=== PATIENT | male | born 1935 | race Caucasian/White ===

== ENCOUNTER 2017-01-23 21:58 | Emergency (ER) | payer MEDICARE ==
--- NOTE | 2017-01-23 22:06 | ER Document Report ---
ED Medical Screen (RME) - General Stated Complaint: POSSIBLE STROKE Notes: 82 yo male with hx/o DM, COPD brought to ED by family for confusion, slurred speech, off balance. last seen normal around 6 pm tonight. + n/v earlier today. PCM - Dr Cochran no fall, no blood thinners TRAVEL OUTSIDE OF THE [place] IN LAST 30 DAYS: No - Related Data Allergies/Adverse Reactions: No Known Allergies Allergy (Unverified 06/03/11 01:09) Past Medical History - Past Medical History Cardiac Medical History: Reports: Hx Hypercholesterolemia, Hx Hypertension Pulmonary Medical History: Reports: Hx COPD Endocrine Medical History: Reports: Hx Diabetes Mellitus Type 2 Malignancy Medical History: Reports Hx Pancreatic Cancer GI Medical History: Reports: Hx Gastroesophageal Reflux Disease, Hx Ulcer Traumatic Medical History: Reports: Hx Pneumothorax - three times Past Surgical History: Reports: Hx Inguinal Hernia - Immunizations Hx Diphtheria, Pertussis, Tetanus Vaccination: Yes
[2017-01-23 22:36] LABS: ABSOLUTE BASOPHILS # (AUTO) 0.1 10^3/uL (0.0-0.2); ABSOLUTE LYMPHOCYTES (AUTO) 1.5 10^3/uL (0.5-4.7); ABSOLUTE MONOCYTES (AUTO) 1.4 10^3/uL (0.1-1.4); ABSOLUTE NEUT (AUTO) 8.2 10^3/uL (1.7-8.2); BASOPHILS % (AUTO) 0.5 % (0-2); EOSINOPHILS % (AUTO) 0.3 % (0-6); HEMATOCRIT 47.3 % (37.9-51.0); HEMOGLOBIN 15.7 g/dL (13.5-17.0); HGB HCT DIFFERENCE -0.2; LYMPHOCYTES % (AUTO) 13.6 % (13-45); MEAN CORPUSCULAR HEMOGLOBIN 28.1 pg (27.0-33.4); MEAN CORPUSCULAR HGB CONC 33.2 g/dL (32.0-36.0); MEAN CORPUSCULAR VOLUME 85 fl (80-97); MONOCYTES % (AUTO) 12.5 % (3-13); RED CELL DISTRIBUTION WIDTH 15.6 % (11.5-14.0); SEGMENTED NEUTROPHILS % (AUTO) 73.1 % (42-78); WHITE BLOOD COUNT 11.2 10^3/uL (4.0-10.5)
[2017-01-23 22:39] LABS: PARTIAL THROMBOPLASTIN TIME 27.4 SEC (23.5-35.8)
[2017-01-23 22:48] LABS: ALANINE AMINOTRANSFERASE 35 U/L (21-72); ALBUMIN 4.9 g/dL (3.5-5.0); ALKALINE PHOSPHATASE 79 U/L (38-126); ANION GAP 16 (5-19); ASPARTATE AMINO TRANSFERASE 28 U/L (17-59); BILIRUBIN,DIRECT 0.3 mg/dL (0.0-0.4); BILIRUBIN,TOTAL 1.3 mg/dL (0.2-1.3); BLOOD UREA NITROGEN 21 mg/dL (7-20); CARBON DIOXIDE 31 mmol/L (22-30); CHLORIDE 95 mmol/L (98-107); CREATINE KINASE 41 U/L (55-170); CREATININE RESULT 1.13 mg/dL (0.52-1.25); GLUCOSE 310 mg/dL (75-110); POTASSIUM 4.8 mmol/L (3.6-5.0); SODIUM 141.7 mmol/L (137-145); TOTAL PROTEIN 8.1 g/dL (6.3-8.2)
[2017-01-23 23:00] LABS: TROPONIN I < 0.012 ng/mL
[2017-01-23 23:04] LABS: CALCIUM 13.1 mg/dL (8.4-10.2)
[2017-01-23] MEDS ORDERED: NORMAL SALINE 1000 ML 1,000 ML IV PRN (23:14)
--- NOTE | 2017-01-23 23:14 | ER Document Report ---
ED General - General Chief Complaint: S/S of Possible Stroke Stated Complaint: POSSIBLE STROKE Notes: Patient is an 82-year-old male who presents emergency Department with reported altered mental status. Per patient and his girlfriend who is present in the room patient woke up this morning and reports one episode of emesis that was dark brown but no evidence of coffee-ground emesis. Has had normal bowel movements a day but otherwise has not been feeling his normal self. His girlfriend states as well as his son that he had difficulty getting in and out of his chair today and otherwise has been feeling groggy. His girlfriend feels that he has been in a fog since about 8 PM this evening. Was able to get into the car and ambulated into the department. Otherwise denies any fever, chills, URI, flu symptoms. Patient has been tolerating normal diet without any difficulty. Denies abdominal pain, nausea, diarrhea or constipation. Denies any urinary symptoms. Primary care is Dr. Villalobos Past medical history significant for COPD not on supplemental O2, diabetes, diverticulitis, history of prostate cancer has been cancer free for 5 years, history of pneumothorax requiring VATS Past surgical history significant for right VATS, bilateral hernia repair Social history significant for former smoker. Denies any drug use. Rare alcohol use. Mode denies any allergies TRAVEL OUTSIDE OF THE [place] IN LAST 30 DAYS: No - Related Data Allergies/Adverse Reactions: No Known Allergies Allergy (Unverified 06/03/11 01:09) Home Medications: Current Home Medications Ca/D3/Mag Ox/Zinc/Help Desk Internship/Quoc/Bor [Calcium 600+D3 Plus Caplet] 1 tab-cap PO DAILY 01/23/17 [History] Cholecalciferol (Vitamin D3) [Vitamin D3 400 Unit Tablet] 400 unit PO DAILY [History] Fluticasone/Vilanterol [Breo Ellipta 200-25 Mcg INH] 1 each IH DAILY 01/23/17 [ History] Linagliptin [Tradjenta] 5 mg PO DAILY 01/23/17 [History] Melatonin/Pyridoxine HCl (B6) [Melatonin 10 mg Tablet] 1 each PO QHS 01/23/17 [ History] Metformin HCl [Glucophage] 1,000 mg PO BID 01/23/17 [History] Multivitamin [Multivitamins] 1 each PO DAILY 01/23/17 [History] Sertraline HCl [Zoloft 50 mg Tablet] 50 mg PO DAILY 01/23/17 [History] Tiotropium [place] [Spiriva Respimat] 4 gm IH BIDP PRN 01/23/17 [History] Vit C/E/Zn/Coppr/Lutein/Zeaxan [Preservision Areds 2 Softgel] 1 each PO DAILY [History] Past Medical History - Social History Smoking Status: Former Smoker Chew tobacco use (# tins/day): No Frequency of alcohol use: None Drug Abuse: None Family History: Reviewed & Not Pertinent Patient has suicidal ideation: No Patient has homicidal ideation: No - Past Medical History Cardiac Medical History: Reports: Hx Hypercholesterolemia, Hx Hypertension Pulmonary Medical History: Reports: Hx COPD Endocrine Medical History: Reports: Hx Diabetes Mellitus Type 2 Renal/ Medical History: Denies: Hx Peritoneal Dialysis Malignancy Medical History: Reports Hx Pancreatic Cancer GI Medical History: Reports: Hx Gastroesophageal Reflux Disease, Hx Ulcer Traumatic Medical History: Reports: Hx Pneumothorax - three times Past Surgical History: Reports: Hx Inguinal Hernia - Immunizations Hx Diphtheria, Pertussis, Tetanus Vaccination: Yes Review of Systems - Review of Systems Constitutional: No symptoms reported EENT: No symptoms reported Cardiovascular: No symptoms reported Respiratory: No symptoms reported Gastrointestinal: See HPI Genitourinary: No symptoms reported Male Genitourinary: No symptoms reported Musculoskeletal: No symptoms reported Skin: No symptoms reported Hematologic/Lymphatic: No symptoms reported Neurological/Psychological: See HPI Physical Exam - Vital signs Vitals: Temp Pulse BP Pulse Ox 97.7 F 139 H 119/75 92 01/23/17 22:04 01/23/17 22:04 01/23/17 22:04 01/23/17 22:04 - General General appearance: Appears well, Alert In distress: None - HEENT Head: Normocephalic, Atraumatic Eyes: Normal Conjunctiva: Normal Extraocular movements intact: Yes Eyelashes: Normal Pupils: PERRL Ears: Normal External canal: Normal Tympanic membrane: Normal Sinus: Normal Nasal: Normal Mouth/Lips: Normal, Other - tongue midline, no deviation Mucous membranes: Normal Pharynx: Normal Neck: Normal - Respiratory Respiratory status: No respiratory distress Chest status: Nontender Breath sounds: Normal Chest palpation: Normal - Cardiovascular Rhythm: Tachycardia Heart sounds: Normal auscultation Murmur: No Gallop: None auscultated Pulses: Normal: Radial, Dorsalis pedis Normal capillary refill: Yes - Abdominal Inspection: Obese Distension: Distended. No: Tympanitic Bowel sounds: Normal Tenderness: Nontender Organomegaly: No organomegaly - Back Back: Normal, Nontender - Extremities General upper extremity: Normal inspection, Nontender, Normal color, Normal ROM , Normal strength, Normal temperature General lower extremity: Normal inspection, Nontender, Normal color, Normal ROM , Normal strength, Normal temperature - Neurological Neuro grossly intact: Yes Cognition: Normal Orientation: AAOx4 Rosemary Coma Scale Eye Opening: Spontaneous Rosemary Coma Scale Verbal: Oriented Rosemary Coma Scale Motor: Obeys Commands [place] Coma Scale Total: 15 Speech: Normal. No: Dysarthria Cranial nerves: Normal. 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 No: Pronator drift, Weakness Sensory: Normal - Skin Skin Temperature: Warm Skin Moisture: Dry Skin Color: Normal Skin Turgor: Elastic Course - Re-evaluation Re-evalutation: 01/24/17 02:09 Patient is an 82-year-old male who is brought here by EMS with concern to the family for altered mental status. Currently patient is alert and oriented 4, no acute distress, here in stable and afebrile. Stroke protocol was initiated by nursing staff. CT the head does not reveal any evidence of acute stroke or any acute abnormality. Lab values are all within normal limits. No evidence of leukocytosis or anemia CBC. No evidence of electrolyte abnormalities, pancreatic/renal/hepatic dysfunction. UA does not reveal any evidence of a urinary tract infection. Chest x-ray does not reveal any evidence or concern for pneumonia or other acute cardiac pulmonary process. Due to patient's history of diverticulitis, emesis as well as elevated heart rate, I consulted supervising physician Dr. Demetri Evans who recommended a CT the abdomen and pelvis. This study did not reveal any acute pathology. At time of reassessment patient's heart rate has come down to mid 90s. Patient is denying any pain. Stable for discharge and follow-up with primary care Per [facility] protocol and guidelines, this case was discussed with supervising physician Dr. Demetri Evans prior to discharge - Vital Signs Vital signs: Temp Pulse Resp BP Pulse Ox 97.7 F 94 21 H 154/93 H 94 01/23/17 22:04 01/24/17 00:00 01/24/17 00:01 01/24/17 00:00 01/24/17 00:01 - Laboratory Result Diagrams: 01/23/17 22:20 01/23/17 22:20 Laboratory results interpreted by me: 01/23/17 01/23/17 01/23/17 22:20 22:20 22:35 WBC 11.2 H RBC 5.60 H RDW 15.6 H Chloride 95 L Carbon Dioxide 31 H BUN 21 H Glucose 310 H POC Glucose 301 H Calcium 13.1 H* Creatine Kinase 41 L Urine Glucose (UA) 01/23/17 23:30 WBC RBC RDW Chloride Carbon Dioxide BUN Glucose POC Glucose Calcium Creatine Kinase Urine Glucose (UA) >=500 H - Diagnostic Test Radiology reviewed: Image reviewed, Reports reviewed Discharge - Discharge Clinical Impression: Altered mental status Condition: Good Disposition: HOME, SELF-CARE Instructions: Altered Mental Status ([facility]) Forms: Elevated Blood Pressure Referrals: GWENDOLYN VILLALOBOS MD [Primary Care Provider] - Follow up in 1 week
[2017-01-24 00:37] LABS: APPEARANCE,URINE CLEAR; BILIRUBIN,URINE NEGATIVE (NEGATIVE); GLUCOSE, URINE >=500 mg/dL (NEGATIVE); KETONES,URINE NEGATIVE (NEGATIVE); LEUKOCYTE ESTERASE,URINE NEGATIVE (NEGATIVE); NITRITE,URINE NEGATIVE (NEGATIVE); PROTEIN,URINE NEGATIVE (NEGATIVE); URINE SPECIFIC GRAVITY 1.015; UROBILINOGEN,URINE NEGATIVE mg/dL (<2.0)
[2017-01-24 02:25] VITALS: BP 137/75
--- NOTE | 2017-01-24 08:18 | EKG REPORT ---
SEVERITY:- ABNORMAL ECG - SINUS TACHYCARDIA NONSPECIFIC REPOL ABNORMALITY, DIFFUSE LEADS : Confirmed by: Hunter Ruff 24-Jan-2017 08:17:20
== END 2017-01-24 02:26 | disposition home or self-care (01) ==
LOC: ER 21:58
DX: R41.82 Altered mental status, unspecified (principal); Z79.899 Other long term (current) drug therapy; Z87.891 Personal history of nicotine dependence
CPT/HCPCS: 93005; 99285; 96360; 36415; 82553; 82962; 82550; 85025; 85610; 85730; 80053; 81001; 84484; 71010; 70450; 74177; 93010; J7030

== ENCOUNTER 2017-01-24 12:51 | Inpatient (IN) | payer MEDICARE ==
--- NOTE | 2017-01-24 13:16 | ER Document Report ---
ED Medical Screen (RME) - General Stated Complaint: ALTERED MENTAL STATUS Time seen by provider: 13:13 Mode of Arrival: Wheelchair Information source: POA - Power of [employer] Administrator - His significant other who has his power of trial attorney. Notes: 82-year-old male presents to ED with disorientation weakness trouble walking started yesterday. His significant other states that they came to the emergency room last night and was evaluated and discharged. She states that the doctor called her today and told him that he wanted the patient brought back to the emergency room and for the patient to be admitted. House supervise states there were no orders sent over for admission for the patient. His significant other states that he had a heated CT abdomen CT and labs done yesterday as well as a chest x-ray. I have greeted and performed a rapid initial assessment of this patient. A comprehensive ED assessment and evaluation of the patient, analysis of test results and completion of medical decision making process will be conducted by an additional ED providers. TRAVEL OUTSIDE OF THE [place] IN LAST 30 DAYS: No - Related Data Allergies/Adverse Reactions: No Known Allergies Allergy (Verified 01/24/17 13:12) Past Medical History - Past Medical History Cardiac Medical History: Reports: Hx Hypercholesterolemia, Hx Hypertension Pulmonary Medical History: Reports: Hx COPD Endocrine Medical History: Reports: Hx Diabetes Mellitus Type 2 Renal/ Medical History: Denies: Hx Peritoneal Dialysis Malignancy Medical History: Reports Hx Pancreatic Cancer GI Medical History: Reports: Hx Gastroesophageal Reflux Disease, Hx Ulcer Traumatic Medical History: Reports: Hx Pneumothorax - three times Past Surgical History: Reports: Hx Inguinal Hernia - Immunizations Hx Diphtheria, Pertussis, Tetanus Vaccination: Yes Physical Exam - Vital signs Vitals: Temp Pulse Resp BP Pulse Ox 98.2 F 105 H 15 137/77 H 90 L 01/24/17 13:07 01/24/17 13:07 01/24/17 13:07 01/24/17 13:07 01/24/17 13:07 Course - Vital Signs Vital signs: Temp Pulse Resp BP Pulse Ox 98.2 F 105 H 15 137/77 H 90 L 01/24/17 13:07 01/24/17 13:07 01/24/17 13:07 01/24/17 13:07 01/24/17 13:07
[2017-01-24 13:56] LABS: ABSOLUTE LYMPHOCYTES (AUTO) 1.3 10^3/uL (0.5-4.7); ABSOLUTE NEUT (AUTO) 6.5 10^3/uL (1.7-8.2); BASOPHILS % (AUTO) 0.2 % (0-2); EOSINOPHILS % (AUTO) 0.4 % (0-6); HEMATOCRIT 44.3 % (37.9-51.0); HEMOGLOBIN 14.6 g/dL (13.5-17.0); HGB HCT DIFFERENCE -0.5; LYMPHOCYTES % (AUTO) 14.2 % (13-45); MEAN CORPUSCULAR VOLUME 85 fl (80-97); MONOCYTES % (AUTO) 11.2 % (3-13); RED BLOOD COUNT 5.21 10^6/uL (4.35-5.55); RED CELL DISTRIBUTION WIDTH 15.8 % (11.5-14.0); WHITE BLOOD COUNT 8.8 10^3/uL (4.0-10.5)
[2017-01-24 14:27] LABS: ALANINE AMINOTRANSFERASE 38 U/L (21-72); ALBUMIN 4.4 g/dL (3.5-5.0); ALKALINE PHOSPHATASE 74 U/L (38-126); ANION GAP 16 (5-19); ASPARTATE AMINO TRANSFERASE 27 U/L (17-59); BILIRUBIN,DIRECT 0.4 mg/dL (0.0-0.4); BILIRUBIN,TOTAL 0.9 mg/dL (0.2-1.3); BLOOD UREA NITROGEN 19 mg/dL (7-20); CARBON DIOXIDE 27 mmol/L (22-30); CHLORIDE 101 mmol/L (98-107); CREATINE KINASE 58 U/L (55-170); CREATININE RESULT 0.86 mg/dL (0.52-1.25); GLUCOSE 191 mg/dL (75-110); LIPASE 94.5 U/L (23-300); POTASSIUM 4.7 mmol/L (3.6-5.0); SODIUM 143.5 mmol/L (137-145); TOTAL PROTEIN 7.6 g/dL (6.3-8.2)
[2017-01-24 14:37] LABS: CALCIUM 12.1 mg/dL (8.4-10.2)
[2017-01-24 14:39] LABS: CREATINE KINASE MB 1.09 ng/mL (<4.55)
[2017-01-24 14:41] LABS: TROPONIN I < 0.012 ng/mL
--- NOTE | 2017-01-24 14:43 | ER Document Report ---
ED General - General Chief Complaint: Altered Mental Status Stated Complaint: ALTERED MENTAL STATUS Mode of Arrival: Wheelchair Information source: Patient Notes: 82-year-old male history of prostate cancer presents with with concerns of weakness confusion since yesterday. Patient does not remember but he cooked, does not speak coherently to his . Patient denies any complaints at this time. Patient was seen here yesterday and discharged with a calcium of 13.2 TRAVEL OUTSIDE OF THE [place] IN LAST 30 DAYS: No - HPI Onset: Yesterday Onset/Duration: Persistent Quality of pain: No pain Severity: Mild Pain Level: Denies Associated symptoms: Weakness Exacerbated by: Denies Relieved by: Denies Similar symptoms previously: Yes Recently seen / treated by doctor: Yes - Related Data Allergies/Adverse Reactions: No Known Allergies Allergy (Verified 01/24/17 13:12) Past Medical History - General Information source: POA - Power of Media Services Director - His significant other who has his power of set off press operator. - Social History Smoking Status: Former Smoker Cigarette use (# per day): No Chew tobacco use (# tins/day): No Smoking Education Provided: No Frequency of alcohol use: None Drug Abuse: None Family History: Reviewed & Not Pertinent Patient has suicidal ideation: No Patient has homicidal ideation: No - Past Medical History Cardiac Medical History: Reports: Hx Hypercholesterolemia, Hx Hypertension Pulmonary Medical History: Reports: Hx COPD Endocrine Medical History: Reports: Hx Diabetes Mellitus Type 2 Renal/ Medical History: Denies: Hx Peritoneal Dialysis Malignancy Medical History: Reports Hx Pancreatic Cancer GI Medical History: Reports: Hx Gastroesophageal Reflux Disease, Hx Ulcer Traumatic Medical History: Reports: Hx Pneumothorax - three times Past Surgical History: Reports: Hx Inguinal Hernia - Immunizations Hx Diphtheria, Pertussis, Tetanus Vaccination: Yes Review of Systems - Review of Systems Notes: REVIEW OF SYSTEMS: CONSTITUTIONAL : Denies fever, chills, or sweats. Denies recent illness. EENT: Denies eye, ear, throat, or mouth pain or symptoms. Denies nasal or sinus congestion or discharge. Denies throat, tongue, or mouth swelling or difficulty swallowing. CARDIOVASCULAR: Denies chest pain. Denies palpitations or racing or irregular heart beat. Denies ankle edema. RESPIRATORY: Denies cough, cold, or chest congestion. Denies shortness of breath, difficulty breathing, or wheezing. GASTROINTESTINAL: Denies abdominal pain or distention. Denies nausea, vomiting , or diarrhea. Denies blood in vomitus, stools, or per rectum. Denies black, tarry stools. Denies constipation. GENITOURINARY: Denies difficulty urinating, painful urination, burning, frequency, blood in urine, or discharge. FEMALE GENITOURINARY: Denies vaginal bleeding, heavy or abnormal periods, irregular periods. Denies vaginal discharge or odor. MUSCULOSKELETAL: Denies back or neck pain or stiffness. Denies joint pain or swelling. SKIN: Denies rash, lesions or sores. HEMATOLOGIC : Denies easy bruising or bleeding. LYMPHATIC: Denies swollen, enlarged glands. NEUROLOGICAL: Admits weakness dizziness PSYCHIATRIC: Denies anxiety or stress. Denies depression, suicidal ideation, or homicidal ideation. ALL OTHER SYSTEMS REVIEWED AND NEGATIVE. Dictation was performed using [employer] voice recognition software PHYSICAL EXAMINATION: GENERAL: Well-appearing, well-nourished and in no acute distress. HEAD: Atraumatic, normocephalic. EYES: Pupils equal round and reactive to light, extraocular movements intact, conjunctiva are normal. ENT: Nares patent, oropharynx clear without exudates. Moist mucous membranes. NECK: Normal range of motion, supple without lymphadenopathy LUNGS: Breath sounds clear to auscultation bilaterally and equal. No wheezes rales or rhonchi. HEART: Regular rate and rhythm without murmurs ABDOMEN: Soft, nontender, nondistended abdomen. No guarding, no rebound. No masses appreciated. Female : deferred Musculoskeletal: Normal range of motion, no pitting or edema. No cyanosis. NEUROLOGICAL: Cranial nerves grossly intact. Normal speech, normal gait. Generalized weakness PSYCH: Normal mood, normal affect. SKIN: Warm, Dry, normal turgor, no rashes or lesions noted. Physical Exam - Vital signs Vitals: Temp Pulse Resp BP Pulse Ox 98.2 F 105 H 15 137/77 H 90 L 01/24/17 13:07 01/24/17 13:07 01/24/17 13:07 01/24/17 13:07 01/24/17 13:07 Course - Re-evaluation Re-evalutation: 01/24/17 14:43 Dr guille villa he will admit the patient to his service we will hydrate for hypercalcemia 01/24/17 14:53 - Vital Signs Vital signs: Temp Pulse Resp BP Pulse Ox 98.2 F 105 H 15 137/77 H 90 L 01/24/17 13:07 01/24/17 13:07 01/24/17 13:07 01/24/17 13:07 01/24/17 13:07 - Laboratory Result Diagrams: 01/24/17 13:30 01/24/17 13:30 Laboratory results interpreted by me: 01/24/17 01/24/17 13:30 13:30 RDW 15.8 H Glucose 191 H Calcium 12.1 H* - Diagnostic Test Radiology reviewed: Image reviewed, Reports reviewed Critical Care Note - Critical Care Note Total time excluding time spent on procedures (mins): 31 Comments: 31 minutes of critical care time spent in direct contact evaluating and reevaluating the patient, treating symptoms, reviewing labs and studies and speaking with family and consultants excluding any procedures Discharge - Discharge Clinical Impression: Hypercalcemia, Weakness Altered mental status Qualifiers: Altered mental status type: unspecified Qualified Code(s): R41.82 - Altered mental status, unspecified Condition: Stable Disposition: ADMITTED INPATIENT Admitting Provider: [facility] Admitted: Telemetry
[2017-01-24] MEDS ORDERED: NORMAL SALINE 1000 ML 1,000 ML IV PRN (14:44)
[2017-01-24] MEDS ORDERED: GLUCAGON,HUMAN RECOMB 1 MG INJ IM PRN (20:43)
[2017-01-24] MEDS ORDERED: DEXTROSE 40% GEL 15 GM TUBE PO PRN ×2 (20:43)
[2017-01-24] MEDS ORDERED: DEXTROSE 50%-WATER 25 GM/50 ML DISP.SYRIN IV PRN ×2 (20:43)
--- NOTE | 2017-01-24 21:23 | PDOC H&P ---
History of Present Illness Admission Date/PCP: 01/24/17 15:20 Patient complains of: Confusion History of Present Illness: BRUCE KNOTT is a 82 year old male known to my practice who was evaluated at the ED for confusion on 01/23/2017. His evaluation was significant for hypercalcemia with serum calcium level of 13.2mg/dL. His CT scan of head, abdomen and pelvis were unrevealing except for mild chronic changes of atrophy and microvascular ischemia. He was subsequently discharged home. Family reported persistence of symptom resulting to return to the ED for further evaluation and management. Family reported that his confusional state stated about 6pm on 01/23/17. He denied any chest pain, associated palpitation, diaphoresis or difficulty with breathing. Family reported associated weakness and difficulty with walking. His live-in girlfriend did reported excessive consumption of TUMS for reported indigestion. There was reported episode of nausea and vomiting on 01/23/17 without recurrent episode. Past Medical History Cardiac Medical History: Reports: Hyperlipidema, Hypertension Pulmonary Medical History: Reports: Chronic Obstructive Pulmonary Disease (COPD) Endocrine Medical History: Reports: Diabetes Mellitus Type 2 Malignancy Medical History: Reports: Pancreatic Cancer GI Medical History: Reports: Gastroesophageal Reflux Disease Traumatic Medical History: Reports: Pneumothorax - three times Social History Smoking Status: Former Smoker Family History Family History: Reviewed & Not Pertinent Parental Family History Reviewed: Yes Children Family History Reviewed: Yes Sibling(s) Family History Reviewed.: Yes Medication/Allergy Home Medications: Calcium Carbonate/Vitamin D3 [Calcium 600 + Vit D Tablet] 1 tab PO DAILY Cholecalciferol (Vitamin D3) [Vitamin D3 400 Unit Tablet] 400 unit PO DAILY Fluticasone/Vilanterol [Breo Ellipta 200-25 Mcg INH] 1 each IH DAILY 01/24/17 Linagliptin [Tradjenta] 5 mg PO DAILY 01/24/17 Melatonin 10 mg PO QHS 01/24/17 Metformin HCl [Glucophage] 1,000 mg PO BID 01/24/17 Vit/Iron Fumarate/FA [ Tablet] 1 tab PO DAILY 01/24/17 Sertraline HCl [Zoloft 50 mg Tablet] 50 mg PO DAILY 01/24/17 Tiotropium [place] [Spiriva Respimat] 4 gm IH DAILY 01/24/17 Vit A/Vit C/Vit E/Zinc/Copper [Preservision Areds Tablet] 1 tab PO DAILY Allergies/Adverse Reactions: No Known Allergies Allergy (Verified 01/24/17 13:12) Review of Systems Constitutional: PRESENT: weakness. ABSENT: as per HPI, anorexia, chills, fatigue, fever(s), headache(s), night sweats, weight gain, weight loss, other Ears: PRESENT: hearing changes Nose, Mouth, and Throat: ABSENT: as per HPI, headache(s), mouth pain, sore throat, vertigo, other Cardiovascular: ABSENT: as per HPI, chest pain, dyspnea on exertion, edema, orthropnea, palpitations, other Respiratory: ABSENT: cough, hemoptysis Gastrointestinal: PRESENT: bloating, heartburn, nausea, vomiting. ABSENT: as per HPI, abdominal pain, coffee ground emesis, constipation, diarrhea, dysphagia , hematemesis, hematochezia, melena, other Genitourinary: ABSENT: dysuria, hematuria Musculoskeletal: ABSENT: joint swelling Integumentary: ABSENT: rash, wounds Neurological: PRESENT: confusion, weakness - generalized. ABSENT: as per HPI, abnormal gait, abnormal movements, abnormal speech, convulsions, dizziness, focal weakness, frequent falls, lack of coordination, memory loss, numbness, paresthesias, restless legs, syncope, tingling, tremor(s), vertigo, other Psychiatric: ABSENT: anxiety, depression, homidical ideation, suicidal ideation Endocrine: ABSENT: cold intolerance, heat intolerance, polydipsia, polyuria Hematologic/Lymphatic: ABSENT: easy bleeding, easy bruising, lymphadenopathy Allergic/Immunologic: ABSENT: as per HPI, seasonal rhinorrhea, other Physical Exam Vital Signs: Temp Pulse Resp BP Pulse Ox 97.9 F 92 21 H 141/65 H 97 01/24/17 18:00 01/24/17 18:00 01/24/17 19:00 01/24/17 18:00 01/24/17 19:00 General appearance: PRESENT: no acute distress, well-developed, well-nourished Head exam: PRESENT: atraumatic, normocephalic Eye exam: PRESENT: conjunctiva pink, EOMI, PERRLA. ABSENT: scleral icterus Ear exam: PRESENT: normal external ear exam Mouth exam: PRESENT: moist, tongue midline Throat exam: ABSENT: post pharyngeal erythema, tonsillar erythema, tonsillar exudate, tonsillogmegaly, other Neck exam: PRESENT: full ROM. ABSENT: carotid bruit, JVD, lymphadenopathy, thyromegaly Respiratory exam: PRESENT: clear to auscultation boris Cardiovascular exam: PRESENT: RRR. ABSENT: diastolic murmur, rubs, systolic murmur Pulses: PRESENT: normal dorsalis pedis pul, +2 pedal pulses bilateral Vascular exam: PRESENT: normal capillary refill GI/Abdominal exam: PRESENT: normal bowel sounds, soft. 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 ABSENT: motor sensory deficit Psychiatric exam: PRESENT: appropriate affect, normal mood. ABSENT: homicidal ideation, suicidal ideation Skin exam: PRESENT: dry, intact, warm. ABSENT: cyanosis, rash Results Laboratory Results: I reviewed patient's labresults of 01/23/2017 and 01/24/2017. These made a significant part of my medical decision making. 01/24/17 19:45 Ionized Calcium [place] 1.36 H Assessment & Plan - Diagnosis (1) Uncontrolled type 2 diabetes mellitus Qualifiers: Diabetes mellitus complication status: with hyperglycemia Diabetes mellitus chcf insulin use: without watermelon harvesting supervisor use Qualified Code(s): E11.65 - Type 2 diabetes mellitus with hyperglycemia Is this a current diagnosis for this admission?: YesPlan: See admitting physician orders. (2) HTN (hypertension) Qualifiers: Hypertension type: essential hypertension Qualified Code(s): I10 - Essential (primary) hypertension Is this a current diagnosis for this admission?: YesPlan: See admitting physician orders. (3) HLD (hyperlipidemia) Qualifiers: Hyperlipidemia type: pure hypercholesterolemia Qualified Code(s): E78.00 - Pure hypercholesterolemia, unspecified; E78.0 - Pure hypercholesterolemia Is this a current diagnosis for this admission?: YesPlan: See admitting physician orders. (4) Old myocardial infarction Is this a current diagnosis for this admission?: YesPlan: See admitting physician orders. (5) GERD (gastroesophageal reflux disease) Qualifiers: Esophagitis presence: without esophagitis Qualified Code(s): K21.9 - Gastro-esophageal reflux disease without esophagitis Is this a current diagnosis for this admission?: YesPlan: See admitting physician orders. (6) Altered mental status Qualifiers: Altered mental status type: unspecified Qualified Code(s): R41.82 - Altered mental status, unspecified Is this a current diagnosis for this admission?: YesPlan: See admitting physician orders. (7) Generalized weakness Is this a current diagnosis for this admission?: YesPlan: See admitting physician orders. (8) Hypercalcemia Is this a current diagnosis for this admission?: YesPlan: See admitting physician orders. (9) COPD (chronic obstructive pulmonary disease) Qualifiers: COPD type: emphysema Emphysema type: unspecified Qualified Code( s): J43.9 - Emphysema, unspecified Is this a current diagnosis for this admission?: YesPlan: See admitting physician orders. - Time Time Spent: 50 to 70 Minutes Medications reviewed and adjusted accordingly: Yes Anticipated discharge: Home Within: Other - Inpatient Certification Medical Necessity: Need Close Monitoring Due to Risk of Patient Decompensation, Need For IV Fluids, Need For Continuous Telemetry Monitoring, Risk of Complication if Not Cared For in Hospital Post Hospital Care: D/C Ingot Weigher Documentation - Plan Summary Plan Summary: See admitting physician orders.
[2017-01-24 21:30] LABS: APPEARANCE,URINE CLEAR; BILIRUBIN,URINE NEGATIVE (NEGATIVE); GLUCOSE, URINE 50 mg/dL (NEGATIVE); KETONES,URINE NEGATIVE (NEGATIVE); LEUKOCYTE ESTERASE,URINE NEGATIVE (NEGATIVE); NITRITE,URINE NEGATIVE (NEGATIVE); PROTEIN,URINE NEGATIVE (NEGATIVE); URINE SPECIFIC GRAVITY 1.014; UROBILINOGEN,URINE NEGATIVE mg/dL (<2.0)
[2017-01-24] MEDS ORDERED: (PENDING PHARMACY ID) (Melatonin [Melatonin] 10 MG) PO SCH (22:00)
[2017-01-24 22:10] LABS: PARTIAL THROMBOPLASTIN TIME 27.6 SEC (23.5-35.8); PROTHROMBIN TIME 12.4 SEC (11.4-15.4)
[2017-01-24] MEDS: INSULIN LISPRO 100 UNIT/ML 3 ML VIAL SUBCUT PRN (23:34)
[2017-01-24] MEDS: NORMAL SALINE 1000 ML 1,000 ML IV PRN (23:34)
[2017-01-25 04:36] LABS: ABSOLUTE EOSINOPHILS # (AUTO) 0.1 10^3/uL (0.0-0.6); ABSOLUTE LYMPHOCYTES (AUTO) 1.2 10^3/uL (0.5-4.7); ABSOLUTE MONOCYTES (AUTO) 0.8 10^3/uL (0.1-1.4); ABSOLUTE NEUT (AUTO) 5.6 10^3/uL (1.7-8.2); BASOPHILS % (AUTO) 0.3 % (0-2); EOSINOPHILS % (AUTO) 0.9 % (0-6); HEMATOCRIT 38.1 % (37.9-51.0); HEMOGLOBIN 12.8 g/dL (13.5-17.0); HGB HCT DIFFERENCE 0.3; LYMPHOCYTES % (AUTO) 16.2 % (13-45); MEAN CORPUSCULAR HEMOGLOBIN 28.5 pg (27.0-33.4); MEAN CORPUSCULAR HGB CONC 33.7 g/dL (32.0-36.0); MEAN CORPUSCULAR VOLUME 85 fl (80-97); MONOCYTES % (AUTO) 10.2 % (3-13); RED CELL DISTRIBUTION WIDTH 15.7 % (11.5-14.0); SEGMENTED NEUTROPHILS % (AUTO) 72.4 % (42-78); WHITE BLOOD COUNT 7.7 10^3/uL (4.0-10.5)
[2017-01-25 04:59] LABS: ALANINE AMINOTRANSFERASE 31 U/L (21-72); ALBUMIN 3.6 g/dL (3.5-5.0); ALKALINE PHOSPHATASE 62 U/L (38-126); ANION GAP 11 (5-19); ASPARTATE AMINO TRANSFERASE 24 U/L (17-59); BILIRUBIN,DIRECT 0.3 mg/dL (0.0-0.4); BILIRUBIN,TOTAL 0.7 mg/dL (0.2-1.3); BLOOD UREA NITROGEN 16 mg/dL (7-20); CARBON DIOXIDE 28 mmol/L (22-30); CHLORIDE 102 mmol/L (98-107); CREATININE RESULT 0.91 mg/dL (0.52-1.25); GLUCOSE 241 mg/dL (75-110); POTASSIUM 4.3 mmol/L (3.6-5.0); SODIUM 141.4 mmol/L (137-145); TOTAL PROTEIN 6.2 g/dL (6.3-8.2)
[2017-01-25 05:01] LABS: CALCIUM 10.3 mg/dL (8.4-10.2)
[2017-01-25] MEDS: LANSOPRAZOLE 30 MG TAB.RAP.DR PO SCH (05:21)
[2017-01-25] MEDS: NORMAL SALINE 1000 ML 1,000 ML IV PRN ×2 (07:05→17:55)
[2017-01-25] MEDS: ENOXAPARIN SODIUM INJ 40 MG/0.4 ML DISP.SYRIN SUBCUT SCH (08:18)
[2017-01-25] MEDS: METFORMIN HCL 500 MG TABLET PO SCH ×2 (08:20→17:57)
[2017-01-25] MEDS ORDERED: COPPER PO SCH ×2 (10:00→18:41)
[2017-01-25] MEDS ORDERED: (PENDING PHARMACY ID) (Fluticasone/Vilanterol [Breo Ellipta 200-25 Mcg Inh] 1 EACH) IH SCH ×2 (10:00→18:41)
[2017-01-25] MEDS ORDERED: VIT A PO SCH ×2 (10:00→18:41)
[2017-01-25] MEDS ORDERED: (PENDING PHARMACY ID) (Prenatal Vit/Iron Fumarate/Fa [Prenatal Tablet] 1 TAB) PO SCH (10:00)
[2017-01-25] MEDS ORDERED: VIT C PO SCH ×2 (10:00→18:41)
[2017-01-25] MEDS ORDERED: ZINC PO SCH ×2 (10:00→18:41)
[2017-01-25] MEDS ORDERED: (PENDING PHARMACY ID) (Linagliptin [Tradjenta] 5 MG) PO SCH (10:00)
[2017-01-25] MEDS ORDERED: (PENDING PHARMACY ID) (Tiotropium Bromide [Spiriva Respimat] 4 GM) IH SCH ×2 (10:00→18:45)
[2017-01-25] MEDS ORDERED: VIT E PO SCH ×2 (10:00→18:41)
[2017-01-25] MEDS: SERTRALINE HCL 50 MG TABLET PO SCH (10:11)
[2017-01-25] MEDS: SITAGLIPTIN PHOSPHATE 50 MG TABLET PO SCH (10:12)
[2017-01-25] MEDS: PRENATAL VITAMIN W-O CA NO5/FE FUMARATE/FA CAPSULE PO SCH (10:15)
[2017-01-25] MEDS ORDERED: (PENDING PHARMACY ID) (Melatonin [Melatonin] 10 MG) PO SCH (18:41)
--- NOTE | 2017-01-25 18:48 | PDOC PROGRESS REPORT ---
Subjective Progress Note for:: 01/25/17 Subjective:: Patient continue to demonstrate episode of confusion as per nursing staff and girlfriend report. No chest pain. Baseline COPD related SOB due to lack of his medication since presentation. No abdominal pain, nausea or vomiting. Appetite and po intake remain fair. No headache or dizziness. Physical Exam Vital Signs: Temp Pulse Resp BP Pulse Ox 97.6 F 88 20 122/77 94 01/25/17 15:49 01/25/17 15:49 01/25/17 15:49 01/25/17 15:49 01/25/17 15:49 Intake & Output 01/24/17 01/25/17 01/26/17 06:59 06:59 06:59 Intake Total 1175 2051 Output Total 1100 Balance 1175 951 Weight 88.5 kg General appearance: PRESENT: no acute distress, cooperative Head exam: PRESENT: atraumatic, normocephalic Eye exam: PRESENT: conjunctiva pink, EOMI, PERRLA. ABSENT: scleral icterus Respiratory exam: PRESENT: clear to auscultation boris, decreased breath sounds Cardiovascular exam: PRESENT: RRR. ABSENT: diastolic murmur, rubs, systolic murmur GI/Abdominal exam: PRESENT: normal bowel sounds, soft. ABSENT: distended, guarding, mass, organolmegaly, rebound, tenderness Musculoskeletal exam: PRESENT: deformity - due to arthritis involvment of his joints Neurological exam: PRESENT: alert, awake, oriented to person, oriented to place , oriented to time Psychiatric exam: PRESENT: appropriate affect, normal mood. ABSENT: homicidal ideation, suicidal ideation Skin exam: PRESENT: dry, intact, warm. ABSENT: cyanosis, rash Results Laboratory Results: 01/25/17 03:57 01/25/17 03:57 01/24/17 01/25/17 01/25/17 21:00 03:57 03:57 WBC 7.7 RBC 4.50 Hgb 12.8 L Hct 38.1 MCV 85 MCH 28.5 MCHC 33.7 RDW 15.7 H Plt Count 167 Seg Neutrophils % 72.4 Lymphocytes % 16.2 Monocytes % 10.2 Eosinophils % 0.9 Basophils % 0.3 Absolute Neutrophils 5.6 Absolute Lymphocytes 1.2 Absolute Monocytes 0.8 Absolute Eosinophils 0.1 Absolute Basophils 0.0 Sodium 141.4 Potassium 4.3 Chloride 102 Carbon Dioxide 28 Anion Gap 11 BUN 16 Creatinine 0.91 Est GFR ( Amer) > 60 Est GFR (Non-Af Amer) > 60 Glucose 241 H Calcium 10.3 H Total Bilirubin 0.7 AST 24 ALT 31 Alkaline Phosphatase 62 Total Protein 6.2 L Albumin 3.6 Urine Color YELLOW Urine Appearance CLEAR Urine pH 5.0 Ur Specific [place] 1.014 Urine Protein NEGATIVE Urine Glucose (UA) 50 H Urine Ketones NEGATIVE Urine Blood NEGATIVE Urine Nitrite NEGATIVE Ur Leukocyte Esterase NEGATIVE Urine WBC (Auto) 3 Assessment & Plan - Diagnosis (1) Uncontrolled type 2 diabetes mellitus Qualifiers: Diabetes mellitus complication status: with hyperglycemia Diabetes mellitus skilled nursing insulin use: without ocean transportation intermediary use Qualified Code(s): E11.65 - Type 2 diabetes mellitus with hyperglycemia Is this a current diagnosis for this admission?: YesPlan: See attending physician orders. (2) HTN (hypertension) Qualifiers: Hypertension type: essential hypertension Qualified Code(s): I10 - Essential (primary) hypertension Is this a current diagnosis for this admission?: YesPlan: See attending physician orders. (3) HLD (hyperlipidemia) Qualifiers: Hyperlipidemia type: pure hypercholesterolemia Qualified Code(s): E78.00 - Pure hypercholesterolemia, unspecified; E78.0 - Pure hypercholesterolemia Is this a current diagnosis for this admission?: YesPlan: See attending physician orders. (4) Old myocardial infarction Is this a current diagnosis for this admission?: YesPlan: See attending physician orders. (5) GERD (gastroesophageal reflux disease) Qualifiers: Esophagitis presence: without esophagitis Qualified Code(s): K21.9 - Gastro-esophageal reflux disease without esophagitis Is this a current diagnosis for this admission?: YesPlan: See attending physician orders. (6) Altered mental status Qualifiers: Altered mental status type: unspecified Qualified Code(s): R41.82 - Altered mental status, unspecified Is this a current diagnosis for this admission?: YesPlan: See attending physician orders. (7) Generalized weakness Is this a current diagnosis for this admission?: YesPlan: See attending physician orders. (8) Hypercalcemia Is this a current diagnosis for this admission?: YesPlan: See attending physician orders. Continue IV fluid support and follow up on PTH level. 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 - Time Time Spent with patient: 25-34 minutes Medications reviewed and adjusted accordingly: Yes Within: Other - Inpatient Certification Based on my medical assessment, after consideration of the patient's comorbidities, presenting symptoms, or acuity I expect that the services needed warrant INPATIENT care.: Yes I certify that my determination is in accordance with my understanding of Medicare's requirements for reasonable and necessary INPATIENT services [42 CFR 412.3e].: Yes Medical Necessity: Need Close Monitoring Due to Risk of Patient Decompensation, Need For IV Fluids, Need For Continuous Telemetry Monitoring, Risk of Complication if Not Cared For in Hospital Post Hospital Care: D/C Art Museum Aide Documentation - Plan Summary Plan Summary: See attending physician orders.
[2017-01-25] MEDS ORDERED: THIAMINE HCL 100 MG TABLET PO ONE (19:00)
[2017-01-25] MEDS ORDERED: FOLIC ACID 1 MG TABLET PO ONE (19:00)
[2017-01-25] MEDS ORDERED: TIOTROPIUM BROMIDE DPI 5 CAP/KIT (18 MCG/CAP) IH ONE (19:30)
[2017-01-26] MEDS: NORMAL SALINE 1000 ML 1,000 ML IV PRN (05:45)
[2017-01-26] MEDS: LANSOPRAZOLE 30 MG TAB.RAP.DR PO SCH (05:45)
[2017-01-26] MEDS: THIAMINE HCL 100 MG TABLET PO SCH (09:18)
[2017-01-26] MEDS: METFORMIN HCL 500 MG TABLET PO SCH ×2 (09:18→17:54)
[2017-01-26] MEDS: FOLIC ACID 1 MG TABLET PO SCH (09:18)
[2017-01-26] MEDS: SITAGLIPTIN PHOSPHATE 50 MG TABLET PO SCH (09:18)
[2017-01-26] MEDS: SERTRALINE HCL 50 MG TABLET PO SCH (09:18)
[2017-01-26] MEDS: FLUTICASONE IH SCH (09:19)
[2017-01-26] MEDS: ENOXAPARIN SODIUM INJ 40 MG/0.4 ML DISP.SYRIN SUBCUT SCH (09:19)
[2017-01-26] MEDS: VILANTEROL IH SCH (09:19)
[2017-01-26] MEDS ORDERED: TIOTROPIUM BROMIDE DPI 5 CAP/KIT (18 MCG/CAP) IH SCH (10:00)
[2017-01-26] MEDS: PRENATAL VITAMIN W-O CA NO5/FE FUMARATE/FA CAPSULE PO SCH (10:50)
--- NOTE | 2017-01-26 15:32 | PDOC PROGRESS REPORT ---
Subjective Progress Note for:: 01/26/17 Subjective:: Patient was seen by the bedside, he was admitted for symptomatic hypercalcemia, patient on IV fluid therapy. The PTH is pending. Physical Exam Vital Signs: Temp Pulse Resp BP Pulse Ox 98.0 F 95 20 124/69 94 01/26/17 11:17 01/26/17 14:00 01/26/17 11:17 01/26/17 11:17 01/26/17 11:17 Intake & Output 01/25/17 01/26/17 01/27/17 06:59 06:59 06:59 Intake Total 1175 3901 336 Output Total 2575 920 Balance 1175 1326 -584 Weight 88.5 kg 88.7 kg General appearance: PRESENT: no acute distress Eye exam: PRESENT: PERRLA Respiratory exam: PRESENT: clear to auscultation boris Cardiovascular exam: PRESENT: +S1, +S2 GI/Abdominal exam: PRESENT: soft Neurological exam: PRESENT: alert, CN II-XII grossly intact Results Laboratory Results: 01/25/17 03:57 Assessment & Plan - Diagnosis (1) Hypercalcemia Is this a current diagnosis for this admission?: YesPlan: Patient will continue IV fluids, will continue PTH monitoring (2) Metabolic encephalopathy Is this a current diagnosis for this admission?: Yes
[2017-01-26 15:36] LABS: BLOOD UREA NITROGEN 17 mg/dL (7-20); CALCIUM 10.5 mg/dL (8.4-10.2); CARBON DIOXIDE 24 mmol/L (22-30); CHLORIDE 102 mmol/L (98-107); CREATININE RESULT 0.81 mg/dL (0.52-1.25); GLUCOSE 185 mg/dL (75-110); POTASSIUM 4.2 mmol/L (3.6-5.0)
[2017-01-26 15:39] LABS: ANION GAP 14 (5-19); SODIUM 139.9 mmol/L (137-145)
[2017-01-27] MEDS: LANSOPRAZOLE 30 MG TAB.RAP.DR PO SCH (05:15)
[2017-01-27] MEDS: NORMAL SALINE 1000 ML 1,000 ML IV PRN (05:17)
[2017-01-27] MEDS: ENOXAPARIN SODIUM INJ 40 MG/0.4 ML DISP.SYRIN SUBCUT SCH (08:29)
[2017-01-27] MEDS: METFORMIN HCL 500 MG TABLET PO SCH ×2 (08:29→17:00)
[2017-01-27] MEDS: FLUTICASONE IH SCH (09:36)
[2017-01-27] MEDS: VILANTEROL IH SCH (09:36)
[2017-01-27] MEDS: PRENATAL VITAMIN W-O CA NO5/FE FUMARATE/FA CAPSULE PO SCH (09:37)
[2017-01-27] MEDS: THIAMINE HCL 100 MG TABLET PO SCH (09:37)
[2017-01-27] MEDS: SERTRALINE HCL 50 MG TABLET PO SCH (09:38)
[2017-01-27] MEDS: SITAGLIPTIN PHOSPHATE 50 MG TABLET PO SCH (09:38)
[2017-01-27] MEDS: FOLIC ACID 1 MG TABLET PO SCH (09:38)
--- NOTE | 2017-01-27 16:34 | PDOC PROGRESS REPORT ---
Subjective Progress Note for:: 01/27/17 Subjective:: Patient was seen by the bedside, the PTH was low suggesting that the hypercalcemia is not PTH mediated, it raises suspicion for malignancy related hyperglycemia or sarcoidosis. CT chest surveillance was done today and did not show any mass lesion, it showed severe emphysematous changes. Skeletal survey is ordered and also urine and blood electrophoresis to screen for multiple myeloma. Physical Exam Vital Signs: Temp Pulse Resp BP Pulse Ox 97.9 F 88 20 118/67 97 01/27/17 15:45 01/27/17 15:45 01/27/17 15:45 01/27/17 15:45 01/27/17 15:45 Intake & Output 01/26/17 01/27/17 01/28/17 06:59 06:59 06:59 Intake Total 3901 4633 355 Output Total 2575 3115 850 Balance 1326 1518 -495 Weight 88.7 kg 88.2 kg General appearance: PRESENT: no acute distress Eye exam: PRESENT: PERRLA Respiratory exam: PRESENT: clear to auscultation boris Cardiovascular exam: PRESENT: +S1, +S2 GI/Abdominal exam: PRESENT: soft Neurological exam: PRESENT: alert, CN II-XII grossly intact Results Laboratory Results: 01/25/17 03:57 01/26/17 15:10 01/24/17 21:45 PTH Intact 10 L Impressions: Chest CT 01/27/17 00:00 IMPRESSION: No acute or suspicious findings. Assessment & Plan - Diagnosis (1) Hypercalcemia Is this a current diagnosis for this admission?: YesPlan: This is non-PTH mediated hypercalcemia, needs to rule out malignancy or sarcoidosis. CT chest was negative for any mass lesion, urine and blood electrophoresis is ordered, skeletal survey is ordered. (2) Metabolic encephalopathy Is this a current diagnosis for this admission?: Yes (3) Atherosclerosis Is this a current diagnosis for this admission?: Yes (4) Coronary artery disease Qualifiers: Coronary Disease-Associated Artery/Lesion type: [place] artery [place] vs. transplanted heart: [place] heart Associated angina: without angina Qualified Code(s): I25.10 - Atherosclerotic heart disease of [place] coronary artery without angina pectoris Is this a current diagnosis for this admission?: Yes (5) COPD (chronic obstructive pulmonary disease) Qualifiers: COPD type: emphysema Emphysema type: unspecified Qualified Code( s): J43.9 - Emphysema, unspecified Is this a current diagnosis for this admission?: Yes
[2017-01-27] MEDS: INSULIN LISPRO 100 UNIT/ML 3 ML VIAL SUBCUT PRN (21:36)
[2017-01-28] MEDS: NORMAL SALINE 1000 ML 1,000 ML IV PRN (01:15)
[2017-01-28] MEDS: LANSOPRAZOLE 30 MG TAB.RAP.DR PO SCH (05:09)
[2017-01-28] MEDS: ENOXAPARIN SODIUM INJ 40 MG/0.4 ML DISP.SYRIN SUBCUT SCH (08:28)
[2017-01-28] MEDS: VILANTEROL IH SCH (09:47)
[2017-01-28] MEDS: FLUTICASONE IH SCH (09:47)
[2017-01-28] MEDS: SITAGLIPTIN PHOSPHATE 50 MG TABLET PO SCH (09:48)
[2017-01-28] MEDS: THIAMINE HCL 100 MG TABLET PO SCH (09:49)
[2017-01-28] MEDS: SERTRALINE HCL 50 MG TABLET PO SCH (09:49)
[2017-01-28] MEDS: PRENATAL VITAMIN W-O CA NO5/FE FUMARATE/FA CAPSULE PO SCH (09:49)
[2017-01-28] MEDS: FOLIC ACID 1 MG TABLET PO SCH (09:49)
[2017-01-28] MEDS: INSULIN LISPRO 100 UNIT/ML 3 ML VIAL SUBCUT PRN ×2 (12:06→22:15)
--- NOTE | 2017-01-28 19:15 | PDOC PROGRESS REPORT ---
Subjective Progress Note for:: 01/28/17 Subjective:: Patient appeared more lucid during this bedside evaluation. Denied any confusion with girlfriend attestation since last clinical evaluation by me. No chest pain. No significant difficulty with breathing beyond his baseline COPD. No abdominal pain, nausea or vomiting. Appetite and p.o intake remain very good. No fever, chills, headache or dizziness. Physical Exam Vital Signs: Temp Pulse Resp BP Pulse Ox 97.5 F 83 18 125/73 97 01/28/17 15:47 01/28/17 15:47 01/28/17 15:47 01/28/17 15:47 01/28/17 15:47 Intake & Output 01/27/17 01/28/17 01/29/17 06:59 06:59 06:59 Intake Total 4633 3346 1972 Output Total 3115 3550 1900 Balance 1518 -204 72 Weight 88.2 kg 88.6 kg Physical Exam: General appearance: PRESENT: no acute distress, cooperative Head exam: PRESENT: atraumatic, normocephalic Eye exam: PRESENT: conjunctiva pink, EOMI, PERRLA. ABSENT: scleral icterus Respiratory exam: PRESENT: clear to auscultation boris, decreased breath sounds Cardiovascular exam: PRESENT: RRR. ABSENT: diastolic murmur, rubs, systolic murmur GI/Abdominal exam: PRESENT: normal bowel sounds, soft. ABSENT: distended, guarding, mass, organomegaly, rebound, tenderness Musculoskeletal exam: PRESENT: deformity - due to arthritis involvement of his joints Neurological exam: PRESENT: alert, awake, oriented to person, oriented to place , oriented to time Psychiatric exam: PRESENT: appropriate affect, normal mood. ABSENT: homicidal ideation, suicidal ideation Skin exam: PRESENT: dry, intact, warm. ABSENT: cyanosis, rash Results Laboratory Results: 01/25/17 03:57 01/26/17 15:10 Impressions: Chest CT 01/27/17 00:00 IMPRESSION: No acute or suspicious findings. Skeletal Survey 01/27/17 00:00 IMPRESSION: NO WORRISOME BONE LESIONS. Assessment & Plan - Diagnosis (1) Uncontrolled type 2 diabetes mellitus Qualifiers: Diabetes mellitus complication status: with hyperglycemia Diabetes mellitus retirement insulin use: without intermodal customer service use Qualified Code(s): E11.65 - Type 2 diabetes mellitus with hyperglycemia Is this a current diagnosis for this admission?: YesPlan: See attending physician orders. (2) HTN (hypertension) Qualifiers: Hypertension type: essential hypertension Qualified Code(s): I10 - Essential (primary) hypertension Is this a current diagnosis for this admission?: YesPlan: See attending physician orders. (3) HLD (hyperlipidemia) Qualifiers: Hyperlipidemia type: pure hypercholesterolemia Qualified Code(s): E78.00 - Pure hypercholesterolemia, unspecified; E78.0 - Pure hypercholesterolemia Is this a current diagnosis for this admission?: YesPlan: See attending physician orders. (4) Old myocardial infarction Is this a current diagnosis for this admission?: YesPlan: See attending physician orders. (5) GERD (gastroesophageal reflux disease) Qualifiers: Esophagitis presence: without esophagitis Qualified Code(s): K21.9 - Gastro-esophageal reflux disease without esophagitis Is this a current diagnosis for this admission?: YesPlan: See attending physician orders. (6) Altered mental status Qualifiers: Altered mental status type: unspecified Qualified Code(s): R41.82 - Altered mental status, unspecified Is this a current diagnosis for this admission?: YesPlan: See attending physician orders. (7) Generalized weakness Is this a current diagnosis for this admission?: YesPlan: See attending physician orders. (8) Hypercalcemia Is this a current diagnosis for this admission?: YesPlan: See attending physician orders. 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 - Inpatient Certification Medical Necessity: Need Close Monitoring Due to Risk of Patient Decompensation, Need For IV Fluids, Risk of Complication if Not Cared For in Hospital Post Hospital Care: D/C Cryptologic Technician Operator/Analyst Documentation - Plan Summary Plan Summary: See attending physician orders.
[2017-01-28] MEDS: TRAMADOL HCL 50 MG TABLET PO PRN (23:11)
[2017-01-29] MEDS: NORMAL SALINE 1000 ML 1,000 ML IV PRN (05:45)
[2017-01-29] MEDS: LANSOPRAZOLE 30 MG TAB.RAP.DR PO SCH (05:45)
[2017-01-29 07:13] LABS: ANION GAP 15 (5-19); BLOOD UREA NITROGEN 15 mg/dL (7-20); CALCIUM 8.9 mg/dL (8.4-10.2); CARBON DIOXIDE 24 mmol/L (22-30); CHLORIDE 101 mmol/L (98-107); CREATININE RESULT 0.81 mg/dL (0.52-1.25); GLUCOSE 156 mg/dL (75-110); POTASSIUM 4.1 mmol/L (3.6-5.0); SODIUM 139.7 mmol/L (137-145)
[2017-01-29] MEDS: INSULIN LISPRO 100 UNIT/ML 3 ML VIAL SUBCUT PRN ×4 (09:06→23:03)
[2017-01-29] MEDS: ENOXAPARIN SODIUM INJ 40 MG/0.4 ML DISP.SYRIN SUBCUT SCH (09:07)
[2017-01-29] MEDS: FLUTICASONE IH SCH (09:10)
[2017-01-29] MEDS: VILANTEROL IH SCH (09:10)
[2017-01-29] MEDS: TRAMADOL HCL 50 MG TABLET PO PRN ×3 (09:11→22:15)
[2017-01-29] MEDS: PRENATAL VITAMIN W-O CA NO5/FE FUMARATE/FA CAPSULE PO SCH (09:16)
[2017-01-29] MEDS: FOLIC ACID 1 MG TABLET PO SCH (09:17)
[2017-01-29] MEDS: SITAGLIPTIN PHOSPHATE 50 MG TABLET PO SCH (09:17)
[2017-01-29] MEDS: THIAMINE HCL 100 MG TABLET PO SCH (09:17)
[2017-01-29] MEDS: SERTRALINE HCL 50 MG TABLET PO SCH (09:18)
[2017-01-29 16:39] LABS: M-SPIKE % UR Not Observed % (Not Observed)
--- NOTE | 2017-01-29 18:00 | PDOC DISCHARGE SUMMARY ---
General - Admit/Disc Date/PCP Admission Date/Primary Care Provider: 01/24/17 20:35 Discharge Date: 01/29/17 - Discharge Diagnosis (1) Uncontrolled type 2 diabetes mellitus Is this a current diagnosis for this admission?: Yes (2) HTN (hypertension) Is this a current diagnosis for this admission?: Yes (3) HLD (hyperlipidemia) Is this a current diagnosis for this admission?: Yes (4) Old myocardial infarction Is this a current diagnosis for this admission?: Yes (5) GERD (gastroesophageal reflux disease) Is this a current diagnosis for this admission?: Yes (6) Altered mental status Is this a current diagnosis for this admission?: Yes (7) Generalized weakness Is this a current diagnosis for this admission?: Yes (8) Hypercalcemia Is this a current diagnosis for this admission?: Yes (9) COPD (chronic obstructive pulmonary disease) Is this a current diagnosis for this admission?: Yes (10) Unsteady gait Is this a current diagnosis for this admission?: YesSummary: See attending physician orders. (11) Osteoarthritis of left knee Is this a current diagnosis for this admission?: YesSummary: See attending physician orders. - Additional Information Resuscitation Status: Full Code Discharge Diet: Cardiac, Diabetic Discharge Activity: Slowly Increase Activity Home Medications: Fluticasone/Vilanterol [Breo Ellipta 200-25 Mcg INH] 1 each IH DAILY 01/24/17 Linagliptin [Tradjenta] 5 mg PO DAILY 01/24/17 Melatonin 10 mg PO QHS 01/24/17 Metformin HCl [Glucophage] 1,000 mg PO BID 01/24/17 Sertraline HCl [Zoloft 50 mg Tablet] 50 mg PO DAILY 01/24/17 Tiotropium [place] [Spiriva Respimat] 4 gm IH DAILY 01/24/17 Vit A/Vit C/Vit E/Zinc/Copper [Preservision Areds Tablet] 1 tab PO DAILY Multivitamin [One-A-Day Essential] 1 tab PO DAILY 01/25/17 Pantoprazole Sodium [Protonix] 40 mg PO DAILY 01/25/17 Tramadol HCl [Ultram 50 mg Tablet] 50 mg PO Q6HP PRN #90 tablet 01/29/17 History of Present Illness History of Present Illness: BRUCE Edd KNOTT is a 82 year old male known to my practice who was evaluated at the ED for confusion on 01/23/2017. His evaluation was significant for hypercalcemia with serum calcium level of 13.2mg/dL. His CT scan of head, abdomen and pelvis were unrevealing except for mild chronic changes of atrophy and microvascular ischemia. He was subsequently discharged home. Family reported persistence of symptom resulting to return to the ED for further evaluation and management. Family reported that his confusional state stated about 6pm on 01/23/17. He denied any chest pain, associated palpitation, diaphoresis or difficulty with breathing. Family reported associated weakness and difficulty with walking. His live-in girlfriend did reported excessive consumption of TUMS for reported indigestion. There was reported episode of nausea and vomiting on 01/23/17 without recurrent episode. Hospital Course Hospital Course: Patient did respond to IV hydration with normal saline with resolution of his hypercalcemia. His workup has been withing normal limits for hypercalcemia. Awaiting multiple myeloma workup at the time of discharge. Patient did admit to excessive consumption of TUMS which could be cause of his elevated calcium level. His hospitalization is also significant for let knee pain. He was started on Tramadol 50 mg p.o q6 hours prn for pain management. He was seen by physical therapist with recommendation of front wheel walker for ambulatory assistance and fall avoidance. He will be discharge home with outpatient physical therapy referral. He will follow up in the office as instructed upon discharge. Physical Exam Vital Signs: Temp Pulse Resp BP Pulse Ox 98.6 F 90 18 107/58 L 95 01/29/17 12:48 01/29/17 14:00 01/29/17 12:48 01/29/17 12:48 01/29/17 12:48 Intake & Output 01/28/17 01/29/17 01/30/17 06:59 06:59 06:59 Intake Total 3346 3172 0 Output Total 3550 4350 400 Balance -204 -3748 -400 Weight 88.6 kg 88.7 kg Physical Exam: General appearance: PRESENT: no acute distress, cooperative Head exam: PRESENT: atraumatic, normocephalic Eye exam: PRESENT: conjunctiva pink, EOMI, PERRLA. ABSENT: scleral icterus Respiratory exam: PRESENT: clear to auscultation boris, decreased breath sounds Cardiovascular exam: PRESENT: RRR. ABSENT: diastolic murmur, rubs, systolic murmur GI/Abdominal exam: PRESENT: normal bowel sounds, soft. ABSENT: distended, guarding, mass, organomegaly, rebound, tenderness Musculoskeletal exam: PRESENT: deformity - due to arthritis involvement of his joints Neurological exam: PRESENT: alert, awake, oriented to person, oriented to place , oriented to time Psychiatric exam: PRESENT: appropriate affect, normal mood. ABSENT: homicidal ideation, suicidal ideation Skin exam: PRESENT: dry, intact, warm. ABSENT: cyanosis, rash Results Laboratory Results: 01/25/17 03:57 01/29/17 06:20 01/29/17 06:20 Sodium 139.7 Potassium 4.1 Chloride 101 Carbon Dioxide 24 Anion Gap 15 BUN 15 Creatinine 0.81 Est GFR ( Amer) > 60 Est GFR (Non-Af Amer) > 60 Glucose 156 H Calcium 8.9 Impressions: Chest CT 01/27/17 00:00 IMPRESSION: No acute or suspicious findings. Skeletal Survey 01/27/17 00:00 IMPRESSION: NO WORRISOME BONE LESIONS. Qualifiers PATEINT BEING DISCHARGED WITH ANY OF THE FOLLOWING DIAGNOSIS?: No Plan Discharge Plan: D/C home today with front wheel walker assistive device. Follow up in office as instructed upon discharge. Time Spent: Less than 30 Minutes
--- NOTE | 2017-01-29 18:21 | Progress Note ---
Provider Note Provider Note: Patient and girlfriend change their mind regarding discharge home after initial agreement. Presently requesting for SNF placement for short term rehabilitation. I will place order for senior planner assistance for possible transfer to SNF [facility]. I will cancel discharge orders.
[2017-01-30] MEDS: NORMAL SALINE 1000 ML 1,000 ML IV PRN ×3 (00:43→23:09)
[2017-01-30] MEDS: LANSOPRAZOLE 30 MG TAB.RAP.DR PO SCH (06:24)
--- NOTE | 2017-01-30 08:31 | PDOC PROGRESS REPORT ---
Subjective Progress Note for:: 01/30/17 Subjective:: Patient's discharge was cancelled due to worsening transfer ability and agreement with short term SNF rehabilitation placement. No chest pain. No significant difficulty with breathing beyond his baseline COPD. No fever or chills. No abdominal pain, nausea or vomiting. Appetite and p.o intake remain excellent. Physical Exam Vital Signs: Temp Pulse Resp BP Pulse Ox 98.9 F 91 22 H 116/65 94 01/30/17 07:38 01/30/17 07:38 01/30/17 07:38 01/30/17 07:38 01/30/17 07:38 Intake & Output 01/29/17 01/30/17 01/31/17 06:59 06:59 06:59 Intake Total 3172 3525 Output Total 4350 1225 Balance -1178 2300 Weight 88.7 kg 90.2 kg Physical Exam: General appearance: PRESENT: no acute distress, cooperative Head exam: PRESENT: atraumatic, normocephalic Eye exam: PRESENT: conjunctiva pink, EOMI, PERRLA. ABSENT: scleral icterus Respiratory exam: PRESENT: clear to auscultation boris, decreased breath sounds Cardiovascular exam: PRESENT: RRR. ABSENT: diastolic murmur, rubs, systolic murmur GI/Abdominal exam: PRESENT: normal bowel sounds, soft. ABSENT: distended, guarding, mass, organomegaly, rebound, tenderness Musculoskeletal exam: PRESENT: deformity - due to arthritis involvement of his joints Neurological exam: PRESENT: alert, awake, oriented to person, oriented to place , oriented to time Psychiatric exam: PRESENT: appropriate affect, normal mood. ABSENT: homicidal ideation, suicidal ideation Skin exam: PRESENT: dry, intact, warm. ABSENT: cyanosis, rash Results Laboratory Results: 01/25/17 03:57 01/29/17 06:20 Impressions: Chest CT 01/27/17 00:00 IMPRESSION: No acute or suspicious findings. Skeletal Survey 01/27/17 00:00 IMPRESSION: NO WORRISOME BONE LESIONS. Assessment & Plan - Diagnosis (1) Uncontrolled type 2 diabetes mellitus Qualifiers: Diabetes mellitus complication status: with hyperglycemia Diabetes mellitus predatory animal exterminator insulin use: without mcc use Qualified Code(s): E11.65 - Type 2 diabetes mellitus with hyperglycemia Is this a current diagnosis for this admission?: YesPlan: See attending physician orders. (2) HTN (hypertension) Qualifiers: Hypertension type: essential hypertension Qualified Code(s): I10 - Essential (primary) hypertension Is this a current diagnosis for this admission?: YesPlan: See attending physician orders. (3) HLD (hyperlipidemia) Qualifiers: Hyperlipidemia type: pure hypercholesterolemia Qualified Code(s): E78.00 - Pure hypercholesterolemia, unspecified; E78.0 - Pure hypercholesterolemia Is this a current diagnosis for this admission?: YesPlan: See attending physician orders. (4) Old myocardial infarction Is this a current diagnosis for this admission?: YesPlan: See attending physician orders. (5) GERD (gastroesophageal reflux disease) Qualifiers: Esophagitis presence: without esophagitis Qualified Code(s): K21.9 - Gastro-esophageal reflux disease without esophagitis Is this a current diagnosis for this admission?: YesPlan: See attending physician orders. (6) Altered mental status Qualifiers: Altered mental status type: unspecified Qualified Code(s): R41.82 - Altered mental status, unspecified Is this a current diagnosis for this admission?: YesPlan: See attending physician orders. (7) Generalized weakness Is this a current diagnosis for this admission?: YesPlan: See attending physician orders. (8) Hypercalcemia Is this a current diagnosis for this admission?: YesPlan: See attending physician orders. 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 (10) Unsteady gait Is this a current diagnosis for this admission?: YesPlan: Continue inpatient physical rehabilitation while awaiting SNF placement. (11) Osteoarthritis of left knee Is this a current diagnosis for this admission?: YesPlan: Continue oral Tramadol and local heat therapy for knee pain management. - Time Time Spent with patient: 25-34 minutes Medications reviewed and adjusted accordingly: Yes Anticipated discharge: SNF - for short term physical therapy. - Inpatient Certification Medical Necessity: Significant Comorbidiites Make Outpatient Treatment Too Risky , Need For IV Fluids, Need For Continuous Telemetry Monitoring, Risk of Complication if Not Cared For in Hospital Post Hospital Care: D/C Language Therapist Documentation - Plan Summary Plan Summary: See attending physician orders.
[2017-01-30] MEDS: FOLIC ACID 1 MG TABLET PO SCH (09:09)
[2017-01-30] MEDS: SITAGLIPTIN PHOSPHATE 50 MG TABLET PO SCH (09:09)
[2017-01-30] MEDS: VILANTEROL IH SCH (09:09)
[2017-01-30] MEDS: SERTRALINE HCL 50 MG TABLET PO SCH (09:09)
[2017-01-30] MEDS: THIAMINE HCL 100 MG TABLET PO SCH (09:09)
[2017-01-30] MEDS: METFORMIN HCL 500 MG TABLET PO SCH ×2 (09:09→18:53)
[2017-01-30] MEDS: FLUTICASONE IH SCH (09:09)
[2017-01-30] MEDS: ENOXAPARIN SODIUM INJ 40 MG/0.4 ML DISP.SYRIN SUBCUT SCH (09:14)
[2017-01-30] MEDS: PRENATAL VITAMIN W-O CA NO5/FE FUMARATE/FA CAPSULE PO SCH (11:00)
[2017-01-30 12:38] LABS: ALBUMIN 3 3.2 g/dL (2.9-4.4); ALPHA-1-GLOBULIN 0.1 g/dL (0.0-0.4); BETA GLOBULIN 1.1 g/dL (0.7-1.3); GLOBULIN TTL 2.9 g/dL (2.2-3.9); IMMUNOGLOBULIN A 241 mg/dL (61-437); IMMUNOGLOBULIN G 716 mg/dL (700-1600); IMMUNOGLOBULIN M 50 mg/dL (15-143); MONOCLONAL-SPIKE Not Observed g/dL (Not Observed); PROTEIN TOTAL SERUM 6.1 g/dL (6.0-8.5)
[2017-01-30] MEDS: TRAMADOL HCL 50 MG TABLET PO PRN ×2 (13:03→18:53)
[2017-01-30 16:39] LABS: BETA GLOBULIN URINE 24HR 23.3 % (.); GAMMA GLOBULIN URINE 24HR 25.6 % (.); PROTEIN TOTAL UR 24HR 513.1 mg/24 hr (30.0-150.0)
[2017-01-30] MEDS: INSULIN LISPRO 100 UNIT/ML 3 ML VIAL SUBCUT PRN (21:27)
[2017-01-31] MEDS: TRAMADOL HCL 50 MG TABLET PO PRN ×2 (06:10→13:26)
[2017-01-31] MEDS: LANSOPRAZOLE 30 MG TAB.RAP.DR PO SCH (06:11)
--- NOTE | 2017-01-31 08:21 | PDOC PROGRESS REPORT ---
Subjective Progress Note for:: 01/31/17 Subjective:: No chest pain. No significant difficulty with breathing beyond his baseline COPD. No fever or chills. No abdominal pain, nausea or vomiting. Appetite and p.o intake remain excellent. Awaiting response from [facility] for short term rehabilitation placement. Physical Exam Vital Signs: Temp Pulse Resp BP Pulse Ox 99.0 F 93 22 H 113/67 94 01/31/17 07:37 01/31/17 07:37 01/31/17 07:37 01/31/17 07:37 01/31/17 07:37 Intake & Output 01/30/17 01/31/17 02/01/17 06:59 06:59 06:59 Intake Total 3525 4095 Output Total 1225 1950 Balance 2300 2145 Weight 90.2 kg 91.6 kg Physical Exam: General appearance: PRESENT: no acute distress, cooperative Head exam: PRESENT: atraumatic, normocephalic Eye exam: PRESENT: conjunctiva pink, EOMI, PERRLA. ABSENT: scleral icterus Respiratory exam: PRESENT: clear to auscultation boris, decreased breath sounds Cardiovascular exam: PRESENT: RRR. ABSENT: diastolic murmur, rubs, systolic murmur GI/Abdominal exam: PRESENT: normal bowel sounds, soft. ABSENT: distended, guarding, mass, organomegaly, rebound, tenderness Musculoskeletal exam: PRESENT: deformity - due to arthritis involvement of his joints Neurological exam: PRESENT: alert, awake, oriented to person, oriented to place , oriented to time Psychiatric exam: PRESENT: appropriate affect, normal mood. ABSENT: homicidal ideation, suicidal ideation Skin exam: PRESENT: dry, intact, warm. ABSENT: cyanosis, rash Results Laboratory Results: 01/25/17 03:57 01/29/17 06:20 01/27/17 01/28/17 17:00 04:31 Total Protein 6.1 Albumin 3.2 Ur Albumin 24 Hour 30.8 Ur Total Protein 24 Hr 513.1 H U PEP M-Asad % 24 Hr Not Observed U PEP M-Asad 24 Hr TNP Impressions: Chest CT 01/27/17 00:00 IMPRESSION: No acute or suspicious findings. Skeletal Survey 01/27/17 00:00 IMPRESSION: NO WORRISOME BONE LESIONS. Assessment & Plan - Diagnosis (1) Uncontrolled type 2 diabetes mellitus Qualifiers: Diabetes mellitus complication status: with hyperglycemia Diabetes mellitus shelter insulin use: without termite renewal inspector use Qualified Code(s): E11.65 - Type 2 diabetes mellitus with hyperglycemia Is this a current diagnosis for this admission?: YesPlan: See attending physician orders. (2) HTN (hypertension) Qualifiers: Hypertension type: essential hypertension Qualified Code(s): I10 - Essential (primary) hypertension Is this a current diagnosis for this admission?: YesPlan: See attending physician orders. (3) HLD (hyperlipidemia) Qualifiers: Hyperlipidemia type: pure hypercholesterolemia Qualified Code(s): E78.00 - Pure hypercholesterolemia, unspecified; E78.0 - Pure hypercholesterolemia Is this a current diagnosis for this admission?: YesPlan: See attending physician orders. (4) Old myocardial infarction Is this a current diagnosis for this admission?: YesPlan: See attending physician orders. (5) GERD (gastroesophageal reflux disease) Qualifiers: Esophagitis presence: without esophagitis Qualified Code(s): K21.9 - Gastro-esophageal reflux disease without esophagitis Is this a current diagnosis for this admission?: Yes (6) Altered mental status Qualifiers: Altered mental status type: unspecified Qualified Code(s): R41.82 - Altered mental status, unspecified Is this a current diagnosis for this admission?: Yes (7) Generalized weakness Is this a current diagnosis for this admission?: Yes (8) Hypercalcemia Is this a current diagnosis for this admission?: YesPlan: See attending physician orders. 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 (10) Unsteady gait Is this a current diagnosis for this admission?: YesPlan: Continue inpatient physical rehabilitation while awaiting SNF placement. (11) Osteoarthritis of left knee Is this a current diagnosis for this admission?: YesPlan: Continue oral Tramadol and local heat therapy for knee pain management. - Time Time Spent with patient: 25-34 minutes Medications reviewed and adjusted accordingly: Yes Anticipated discharge: SNF - for short term rehabilitation. - Inpatient Certification Medical Necessity: Need Close Monitoring Due to Risk of Patient Decompensation, Need For IV Fluids, Need For Continuous Telemetry Monitoring, Risk of Complication if Not Cared For in Hospital Post Hospital Care: D/C or Transfer Summary - Plan Summary Plan Summary: See attending physician orders.
[2017-01-31] MEDS: SERTRALINE HCL 50 MG TABLET PO SCH (09:47)
[2017-01-31] MEDS: SITAGLIPTIN PHOSPHATE 50 MG TABLET PO SCH (09:47)
[2017-01-31] MEDS: FOLIC ACID 1 MG TABLET PO SCH (09:47)
[2017-01-31] MEDS: METFORMIN HCL 500 MG TABLET PO SCH ×2 (09:47→17:05)
[2017-01-31] MEDS: THIAMINE HCL 100 MG TABLET PO SCH (09:47)
[2017-01-31] MEDS: ACETAMINOPHEN 325 MG TABLET PO PRN ×2 (09:48→17:00)
[2017-01-31] MEDS: VILANTEROL IH SCH (09:48)
[2017-01-31] MEDS: FLUTICASONE IH SCH (09:48)
[2017-01-31] MEDS: PRENATAL VITAMIN W-O CA NO5/FE FUMARATE/FA CAPSULE PO SCH (09:48)
[2017-01-31] MEDS: ENOXAPARIN SODIUM INJ 40 MG/0.4 ML DISP.SYRIN SUBCUT SCH (09:49)
[2017-01-31 12:11] VITALS: BP 109/60
--- NOTE | 2017-01-31 13:52 | PDOC DISCHARGE SUMMARY ---
General - Admit/Disc Date/PCP Admission Date/Primary Care Provider: 01/24/17 20:35 Discharge Date: 01/31/17 - Transfer to [facility] for short term rehabilitation - Discharge Diagnosis (1) Uncontrolled type 2 diabetes mellitus Is this a current diagnosis for this admission?: Yes (2) HTN (hypertension) Is this a current diagnosis for this admission?: Yes (3) HLD (hyperlipidemia) Is this a current diagnosis for this admission?: Yes (4) Old myocardial infarction Is this a current diagnosis for this admission?: Yes (5) GERD (gastroesophageal reflux disease) Is this a current diagnosis for this admission?: Yes (6) Altered mental status Is this a current diagnosis for this admission?: Yes (7) Generalized weakness Is this a current diagnosis for this admission?: Yes (8) Hypercalcemia Is this a current diagnosis for this admission?: Yes (9) COPD (chronic obstructive pulmonary disease) Is this a current diagnosis for this admission?: Yes (10) Unsteady gait Is this a current diagnosis for this admission?: Yes (11) Osteoarthritis of left knee Is this a current diagnosis for this admission?: Yes - Additional Information Resuscitation Status: Full Code Discharge Diet: Cardiac, Diabetic Discharge Activity: Slowly Increase Activity Home Medications: Fluticasone/Vilanterol [Breo Ellipta 200-25 Mcg INH] 1 each IH DAILY 01/24/17 Linagliptin [Tradjenta] 5 mg PO DAILY 01/24/17 Melatonin 10 mg PO QHS 01/24/17 Metformin HCl [Glucophage] 1,000 mg PO BID 01/24/17 Sertraline HCl [Zoloft 50 mg Tablet] 50 mg PO DAILY 01/24/17 Tiotropium [place] [Spiriva Respimat] 4 gm IH DAILY 01/24/17 Vit A/Vit C/Vit E/Zinc/Copper [Preservision Areds Tablet] 1 tab PO DAILY Multivitamin [One-A-Day Essential] 1 tab PO DAILY 01/25/17 Pantoprazole Sodium [Protonix] 40 mg PO DAILY 01/25/17 Tramadol HCl [Ultram 50 mg Tablet] 50 mg PO Q6HP PRN #90 tablet 01/29/17 History of Present Illness History of Present Illness: BRUCE Edd KNOTT is a 82 year old male known to my practice who was evaluated at the ED for confusion on 01/23/2017. His evaluation was significant for hypercalcemia with serum calcium level of 13.2mg/dL. His CT scan of head, abdomen and pelvis were unrevealing except for mild chronic changes of atrophy and microvascular ischemia. He was subsequently discharged home. Family reported persistence of symptom resulting to return to the ED for further evaluation and management. Family reported that his confusional state stated about 6pm on 01/23/17. He denied any chest pain, associated palpitation, diaphoresis or difficulty with breathing. Family reported associated weakness and difficulty with walking. His live-in girlfriend did reported excessive consumption of TUMS for reported indigestion. There was reported episode of nausea and vomiting on 01/23/17 without recurrent episode. Hospital Course Hospital Course: Patient did respond to IV hydration with normal saline with resolution of his hypercalcemia. His workup has been withing normal limits for hypercalcemia. Awaiting multiple myeloma workup at the time of discharge. Patient did admit to excessive consumption of TUMS which could be cause of his elevated calcium level. His hospitalization is also significant for let knee pain. He was started on Tramadol 50 mg p.o q6 hours prn for pain management. His earlier discharge plan was cancelled due to late report of difficulty with transferring ability. Patient did agreed to recommended short term rehabilitation at [facility]. [facility] be [facility] to [facility] today for short term rehabilitation program. He may benefit from front wheel walker for ambulatory assistance and fall avoidance as earlier recommended by physical therapist upon discharge from rehabilitation program. He will follow up in the office as instructed upon discharge from [facility]. Physical Exam Vital Signs: Temp Pulse Resp BP Pulse Ox 98.5 F 88 18 109/60 95 01/31/17 11:46 01/31/17 11:46 01/31/17 11:46 01/31/17 11:46 01/31/17 11:46 Intake & Output 01/30/17 01/31/17 02/01/17 06:59 06:59 06:59 Intake Total 3525 4095 Output Total 1225 1950 Balance 2300 2145 Weight 90.2 kg 91.6 kg Physical Exam: General appearance: PRESENT: no acute distress, cooperative Head exam: PRESENT: atraumatic, normocephalic Eye exam: PRESENT: conjunctiva pink, EOMI, PERRLA. ABSENT: scleral icterus Respiratory exam: PRESENT: clear to auscultation boris, decreased breath sounds Cardiovascular exam: PRESENT: RRR. ABSENT: diastolic murmur, rubs, systolic murmur GI/Abdominal exam: PRESENT: normal bowel sounds, soft. ABSENT: distended, guarding, mass, organomegaly, rebound, tenderness Musculoskeletal exam: PRESENT: deformity - due to arthritis involvement of his joints Neurological exam: PRESENT: alert, awake, oriented to person, oriented to place , oriented to time Psychiatric exam: PRESENT: appropriate affect, normal mood. ABSENT: homicidal ideation, suicidal ideation Skin exam: PRESENT: dry, intact, warm. ABSENT: cyanosis, rash Results Laboratory Results: 01/25/17 03:57 01/29/17 06:20 01/27/17 01/28/17 17:00 04:31 Total Protein 6.1 Albumin 3.2 Ur Albumin 24 Hour 30.8 Ur Total Protein 24 Hr 513.1 H U PEP M-Asad % 24 Hr Not Observed U PEP M-Asad 24 Hr TNP Impressions: Chest CT 01/27/17 00:00 IMPRESSION: No acute or suspicious findings. Skeletal Survey 01/27/17 00:00 IMPRESSION: NO WORRISOME BONE LESIONS. Qualifiers PATEINT BEING DISCHARGED WITH ANY OF THE FOLLOWING DIAGNOSIS?: No Plan Discharge Plan: Transfer to [facility] for short term rehabilitation. Please contact office for post discharge follow up appointment before leaving [facility]. Time Spent: Less than 30 Minutes
== END 2017-01-31 18:45 | DRG 640 ==
LOC: ER 12:51 → UNDOADMIN 15:20 → EH 15:20 → 3N 20:35 → EH 21:56 → 3N 21:56
PROVIDERS: ADMIT Internal Medicine Geriatric Medicine; ATTEND Internal Medicine Geriatric Medicine
DX: E83.52 Hypercalcemia (principal); G92 Toxic encephalopathy; E11.65 Type 2 diabetes mellitus with hyperglycemia; I10 Essential (primary) hypertension; K21.9 Gastro-esophageal reflux disease without esophagitis; E78.00 Pure hypercholesterolemia, unspecified; R26.81 Unsteadiness on feet; M17.12 Unilateral primary osteoarthritis, left knee; J43.9 Emphysema, unspecified; I25.10 Atherosclerotic heart disease of native coronary artery without angina pectoris; I25.2 Old myocardial infarction; Z79.899 Other long term (current) drug therapy; Z85.07 Personal history of malignant neoplasm of pancreas; Z87.891 Personal history of nicotine dependence
CPT/HCPCS: 36415; 70450; 71010; 71260; 74177; 77075; 80048; 80053; 81001; 82306; 82330; 82550; 82553; 82962; 83690; 83970; 84156; 84166; 84484; 85025; 85610; 85730; 86320; 93005; 93010; 96360; 99285; 99291; G8978-GP; G8979-GP; J1650; J1815; J3490; J7030

== ENCOUNTER → 2017-03-26 | Outpatient (CLI) | payer MEDICARE ==
[2017-03-26 13:14] LABS: ABSOLUTE EOSINOPHILS # (AUTO) 0.1 10^3/uL (0.0-0.6); ABSOLUTE LYMPHOCYTES (AUTO) 1.2 10^3/uL (0.5-4.7); ABSOLUTE MONOCYTES (AUTO) 0.6 10^3/uL (0.1-1.4); ABSOLUTE NEUT (AUTO) 3.6 10^3/uL (1.7-8.2); BASOPHILS % (AUTO) 0.3 % (0-2); EOSINOPHILS % (AUTO) 1.4 % (0-6); HEMATOCRIT 43.3 % (37.9-51.0); HEMOGLOBIN 14.2 g/dL (13.5-17.0); HGB HCT DIFFERENCE -0.7; LYMPHOCYTES % (AUTO) 22.4 % (13-45); MEAN CORPUSCULAR HEMOGLOBIN 28.8 pg (27.0-33.4); MEAN CORPUSCULAR HGB CONC 32.8 g/dL (32.0-36.0); MEAN CORPUSCULAR VOLUME 88 fl (80-97); RED BLOOD COUNT 4.94 10^6/uL (4.35-5.55); RED CELL DISTRIBUTION WIDTH 15.9 % (11.5-14.0); SEGMENTED NEUTROPHILS % (AUTO) 64.9 % (42-78); WHITE BLOOD COUNT 5.5 10^3/uL (4.0-10.5)
[2017-03-26 13:18] LABS: APPEARANCE,URINE SLIGHTLY-CLOUDY; BILIRUBIN,URINE NEGATIVE (NEGATIVE); GLUCOSE, URINE NEGATIVE (NEGATIVE); KETONES,URINE NEGATIVE (NEGATIVE); LEUKOCYTE ESTERASE,URINE NEGATIVE (NEGATIVE); NITRITE,URINE NEGATIVE (NEGATIVE); PROTEIN,URINE NEGATIVE (NEGATIVE); URINE SPECIFIC GRAVITY 1.016; UROBILINOGEN,URINE NEGATIVE mg/dL (<2.0)
[2017-03-26 13:35] LABS: ANION GAP 13 (5-19); BLOOD UREA NITROGEN 13 mg/dL (7-20); CALCIUM 9.4 mg/dL (8.4-10.2); CARBON DIOXIDE 29 mmol/L (22-30); CHLORIDE 99 mmol/L (98-107); CREATININE RESULT 0.76 mg/dL (0.52-1.25); GLUCOSE 135 mg/dL (75-110); POTASSIUM 4.6 mmol/L (3.6-5.0); SODIUM 140.5 mmol/L (137-145)
--- NOTE | 2017-03-26 15:39 | RADIOLOGY REPORT (SQ) ---
EXAM DESCRIPTION: CHEST PA/LATERAL COMPLETED DATE/TIME: 03/26/2017 1:17 pm REASON FOR STUDY: PRE OP COMPARISON: 01/23/2017 EXAM PARAMETERS: NUMBER OF VIEWS: two views TECHNIQUE: Digital Frontal and Lateral radiographic views of the chest acquired. RADIATION DOSE: NA LIMITATIONS: none FINDINGS: LUNGS AND PLEURA: The lungs are hyperexpanded. Chronic interstitial changes are seen in t he lung bases. There is no pulmonary infiltrate or pleural effusion. There is no mass. MEDIASTINUM AND HILAR STRUCTURES: No masses or contour abnormalities. HEART AND VASCULAR STRUCTURES: Aortic atherosclerosis. Heart size is normal. BONES: No acute findings. HARDWARE: None in the chest. OTHER: No other significant finding. IMPRESSION: 1. There are chronic lung changes with no acute cardiopulmonary disease. 2. There is aortic atherosclerosis. TECHNICAL DOCUMENTATION: JOB ID: [id number] [employer]- All Rights Reserved
--- NOTE | 2017-03-27 00:31 | EKG REPORT ---
SEVERITY:- NORMAL ECG - SINUS RHYTHM : Confirmed by: Hunter Ruff 27-Mar-2017 00:29:12
== END ==
LOC: OD 12:25
PROVIDERS: ATTEND Orthopaedic Surgery
DX: Z01.818 Encounter for other preprocedural examination (principal)
CPT/HCPCS: 36415; 71020; 80048; 81001; 83036; 85025; 93005; 93010

== ENCOUNTER 2017-04-17 05:19 | Inpatient (IN) | payer MEDICARE ==
[~2017-04-17 05:19] MED LIST: BUPIVACAINE INJ/PF LIPOSOME/PF 266 MG/20 ML SDV INFIL PRN; CEFAZOLIN INJ 1 GM VIAL INJ PRN; IBUPROFEN 800 MG in NORMAL SALINE 250 ML IV PRN; LACTATED RINGERS 1000 ML IV PRN; LANSOPRAZOLE 15 MG TAB.RAP.DR PO PRN; LIDOCAINE 0.5% INJ-PF (5 MG/ML) 50 ML SDV SUBCUT PRN; OXYCODONE HCL SR 10 MG TABLET PO PRN; SCOPOLAMINE HYDROBROMIDE 1.5 MG PATCH.TD72 TD PRN; VANCOMYCIN HCL 1,000 MG in DEXTROSE 5%-WATER 250 ML IV PRN
[2017-04-17] MEDS ORDERED: PROPOFOL INJ 200 MG/20 ML VIAL IV ONE (07:04)
[2017-04-17] MEDS ORDERED: TRANEXAMIC ACID INJ/PF 1,000 MG/10 ML SDV IV ONE ×3 (07:04→10:30)
[2017-04-17] MEDS ORDERED: MIDAZOLAM 2 MG/2 ML INJ ONE (07:04)
[2017-04-17] MEDS ORDERED: MORPHINE SULFATE 10 MG/ML INJ ONE (07:04)
[2017-04-17] MEDS ORDERED: FENTANYL CITRATE INJ/PF 100 MCG/2 ML AMPUL ONE (07:04)
[2017-04-17] MEDS ORDERED: PROMETHAZINE HCL INJ 25 MG/1 ML VIAL IV PRN ×2 (08:01)
[2017-04-17] MEDS ORDERED: DIPHENHYDRAMINE HCL 50 MG/ML VIAL IV PRN ×2 (08:01→08:49)
[2017-04-17] MEDS ORDERED: ONDANSETRON HCL INJ/PF 4 MG/2 ML SDV IV PRN ×2 (08:01→08:49)
[2017-04-17] MEDS ORDERED: MORPHINE SULFATE 10 MG/ML INJ IV PRN ×4 (08:01→08:49)
[2017-04-17] MEDS ORDERED: MEPERIDINE HCL/PF INJ 25 MG/1 ML DISP.SYRIN IV PRN (08:01)
[2017-04-17] MEDS ORDERED: FENTANYL CITRATE INJ/PF 100 MCG/2 ML AMPUL IV PRN ×3 (08:01)
[2017-04-17] MEDS ORDERED: BUPIVACAINE INJ/PF LIPOSOME/PF 266 MG/20 ML SDV ONE (08:13)
[2017-04-17] MEDS ORDERED: ALBUTEROL SULFATE IH PRN (08:48)
[2017-04-17] MEDS ORDERED: IPRATROPIUM IH PRN (08:48)
--- NOTE | 2017-04-17 08:48 | Operative Report ---
Operative Report DATE OF SURGERY: 04/17/17 PREOPERATIVE DIAGNOSIS: Left knee arthritis OPERATION: Left knee arthroplasty SURGEON: RUFINO MANCILLA ANESTHESIA: Spinal TISSUE REMOVED OR ALTERED: Bone to pathology ESTIMATED BLOOD LOSS: 100 PROCEDURE: Implants used: Femur: Triathlon #6 CR femur Tibia: 6 tibia Tibial liner: 9 mm CS insert Patella: 38 mm oval patella Procedure with the patient supine on the operating table the left the limb is prepped and draped in a sterile fashion. The limb was elevated for exsanguination and the tourniquet inflated to 280 torr. A standard midline median parapatellar approach the knee is taken. Access is gained to the femoral canal through the intercondylar notch. Intramedullary alignment instrumentation used to resect 10 mm of distal femur in 5 of valgus. Sizing guide indicated a size 6 femur. Appropriate cutting jig is then used to fashion anterior posterior and chamfer cuts. A trial reduction femurs performed and this is judged to be adequate. Attention was next turned to the tibia. Using an extra medullary alignment system 9 millimeters was resected off the lateral tibial plateau. This is sized to a size 6 tibia. A trial reduction was now performed with a 6 femur and a 6 tibia using a 9 millimeters spacer. It is full extension and central patellofemoral tracking. The articular surface the patella was next resected using an oscillating saw. All trial implants were removed. Polymethylmethacrylate is mixed and used to cement the above implants in place. On adequate curing the cement excess cement was removed the tourniquet was deflated hemostasis obtained the wound is then closed in layers using interrupted Vicryl followed by александр. A sterile compressive dressing was applied and the patient returned to recovery room in satisfactory condition.
[2017-04-17] MEDS ORDERED: RINGERS SOLUTION,LACTATED 1,000 ML IV PRN (08:49)
[2017-04-17] MEDS ORDERED: MORPHINE SULFATE 10 MG/ML INJ IM PRN (08:49)
[2017-04-17] MEDS ORDERED: ONDANSETRON 4 MG TAB.RAPDIS PO PRN (08:49)
[2017-04-17] MEDS ORDERED: MAG HYDROX/AL HYDROX/SIMETH SUSP 30 ML UDCUP PO PRN (08:49)
[2017-04-17] MEDS ORDERED: OXYCODONE HCL IR 5 MG TABLET PO PRN (08:49)
[2017-04-17] MEDS ORDERED: GLUCAGON,HUMAN RECOMB 1 MG INJ IM PRN (09:21)
[2017-04-17] MEDS ORDERED: DEXTROSE 40% GEL 15 GM TUBE PO PRN (09:21)
[2017-04-17] MEDS ORDERED: DEXTROSE 50%-WATER SYRINGE 25 GM/50 ML DOSE IV PRN (09:21)
[2017-04-17] MEDS ORDERED: DEXTROSE 40% GEL 15 GM TUBE X 2 PO PRN (09:21)
[2017-04-17] MEDS ORDERED: DEXTROSE 50%-WATER SYRINGE 12.5 GM/25 ML DOSE IV PRN (09:21)
--- NOTE | 2017-04-17 09:33 | RADIOLOGY REPORT (SQ) ---
EXAM DESCRIPTION: KNEE LEFT 2 VIEWS COMPLETED DATE/TIME: 04/17/2017 9:22 am REASON FOR STUDY: Post OP -Long [place] in PACU M17.12 UNILATERAL PRIMARY OSTEOARTHRITIS, LEFT KNE E COMPARISON: None. NUMBER OF VIEWS: Two views TECHNIQUE: Digital radiographic images of the left knee post-procedure. LIMITATIONS: None. FINDINGS: BONES: No worrisome or unexpected findings post-procedure. DEVICE: Total knee replacement with patellar resurfacing SOFT TISSUES: No worrisome findings. Expected postoperative soft tissue changes. IMPRESSION: SATISFACTORY POSTOPERATIVE LEFT KNEE. TECHNICAL DOCUMENTATION: JOB ID: [id number] [employer]- All Rights Reserved
[2017-04-17] MEDS ORDERED: (PENDING PHARMACY ID) (Cholecalciferol (Vitamin D3) [Vitamin D3] 4,000 UNIT) PO SCH (10:00)
[2017-04-17] MEDS ORDERED: METFORMIN HCL 850 MG PO SCH (10:00)
[2017-04-17] MEDS ORDERED: TIOTROPIUM BROMIDE 2.5 MCG IH SCH (10:00)
[2017-04-17] MEDS ORDERED: THROMBIN (BOVINE) 5000 UNIT EPITAXIS KIT ONE (11:08)
[2017-04-17] MEDS ORDERED: THROMBIN (BOVINE) TOPICAL 20000 UNIT VIAL ONE (11:08)
[2017-04-17] MEDS ORDERED: GLYCOPYRROLATE INJ 0.4 MG/2 ML VIAL ONE (13:25)
[2017-04-17] MEDS ORDERED: DEXAMETHASONE SOD PHOSPHATE INJ 4 MG/1 ML VIAL ONE (13:25)
[2017-04-17] MEDS ORDERED: PHENYLEPHRINE HCL INJ/PF 10 MG/1 ML SDV ONE (13:25)
[2017-04-17] MEDS ORDERED: ONDANSETRON HCL INJ/PF 4 MG/2 ML SDV ONE (13:25)
[2017-04-17] MEDS: SENNOSIDES/DOCUSATE 8.6-50 MG 1 EACH TABLET PO SCH ×2 (13:29→17:01)
[2017-04-17] MEDS: OXYCODONE HCL SR 10 MG TABLET PO SCH ×2 (13:29→22:40)
[2017-04-17] MEDS: CHOLECALCIFEROL (D3) 1,000 UNIT TABLET PO SCH (13:29)
[2017-04-17] MEDS: PRENATAL VITAMIN W-O CA NO5/FE FUMARATE/FA CAPSULE PO SCH (13:29)
[2017-04-17] MEDS: CYANOCOBALAMIN (VITAMIN B-12) 1,000 MCG TABLET PO SCH (13:29)
[2017-04-17] MEDS: METFORMIN HCL 850 MG TABLET PO SCH (15:22)
[2017-04-17] MEDS: IBUPROFEN 800 MG in NORMAL SALINE 250 ML IV SCH ×2 (15:22→23:26)
--- NOTE | 2017-04-17 17:04 | EKG REPORT ---
SEVERITY:- BORDERLINE ECG - SINUS RHYTHM BORDERLINE R WAVE PROGRESSION, ANTERIOR LEADS : Confirmed by: Lety Hernandez MD 17-Apr-2017 17:03:59
[2017-04-17] MEDS ORDERED: (PENDING PHARMACY ID) (Cetirizine Hcl [All Day Allergy] 10 MG) PO SCH (18:00)
[2017-04-17] MEDS ORDERED: VANCOMYCIN HCL 1,000 MG in DEXTROSE 5%-WATER 250 ML IV ONE (20:49)
[2017-04-17] MEDS ORDERED: (PENDING PHARMACY ID) (Melatonin [Melatonin] 10 MG) PO SCH (22:00)
[2017-04-17] MEDS: RIVAROXABAN 10 MG TABLET PO SCH (22:40)
[2017-04-17] MEDS: CETIRIZINE 10 MG TABLET PO SCH (22:40)
[2017-04-18] MEDS: ZOLPIDEM TARTRATE 5 MG TABLET PO PRN ×2 (00:07→21:31)
[2017-04-18] MEDS: INSULIN LISPRO 100 UNIT/ML 3 ML VIAL SUBCUT PRN ×3 (00:51→21:31)
[2017-04-18 06:01] LABS: HEMOGLOBIN 11.9 g/dL (13.5-17.0); HGB HCT DIFFERENCE -0.3; MEAN CORPUSCULAR HEMOGLOBIN 29.2 pg (27.0-33.4); MEAN CORPUSCULAR HGB CONC 32.9 g/dL (32.0-36.0); MEAN CORPUSCULAR VOLUME 89 fl (80-97); RED BLOOD COUNT 4.07 10^6/uL (4.35-5.55); RED CELL DISTRIBUTION WIDTH 15.9 % (11.5-14.0); WHITE BLOOD COUNT 7.5 10^3/uL (4.0-10.5)
[2017-04-18 06:19] LABS: ANION GAP 9 (5-19); BLOOD UREA NITROGEN 11 mg/dL (7-20); CALCIUM 8.7 mg/dL (8.4-10.2); CARBON DIOXIDE 27 mmol/L (22-30); CHLORIDE 103 mmol/L (98-107); CREATININE RESULT 0.76 mg/dL (0.52-1.25); GLUCOSE 147 mg/dL (75-110); POTASSIUM 4.1 mmol/L (3.6-5.0); SODIUM 139.3 mmol/L (137-145)
--- NOTE | 2017-04-18 06:56 | PDOC PROGRESS REPORT ---
Subjective Progress Note for:: 04/18/17 Subjective:: Patient with no complaints this morning but nursing reports confusion last night Physical Exam Vital Signs: Temp Pulse Resp BP Pulse Ox 36.9 C 98 19 132/73 H 96 04/17/17 23:24 04/17/17 23:24 04/17/17 23:24 04/17/17 23:24 04/17/17 23:24 Intake & Output 04/16/17 04/17/17 04/18/17 06:59 06:59 06:59 Intake Total 0 5400 Output Total 4550 Balance 0 850 Weight 87.6 kg General appearance: PRESENT: no acute distress Head exam: PRESENT: normocephalic Eye exam: PRESENT: EOMI Respiratory exam: PRESENT: unlabored Cardiovascular exam: PRESENT: RRR Pulses: PRESENT: +1 pedal pulses bilateral Vascular exam: PRESENT: normal capillary refill GI/Abdominal exam: PRESENT: soft Rectal exam: PRESENT: deferred Extremities exam: PRESENT: other - Left lower extremity dressing clean dry and intact. Distal neurovascular examination is intact Neurological exam: PRESENT: alert, awake, oriented to person, oriented to place , oriented to time, oriented to situation, CN II-XII grossly intact. ABSENT: motor sensory deficit Psychiatric exam: PRESENT: appropriate affect, normal mood. ABSENT: homicidal ideation, suicidal ideation Skin exam: PRESENT: dry, intact, warm. ABSENT: cyanosis, rash Results Laboratory Results: 04/18/17 05:46 04/18/17 05:46 04/18/17 04/18/17 05:46 05:46 WBC 7.5 RBC 4.07 L Hgb 11.9 L Hct 36.0 L MCV 89 MCH 29.2 MCHC 32.9 RDW 15.9 H Plt Count 164 Sodium 139.3 Potassium 4.1 Chloride 103 Carbon Dioxide 27 Anion Gap 9 BUN 11 Creatinine 0.76 Est GFR ( Amer) > 60 Est GFR (Non-Af Amer) > 60 Glucose 147 H Calcium 8.7 Impressions: Knee X-Ray 04/17/17 08:50 IMPRESSION: SATISFACTORY POSTOPERATIVE LEFT KNEE. Status: Imported from PACS Assessment & Plan - Diagnosis (1) Arthritis of knee, left Is this a current diagnosis for this admission?: YesPlan: 82-year-old white male status post left knee arthroplasty yesterday. Postoperative course has been uneventful. There is by report confusion last night that is presumably related to analgesic medication. His morphine and OxyContin will be discontinued. Sugars have been well controlled between 179 and 246. - Time Time Spent with patient: 15-24 minutes Anticipated discharge: Home with Homehealth Within: within 24 hours
[2017-04-18] MEDS ORDERED: MAG HYDROX/AL HYDROX/SIMETH SUSP 30 ML UDCUP PO PRN (07:02)
[2017-04-18] MEDS: IBUPROFEN 800 MG in NORMAL SALINE 250 ML IV SCH ×3 (07:34→23:29)
[2017-04-18] MEDS: LANSOPRAZOLE 30 MG TAB.RAP.DR PO SCH (07:34)
[2017-04-18] MEDS: SERTRALINE HCL 50 MG TABLET PO SCH (07:34)
[2017-04-18] MEDS: METFORMIN HCL 850 MG TABLET PO SCH ×2 (07:34→16:44)
[2017-04-18] MEDS ORDERED: (PENDING PHARMACY ID) (Linagliptin [Tradjenta] 5 MG) PO SCH (08:00)
[2017-04-18] MEDS ORDERED: (PENDING PHARMACY ID) (Fluticasone/Vilanterol [Breo Ellipta 200-25 Mcg Inh] 1 EACH) IH SCH (08:00)
[2017-04-18] MEDS: SITAGLIPTIN PHOSPHATE 50 MG TABLET PO SCH (10:18)
[2017-04-18] MEDS: PRENATAL VITAMIN W-O CA NO5/FE FUMARATE/FA CAPSULE PO SCH (10:18)
[2017-04-18] MEDS: CHOLECALCIFEROL (D3) 1,000 UNIT TABLET PO SCH (10:18)
[2017-04-18] MEDS: SENNOSIDES/DOCUSATE 8.6-50 MG 1 EACH TABLET PO SCH ×2 (10:19→16:45)
[2017-04-18] MEDS: CYANOCOBALAMIN (VITAMIN B-12) 1,000 MCG TABLET PO SCH (10:19)
[2017-04-18] MEDS: ACETAMINOPHEN 325 MG TABLET PO PRN (11:27)
[2017-04-18] MEDS ORDERED: ONDANSETRON HCL INJ/PF 4 MG/2 ML SDV IV PRN (14:21)
[2017-04-18] MEDS: CETIRIZINE 10 MG TABLET PO SCH (21:30)
[2017-04-18] MEDS: RIVAROXABAN 10 MG TABLET PO SCH (21:31)
[2017-04-19 06:11] LABS: HEMATOCRIT 36.1 % (37.9-51.0); HGB HCT DIFFERENCE -0.1; MEAN CORPUSCULAR HEMOGLOBIN 29.4 pg (27.0-33.4); MEAN CORPUSCULAR HGB CONC 33.3 g/dL (32.0-36.0); MEAN CORPUSCULAR VOLUME 88 fl (80-97); RED BLOOD COUNT 4.09 10^6/uL (4.35-5.55); RED CELL DISTRIBUTION WIDTH 16.4 % (11.5-14.0); WHITE BLOOD COUNT 9.6 10^3/uL (4.0-10.5)
[2017-04-19] MEDS ORDERED: HALOPERIDOL LACTATE INJ 5 MG/1 ML VIAL ONE (06:22)
--- NOTE | 2017-04-19 06:27 | PDOC PROGRESS REPORT ---
Subjective Progress Note for:: 04/19/17 Subjective:: Patient confused this morning. He reports to having a softball game this morning being the other team 10-1. He played catcher Physical Exam Vital Signs: Temp Pulse Resp BP Pulse Ox 36.8 C 86 18 140/70 H 98 04/19/17 00:00 04/19/17 00:00 04/19/17 00:00 04/19/17 00:00 04/19/17 00:00 Intake & Output 04/17/17 04/18/17 04/19/17 06:59 06:59 06:59 Intake Total 0 7300 2160 Output Total 5550 2450 Balance 0 1750 -290 Weight 87.6 kg 87.8 kg General appearance: PRESENT: no acute distress Head exam: PRESENT: normocephalic Eye exam: PRESENT: EOMI Respiratory exam: PRESENT: unlabored Cardiovascular exam: PRESENT: RRR Pulses: PRESENT: +1 pedal pulses bilateral Vascular exam: PRESENT: normal capillary refill GI/Abdominal exam: PRESENT: soft Rectal exam: PRESENT: deferred Extremities exam: PRESENT: other - Left lower extremity picot dressing clean dry and intact. Patient able to do a straight leg raise during the dressing change without any difficulty. Skin exam: PRESENT: dry, intact, warm. ABSENT: cyanosis, rash Results Laboratory Results: 04/19/17 05:42 04/18/17 05:46 04/19/17 05:42 WBC 9.6 RBC 4.09 L Hgb 12.0 L Hct 36.1 L MCV 88 MCH 29.4 MCHC 33.3 RDW 16.4 H Plt Count 161 Impressions: Knee X-Ray 04/17/17 08:50 IMPRESSION: SATISFACTORY POSTOPERATIVE LEFT KNEE. Status: Imported from PACS Assessment & Plan - Diagnosis (1) Arthritis of knee, left Is this a current diagnosis for this admission?: YesPlan: 83-year-old white male postop day 2 left knee arthroplasty. Blood sugars are controlled between 190 and 245. Hematocrit remains above 36%. Patient ambulated 25 feet with physical therapy yesterday. Problem is his mental status changes. Narcotics were stopped yesterday. 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 Was added as needed. He will along with efforts at physical therapy today - Time Time Spent with patient: 15-24 minutes Anticipated discharge: Home with Homehealth Within: within 24 hours
[2017-04-19] MEDS: METFORMIN HCL 850 MG TABLET PO SCH ×2 (08:04→16:31)
[2017-04-19] MEDS: LANSOPRAZOLE 30 MG TAB.RAP.DR PO SCH (08:04)
[2017-04-19] MEDS: SERTRALINE HCL 50 MG TABLET PO SCH (08:04)
[2017-04-19] MEDS: INSULIN LISPRO 100 UNIT/ML 3 ML VIAL SUBCUT PRN ×4 (08:04→21:10)
[2017-04-19] MEDS: CHOLECALCIFEROL (D3) 1,000 UNIT TABLET PO SCH (09:55)
[2017-04-19] MEDS: SENNOSIDES/DOCUSATE 8.6-50 MG 1 EACH TABLET PO SCH ×2 (09:55→18:25)
[2017-04-19] MEDS: CYANOCOBALAMIN (VITAMIN B-12) 1,000 MCG TABLET PO SCH (09:56)
[2017-04-19] MEDS: IPRATROPIUM/ALBUTEROL 120 PUFF/4 GM MDI IH PRN (09:56)
[2017-04-19] MEDS: SITAGLIPTIN PHOSPHATE 50 MG TABLET PO SCH (09:56)
[2017-04-19] MEDS: PRENATAL VITAMIN W-O CA NO5/FE FUMARATE/FA CAPSULE PO SCH (09:56)
[2017-04-19] MEDS: HALOPERIDOL LACTATE INJ 5 MG/1 ML VIAL IV PRN (15:29)
--- NOTE | 2017-04-19 15:31 | PDOC CONSULTATION ---
Consultation Consult Date: 04/19/17 Consult reason:: Post operative tachycardia History of Present Illness Admission Date/PCP: 04/17/17 05:19 GWENDOLYN OSRONEL History of Present Illness: BRUCE KNOTT is a 82 year old male known to my practice who was admitted to orthopedic service for total left knee arthroplasty that was completed on . Post operatively he was managed with Morphine and Oxycodone for pain. Nursing staff reported elevated heart rate recording with schedule vitals checks. Patient denied any chest pain, palpitation, or unusual diaphoresis. He reported some improvement in his knee surgical site so far today. Family at bedside reported increasing confusion over last 2 days with lack of insight into his ongoing issues and intermittent episodes of lucidity. Patient reported satisfactory bowel movement but family and nursing staff reported no bowel movement since admission. No abdominal pain, nausea or vomiting. Past Medical History Cardiac Medical History: Reports: Coronary Artery Disease, Hyperlipidema, Hypertension Denies: Atrial Fibrillation, Congestive Heart Failure, Myocardial Infarction , Peripheral Vascular Disease, Pulmonary Embolism, Heart Murmur Pulmonary Medical History: Reports: Asthma, Chronic Obstructive Pulmonary Disease (COPD), Respiratory Failure - Lung Collapsed 2010 Denies: Bronchitis, Pneumonia, Sleep Apnea, Tuberculosis Endocrine Medical History: Reports: Diabetes Mellitus Type 2 Denies: Hyperthyroidism, Hypothyroidism Renal/ Medical History: Denies: End Stage Renal Disease Malignancy Medical History: Reports: Pancreatic Cancer Denies: Leukemia, Lung Cancer GI Medical History: Reports: Gastroesophageal Reflux Disease Denies: Crohn's Disease, Hiatal Hernia Musculoskeltal Medical History: Reports: Arthritis Denies: Fibromyalgia Psychiatric Medical History: Denies: Bipolar Disorder, Depression, Post Traumatic Stress Disorder Traumatic Medical History: Reports: Pneumothorax - three times Hematology: Reports: Anemia - blood transfusion Denies: Hemophilia, Sickle Cell Disease Infectious Medical History: Denies: HIV Past Surgical History Past Surgical History: Reports: Herniorrhaphy - bilateral with mesh Denies: Appendectomy, Cholecystectomy, Colostomy, Coronary Artery Bypass Graft, Gastric Bypass Surgery, Pacemaker, Tonsillectomy Social History Smoking Status: Former Smoker Cigarettes Packs Per Day: 2 Frequency of Alcohol Use: None Hx Recreational Drug Use: No Drugs: None Hx Prescription Drug Abuse: No - Advance Directive Resuscitation Status: Full Code Family History Family History: Reviewed & Not Pertinent Parental Family History Reviewed: Yes Children Family History Reviewed: Yes Sibling(s) Family History Reviewed.: Yes Medication/Allergy Home Medications: Fluticasone/Vilanterol [Breo Ellipta 200-25 Mcg INH] 1 each IH QAM 01/24/17 Linagliptin [Tradjenta] 5 mg PO QAM 01/24/17 Melatonin 10 mg PO QHS 01/24/17 Metformin HCl [Glucophage] 850 mg PO BID 01/24/17 Sertraline HCl [Zoloft 50 mg Tablet] 50 mg PO QAM 01/24/17 Tiotropium [place] [Spiriva Respimat] 2.5 mcg IH BID 01/24/17 Vit A/Vit C/Vit E/Zinc/Copper [Preservision Areds Tablet] 1 tab PO QAM 01/24/17 Multivitamin [One-A-Day Essential] 1 tab PO QPM 01/25/17 Pantoprazole Sodium [Protonix] 40 mg PO QAM 01/25/17 Tramadol HCl [Ultram 50 mg Tablet] 50 mg PO Q6HP PRN #90 tablet 01/29/17 Cetirizine HCl [All Day Allergy] 10 mg PO QPM 04/10/17 Cholecalciferol (Vitamin D3) [Vitamin D3] 4,000 unit PO DAILY 04/10/17 Cyanocobalamin (Vitamin B-12) [Vitamin B-12] 1,000 mcg PO DAILY 04/10/17 Ipratropium/Albuterol Sulfate [Combivent Inhaler] 14.7 gm IH ASDIR PRN 04/10/17 Holt-3 Fatty Acids/Fish Oil [Fish Oil 1,000 Mg Capsule] 1 each PO DAILY Allergies/Adverse Reactions: No Known Allergies Allergy (Verified 01/24/17 13:12) Review of Systems Constitutional: ABSENT: chills, fever(s), headache(s), weight gain, weight loss Eyes: ABSENT: visual disturbances Ears: PRESENT: hearing changes Nose, Mouth, and Throat: ABSENT: as per HPI, headache(s), mouth pain, sore throat, vertigo, other Cardiovascular: ABSENT: chest pain, dyspnea on exertion, edema, orthropnea, palpitations Respiratory: PRESENT: dyspnea - but not more than usual related to his baseline COPD. remain on supplemental oxygen. Gastrointestinal: PRESENT: constipation. ABSENT: as per HPI, abdominal pain, bloating, coffee ground emesis, diarrhea, dysphagia, heartburn, hematemesis, hematochezia, melena, nausea, vomiting, other Neurological: PRESENT: confusion Endocrine: PRESENT: other - hyperglycemia related to his diabetes mellitus Hematologic/Lymphatic: ABSENT: easy bleeding, easy bruising, lymphadenopathy Allergic/Immunologic: ABSENT: as per HPI, seasonal rhinorrhea, other Physical Exam Vital Signs: Temp Pulse Resp BP Pulse Ox 98.4 F 124 H 18 125/69 95 04/19/17 11:15 04/19/17 11:15 04/19/17 11:15 04/19/17 11:15 04/19/17 11:15 Intake & Output 04/18/17 04/19/17 04/20/17 06:59 06:59 06:59 Intake Total 7300 2160 Output Total 5550 2450 Balance 1750 -290 Weight 87.6 kg 87.8 kg General appearance: PRESENT: mild distress - related to underlying COPD Head exam: PRESENT: atraumatic, normocephalic Eye exam: PRESENT: conjunctiva pink, EOMI, PERRLA. ABSENT: scleral icterus Ear exam: PRESENT: normal external ear exam Mouth exam: PRESENT: moist, tongue midline Teeth exam: PRESENT: edentulous Throat exam: ABSENT: post pharyngeal erythema, tonsillar erythema, tonsillar exudate, tonsillogmegaly, other Neck exam: PRESENT: full ROM. ABSENT: carotid bruit, JVD, lymphadenopathy, thyromegaly Respiratory exam: PRESENT: clear to auscultation boris, decreased breath sounds - bilateral at lung bases Cardiovascular exam: PRESENT: RRR. ABSENT: diastolic murmur, rubs, systolic murmur Pulses: PRESENT: normal dorsalis pedis pul, +2 pedal pulses bilateral Vascular exam: PRESENT: normal capillary refill GI/Abdominal exam: PRESENT: normal bowel sounds, soft. ABSENT: distended, guarding, mass, organolmegaly, rebound, tenderness Rectal exam: PRESENT: deferred Gentrourinary exam: ABSENT: ecchymosis, erythema, lacerations, lesions, scrotal swelling, indwelling catheter, other Extremities exam: PRESENT: tenderness - left knee site of TKA surgery. ABSENT: pedal edema Musculoskeletal exam: PRESENT: deformity - related to multiple joints arthritios involvement, tenderness - left knee site of TKA surgery Neurological exam: PRESENT: altered - with delirium characteristics Psychiatric exam: PRESENT: appropriate affect, normal mood. ABSENT: homicidal ideation, suicidal ideation Skin exam: PRESENT: dry, intact, warm, other - Left TKA site with adequate dressing and drainage system device in use. ABSENT: cyanosis, rash Results Laboratory Results: 04/19/17 05:42 04/18/17 05:46 04/19/17 05:42 WBC 9.6 RBC 4.09 L Hgb 12.0 L Hct 36.1 L MCV 88 MCH 29.4 MCHC 33.3 RDW 16.4 H Plt Count 161 Impressions: Knee X-Ray 04/17/17 08:50 IMPRESSION: SATISFACTORY POSTOPERATIVE LEFT KNEE. Assessment & Plan - Diagnosis (1) Arthritis of knee, left Is this a current diagnosis for this admission?: YesPlan: s/p total left knee arthroplasty surgery. Further management as per orthopedic team. (2) Postoperative supraventricular tachycardia Is this a current diagnosis for this admission?: NoPlan: Transfer to telemetry bed for better cardiac monitoring. Tachycardia may be reactive to pain but other etiology may include his acute delirium and COPD. We will obtain CMP, Magnesium, cardiac enzymes and 12 lead ECG for further evaluation of his cardiac status. Maintain on supplemental oxygen. Start on Cardizem 30 mg p.o q 6hours. (3) Acute delirium Is this a current diagnosis for this admission?: NoPlan: Patient had IV haloperidol prior to my visit today. Family at bedside reported better lucid state with me than with anyone else today before my visit. With his intermittent lucidity and confusion state, recent surgical intervention and his comorbidities consideration of acute delirium is tenable. I will recommend continuation of Haloperidol at 0.5 mg po q12 and use of prn haloperidol as noted on his orders. I will add stress vitamin to his IV fluid infusion. We will continue reorientation approach to his confused actions. (4) Constipation Is this a current diagnosis for this admission?: YesPlan: Continue use of Senokot Plus therapy. I will add Glycerin suppository to management and monitor response. (5) COPD (chronic obstructive pulmonary disease) Qualifiers: COPD type: emphysema Emphysema type: unspecified Qualified Code( s): J43.9 - Emphysema, unspecified Is this a current diagnosis for this admission?: YesPlan: Continue current medication and supplemental oxygen therapy. (6) Uncontrolled type 2 diabetes mellitus Qualifiers: Diabetes mellitus complication status: with hyperglycemia Diabetes mellitus rodent exterminator insulin use: without [facility] use Qualified Code(s): E11.65 - Type 2 diabetes mellitus with hyperglycemia Is this a current diagnosis for this admission?: YesPlan: Continue on current medication and dietary management. Adjust medication as necessary. - Time Time Spent: 50 to 70 Minutes Medications reviewed and adjusted accordingly: Yes Anticipated discharge: SNF - for short term rehabilitation. Within: Other - Inpatient Certification Based on my medical assessment, after consideration of the patient's comorbidities, presenting symptoms, or acuity I expect that the services needed warrant INPATIENT care.: Yes I certify that my determination is in accordance with my understanding of Medicare's requirements for reasonable and necessary INPATIENT services [42 CFR 412.3e].: Yes Medical Necessity: Need Close Monitoring Due to Risk of Patient Decompensation, Need For IV Fluids, Need For Continuous Telemetry Monitoring, Need for Nebulizer Therapy and Monitoring of Response, Need for Pain Control, Need for Surgery, Risk of Complication if Not Cared For in Hospital Post Hospital Care: D/C or Transfer Summary - Plan Summary Plan Summary: See consulting physician orders. Thank for allowing me to participate in his care.
[2017-04-19] MEDS ORDERED: GLYCERIN (ADULT) SUPP.RECT PR ONE (16:00)
[2017-04-19] MEDS ORDERED: DILTIAZEM HCL 30 MG TABLET PO ONE (16:15)
[2017-04-19] MEDS: ACETAMINOPHEN 325 MG TABLET PO PRN ×2 (16:32→21:10)
[2017-04-19 16:49] LABS: ALANINE AMINOTRANSFERASE 40 U/L (21-72); ALBUMIN 3.9 g/dL (3.5-5.0); ALKALINE PHOSPHATASE 84 U/L (38-126); ANION GAP 15 (5-19); ASPARTATE AMINO TRANSFERASE 27 U/L (17-59); BILIRUBIN,DIRECT 0.3 mg/dL (0.0-0.4); BILIRUBIN,TOTAL 1.2 mg/dL (0.2-1.3); BLOOD UREA NITROGEN 11 mg/dL (7-20); CARBON DIOXIDE 23 mmol/L (22-30); CHLORIDE 96 mmol/L (98-107); CREATINE KINASE 184 U/L (55-170); CREATININE RESULT 0.66 mg/dL (0.52-1.25); GLUCOSE 189 mg/dL (75-110); MAGNESIUM 1.8 mg/dL (1.6-2.3); POTASSIUM 3.7 mmol/L (3.6-5.0); TOTAL PROTEIN 7.2 g/dL (6.3-8.2)
[2017-04-19 16:59] LABS: CREATINE KINASE MB 3.1 ng/mL (<4.55)
[2017-04-19 17:03] LABS: TROPONIN I 0.167 ng/mL
[2017-04-19] MEDS ORDERED: 1/2 NORMAL SALINE 1,000 ML IV PRN (17:17)
[2017-04-19] MEDS ORDERED: DILTIAZEM HCL 30 MG TABLET PO SCH (18:00)
[2017-04-19] MEDS: NORMAL SALINE 1000 ML 1,000 ML with POTASSIUM CHLORIDE 20 MEQ, MAGNESIUM SULFATE 8 MEQ,... IV SCH ×5 (18:23)
[2017-04-19] MEDS: RIVAROXABAN 10 MG TABLET PO SCH (21:10)
[2017-04-19] MEDS: CETIRIZINE 10 MG TABLET PO SCH (21:10)
[2017-04-19] MEDS: HALOPERIDOL 0.5 MG TABLET PO SCH (21:10)
[2017-04-19 22:32] LABS: TROPONIN I 0.212 ng/mL
[2017-04-19 22:35] LABS: CREATINE KINASE MB 3.23 ng/mL (<4.55)
[2017-04-19] MEDS: DILTIAZEM HCL 30 MG TABLET PO SCH (22:42)
[2017-04-19] MEDS: ZOLPIDEM TARTRATE 5 MG TABLET PO PRN (22:42)
[2017-04-20] MEDS: ACETAMINOPHEN 325 MG TABLET PO PRN ×3 (05:11→23:27)
[2017-04-20] MEDS: DILTIAZEM HCL 30 MG TABLET PO SCH ×4 (05:11→23:27)
[2017-04-20 05:15] LABS: HEMATOCRIT 34.1 % (37.9-51.0); HEMOGLOBIN 11.2 g/dL (13.5-17.0); HGB HCT DIFFERENCE -0.5; MEAN CORPUSCULAR HEMOGLOBIN 29.2 pg (27.0-33.4); MEAN CORPUSCULAR HGB CONC 32.9 g/dL (32.0-36.0); MEAN CORPUSCULAR VOLUME 89 fl (80-97); RED BLOOD COUNT 3.85 10^6/uL (4.35-5.55); RED CELL DISTRIBUTION WIDTH 16.6 % (11.5-14.0)
[2017-04-20 05:32] LABS: CREATINE KINASE MB 2.7 ng/mL (<4.55)
[2017-04-20 05:38] LABS: TROPONIN I 0.168 ng/mL
--- NOTE | 2017-04-20 06:46 | PDOC PROGRESS REPORT ---
Subjective Progress Note for:: 04/20/17 Subjective:: Seems alert and appropriate this morning but he did drive to [place] last night. Physical Exam Vital Signs: Temp Pulse Resp BP Pulse Ox 36.7 C 115 H 22 H 115/61 97 04/19/17 20:00 04/20/17 04:00 04/19/17 15:24 04/20/17 04:00 04/19/17 19:50 Intake & Output 04/18/17 04/19/17 04/20/17 06:59 06:59 06:59 Intake Total 7300 2160 1100 Output Total 5550 2450 900 Balance 1750 -290 200 Weight 87.6 kg 87.8 kg General appearance: PRESENT: no acute distress Head exam: PRESENT: normocephalic Respiratory exam: PRESENT: unlabored Cardiovascular exam: PRESENT: RRR Pulses: PRESENT: +1 pedal pulses bilateral Vascular exam: PRESENT: normal capillary refill GI/Abdominal exam: PRESENT: soft Rectal exam: PRESENT: deferred Extremities exam: PRESENT: other - Left lower extremity picot dressing clean dry and intact. There is minor pedal edema. There is brisk capillary refill. Neurological exam: PRESENT: alert, awake, oriented to person, oriented to place , oriented to time, oriented to situation. ABSENT: motor sensory deficit Psychiatric exam: PRESENT: appropriate affect, normal mood. ABSENT: homicidal ideation, suicidal ideation Skin exam: PRESENT: dry, intact, warm. ABSENT: cyanosis, rash Results Laboratory Results: 04/20/17 04:13 04/19/17 16:00 04/19/17 04/20/17 16:00 04:13 WBC 8.0 RBC 3.85 L Hgb 11.2 L Hct 34.1 L MCV 89 MCH 29.2 MCHC 32.9 RDW 16.6 H Plt Count 151 Sodium 134.0 L Potassium 3.7 Chloride 96 L Carbon Dioxide 23 Anion Gap 15 BUN 11 Creatinine 0.66 Est GFR ( Amer) > 60 Est GFR (Non-Af Amer) > 60 Glucose 189 H Calcium 9.0 Magnesium 1.8 Total Bilirubin 1.2 AST 27 ALT 40 Alkaline Phosphatase 84 Total Protein 7.2 Albumin 3.9 04/19/17 04/19/17 04/19/17 16:00 16:00 21:50 Creatine Kinase 184 H 186 H CK-MB (CK-2) 3.10 Troponin I 0.167 NT-Pro-B Natriuret Pep 04/19/17 04/20/17 04/20/17 21:50 04:13 04:13 Creatine Kinase 171 H CK-MB (CK-2) 3.23 2.70 Troponin I 0.212 0.168 NT-Pro-B Natriuret Pep 961 H Impressions: Knee X-Ray 04/17/17 08:50 IMPRESSION: SATISFACTORY POSTOPERATIVE LEFT KNEE. Status: Imported from PACS Assessment & Plan - Diagnosis (1) Arthritis of knee, left Is this a current diagnosis for this admission?: YesPlan: 82-year-old white male status post left knee arthroplasty with postoperative overmedication which seems to be clearing. Troponins and BMP are slightly elevated. Progress with physical therapy has been limited to 40 feet. Pain management during attempts at physical therapy have probably been less than adequate but this is left clearing of his mental status. I discussed this with this patient that his pain management currently is appropriate and that he can work through the pain when he is participating with physical therapy. - Time Time Spent with patient: 15-24 minutes Anticipated discharge: Home with Homehealth Within: within 48 hours
[2017-04-20] MEDS: INSULIN LISPRO 100 UNIT/ML 3 ML VIAL SUBCUT PRN ×3 (08:43→21:30)
[2017-04-20] MEDS: LANSOPRAZOLE 30 MG TAB.RAP.DR PO SCH (08:43)
[2017-04-20] MEDS: SERTRALINE HCL 50 MG TABLET PO SCH (08:43)
[2017-04-20] MEDS: METFORMIN HCL 850 MG TABLET PO SCH ×2 (08:43→17:01)
[2017-04-20] MEDS: SITAGLIPTIN PHOSPHATE 50 MG TABLET PO SCH (11:21)
[2017-04-20] MEDS: PRENATAL VITAMIN W-O CA NO5/FE FUMARATE/FA CAPSULE PO SCH (11:21)
[2017-04-20] MEDS: SENNOSIDES/DOCUSATE 8.6-50 MG 1 EACH TABLET PO SCH ×2 (11:21→18:09)
[2017-04-20] MEDS: CYANOCOBALAMIN (VITAMIN B-12) 1,000 MCG TABLET PO SCH (11:21)
[2017-04-20] MEDS: HALOPERIDOL 0.5 MG TABLET PO SCH ×2 (11:22→21:30)
[2017-04-20] MEDS: CHOLECALCIFEROL (D3) 1,000 UNIT TABLET PO SCH (11:22)
[2017-04-20 11:43] LABS: CREATINE KINASE MB 2.32 ng/mL (<4.55); TROPONIN I 0.106 ng/mL
[2017-04-20] MEDS: IPRATROPIUM/ALBUTEROL 120 PUFF/4 GM MDI IH PRN ×2 (11:57→20:19)
--- NOTE | 2017-04-20 15:12 | PDOC PROGRESS REPORT ---
Subjective Progress Note for:: 04/20/17 Subjective:: He was admitted for right knee arthroplasty he developed sinus tachycardia due to multifactorial including hypovolemia Physical Exam Vital Signs: Temp Pulse Resp BP Pulse Ox 98.7 F 112 H 19 109/66 96 04/20/17 11:57 04/20/17 11:57 04/20/17 11:57 04/20/17 11:57 04/20/17 11:57 Intake & Output 04/19/17 04/20/17 04/21/17 06:59 06:59 06:59 Intake Total 2160 2000 Output Total 2450 1400 Balance -290 600 Weight 87.8 kg General appearance: PRESENT: no acute distress Eye exam: PRESENT: PERRLA Respiratory exam: PRESENT: clear to auscultation boris Cardiovascular exam: PRESENT: +S1, +S2 GI/Abdominal exam: PRESENT: soft Neurological exam: PRESENT: alert Results Laboratory Results: 04/20/17 04:13 04/19/17 16:00 04/19/17 04/20/17 16:00 04:13 WBC 8.0 RBC 3.85 L Hgb 11.2 L Hct 34.1 L MCV 89 MCH 29.2 MCHC 32.9 RDW 16.6 H Plt Count 151 Sodium 134.0 L Potassium 3.7 Chloride 96 L Carbon Dioxide 23 Anion Gap 15 BUN 11 Creatinine 0.66 Est GFR ( Amer) > 60 Est GFR (Non-Af Amer) > 60 Glucose 189 H Calcium 9.0 Magnesium 1.8 Total Bilirubin 1.2 AST 27 ALT 40 Alkaline Phosphatase 84 Total Protein 7.2 Albumin 3.9 04/19/17 04/19/17 04/19/17 16:00 16:00 21:50 Creatine Kinase 184 H 186 H CK-MB (CK-2) 3.10 Troponin I 0.167 NT-Pro-B Natriuret Pep 04/19/17 04/20/17 04/20/17 21:50 04:13 04:13 Creatine Kinase 171 H CK-MB (CK-2) 3.23 2.70 Troponin I 0.212 0.168 NT-Pro-B Natriuret Pep 961 H 04/20/17 04/20/17 11:00 11:00 Creatine Kinase 159 CK-MB (CK-2) 2.32 Troponin I 0.106 NT-Pro-B Natriuret Pep Impressions: Knee X-Ray 04/17/17 08:50 IMPRESSION: SATISFACTORY POSTOPERATIVE LEFT KNEE. Assessment & Plan - Diagnosis (1) Arthritis of knee, left Is this a current diagnosis for this admission?: Yes (2) COPD (chronic obstructive pulmonary disease) Qualifiers: COPD type: emphysema Emphysema type: unspecified Qualified Code( s): J43.9 - Emphysema, unspecified Is this a current diagnosis for this admission?: Yes
--- NOTE | 2017-04-20 17:40 | EKG REPORT ---
SEVERITY:- BORDERLINE ECG - SINUS TACHYCARDIA ATRIAL PREMATURE COMPLEX BORDERLINE R WAVE PROGRESSION, ANTERIOR LEADS : Confirmed by: Hunter Ruff 20-Apr-2017 17:39:21
--- NOTE | 2017-04-20 17:41 | EKG REPORT ---
SEVERITY:- ABNORMAL ECG - SINUS TACHYCARDIA BORDERLINE R WAVE PROGRESSION, ANTERIOR LEADS REPOLARIZATION ABNORMALITY, PROB RATE RELATED : Confirmed by: Hunter Ruff 20-Apr-2017 17:39:26
[2017-04-20] MEDS: NORMAL SALINE 1000 ML 1,000 ML with POTASSIUM CHLORIDE 20 MEQ, MAGNESIUM SULFATE 8 MEQ,... IV SCH ×5 (18:09)
[2017-04-20] MEDS: RIVAROXABAN 10 MG TABLET PO SCH (21:30)
[2017-04-20] MEDS: CETIRIZINE 10 MG TABLET PO SCH (21:30)
[2017-04-21] MEDS: ACETAMINOPHEN 325 MG TABLET PO PRN ×2 (03:54→14:56)
[2017-04-21] MEDS: IPRATROPIUM/ALBUTEROL 120 PUFF/4 GM MDI IH PRN ×3 (05:59→21:58)
[2017-04-21] MEDS: DILTIAZEM HCL 30 MG TABLET PO SCH ×4 (05:59→23:46)
[2017-04-21] MEDS: LANSOPRAZOLE 30 MG TAB.RAP.DR PO SCH (08:35)
[2017-04-21] MEDS: INSULIN LISPRO 100 UNIT/ML 3 ML VIAL SUBCUT PRN ×4 (08:35→21:59)
[2017-04-21] MEDS: METFORMIN HCL 850 MG TABLET PO SCH ×2 (08:35→17:47)
[2017-04-21] MEDS: SERTRALINE HCL 50 MG TABLET PO SCH (08:36)
[2017-04-21] MEDS: CHOLECALCIFEROL (D3) 1,000 UNIT TABLET PO SCH (11:32)
[2017-04-21] MEDS: PRENATAL VITAMIN W-O CA NO5/FE FUMARATE/FA CAPSULE PO SCH (11:32)
[2017-04-21] MEDS: HALOPERIDOL 0.5 MG TABLET PO SCH ×2 (11:32→21:58)
[2017-04-21] MEDS: SITAGLIPTIN PHOSPHATE 50 MG TABLET PO SCH (11:33)
[2017-04-21] MEDS: CYANOCOBALAMIN (VITAMIN B-12) 1,000 MCG TABLET PO SCH (11:33)
[2017-04-21] MEDS: SENNOSIDES/DOCUSATE 8.6-50 MG 1 EACH TABLET PO SCH ×2 (11:33→17:47)
--- NOTE | 2017-04-21 13:58 | PDOC PROGRESS REPORT ---
Subjective Progress Note for:: 04/21/17 Subjective:: He was admitted for right knee arthroplasty he developed sinus tachycardia due to multifactorial including hypovolemia Physical Exam Vital Signs: Temp Pulse Resp BP Pulse Ox 97.5 F 108 H 20 123/65 97 04/21/17 11:41 04/21/17 11:41 04/21/17 11:41 04/21/17 11:41 04/21/17 11:41 Intake & Output 04/20/17 04/21/17 04/22/17 06:59 06:59 06:59 Intake Total 1999 3216 Output Total 1400 2975 600 Balance 600 242 -600 General appearance: PRESENT: no acute distress Head exam: PRESENT: atraumatic, normocephalic Eye exam: PRESENT: conjunctiva pink, EOMI, PERRLA Neck exam: PRESENT: full ROM Cardiovascular exam: PRESENT: RRR, +S1, +S2 Vascular exam: PRESENT: normal capillary refill GI/Abdominal exam: PRESENT: diminished bowel sounds Rectal exam: PRESENT: deferred Neurological exam: PRESENT: alert, awake, oriented to person, oriented to place , oriented to time, oriented to situation, CN II-XII grossly intact Psychiatric exam: PRESENT: appropriate affect, normal mood Skin exam: PRESENT: dry, intact, warm Results Laboratory Results: 04/20/17 04:13 04/19/17 16:00 04/19/17 04/19/17 04/19/17 16:00 16:00 21:50 Creatine Kinase 184 H 186 H CK-MB (CK-2) 3.10 Troponin I 0.167 NT-Pro-B Natriuret Pep 04/19/17 04/20/17 04/20/17 21:50 04:13 04:13 Creatine Kinase 171 H CK-MB (CK-2) 3.23 2.70 Troponin I 0.212 0.168 NT-Pro-B Natriuret Pep 961 H 04/20/17 04/20/17 11:00 11:00 Creatine Kinase 159 CK-MB (CK-2) 2.32 Troponin I 0.106 NT-Pro-B Natriuret Pep Impressions: Knee X-Ray 04/17/17 08:50 IMPRESSION: SATISFACTORY POSTOPERATIVE LEFT KNEE. Assessment & Plan - Diagnosis (1) Arthritis of knee, left Is this a current diagnosis for this admission?: Yes (2) COPD (chronic obstructive pulmonary disease) Qualifiers: COPD type: emphysema Emphysema type: unspecified Qualified Code( s): J43.9 - Emphysema, unspecified Is this a current diagnosis for this admission?: Yes
[2017-04-21 14:35] LABS: ABSOLUTE EOSINOPHILS # (AUTO) 0.1 10^3/uL (0.0-0.6); ABSOLUTE LYMPHOCYTES (AUTO) 0.9 10^3/uL (0.5-4.7); ABSOLUTE MONOCYTES (AUTO) 0.9 10^3/uL (0.1-1.4); ABSOLUTE NEUT (AUTO) 5.8 10^3/uL (1.7-8.2); BASOPHILS % (AUTO) 0.2 % (0-2); EOSINOPHILS % (AUTO) 0.7 % (0-6); HEMATOCRIT 35.1 % (37.9-51.0); HEMOGLOBIN 11.5 g/dL (13.5-17.0); HGB HCT DIFFERENCE -0.6; MEAN CORPUSCULAR HEMOGLOBIN 28.9 pg (27.0-33.4); MEAN CORPUSCULAR HGB CONC 32.6 g/dL (32.0-36.0); MEAN CORPUSCULAR VOLUME 89 fl (80-97); MONOCYTES % (AUTO) 11.5 % (3-13); RED BLOOD COUNT 3.97 10^6/uL (4.35-5.55); RED CELL DISTRIBUTION WIDTH 16.5 % (11.5-14.0); SEGMENTED NEUTROPHILS % (AUTO) 75.6 % (42-78); WHITE BLOOD COUNT 7.7 10^3/uL (4.0-10.5)
[2017-04-21 14:52] LABS: ALANINE AMINOTRANSFERASE 33 U/L (21-72); ALBUMIN 3.4 g/dL (3.5-5.0); ALKALINE PHOSPHATASE 90 U/L (38-126); ANION GAP 13 (5-19); ASPARTATE AMINO TRANSFERASE 21 U/L (17-59); BILIRUBIN,DIRECT 0.3 mg/dL (0.0-0.4); BLOOD UREA NITROGEN 12 mg/dL (7-20); CALCIUM 8.5 mg/dL (8.4-10.2); CARBON DIOXIDE 23 mmol/L (22-30); CHLORIDE 100 mmol/L (98-107); CREATININE RESULT 0.68 mg/dL (0.52-1.25); GLUCOSE 213 mg/dL (75-110); POTASSIUM 3.9 mmol/L (3.6-5.0); SODIUM 136.2 mmol/L (137-145); TOTAL PROTEIN 6.7 g/dL (6.3-8.2)
[2017-04-21] MEDS: NORMAL SALINE 1000 ML 1,000 ML with POTASSIUM CHLORIDE 20 MEQ, MAGNESIUM SULFATE 8 MEQ,... IV SCH ×5 (17:47)
[2017-04-21] MEDS: RIVAROXABAN 10 MG TABLET PO SCH (21:58)
[2017-04-21] MEDS: CETIRIZINE 10 MG TABLET PO SCH (21:58)
[2017-04-22] MEDS: HALOPERIDOL LACTATE INJ 5 MG/1 ML VIAL IV PRN (02:00)
[2017-04-22] MEDS: DILTIAZEM HCL 30 MG TABLET PO SCH ×4 (06:02→23:21)
[2017-04-22] MEDS: ACETAMINOPHEN 325 MG TABLET PO PRN ×4 (06:02→23:20)
--- NOTE | 2017-04-22 06:42 | PDOC PROGRESS REPORT ---
Subjective Progress Note for:: 04/22/17 Subjective:: Patient with continued confusion at night. Last night the nurses were in his home and would not leave him. Physical Exam Vital Signs: Temp Pulse Resp BP Pulse Ox 36.5 C 126 H 18 144/75 H 100 04/22/17 03:43 04/22/17 03:43 04/22/17 03:43 04/22/17 03:43 04/22/17 03:43 Intake & Output 04/20/17 04/21/17 04/22/17 06:59 06:59 06:59 Intake Total 19997 2255 Output Total 1400 2975 600 Balance 729 827 2220 Weight 89.2 kg General appearance: PRESENT: no acute distress Head exam: PRESENT: normocephalic Respiratory exam: PRESENT: unlabored Cardiovascular exam: PRESENT: RRR Pulses: PRESENT: +1 pedal pulses bilateral Vascular exam: PRESENT: normal capillary refill GI/Abdominal exam: PRESENT: soft Rectal exam: PRESENT: deferred Extremities exam: PRESENT: other - Extremity picot dressing is clean dry and intact. Neurological exam: PRESENT: alert, oriented to person Psychiatric exam: PRESENT: appropriate affect, normal mood. ABSENT: homicidal ideation, suicidal ideation Skin exam: PRESENT: dry, intact, warm. ABSENT: cyanosis, rash Results Laboratory Results: 04/21/17 14:17 04/21/17 14:17 04/21/17 04/21/17 14:17 14:17 WBC 7.7 RBC 3.97 L Hgb 11.5 L Hct 35.1 L MCV 89 MCH 28.9 MCHC 32.6 RDW 16.5 H Plt Count 228 Seg Neutrophils % 75.6 Lymphocytes % 12.0 L Monocytes % 11.5 Eosinophils % 0.7 Basophils % 0.2 Absolute Neutrophils 5.8 Absolute Lymphocytes 0.9 Absolute Monocytes 0.9 Absolute Eosinophils 0.1 Absolute Basophils 0.0 Sodium 136.2 L Potassium 3.9 Chloride 100 Carbon Dioxide 23 Anion Gap 13 BUN 12 Creatinine 0.68 Est GFR ( Amer) > 60 Est GFR (Non-Af Amer) > 60 Glucose 213 H Calcium 8.5 Total Bilirubin 1.0 AST 21 ALT 33 Alkaline Phosphatase 90 Total Protein 6.7 Albumin 3.4 L 04/19/17 04/19/17 04/19/17 16:00 16:00 21:50 Creatine Kinase 184 H 186 H CK-MB (CK-2) 3.10 Troponin I 0.167 NT-Pro-B Natriuret Pep 04/19/17 04/20/17 04/20/17 21:50 04:13 04:13 Creatine Kinase 171 H CK-MB (CK-2) 3.23 2.70 Troponin I 0.212 0.168 NT-Pro-B Natriuret Pep 961 H 04/20/17 04/20/17 11:00 11:00 Creatine Kinase 159 CK-MB (CK-2) 2.32 Troponin I 0.106 NT-Pro-B Natriuret Pep Impressions: Knee X-Ray 04/17/17 08:50 IMPRESSION: SATISFACTORY POSTOPERATIVE LEFT KNEE. Status: Imported from PACS Assessment & Plan - Diagnosis (1) Arthritis of knee, left Is this a current diagnosis for this admission?: YesPlan: According to nursing patient is making good progress with physical therapy during the day. (2) Altered mental status Qualifiers: Altered mental status type: unspecified Qualified Code(s): R41.82 - Altered mental status, unspecified Is this a current diagnosis for this admission?: YesPlan: Mental status seems to be fine during the day and as long as his is present. Once the leaves the patient's mental status seems to decline. This is in spite of running Haldol as well as as needed Haldol.
[2017-04-22] MEDS: SERTRALINE HCL 50 MG TABLET PO SCH (10:47)
[2017-04-22] MEDS: LANSOPRAZOLE 30 MG TAB.RAP.DR PO SCH (10:48)
[2017-04-22] MEDS: CYANOCOBALAMIN (VITAMIN B-12) 1,000 MCG TABLET PO SCH (10:48)
[2017-04-22] MEDS: SITAGLIPTIN PHOSPHATE 50 MG TABLET PO SCH (10:48)
[2017-04-22] MEDS: METFORMIN HCL 850 MG TABLET PO SCH ×2 (10:48→15:11)
[2017-04-22] MEDS: PRENATAL VITAMIN W-O CA NO5/FE FUMARATE/FA CAPSULE PO SCH (10:48)
[2017-04-22] MEDS: HALOPERIDOL 0.5 MG TABLET PO SCH ×2 (10:49→21:00)
[2017-04-22] MEDS: CHOLECALCIFEROL (D3) 1,000 UNIT TABLET PO SCH (10:49)
[2017-04-22] MEDS: SENNOSIDES/DOCUSATE 8.6-50 MG 1 EACH TABLET PO SCH ×2 (10:59→18:24)
[2017-04-22] MEDS: INSULIN LISPRO 100 UNIT/ML 3 ML VIAL SUBCUT PRN (14:16)
--- NOTE | 2017-04-22 18:20 | PDOC PROGRESS REPORT ---
Subjective Progress Note for:: 04/22/17 Subjective:: Patient continue to demonstrate intermittent confusion that is very suggestive of delirium. He is more cooperative and somewhat more lucid when his girlfriend is around. He was arousable but sleepy at the time of my assessment this morning. He had a prn IV dose of Haloperidol last night due to agitation. He is more appropriate in interaction this evening. P.O intake at dinner very satisfactory. Denied any chest pain or difficulty with breathing. No reported fever or chills. Physical Exam Vital Signs: Temp Pulse Resp BP Pulse Ox 98.3 F 103 H 20 118/64 96 04/22/17 15:48 04/22/17 15:48 04/22/17 15:48 04/22/17 15:48 04/22/17 15:48 Intake & Output 04/21/17 04/22/17 04/23/17 06:59 06:59 06:59 Intake Total 3217 2255 388 Output Total 2975 600 Balance 242 1655 388 Weight 89.2 kg General appearance: PRESENT: no acute distress, cooperative Head exam: PRESENT: atraumatic, normocephalic Eye exam: PRESENT: conjunctiva pink, EOMI, PERRLA. ABSENT: scleral icterus Respiratory exam: PRESENT: clear to auscultation boris Cardiovascular exam: PRESENT: RRR. ABSENT: diastolic murmur, rubs, systolic murmur GI/Abdominal exam: PRESENT: normal bowel sounds, soft. ABSENT: distended, guarding, mass, organolmegaly, rebound, tenderness Extremities exam: ABSENT: pedal edema Musculoskeletal exam: PRESENT: deformity - due to joint involvement with arthritis Neurological exam: PRESENT: alert - but occasionally tangential in responses, awake, oriented to person, oriented to place, CN II-XII grossly intact. ABSENT : motor sensory deficit Psychiatric exam: PRESENT: appropriate affect, normal mood. ABSENT: homicidal ideation, suicidal ideation Skin exam: PRESENT: dry, warm, other - satisfactory healing of left TKA surgery wound.. ABSENT: cyanosis, rash Results Laboratory Results: 04/21/17 14:17 04/21/17 14:17 04/19/17 04/19/17 04/19/17 16:00 16:00 21:50 Creatine Kinase 184 H 186 H CK-MB (CK-2) 3.10 Troponin I 0.167 NT-Pro-B Natriuret Pep 04/19/17 04/20/17 04/20/17 21:50 04:13 04:13 Creatine Kinase 171 H CK-MB (CK-2) 3.23 2.70 Troponin I 0.212 0.168 NT-Pro-B Natriuret Pep 961 H 04/20/17 04/20/17 11:00 11:00 Creatine Kinase 159 CK-MB (CK-2) 2.32 Troponin I 0.106 NT-Pro-B Natriuret Pep Impressions: Knee X-Ray 04/17/17 08:50 IMPRESSION: SATISFACTORY POSTOPERATIVE LEFT KNEE. Assessment & Plan - Diagnosis (1) Arthritis of knee, left Is this a current diagnosis for this admission?: YesPlan: S/P total left knee arthroplasty surgery. Further management as per orthopedic team. (2) Postoperative supraventricular tachycardia Is this a current diagnosis for this admission?: NoPlan: Improving but still demonstrate elevated heart rate. Increase Cardizem 60 mg p.o q 8hours. (3) Acute delirium Is this a current diagnosis for this admission?: NoPlan: We will continue IV Haloperidol on prn bases. I will increase Haloperidol orally to 0.5 mg p.o tid. Continue reorientation approach to his confused actions. (4) Constipation Is this a current diagnosis for this admission?: YesPlan: Resolved. Continue use of Senokot Plus therapy. Monitor for any significant diarrhea. (5) COPD (chronic obstructive pulmonary disease) Qualifiers: COPD type: emphysema Emphysema type: unspecified Qualified Code( s): J43.9 - Emphysema, unspecified Is this a current diagnosis for this admission?: YesPlan: Continue current medication and supplemental oxygen therapy. (6) Uncontrolled type 2 diabetes mellitus Qualifiers: Diabetes mellitus complication status: with hyperglycemia Diabetes mellitus moth exterminator insulin use: without halfway use Qualified Code(s): E11.65 - Type 2 diabetes mellitus with hyperglycemia Is this a current diagnosis for this admission?: YesPlan: Continue on current medication and dietary management. Adjust medication as necessary. - Time Time Spent with patient: 25-34 minutes Medications reviewed and adjusted accordingly: Yes Anticipated discharge: SNF - for short term rehabilitation. - Inpatient Certification Medical Necessity: Need Close Monitoring Due to Risk of Patient Decompensation, Need For IV Fluids, Need For Continuous Telemetry Monitoring, Risk of Complication if Not Cared For in Hospital Post Hospital Care: D/C or Transfer Summary - Plan Summary Plan Summary: D/C Banana fluid infusion. Add stress vitamin 1 tablet p.o daily to his regimen. Continue efforts at inpatient rehabilitation program.
[2017-04-22] MEDS: NORMAL SALINE 1000 ML 1,000 ML with POTASSIUM CHLORIDE 20 MEQ, MAGNESIUM SULFATE 8 MEQ,... IV SCH ×5 (18:24)
[2017-04-22] MEDS: IPRATROPIUM/ALBUTEROL 120 PUFF/4 GM MDI IH PRN (19:35)
[2017-04-22] MEDS: RIVAROXABAN 10 MG TABLET PO SCH (21:00)
[2017-04-22] MEDS: CETIRIZINE 10 MG TABLET PO SCH (21:00)
[2017-04-23] MEDS: DILTIAZEM HCL 30 MG TABLET PO SCH ×2 (05:51→12:00)
[2017-04-23] MEDS: ACETAMINOPHEN 325 MG TABLET PO PRN ×2 (05:51→12:01)
[2017-04-23] MEDS: HALOPERIDOL 0.5 MG TABLET PO SCH ×2 (05:52→13:49)
--- NOTE | 2017-04-23 07:21 | PDOC TRANSFER SUMMARY ---
General - Admit/Disc Date/PCP Admission Date/Primary Care Provider: 04/17/17 05:19 GWENDOLYN VILLALOBOS Discharge Date: 04/23/17 - Discharge Diagnosis (1) Arthritis of knee, left Is this a current diagnosis for this admission?: Yes (2) Altered mental status Is this a current diagnosis for this admission?: Yes - Additional Information Resuscitation Status: Full Code Discharge Diet: As Tolerated, Regular Discharge Activity: Balance Activity w/Rest, No Driving, No tub bath Home Medications: Fluticasone/Vilanterol [Breo Ellipta 200-25 Mcg INH] 1 each IH QAM 01/24/17 Linagliptin [Tradjenta] 5 mg PO QAM 01/24/17 Melatonin 10 mg PO QHS 01/24/17 Metformin HCl [Glucophage] 850 mg PO BID 01/24/17 Sertraline HCl [Zoloft 50 mg Tablet] 50 mg PO QAM 01/24/17 Tiotropium Friend [Spiriva Respimat] 2.5 mcg IH BID 01/24/17 Vit A/Vit C/Vit E/Zinc/Copper [Preservision Areds Tablet] 1 tab PO QAM 01/24/17 Multivitamin [One-A-Day Essential] 1 tab PO QPM 01/25/17 Pantoprazole Sodium [Protonix] 40 mg PO QAM 01/25/17 Tramadol HCl [Ultram 50 mg Tablet] 50 mg PO Q6HP PRN #90 tablet 01/29/17 Cetirizine HCl [All Day Allergy] 10 mg PO QPM 04/10/17 Cholecalciferol (Vitamin D3) [Vitamin D3] 4,000 unit PO DAILY 04/10/17 Cyanocobalamin (Vitamin B-12) [Vitamin B-12] 1,000 mcg PO DAILY 04/10/17 Ipratropium/Albuterol Sulfate [Combivent Inhaler] 14.7 gm IH ASDIR PRN 04/10/17 [place]-3 Fatty Acids/Fish Oil [Fish Oil 1,000 mg Capsule] 1 each PO DAILY Haloperidol Lactate [Haldol 5 mg/ml Inj 1 ml Vial] 1 mg IV Q6HP PRN #0 vial Haloperidol [Haldol 0.5 mg Tablet] 0.5 mg PO Q8 #0 tablet 04/23/17 Oxycodone HCl [Oxy-Ir 5 mg Tablet] 5 mg PO Q6HP PRN #0 tablet 04/23/17 Rivaroxaban [Xarelto 10 mg Tablet] 10 mg PO QHS #0 tablet 04/23/17 History of Present Illness Admission Date/PCP: 04/17/17 05:19 GWENDOLYN VILLALOBOS History of Present Illness: 82-year-old white male with progressive left knee pain and functional disability secondary osteoarthritis. Patient is admitted for elective left knee arthroplasty. Hospital Course Hospital Course: Admitted through the operating room where he undergoes uncomplicated left knee arthroplasty. Is returned to the floor in satisfactory condition. Postoperatively the patient exhibits mental status changes. Medicine service was consulted to manage this with a combination of removal of narcotics and administration of Haldol. Over the course of the next week or so the patient's mental status slowly clears. He makes limited progress with physical therapy. Physical Exam Vital Signs: Temp Pulse Resp BP Pulse Ox 36.8 C 96 19 123/72 95 04/23/17 03:38 04/23/17 03:38 04/23/17 03:38 04/23/17 03:38 04/23/17 03:38 Intake & Output 04/22/17 04/23/17 04/24/17 06:59 06:59 06:59 Intake Total 2255 3201 Output Total 600 1375 Balance 1655 1826 Weight 89.2 kg 89.3 kg Results Laboratory Results: 04/21/17 14:17 04/21/17 14:17 04/19/17 04/19/17 04/19/17 16:00 16:00 21:50 Creatine Kinase 184 H 186 H CK-MB (CK-2) 3.10 Troponin I 0.167 NT-Pro-B Natriuret Pep 04/19/17 04/20/17 04/20/17 21:50 04:13 04:13 Creatine Kinase 171 H CK-MB (CK-2) 3.23 2.70 Troponin I 0.212 0.168 NT-Pro-B Natriuret Pep 961 H 04/20/17 04/20/17 11:00 11:00 Creatine Kinase 159 CK-MB (CK-2) 2.32 Troponin I 0.106 NT-Pro-B Natriuret Pep Impressions: Knee X-Ray 04/17/17 08:50 IMPRESSION: SATISFACTORY POSTOPERATIVE LEFT KNEE. Status: Imported from PACS Transfer Plan - Disposition Transfer Plan: To be transferred to a residential facility for ongoing rehabilitation. He can be weightbearing as tolerated. Left knee picot dressing can be changed on postop day 7 and replaced with an OpSite. Follow-up can be with Dr. Vogel in the [facility] for surgery in 2 weeks for staple removal. - Time Spent with Patient Time spent with patient: Less than 30 Minutes
--- NOTE | 2017-04-23 08:32 | PDOC PROGRESS REPORT ---
Subjective Progress Note for:: 04/23/17 Subjective:: Patient was less agitated last night with change in administration schedule for his haloperidol. More cooperative and slept fairly well during the night. He is more lucid this morning and agreeable with possible transfer to SNF today for short term rehabilitation if bed is available. No reported fever or chills. P.O intake remain satisfactory. No chest pain or difficulty with breathing. Physical Exam Vital Signs: Temp Pulse Resp BP Pulse Ox 98.2 F 100 19 123/72 95 04/23/17 03:38 04/23/17 07:00 04/23/17 03:38 04/23/17 03:38 04/23/17 03:38 Intake & Output 04/22/17 04/23/17 04/24/17 06:59 06:59 06:59 Intake Total 2255 3201 Output Total 600 1375 Balance 1655 1826 Weight 89.2 kg 89.3 kg Physical Exam: General appearance: PRESENT: no acute distress, cooperative Head exam: PRESENT: atraumatic, normocephalic Eye exam: PRESENT: conjunctiva pink, EOMI, PERRLA. ABSENT: scleral icterus Respiratory exam: PRESENT: clear to auscultation boris Cardiovascular exam: PRESENT: RRR. ABSENT: diastolic murmur, rubs, systolic murmur GI/Abdominal exam: PRESENT: normal bowel sounds, soft. ABSENT: distended, guarding, mass, organomegaly, rebound, tenderness Extremities exam: ABSENT: pedal edema Musculoskeletal exam: PRESENT: deformity - due to joint involvement with arthritis Neurological exam: PRESENT: alert - but occasionally tangential in responses, awake, oriented to person, oriented to place, CN II-XII grossly intact. ABSENT : motor sensory deficit Psychiatric exam: PRESENT: appropriate affect, normal mood. ABSENT: homicidal ideation, suicidal ideation Skin exam: PRESENT: dry, warm, other - satisfactory healing of left TKA surgery wound.. ABSENT: cyanosis, rash Results Laboratory Results: 04/21/17 14:17 04/21/17 14:17 04/19/17 04/19/17 04/19/17 16:00 16:00 21:50 Creatine Kinase 184 H 186 H CK-MB (CK-2) 3.10 Troponin I 0.167 NT-Pro-B Natriuret Pep 04/19/17 04/20/17 04/20/17 21:50 04:13 04:13 Creatine Kinase 171 H CK-MB (CK-2) 3.23 2.70 Troponin I 0.212 0.168 NT-Pro-B Natriuret Pep 961 H 04/20/17 04/20/17 11:00 11:00 Creatine Kinase 159 CK-MB (CK-2) 2.32 Troponin I 0.106 NT-Pro-B Natriuret Pep Impressions: Knee X-Ray 04/17/17 08:50 IMPRESSION: SATISFACTORY POSTOPERATIVE LEFT KNEE. Assessment & Plan - Diagnosis (1) Arthritis of knee, left Is this a current diagnosis for this admission?: YesPlan: S/P total left knee arthroplasty surgery. Agreed with plan to transfer to SNF for rehabilitation when bed is available. (2) Postoperative supraventricular tachycardia Is this a current diagnosis for this admission?: NoPlan: I will recommend maintenance on Cardizem 60 mg p.o q 8hours upon transfer to SNF and adjust dosing as his tachycardia improves. (3) Acute delirium Is this a current diagnosis for this admission?: NoPlan: I will recommend gradual decrease of Haloperidol 0.5 mg p.o tid with eventual taper off the medication over next couple of weeks. Continue reorientation approach to his confused actions. (4) Constipation Is this a current diagnosis for this admission?: Yes (5) COPD (chronic obstructive pulmonary disease) Qualifiers: COPD type: emphysema Emphysema type: unspecified Qualified Code( s): J43.9 - Emphysema, unspecified Is this a current diagnosis for this admission?: YesPlan: Continue current medication and supplemental oxygen therapy. (6) Uncontrolled type 2 diabetes mellitus Qualifiers: Diabetes mellitus complication status: with hyperglycemia Diabetes mellitus care home insulin use: without care home use Qualified Code(s): E11.65 - Type 2 diabetes mellitus with hyperglycemia Is this a current diagnosis for this admission?: YesPlan: Continue on current medication and dietary management. Adjust medication as necessary. - Time Time Spent with patient: 25-34 minutes Medications reviewed and adjusted accordingly: Yes Anticipated discharge: SNF Within: Other - Inpatient Certification Based on my medical assessment, after consideration of the patient's comorbidities, presenting symptoms, or acuity I expect that the services needed warrant INPATIENT care.: Yes I certify that my determination is in accordance with my understanding of Medicare's requirements for reasonable and necessary INPATIENT services [42 CFR 412.3e].: Yes Medical Necessity: Need Close Monitoring Due to Risk of Patient Decompensation, Need For Continuous Telemetry Monitoring, Risk of Complication if Not Cared For in Hospital Post Hospital Care: D/C or Transfer Summary - Plan Summary Plan Summary: Continue above recommendations. I will sign off the case at this time. Please re -consult if necessary. Thank you for allowing me to participate in his care.
[2017-04-23] MEDS: INSULIN LISPRO 100 UNIT/ML 3 ML VIAL SUBCUT PRN ×2 (08:34→11:59)
[2017-04-23] MEDS: SERTRALINE HCL 50 MG TABLET PO SCH (08:34)
[2017-04-23] MEDS: METFORMIN HCL 850 MG TABLET PO SCH (08:34)
[2017-04-23] MEDS: LANSOPRAZOLE 30 MG TAB.RAP.DR PO SCH (08:35)
[2017-04-23] MEDS: SITAGLIPTIN PHOSPHATE 50 MG TABLET PO SCH (10:32)
[2017-04-23] MEDS: CHOLECALCIFEROL (D3) 1,000 UNIT TABLET PO SCH (10:33)
[2017-04-23] MEDS: PRENATAL VITAMIN W-O CA NO5/FE FUMARATE/FA CAPSULE PO SCH (10:33)
[2017-04-23] MEDS: CYANOCOBALAMIN (VITAMIN B-12) 1,000 MCG TABLET PO SCH (10:33)
[2017-04-23] MEDS: SENNOSIDES/DOCUSATE 8.6-50 MG 1 EACH TABLET PO SCH (10:33)
[2017-04-23 12:19] VITALS: BP 132/72
== END 2017-04-23 16:40 | DRG 470 ==
LOC: INOR 05:19 → 4W 11:10
PROVIDERS: ADMIT Orthopaedic Surgery; ATTEND Orthopaedic Surgery
PROC: 0SRD0J9 Replacement of Left Knee Joint with Synthetic Substitute, Cemented, Open Approach (ICD-10-PCS; principal; 2017-04-17 07:30)
DX: M17.12 Unilateral primary osteoarthritis, left knee (principal); I97.89 Other postprocedural complications and disorders of the circulatory system, not elsewhere classified; I47.1 Supraventricular tachycardia; I25.10 Atherosclerotic heart disease of native coronary artery without angina pectoris; E78.5 Hyperlipidemia, unspecified; I10 Essential (primary) hypertension; J43.9 Emphysema, unspecified; K21.9 Gastro-esophageal reflux disease without esophagitis; M19.90 Unspecified osteoarthritis, unspecified site; D64.9 Anemia, unspecified; Y83.2 Surgical operation with anastomosis, bypass or graft as the cause of abnormal reaction of the patient, or of later complication, without mention of misadventure at the time of the procedure; R41.0 Disorientation, unspecified; E11.65 Type 2 diabetes mellitus with hyperglycemia; K59.00 Constipation, unspecified; F32.9 Major depressive disorder, single episode, unspecified; F41.9 Anxiety disorder, unspecified; Z79.899 Other long term (current) drug therapy; Z87.891 Personal history of nicotine dependence; Z85.07 Personal history of malignant neoplasm of pancreas
CPT/HCPCS: 01402; 36415; 80048; 80053; 82550; 82553; 82962; 83735; 83880; 84484; 85025; 85027; 88305; 88311; 93005; 93010; 94799; C2625; C9290; G8978-GP; G8979-GP; J0690; J1100; J1200; J1630; J1741; J1815; J2250; J2270; J2370; J2405; J2704; J3010; J3370; J3411; J3475; J3480; J3490; J7030; J7050; J7060

== ENCOUNTER 2017-04-28 17:57 | Inpatient (IN) | payer MEDICARE ==
[2017-04-28] MEDS ORDERED: IPRATROPIUM/ALBUTEROL 0.5-2.5 MG/3 ML AMPUL NEB ONE ×2 (18:19→21:19)
[2017-04-28] MEDS ORDERED: ACETAMINOPHEN 325 MG TABLET PO ONE ×2 (18:19→23:19)
[2017-04-28 18:25] LABS: HEMATOCRIT 39.8 % (37.9-51.0); HEMOGLOBIN 12.7 g/dL (13.5-17.0); HGB HCT DIFFERENCE -1.7; MEAN CORPUSCULAR HEMOGLOBIN 28.6 pg (27.0-33.4); MEAN CORPUSCULAR HGB CONC 31.9 g/dL (32.0-36.0); MEAN CORPUSCULAR VOLUME 90 fl (80-97); RED BLOOD COUNT 4.44 10^6/uL (4.35-5.55); RED CELL DISTRIBUTION WIDTH 16.2 % (11.5-14.0); WHITE BLOOD COUNT 17.8 10^3/uL (4.0-10.5)
--- NOTE | 2017-04-28 18:28 | ER Document Report ---
ED General - General Stated Complaint: DIFFICULTY BREATHING Time Seen by Provider: 04/28/17 18:02 Mode of Arrival: Medic Information source: Patient, Relative, Emergency Med Personnel TRAVEL OUTSIDE OF THE [place] 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 The patient reports generalized myalgias and body aches. The patient denies any chest pain. There has been no nausea or vomiting. There has been no report of dysuria. No skin breakdown or significant pain to the left knee. Patient does report some abdominal pain left somewhat greater than right. Patient comes from local long term where his is in rehab after his knee replacement. In route by EMS, the patient had end-tidal CO2 of 30, initially had a room air O2 sat of 85% with a respiratory rate of 40. The patient was given albuterol and Atrovent nebulizer treatment and Solu-Medrol 125 mg IV. Patient is currently on Xarelto. - Related Data Allergies/Adverse Reactions: No Known Allergies Allergy (Verified 01/24/17 13:12) Past Medical History - General Information source: Patient, Relative - Social History Smoking Status: Former Smoker Frequency of alcohol use: None Drug Abuse: None Lives with: Family, Skilled Nursing Family History: Reviewed & Not Pertinent - Past Medical History Cardiac Medical History: Reports: Hx Coronary Artery Disease, Hx Hypercholesterolemia, Hx Hypertension Denies: Hx Atrial Fibrillation, Hx Congestive Heart Failure, Hx Heart Attack , Hx Peripheral Vascular Disease, Hx Pulmonary Embolism, Hx Heart Murmur Pulmonary Medical History: Reports: Hx Asthma, Hx COPD, Hx Respiratory Failure - Lung Collapsed 2010 Denies: Hx Bronchitis, Hx Pneumonia, Hx Sleep Apnea, Hx Tuberculosis Endocrine Medical History: Reports: Hx Diabetes Mellitus Type 2. Denies: Hx Graves' Disease, Hx Hyperthyroidism, Hx Hypothyroidism Renal/ Medical History: Denies: Hx Benign Prostatic Hyperplasia, Hx End Stage Renal Disease, Hx Kidney Stones, Hx Peritoneal Dialysis Malignancy Medical History: Denies Hx Leukemia, Denies Hx Lung Cancer, Reports Hx Pancreatic Cancer GI Medical History: Reports: Hx Gastroesophageal Reflux Disease, Hx Ulcer. Denies: Hx Crohn's Disease, Hx Hiatal Hernia, Hx Irritable Bowel, Hx Liver Failure Musculoskeltal Medical History: Reports Hx Arthritis, Denies Hx Fibromyalgia, Denies Hx Muscular Dystrophy Psychiatric Medical History: Denies: Hx Bipolar Disorder, Hx Depression, Hx Post Traumatic Stress Disorder , Hx Schizophrenia Traumatic Medical History: Reports: Hx Fractures - right arm, Hx Pneumothorax - three times Infectious Medical History: Denies: Hx HIV Past Surgical History: Reports: Hx Abdominal Surgery - hernia repair, Hx Herniorrhaphy - bilateral with mesh, Hx Inguinal Hernia. Denies: Hx Appendectomy, Hx Bowel Surgery, Hx Cholecystectomy, Hx Colostomy, Hx Coronary Artery Bypass Graft, Hx Gastric Bypass Surgery, Hx Pacemaker, Hx Tonsillectomy - Immunizations Hx Diphtheria, Pertussis, Tetanus Vaccination: Yes Hx Pneumococcal Vaccination: 07/28/16 Review of Systems - Review of Systems Notes: REVIEW OF SYSTEMS: CONSTITUTIONAL : Patient reports fever chills. EENT: Denies eye, ear, throat, or mouth pain or symptoms. Denies nasal or sinus congestion or discharge. Denies throat, tongue, or mouth swelling or difficulty swallowing. CARDIOVASCULAR: Denies chest pain. Denies palpitations or racing or irregular heart beat. Denies ankle edema. RESPIRATORY: Denies shortness of breath, difficulty breathing, or wheezing. GASTROINTESTINAL: Denies abdominal distention. Denies nausea, vomiting, or diarrhea. Denies blood in vomitus, stools, or per rectum. Denies black, tarry stools. Denies constipation. GENITOURINARY: Denies difficulty urinating, painful urination, burning, frequency, blood in urine, or discharge. MUSCULOSKELETAL: Denies neck pain or stiffness. Mid lower back pain. SKIN: Denies rash, lesions or sores. HEMATOLOGIC : Denies easy bruising or bleeding. LYMPHATIC: Denies swollen, enlarged glands. NEUROLOGICAL: Denies confusion or altered mental status. Denies passing out or loss of consciousness. Denies dizziness or lightheadedness. Denies headache. Denies weakness or paralysis or loss of use of either side. Denies problems with gait or speech. Denies sensory loss, numbness, or tingling. Denies seizures. PSYCHIATRIC: Denies anxiety or stress. Denies depression, suicidal ideation, or homicidal ideation. ALL OTHER SYSTEMS REVIEWED AND NEGATIVE. Dictation was performed using [employer] recognition software Physical Exam - Vital signs Vitals: Pulse Ox 90 L 04/28/17 17:57 - Notes Notes: PHYSICAL EXAMINATION: GENERAL: Moderate respiratory distress. HEAD: Atraumatic, normocephalic. EYES: Pupils equal round and reactive to light, extraocular movements intact, sclera anicteric, conjunctiva are normal. ENT: Nares patent, oropharynx clear without exudates. Moist mucous membranes. NECK: Normal range of motion, supple without lymphadenopathy LUNGS: Breath sounds are coarse to auscultation bilaterally. Scant wheezes with bilateral rhonchi. HEART: Tachycardic rate with regular rhythm without murmurs ABDOMEN: Soft, nontender, nondistended abdomen. No guarding, no rebound. No masses appreciated. Musculoskeletal: Normal range of motion. No cyanosis. No pain on motion to the left knee. 1+ edema left lower extremity. Trace edema right lower extremity. Surgical site left lower extremity appears intact and appropriate. NEUROLOGICAL: Cranial nerves grossly intact. Normal speech, normal gait. Normal sensory, motor exams PSYCH: Normal mood, normal affect. SKIN: Warm, Dry, normal turgor, no rashes or lesions noted.. No JVD. Course - Re-evaluation Re-evalutation: 04/28/17 18:32 Temperature was 101.0. Patient had rigors with consistent cough. Tylenol was given for fever. Blood cultures taken. Patient was given a DuoNeb. He had already received Solu-Medrol in route by EMS. Oxygen saturations were 90% on 4 L of oxygen. 04/28/17 18:37 Chest x-ray showed left greater than right basilar infiltrate. No obvious evidence for congestive failure. 500 cc fluid bolus was ordered with IV vancomycin and IV Zosyn to be given after blood cultures drawn. 04/28/17 20:13 Patient's fever came down and his blood pressure remained stable. The patient was given bolus total of 2 L of normal saline. The patient became more alert and appropriate and his abdominal pain improved on repeat exam. CT scan of the abdomen showed diverticulosis, but no diverticulitis, and findings are more consistent with the patient having pain referred from his pneumonia. Blood sugar was somewhat elevated. Blood gas showed no significant hypercarbia. There is no obvious evidence for urinary tract infection or diverticulitis or appendicitis or obvious sepsis. Oxygen saturations currently stable with supplemental oxygen after neb treatments. Repeat lung exam still showed rhonchorous sounds with scant bibasilar crackles but no significant wheezing. I spoken with patient and family and they were in agreement with admission for further evaluation and management. I spoke with Dr. Villalobos who agrees to admit patient to [facility]. 04/28/17 21:54 - Vital Signs Vital signs: Temp Pulse Resp BP Pulse Ox 98.7 F 25 H 137/118 H 91 L 04/28/17 20:32 04/28/17 20:45 04/28/17 20:31 04/28/17 20:45 - Laboratory Result Diagrams: 04/28/17 18:10 04/28/17 18:10 Laboratory results interpreted by me: 04/28/17 04/28/17 04/28/17 18:10 18:10 18:10 WBC 17.8 H Hgb 12.7 L MCHC 31.9 L RDW 16.2 H Seg Neuts % (Manual) 80 H Band Neutrophils % 6 H Lymphocytes % (Manual) 9 L Abs Neuts (Manual) 15.3 H Sodium 132.7 L Chloride 94 L Carbon Dioxide 21 L Glucose 339 H POC Glucose Lactic Acid 2.7 H Alkaline Phosphatase 133 H Urine Glucose (UA) Urine Ketones Urine Ascorbic Acid 04/28/17 04/28/17 18:40 20:21 WBC Hgb MCHC RDW Seg Neuts % (Manual) Band Neutrophils % Lymphocytes % (Manual) Abs Neuts (Manual) Sodium Chloride Carbon Dioxide Glucose POC Glucose 334 H Lactic Acid Alkaline Phosphatase Urine Glucose (UA) >=500 H Urine Ketones TRACE H Urine Ascorbic Acid 20 H - EKG Interpretation by Me EKG shows normal: Sinus rhythm Rate: Tachycardia Additional EKG results interpreted by me: 04/28/17 18:36 EKG as interpreted by me showed sinus tachycardia heart rate of 146 with secondary repolarization abnormalities. There is no gross evidence for acute DE or ischemia noted. There is no significant change as compared to previous EKG from 04/19/17. Critical Care Note - Critical Care Note Total time excluding time spent on procedures (mins): 46 Discharge - Discharge Clinical Impression: Hypoxia, Dehydration, COPD with acute exacerbation, Hyperglycemia Pneumonia Qualifiers: Pneumonia type: due to unspecified organism Laterality: bilateral Lung location : lower lobe of lung Qualified Code(s): J18.9 - Pneumonia, unspecified organism Condition: Stable Disposition: ADMITTED INPATIENT Admitting Provider: Nohemi Unit Admitted: [facility] Referrals: GWENDOLYN VILLALOBOS MD [Primary Care Provider] - Follow up as needed
[2017-04-28 18:29] LABS: PROTHROMBIN TIME 13.4 SEC (11.4-15.4); VENOUS BLOOD BASE EXCESS 0.1 mmol/L; VENOUS BLOOD HCO3 24.9 mmol/L (20-32); VENOUS BLOOD PH 7.4 (7.30-7.42)
[2017-04-28] MEDS ORDERED: PIPERACILLIN/TAZOBACTAM 3.375 GM VIAL IV ONE (18:34)
[2017-04-28] MEDS ORDERED: NORMAL SALINE 500 ML IV ONE ×2 (18:35→19:05)
[2017-04-28] MEDS ORDERED: VANCOMYCIN HCL INJ 1000 MG VIAL IV ONE ×2 (18:35→23:03)
[2017-04-28 18:45] LABS: BAND NEUTROPHILS % (MANUAL) 6 % (3-5); BASOPHILS % (MANUAL) 0 % (0-2); EOSINOPHILS % (MANUAL) 0 % (0-6); LYMPHOCYTES % (MANUAL) 9 % (13-45); TOTAL CELLS COUNTED 100
[2017-04-28 18:46] LABS: ANISOCYTOSIS 1+; HYPOCHROMASIA SLIGHT; POLYCHROMASIA SLIGHT
[2017-04-28 18:49] LABS: ALANINE AMINOTRANSFERASE 34 U/L (21-72); ALBUMIN 4.1 g/dL (3.5-5.0); ALKALINE PHOSPHATASE 133 U/L (38-126); ANION GAP 18 (5-19); ASPARTATE AMINO TRANSFERASE 25 U/L (17-59); BILIRUBIN,DIRECT 0.4 mg/dL (0.0-0.4); BILIRUBIN,TOTAL 1.1 mg/dL (0.2-1.3); BLOOD UREA NITROGEN 10 mg/dL (7-20); CALCIUM 9.2 mg/dL (8.4-10.2); CARBON DIOXIDE 21 mmol/L (22-30); CHLORIDE 94 mmol/L (98-107); CREATININE RESULT 0.74 mg/dL (0.52-1.25); GLUCOSE 339 mg/dL (75-110); POTASSIUM 4.8 mmol/L (3.6-5.0); SODIUM 132.7 mmol/L (137-145); TOTAL PROTEIN 7.7 g/dL (6.3-8.2)
--- NOTE | 2017-04-28 19:18 | RADIOLOGY REPORT (SQ) ---
EXAM DESCRIPTION: CHEST SINGLE VIEW COMPLETED DATE/TIME: 04/28/2017 6:31 pm REASON FOR STUDY: bed 16 sepsis protocol COMPARISON: 03/26/2017. NUMBER OF VIEWS: One view. TECHNIQUE: Single frontal radiographic view of the chest acquired. LIMITATIONS: None. FINDINGS: LUNGS AND PLEURA: Coarse bibasilar mixed interstitial and airspace infiltrates. Lungs oth erwise relatively clear, likely COPD with hyperinflation. MEDIASTINUM AND HILAR STRUCTURES: Stable contours. Ectatic uncoiled calcified aorta. HEART AND VASCULAR STRUCTURES: Heart normal in size. Normal vasculature. BONES: No acute findings. HARDWARE: None in the chest. OTHER: No other significant finding. IMPRESSION: Bibasilar infiltrates, potentially related to pneumonia. TECHNICAL DOCUMENTATION: JOB ID: [id number] [employer]- All Rights Reserved
--- NOTE | 2017-04-28 20:10 | RADIOLOGY REPORT (SQ) ---
EXAM DESCRIPTION: CT ABD/PELVIS WITH IV ONLY COMPLETED DATE/TIME: 04/28/2017 7:46 pm REASON FOR STUDY: fever, L abd pain, cough, hx divertic COMPARISON: 01/24/2017. TECHNIQUE: CT scan of the abdomen and pelvis performed using helical scanning technique with dynamic intravenous contrast injection. No oral contrast. Images reviewed with lung, soft tissue, and bone windows. Reconstructed coronal and sagittal MPR images reviewed. Delayed images for evaluation of the urinary system also acquired. All images stored on PACS. All CT scanners at this facility use dose modulation, iterative reconstruction, and/or weight based d osing when appropriate to reduce radiation dose to as low as reasonably achievable (ALARA). [facility]: Dose Right [facility]: CareDose [facility]: Dose Right [facility]: Teradose 4D [facility]: [employer] CONTRAST TYPE AND DOSE: contrast/concentration: Isovue 370.00 mg/ml; Total Contrast Delivered: 91.0 ml; Total Saline Delivered: 66.0 ml 91 cc Isovue 370- low osmolar. RENAL FUNCTION: Creatinine 0.7 RADIATION DOSE: Up-to-date CT equipment and radiation dose reduction techniques were employed. CTDIv ol: 14.1 - 18.0 mGy. DLP: 1692 mGy-cm.. LIMITATIONS: None. FINDINGS: LOWER CHEST: As seen radiographically, there are patchy bibasilar pulmonary infiltrates. LIVER: Fatty, otherwise normal. SPLEEN: Normal size. No focal lesions. PANCREAS: No masses. No significant calcifications. No adjacent inflammation or peripancreatic fluid collections. Pancreatic duct not dilated. GALLBLADDER: Contracted. No calcified stones. ADRENAL GLANDS: No significant masses or asymmetry. RIGHT KIDNEY AND URETER: No solid masses. No significant calcification. No hydronephrosis or hydroure ter. LEFT KIDNEY AND URETER: No solid masses. No significant calcification. No hydronephrosis or hydrouret er. AORTA AND VESSELS: Atherosclerotic. No evidence of overt aneurysm. No arterial occlusion or venous clot detected. RETROPERITONEUM: No retroperitoneal adenopathy, hemorrhage or masses. BOWEL AND PERITONEAL CAVITY: Distal colonic diverticulosis but no evidence of active diverticulitis. No bowel dilatation. No ascites or abnormal gas or bulky adenopathy. APPENDIX: Normal. PELVIS: Radiotherapy seeds in the prostate bed. Bladder unremarkable. Pelvic phleboliths. ABDOMINAL WALL: No masses. No hernias. BONES: Osteopenic, scoliotic, spondylosis. OTHER: No other significant finding. IMPRESSION: 1. Basilar pulmonary changes as above. Lower lobe infiltrates bilaterally. 2. No acute or suspicious abdominopelvic abnormality, findings as above. TECHNICAL DOCUMENTATION: JOB ID: [id number] Quality ID # [id number]: Final reports with documentation of one or more dose reduction techniques (e.g., Au tomated exposure control, adjustment of the mA and/or kV according to patient size, use of iterative reconstruction technique) 2010 [employer]- All Rights Reserved
[2017-04-28] MEDS ORDERED: NORMAL SALINE 1000 ML 1,000 ML IV ONE ×2 (20:27→23:02)
[2017-04-28 20:41] LABS: APPEARANCE,URINE CLEAR; BILIRUBIN,URINE NEGATIVE (NEGATIVE); GLUCOSE, URINE >=500 mg/dL (NEGATIVE); KETONES,URINE TRACE mg/dL (NEGATIVE); LEUKOCYTE ESTERASE,URINE NEGATIVE (NEGATIVE); NITRITE,URINE NEGATIVE (NEGATIVE); PROTEIN,URINE NEGATIVE (NEGATIVE); URINE SPECIFIC GRAVITY 1.018; UROBILINOGEN,URINE NEGATIVE mg/dL (<2.0)
[2017-04-28] MEDS ORDERED: HALOPERIDOL 1 MG TABLET PO ONE (21:17)
--- NOTE | 2017-04-28 21:43 | EKG REPORT ---
SEVERITY:- ABNORMAL ECG - SINUS TACHYCARDIA REPOLARIZATION ABNORMALITY, PROB RATE RELATED VS ISCHEMIA : Confirmed by: Hunter Ruff 28-Apr-2017 21:42:33
[2017-04-28] MEDS ORDERED: PIPERACILLIN/TAZOBACTAM 3.375 GM VIAL IV PRN (22:34)
[2017-04-28] MEDS ORDERED: VANCOMYCIN HCL INJ 1000 MG VIAL IV PRN (23:14)
[2017-04-28] MEDS ORDERED: ACETAMINOPHEN 325 MG TABLET ONE (23:22)
[2017-04-28] MEDS ORDERED: VANCOMYCIN HCL 1,000 MG in DEXTROSE 5%-WATER 250 ML IV ONE (23:30)
[2017-04-29 01:33] LABS: ARTERIAL BLOOD BASE EXCESS -0.9 mmol/L; ARTERIAL BLOOD O2 SATURATION 95.7 % (94-98)
[2017-04-29] MEDS ORDERED: DEXTROSE 50%-WATER SYRINGE 25 GM/50 ML DOSE IV PRN (01:35)
[2017-04-29] MEDS ORDERED: DEXTROSE 40% GEL 15 GM TUBE PO PRN (01:35)
[2017-04-29] MEDS ORDERED: DEXTROSE 50%-WATER SYRINGE 12.5 GM/25 ML DOSE IV PRN (01:35)
[2017-04-29] MEDS ORDERED: DEXTROSE 40% GEL 15 GM TUBE X 2 PO PRN (01:35)
[2017-04-29] MEDS ORDERED: GLUCAGON,HUMAN RECOMB 1 MG INJ IM PRN (01:35)
[2017-04-29] MEDS ORDERED: PIPERACILLIN/TAZOBACTAM 3.375 GM VIAL IV ONE (01:40)
[2017-04-29] MEDS ORDERED: DILTIAZEM HCL 60 MG TABLET PO ONE (01:45)
[2017-04-29] MEDS: IPRATROPIUM BROMIDE 0.02% NEB 0.5 MG/2.5 ML AMPUL NEB PRN ×2 (02:06→16:52)
[2017-04-29] MEDS: LEVALBUTEROL HCL NEB 1.25 MG/3 ML AMPUL NEB PRN ×2 (02:07→16:52)
[2017-04-29] MEDS: PIPERACILLIN SODIUM/TAZOBACTAM 3.375 GM in NORMAL SALINE 100 ML IV SCH ×3 (02:24→17:10)
[2017-04-29] MEDS: OXYCODONE HCL IR 5 MG TABLET PO PRN ×2 (03:30→10:33)
[2017-04-29] MEDS: HALOPERIDOL LACTATE INJ 5 MG/1 ML VIAL IM PRN ×2 (04:19→16:48)
[2017-04-29] MEDS: HALOPERIDOL 0.5 MG TABLET PO SCH ×3 (05:16→21:18)
[2017-04-29] MEDS: LANSOPRAZOLE 30 MG TAB.RAP.DR PO SCH (05:16)
[2017-04-29] MEDS: DILTIAZEM HCL 60 MG TABLET PO SCH ×3 (05:16→21:18)
[2017-04-29 06:01] LABS: ARTERIAL BLOOD BASE EXCESS 0 mmol/L; ARTERIAL BLOOD O2 SATURATION 95.9 % (94-98)
[2017-04-29] MEDS ORDERED: DIGOXIN INJ 0.5 MG/2 ML AMPULE ONE (06:30)
--- NOTE | 2017-04-29 06:36 | RADIOLOGY REPORT (SQ) ---
EXAM DESCRIPTION: CHEST SINGLE VIEW COMPLETED DATE/TIME: 04/29/2017 6:23 am REASON FOR STUDY: respiratory distress COMPARISON: 04/28/2017 EXAM PARAMETERS: NUMBER OF VIEWS: One view. TECHNIQUE: Single frontal radiographic view of the chest acquired. RADIATION DOSE: NA LIMITATIONS: None. FINDINGS: LUNGS AND PLEURA: Moderate patchy airspace and some interstitial opacity with lower lobe p redominance, left more than right. MEDIASTINUM AND HILAR STRUCTURES: No masses. Contour normal. HEART AND VASCULAR STRUCTURES: Heart normal in size. Atherosclerosis. BONES: No acute findings. HARDWARE: None in the chest. OTHER: No other significant finding. IMPRESSION: No significant interval change. TECHNICAL DOCUMENTATION: JOB ID: [id number]
[2017-04-29 06:41] LABS: HEMATOCRIT 36.9 % (37.9-51.0); HGB HCT DIFFERENCE -0.9; MEAN CORPUSCULAR HEMOGLOBIN 28.8 pg (27.0-33.4); MEAN CORPUSCULAR HGB CONC 32.5 g/dL (32.0-36.0); MEAN CORPUSCULAR VOLUME 89 fl (80-97); RED BLOOD COUNT 4.17 10^6/uL (4.35-5.55); RED CELL DISTRIBUTION WIDTH 16.4 % (11.5-14.0); WHITE BLOOD COUNT 7.6 10^3/uL (4.0-10.5)
[2017-04-29] MEDS ORDERED: DIGOXIN INJ 0.5 MG/2 ML AMPULE IV ONE (06:45)
[2017-04-29 06:52] LABS: BASOPHILS % (MANUAL) 0 % (0-2); EOSINOPHILS % (MANUAL) 0 % (0-6); LYMPHOCYTES % (MANUAL) 4 % (13-45); TOTAL CELLS COUNTED 100
[2017-04-29] MEDS ORDERED: DILTIAZEM HCL INJ 25 MG/5 ML VIAL ONE (06:54)
[2017-04-29] MEDS ORDERED: DILTIAZEM HCL INJ 25 MG/5 ML VIAL IV ONE (07:00)
[2017-04-29] MEDS ORDERED: MORPHINE SULFATE 10 MG/ML INJ ONE (07:01)
[2017-04-29 07:05] LABS: ANISOCYTOSIS 1+; BAND NEUTROPHILS % (MANUAL) 20 % (3-5); HYPOCHROMASIA SLIGHT; POLYCHROMASIA SLIGHT; TOXIC GRANULATION 1+; TOXIC VACUOLATION PRESENT
[2017-04-29] MEDS ORDERED: METHYLPREDNISOLONE INJ 125 MG/2 ML SDV ONE (07:06)
[2017-04-29] MEDS ORDERED: METHYLPREDNISOLONE INJ 125 MG/2 ML SDV IV ONE (07:15)
[2017-04-29] MEDS ORDERED: MORPHINE SULFATE 10 MG/ML INJ IV ONE (07:15)
--- NOTE | 2017-04-29 07:25 | PDOC H&P ---
History of Present Illness Admission Date/PCP: 04/28/17 22:14 GWENDOLYN WILFREDO Patient complains of: Difficulty with breathing History of Present Illness: BRUCE KNOTT is a 82 year old male was recently discharged to SNF for short term rehabilitation following left knee total arthroplasty surgery. There is associated fever, chills, cough and chest congestion. There was reported hypoxemia with oxygen saturation of 85% and tachypnea reported by EMS There was no reported chest pain. Patient do have history of COPD and CAD with old [place]. Patient had IV Solu-Medrol 125 mg en-route to the ED. Patient's girlfriend at bedside reported complain of some abdominal pain left somewhat greater than right.His initial evaluation in the ED was suggestive of airspace disease process and exacerbated COPD. He was managed with bronchodilators, IV antibiotic and IV Solu-Medrol. Past Medical History Cardiac Medical History: Reports: Coronary Artery Disease, Hyperlipidema, Hypertension Denies: Atrial Fibrillation, Congestive Heart Failure, Myocardial Infarction , Peripheral Vascular Disease, Pulmonary Embolism, Heart Murmur Pulmonary Medical History: Reports: Asthma, Chronic Obstructive Pulmonary Disease (COPD), Respiratory Failure - Lung Collapsed 2010 Denies: Bronchitis, Pneumonia, Sleep Apnea, Tuberculosis Endocrine Medical History: Reports: Diabetes Mellitus Type 2 Denies: Hyperthyroidism, Hypothyroidism Renal/ Medical History: Denies: End Stage Renal Disease Malignancy Medical History: Reports: Pancreatic Cancer Denies: Leukemia, Lung Cancer GI Medical History: Reports: Gastroesophageal Reflux Disease Denies: Crohn's Disease, Hiatal Hernia Musculoskeltal Medical History: Reports: Arthritis Denies: Fibromyalgia Psychiatric Medical History: Denies: Bipolar Disorder, Depression, Post Traumatic Stress Disorder Traumatic Medical History: Reports: Pneumothorax - three times Hematology: Reports: Anemia - blood transfusion Denies: Hemophilia, Sickle Cell Disease Infectious Medical History: Denies: HIV Past Surgical History Past Surgical History: Reports: Herniorrhaphy - bilateral with mesh Denies: Appendectomy, Cholecystectomy, Colostomy, Coronary Artery Bypass Graft, Gastric Bypass Surgery, Pacemaker, Tonsillectomy Social History Lives with: Family, Skilled Nursing Smoking Status: Former Smoker Number of Years Smokin Last Time Smoked: 15 years ago Frequency of Alcohol Use: None Hx Recreational Drug Use: No Drugs: None Hx Prescription Drug Abuse: No - Advance Directive Resuscitation Status: Full Code Family History Family History: Reviewed & Not Pertinent Parental Family History Reviewed: Yes Children Family History Reviewed: Yes Sibling(s) Family History Reviewed.: Yes Medication/Allergy Home Medications: Fluticasone/Vilanterol [Breo Ellipta 200-25 Mcg INH] 1 each IH QAM 01/24/17 Linagliptin [Tradjenta] 5 mg PO QAM 01/24/17 Melatonin 10 mg PO QHS 01/24/17 Metformin HCl [Glucophage] 850 mg PO BID 01/24/17 Sertraline HCl [Zoloft 50 mg Tablet] 50 mg PO QAM 01/24/17 Tiotropium [place] [Spiriva Respimat] 2.5 mcg IH BID 01/24/17 Vit A/Vit C/Vit E/Zinc/Copper [Preservision Areds Tablet] 1 tab PO QAM 01/24/17 Multivitamin [One-A-Day Essential] 1 tab PO QPM 01/25/17 Pantoprazole Sodium [Protonix] 40 mg PO QAM 01/25/17 Cetirizine HCl [All Day Allergy] 10 mg PO QPM 04/10/17 Cholecalciferol (Vitamin D3) [Vitamin D3] 4,000 unit PO DAILY 04/10/17 Cyanocobalamin (Vitamin B-12) [Vitamin B-12] 1,000 mcg PO DAILY 04/10/17 Ipratropium/Albuterol Sulfate [Combivent Inhaler] 1 puff IH DAILY 04/10/17 [place]-3 Fatty Acids/Fish Oil [Fish Oil 1,000 mg Capsule] 1 each PO DAILY Haloperidol [Haldol 0.5 mg Tablet] 0.5 mg PO Q8 #0 tablet 04/23/17 Rivaroxaban [Xarelto 10 mg Tablet] 10 mg PO QHS #0 tablet 04/23/17 Haloperidol Lactate [Haldol 5 mg/ml Inj 1 ml Vial] 1 mg IM Q6HP PRN 04/28/17 Oxycodone HCl [Oxy-Ir 5 mg Tablet] 5 mg PO Q6HP PRN 04/28/17 Tramadol HCl [Ultram 50 mg Tablet] 50 mg PO Q6HP PRN 04/28/17 Allergies/Adverse Reactions: No Known Allergies Allergy (Verified 01/24/17 13:12) Review of Systems Constitutional: PRESENT: chills, fever(s), weakness. ABSENT: as per HPI, anorexia, fatigue, headache(s), night sweats, weight gain, weight loss, other Ears: ABSENT: hearing changes Nose, Mouth, and Throat: ABSENT: as per HPI, headache(s), mouth pain, sore throat, vertigo, other Cardiovascular: PRESENT: dyspnea on exertion. ABSENT: as per HPI, chest pain, edema, orthropnea, palpitations, other Respiratory: PRESENT: cough, dyspnea. ABSENT: as per HPI, hemoptysis, sputum, other Gastrointestinal: PRESENT: abdominal pain. ABSENT: as per HPI, bloating, coffee ground emesis, constipation, diarrhea, dysphagia, heartburn, hematemesis , hematochezia, melena, nausea, vomiting, other Genitourinary: ABSENT: dysuria, hematuria Musculoskeletal: PRESENT: deformity - related to joint involvement with arthritis. ABSENT: as per HPI, back pain, joint swelling, muscle weakness, other Neurological: PRESENT: confusion - relaterd to chronic delirium following his recent surgery, memory loss, weakness - generalized Psychiatric: ABSENT: anxiety, depression, homidical ideation, suicidal ideation Endocrine: ABSENT: cold intolerance, heat intolerance, polydipsia, polyuria Hematologic/Lymphatic: ABSENT: easy bleeding, easy bruising, lymphadenopathy Allergic/Immunologic: ABSENT: seasonal rhinorrhea Physical Exam Vital Signs: Temp Pulse Resp BP Pulse Ox 99.5 F 132 H 34 H 125/59 L 93 04/29/17 05:22 04/29/17 05:22 04/29/17 05:22 04/29/17 05:22 04/29/17 05:22 Intake & Output 04/27/17 04/28/17 04/29/17 06:59 06:59 06:59 Weight 85.9 kg General appearance: PRESENT: severe distress - on BiPAP support Eye exam: PRESENT: conjunctiva pink, EOMI, PERRLA. ABSENT: scleral icterus Ear exam: PRESENT: normal external ear exam Mouth exam: PRESENT: moist, tongue midline Throat exam: ABSENT: post pharyngeal erythema, tonsillar erythema, tonsillar exudate, tonsillogmegaly, other Neck exam: PRESENT: full ROM. ABSENT: carotid bruit, JVD, lymphadenopathy, thyromegaly Respiratory exam: PRESENT: accessory muscle use, decreased breath sounds, prolonged expiratory phas, retraction, rhonchi, wheezes Cardiovascular exam: PRESENT: tachycardia. ABSENT: bradycardia, clicks, diastolic murmur, gallop, irregular rhythm, RRR, rubs, +S1, +S2, systolic murmur , other Pulses: PRESENT: normal dorsalis pedis pul, +2 pedal pulses bilateral Vascular exam: PRESENT: normal capillary refill GI/Abdominal exam: PRESENT: normal bowel sounds, soft. ABSENT: distended, guarding, mass, organolmegaly, rebound, tenderness Gentrourinary exam: ABSENT: ecchymosis, erythema, lacerations, lesions, scrotal swelling, testicular tenderness, urethral discharge, indwelling catheter, other Extremities exam: ABSENT: pedal edema Musculoskeletal exam: PRESENT: deformity - Related to multiple joints involvement with arthritis Neurological exam: PRESENT: alert, awake, oriented to person, oriented to place , oriented to time, oriented to situation, CN II-XII grossly intact. ABSENT: motor sensory deficit Psychiatric exam: PRESENT: appropriate affect, normal mood. ABSENT: homicidal ideation, suicidal ideation Skin exam: PRESENT: dry, intact, warm, other - left knee surgical wound healing fairly well. ABSENT: cyanosis, rash Results Laboratory Results: 04/29/17 05:04 04/28/17 04/29/17 04/29/17 22:30 01:15 05:04 WBC 7.6 RBC 4.17 L Hgb 12.0 L Hct 36.9 L MCV 89 MCH 28.8 MCHC 32.5 RDW 16.4 H Plt Count 370 Seg Neutrophils % Not Reportable Lymphocytes % Not Reportable Monocytes % Not Reportable Eosinophils % Not Reportable Basophils % Not Reportable Absolute Neutrophils Not Reportable Absolute Lymphocytes Not Reportable Absolute Monocytes Not Reportable Absolute Eosinophils Not Reportable Absolute Basophils Not Reportable Carbonic Acid 1.11 HCO3/H2CO3 Ratio 20:1 ABG pH 7.42 ABG pCO2 37.0 ABG pO2 77.6 L ABG HCO3 23.2 ABG O2 Saturation 95.7 ABG Base Excess -0.9 FiO2 40% Lactic Acid 3.9 H 04/29/17 05:50 WBC RBC Hgb Hct MCV MCH MCHC RDW Plt Count Seg Neutrophils % Lymphocytes % Monocytes % Eosinophils % Basophils % Absolute Neutrophils Absolute Lymphocytes Absolute Monocytes Absolute Eosinophils Absolute Basophils Carbonic Acid 1.06 HCO3/H2CO3 Ratio 22:1 ABG pH 7.45 ABG pCO2 35.1 ABG pO2 76.4 L ABG HCO3 23.6 ABG O2 Saturation 95.9 ABG Base Excess 0 FiO2 40% Lactic Acid Impressions: Abdomen/Pelvis CT 04/28/17 19:11 IMPRESSION: 1. Basilar pulmonary changes as above. Lower lobe infiltrates bilaterally. 2. No acute or suspicious abdominopelvic abnormality, findings as above. Chest X-Ray 04/29/17 05:37 IMPRESSION: No significant interval change. Assessment & Plan - Diagnosis (1) COPD with acute exacerbation Is this a current diagnosis for this admission?: YesPlan: See admitting physician orders. (2) Pneumonia Qualifiers: Pneumonia type: due to unspecified organism Laterality: bilateral Lung location: lower lobe of lung Qualified Code(s): J18.9 - Pneumonia, unspecified organism Is this a current diagnosis for this admission?: YesPlan: See admitting physician orders. (3) Chronic delirium Is this a current diagnosis for this admission?: YesPlan: See admitting physician orders. (4) Diabetes mellitus type 2 in nonobese Is this a current diagnosis for this admission?: YesPlan: See admitting physician orders. (5) HTN (hypertension) Qualifiers: Hypertension type: essential hypertension Qualified Code(s): I10 - Essential (primary) hypertension Is this a current diagnosis for this admission?: YesPlan: See admitting physician orders. (6) Coronary artery disease Qualifiers: Coronary Disease-Associated Artery/Lesion type: [place] artery [place] vs. transplanted heart: [place] heart Associated angina: without angina Qualified Code(s): I25.10 - Atherosclerotic heart disease of [place] coronary artery without angina pectoris Is this a current diagnosis for this admission?: YesPlan: See admitting physician orders. (7) HLD (hyperlipidemia) Qualifiers: Hyperlipidemia type: pure hypercholesterolemia Qualified Code(s): E78.00 - Pure hypercholesterolemia, unspecified; E78.0 - Pure hypercholesterolemia Is this a current diagnosis for this admission?: YesPlan: See admitting physician orders. (8) Old myocardial infarction Is this a current diagnosis for this admission?: YesPlan: See admitting physician orders. - Time Time Spent: Greater than 70 Minutes Medications reviewed and adjusted accordingly: Yes Anticipated discharge: SNF Within: Other - Inpatient Certification Based on my medical assessment, after consideration of the patient's comorbidities, presenting symptoms, or acuity I expect that the services needed warrant INPATIENT care.: Yes I certify that my determination is in accordance with my understanding of Medicare's requirements for reasonable and necessary INPATIENT services [42 CFR 412.3e].: Yes Medical Necessity: Need Close Monitoring Due to Risk of Patient Decompensation, Need For IV Fluids, Need For Continuous Telemetry Monitoring, Need for Nebulizer Therapy and Monitoring of Response, Need for IV Antibiotics, Risk of Complication if Not Cared For in Hospital Post Hospital Care: D/C or Transfer Summary - Plan Summary Plan Summary: See admitting physician orders.
[2017-04-29] MEDS ORDERED: VANCOMYCIN HCL 0 MG in DEXTROSE 5%-WATER 250 ML IV NR (07:30)
[2017-04-29] MEDS: METFORMIN HCL 850 MG TABLET PO SCH ×2 (07:55→15:07)
[2017-04-29] MEDS ORDERED: IPRATROPIUM/ALBUTEROL 120 PUFF/4 GM MDI IH SCH (08:00)
[2017-04-29] MEDS: CHOLECALCIFEROL (D3) 1,000 UNIT TABLET PO SCH (09:15)
[2017-04-29] MEDS: CYANOCOBALAMIN (VITAMIN B-12) 1,000 MCG TABLET PO SCH (09:15)
[2017-04-29] MEDS: SITAGLIPTIN PHOSPHATE 50 MG TABLET PO SCH (09:15)
[2017-04-29] MEDS: OMEGA-3 ACID ETHYL ESTERS 1 GM CAPSULE PO SCH (09:15)
[2017-04-29] MEDS: SERTRALINE HCL 50 MG TABLET PO SCH (09:15)
[2017-04-29] MEDS ORDERED: SUCCINYLCHOLINE CHLORIDE INJ 200 MG/10 ML VIAL ONE (09:17)
[2017-04-29] MEDS ORDERED: TIOTROPIUM BROMIDE 2.5 MCG IH SCH (10:00)
[2017-04-29] MEDS ORDERED: TRAMADOL HCL 50 MG TABLET PO SCH (10:00)
[2017-04-29] MEDS ORDERED: METFORMIN HCL 850 MG PO SCH (10:00)
[2017-04-29] MEDS: VANCOMYCIN HCL 1,250 MG in DEXTROSE 5%-WATER 250 ML IV SCH ×2 (10:12→22:12)
[2017-04-29] MEDS: DILTIAZEM HCL/D5W 125 ML IV PRN (10:44)
[2017-04-29] MEDS: INSULIN LISPRO 100 UNIT/ML 3 ML VIAL SUBCUT PRN ×3 (12:07→23:26)
--- NOTE | 2017-04-29 13:21 | PDOC CONSULTATION ---
Consultation Consult Date: 04/29/17 Attending physician:: GWENDOLYN VILLALOBOS Consult reason:: acute onset dyspnea History of Present Illness Admission Date/PCP: 04/29/17 07:33 GWENDOLYN VILLALOBOS History of Present Illness: BRUCE KNOTT is a 82 year old male was recently discharged to SNF for short term rehabilitation following left knee total arthroplasty surgery. There is associated fever, chills, cough(green sputum) and chest congestion. There was reported hypoxemia with oxygen saturation of 85% and tachypnea reported by EMS There was no reported chest pain. Patient do have history of COPD and CAD with old [place]. Patient had IV Solu-Medrol 125 mg en-route to the ED. Patient's girlfriend at bedside reported complain of some abdominal pain left somewhat greater than right.His initial evaluation in the ED was suggestive of airspace disease process and exacerbated COPD. He was managed with bronchodilators, IV antibiotic and IV Solu-Medrol.Subsequent radiograph suggested pneumonia. He smoked 2 packs a day for 60 years but has not smoked in the last 20. He admits to exposure to passive smoke as a child as well as an adult. 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 No pets no recent travel no angina-like chest pain sleeps on one pillow no PND occasional nocturnal cough occasional edema admits to snoring restless sleep nocturia 2 unrestful sleep and excessive daytime somnolence. Past Medical History Cardiac Medical History: Reports: Coronary Artery Disease, Hyperlipidema, Hypertension Denies: Atrial Fibrillation, Congestive Heart Failure, Myocardial Infarction , Peripheral Vascular Disease, Pulmonary Embolism, Heart Murmur Pulmonary Medical History: Reports: Asthma, Chronic Obstructive Pulmonary Disease (COPD), Respiratory Failure - Lung Collapsed 2010 Denies: Bronchitis, Pneumonia, Sleep Apnea, Tuberculosis Endocrine Medical History: Reports: Diabetes Mellitus Type 2 Denies: Hyperthyroidism, Hypothyroidism Renal/ Medical History: Denies: End Stage Renal Disease Malignancy Medical History: Reports: Pancreatic Cancer Denies: Leukemia, Lung Cancer GI Medical History: Reports: Gastroesophageal Reflux Disease Denies: Crohn's Disease, Hiatal Hernia Musculoskeltal Medical History: Reports: Arthritis Denies: Fibromyalgia Psychiatric Medical History: Denies: Bipolar Disorder, Depression, Post Traumatic Stress Disorder Traumatic Medical History: Reports: Pneumothorax - three times Hematology: Reports: Anemia - blood transfusion Denies: Hemophilia, Sickle Cell Disease Infectious Medical History: Denies: HIV Past Surgical History Past Surgical History: Reports: Herniorrhaphy - bilateral with mesh Denies: Appendectomy, Cholecystectomy, Colostomy, Coronary Artery Bypass Graft, Gastric Bypass Surgery, Pacemaker, Tonsillectomy Social History Information Source: Friend Lives with: Family, Senior Living Smoking Status: Former Smoker Number of Years Smokin Last Time Smoked: 15 years ago Passive smoke exposure as: Both Frequency of Alcohol Use: None Hx Recreational Drug Use: No Drugs: None Hx Prescription Drug Abuse: No Do you have pets?: No Have you had any respiratory illnesses as a child?: No Have you been exposed to any sick contacts recently?: No Have you had any recent respiratory illnesses?: No Have you travelled outside of [place] in the past 12 months?: No - Advance Directive Resuscitation Status: Full Code Family History Family History: Reviewed & Not Pertinent Parental Family History Reviewed: Yes Children Family History Reviewed: Yes Sibling(s) Family History Reviewed.: Yes Medication/Allergy Home Medications: Cetirizine HCl [Zyrtec 10 mg Tablet] 1 tab PO QHS 04/29/17 Cholecalciferol (Vitamin D3) [Thera-D] 4,000 unit PO DAILY 04/29/17 Cyanocobalamin (Vitamin B-12) [Vitamin B-12 1000 Mcg Tablet] 1 tab PO DAILY 01/11 Fluticasone/Vilanterol [Breo Ellipta 200-25 Mcg INH] 1 each IH QAM 04/29/17 Haloperidol Lactate [Haldol Inj 5 Mg/Ml Vial] 1 mg IM Q6HP PRN 04/29/17 Haloperidol [Haldol 0.5 mg Tablet] 0.5 mg PO Q8 04/29/17 Ipratropium/Albuterol Sulfate [Combivent Inhaler] 1 puff IH DAILY@1600 04/29/17 Linagliptin [Tradjenta] 5 mg PO QAM 04/29/17 Melatonin 10 mg PO QHS 04/29/17 Metformin HCl [Glucophage] 850 mg PO BIDBS 04/29/17 Multivitamin [One-A-Day Essential] 1 each PO QHS 04/29/17 [place]-3 Fatty Acids/Fish Oil [Fish Oil 1,000 Mg Capsule] 1 each PO DAILY Oxycodone HCl [Oxy-Ir 5 mg Tablet] 5 mg PO Q6HP PRN 04/29/17 Pantoprazole Sodium [Protonix] 40 mg PO QAM 04/29/17 Rivaroxaban [Xarelto 10 mg Tablet] 10 mg PO QHS 04/29/17 Sertraline HCl [Zoloft 50 mg Tablet] 50 mg PO QAM 04/29/17 Tiotropium [place] [Spiriva Respimat] 2.5 mcg IH BID 04/29/17 Tramadol HCl 50 mg PO Q6HP PRN 04/29/17 Vit A/Vit C/Vit E/Zinc/Copper [Preservision Areds Tablet] 1 each PO DAILY Allergies/Adverse Reactions: No Known Allergies Allergy (Verified 01/24/17 13:12) Review of Systems All systems: reviewed and no additional remarkable complaints except as stated Physical Exam Vital Signs: Temp Pulse Resp BP Pulse Ox 99.5 F 122 H 34 H 133/75 H 93 04/29/17 05:22 04/29/17 12:15 04/29/17 05:22 04/29/17 12:15 04/29/17 05:22 General appearance: PRESENT: no acute distress, disheveled, obese, well- developed Head exam: PRESENT: atraumatic, normocephalic Eye exam: PRESENT: conjunctiva pale, EOMI Mouth exam: PRESENT: dry mucosa, neck supple, tongue midline Neck exam: ABSENT: carotid bruit, JVD, lymphadenopathy, thyromegaly Respiratory exam: PRESENT: decreased breath sounds, prolonged expiratory phas, rales, rhonchi, symmetrical Cardiovascular exam: PRESENT: RRR, +S1, +S2 Pulses: PRESENT: normal radial pulses GI/Abdominal exam: PRESENT: normal bowel sounds, soft. ABSENT: distended, guarding, mass, organolmegaly, rebound, tenderness Rectal exam: PRESENT: deferred Gentrourinary exam: PRESENT: indwelling catheter Musculoskeletal exam: PRESENT: normal inspection Neurological exam: PRESENT: awake Skin exam: PRESENT: dry, warm Results Impressions: Abdomen/Pelvis CT 04/28/17 19:11 IMPRESSION: 1. Basilar pulmonary changes as above. Lower lobe infiltrates bilaterally. 2. No acute or suspicious abdominopelvic abnormality, findings as above. Chest X-Ray 04/29/17 05:37 IMPRESSION: No significant interval change. Assessment & Plan - Diagnosis (1) COPD with acute exacerbation Is this a current diagnosis for this admission?: Yes (2) Dehydration Is this a current diagnosis for this admission?: Yes (3) Pneumonia Qualifiers: Pneumonia type: due to unspecified organism Laterality: bilateral Lung location: lower lobe of lung Qualified Code(s): J18.9 - Pneumonia, unspecified organism Is this a current diagnosis for this admission?: YesPlan: HAP antibiotics (4) GERD (gastroesophageal reflux disease) Qualifiers: Esophagitis presence: without esophagitis Qualified Code(s): K21.9 - Gastro-esophageal reflux disease without esophagitis
[2017-04-29] MEDS: METHYLPREDNISOLONE INJ 125 MG/2 ML SDV IV SCH ×2 (14:19→21:54)
[2017-04-29] MEDS ORDERED: MORPHINE SULFATE 10 MG/ML INJ IV PRN (14:39)
[2017-04-29 14:41] LABS: PATH REVIEW PATHOLOGIST REVIEWED
[2017-04-29] MEDS: MULTIVITAMIN TABLET PO SCH (17:19)
[2017-04-29] MEDS: CETIRIZINE 10 MG TABLET PO SCH (17:19)
[2017-04-29] MEDS ORDERED: PROPOFOL 100 ML IV ONE (19:00)
--- NOTE | 2017-04-29 19:03 | CONSULTATION REPORT E ---
Consultation Report NAME: BRUCE KNOTT : 1935 AGE: 82Y DATE: 04/29/2017 612 A TO: SIGRID SHIELDS M.D. FROM: GWENDOLYN VILLALOBOS M.D. Requesting Physician REFERRING PHYSICIAN: Gwendolyn Villalobos M.D. CHIEF COMPLAINT: Abdominal pain. HISTORY OF PRESENT ILLNESS: The patient is an 82-year-old white male 2 weeks status post left total knee replacement by Yan Vogel MD, Ph.D. at [facility]. The patient did well postoperatively and was discharged to [facility]. According to records and the patient's girlfriend at the bedside currently, the patient did well until yesterday, when he developed disorientation, confusion, inability to support himself. He was brought to the emergency department at [facility] where he was found to be in respiratory distress. Apparently, he had cough, congestion and green sputum. He was admitted with the provisional diagnosis of left lower lobe pneumonia. According to nursing staff and the patient's significant other, the patient has been agitated, restless, tachypneic and tachycardic ever since admission to [facility]. He has been on a Solu-Medrol drip, diltiazem drip, intravenous antibiotics. Tonight on rounds, Dr. Villalobos felt the patient was having increased distress, labored breathing, abdominal discomfort and abdominal tenderness. Surgery was consulted. The patient cannot provide information on the HPI as he is under BiPAP respirations and in obvious distress. REVIEW OF SYSTEMS: Cannot be obtained. PAST MEDICAL AND SURGICAL HISTORY: Can be found on history and physical document includin. COPD. 2. Coronary artery disease. 3. Peripheral vascular disease. FAMILY HISTORY: Noncontributory. MEDICATIONS: Can be found on the record. PHYSICAL EXAMINATION: VITAL SIGNS: Heart rate 128, respirations 44, patient on BiPAP in obvious respiratory distress. GENERAL: The patient can follow simple commands. LUNGS: The lungs are diminished bilaterally. NECK: No JVD. ABDOMEN: The abdomen is distended, but not tympanitic. Some tenderness, but no nacho involuntary guarding. I could not appreciate any discrete masses. Again, diaphragmatic breathing renders abdominal exam somewhat limited. IMAGING STUDIES: CT scan of the abdomen and pelvis without oral contrast shows no free air, fluid in the peritoneal cavity. There are atherosclerotic changes to the aorta and iliac vessels and scoliosis. Chest x-ray shows bilateral air-space disease in the bases, left greater than right. LABORATORY PROFILE: This morning shows a white count down to 7600 but 20% bands, hemoglobin of 12. Coags yesterday unremarkable. Blood sugar in the 250 range. IMPRESSION: 1. Progressive respiratory distress in the setting of bilateral air-space disease, presumably pneumonia in an 82-year-old debilitated male. 2. Abdominal pain, nonspecific, difficult to quantify. May be related to pneumonia, diaphragmatic breathing or occult intraabdominal pathology. 3. Two weeks status post total knee replacement without known complications. RECOMMENDATIONS: 1. The patient is clearly failing medical management on the floor, despite aggressive intervention. I have discussed this with the nursing staff and Dr. Villalobos; I have recommended that the patient be transferred to the intensive care unit for more invasive monitoring. 2. Will repeat laboratory profile. Whether the patient has an acute intraabdominal problem is difficult to determine. Will need to discuss formal code status with the patient and family as well. 3. The patient likely to require endotracheal intubation for progressive respiratory failure. DICTATING PHYSICIAN: SIGRID SHIELDS M.D. [id number] PHY#: [id number] ID: [id number] JOB#: [id number] ACCT: [id number] cc:SIGRID SHIELDS M.D. >
[2017-04-29] MEDS ORDERED: PROPOFOL INJ 200 MG/20 ML VIAL IV ONE (19:07)
[2017-04-29 19:21] LABS: HEMATOCRIT 36.6 % (37.9-51.0); HGB HCT DIFFERENCE -0.6; MEAN CORPUSCULAR HGB CONC 32.7 g/dL (32.0-36.0); MEAN CORPUSCULAR VOLUME 88 fl (80-97); RED BLOOD COUNT 4.14 10^6/uL (4.35-5.55); RED CELL DISTRIBUTION WIDTH 16.5 % (11.5-14.0); WHITE BLOOD COUNT 12.6 10^3/uL (4.0-10.5)
[2017-04-29 19:25] LABS: BAND NEUTROPHILS % (MANUAL) 20 % (3-5); BASOPHILS % (MANUAL) 0 % (0-2); EOSINOPHILS % (MANUAL) 0 % (0-6); LYMPHOCYTES % (MANUAL) 6 % (13-45); TOTAL CELLS COUNTED 100
[2017-04-29 19:27] LABS: ANISOCYTOSIS 1+; HYPOCHROMASIA SLIGHT; POLYCHROMASIA SLIGHT; TOXIC GRANULATION SLIGHT
[2017-04-29] MEDS ORDERED: ACETAMINOPHEN SOLN 325 MG/10.15 ML UDCUP ONE (19:51)
[2017-04-29 20:08] LABS: ARTERIAL BLOOD BASE EXCESS 0 mmol/L; ARTERIAL BLOOD O2 SATURATION 99.5 % (94-98)
[2017-04-29 20:10] LABS: ANION GAP 14 (5-19); BLOOD UREA NITROGEN 14 mg/dL (7-20); CALCIUM 8.7 mg/dL (8.4-10.2); CARBON DIOXIDE 23 mmol/L (22-30); CHLORIDE 96 mmol/L (98-107); CREATININE RESULT 0.71 mg/dL (0.52-1.25); GLUCOSE 280 mg/dL (75-110); POTASSIUM 4.6 mmol/L (3.6-5.0); SODIUM 133.1 mmol/L (137-145)
[2017-04-29] MEDS ORDERED: PHENYLEPHRINE HCL INJ/PF 10 MG/1 ML SDV ONE (20:36)
--- NOTE | 2017-04-29 21:06 | RADIOLOGY REPORT (SQ) ---
EXAM DESCRIPTION: CHEST SINGLE VIEW COMPLETED DATE/TIME: 04/29/2017 8:04 pm REASON FOR STUDY: ETT placement COMPARISON: 04/29/2017 EXAM PARAMETERS: NUMBER OF VIEWS: One view TECHNIQUE: Single frontal radiograph of the chest. RADIATION DOSE: N/A LIMITATIONS: Image does not cover the complete lung castorena. FINDINGS: TEMPORARY SUPPORT DEVICES:ETT in expected location. Nasogastric tube noted in extends bel ow the lower edge of the film. LUNGS AND PLEURA: The lungs are hyperexpanded. Patchy airspace opacities noted in both lower lobes w hich are partially visualized on this study. No definite pneumothorax identified. MEDIASTINUM AND HILAR STRUCTURES: No masses. Contour normal. HEART AND VASCULAR STRUCTURES: Cardiac size cannot be entirely evaluated on this study. BONES: No acute findings. OTHER: No other significant finding. IMPRESSION: 1. Support tubes and lines as above. 2. Hyperexpanded lung castorena. Patchy airspace opacities noted in both lung bases which are partiall y visualized on this study. TECHNICAL DOCUMENTATION: JOB ID: [id number] [employer]- All Rights Reserved
--- NOTE | 2017-04-29 21:07 | RADIOLOGY REPORT (SQ) ---
EXAM DESCRIPTION: KUB/ABDOMEN (SINGLE VIEW) COMPLETED DATE/TIME: 04/29/2017 8:04 pm REASON FOR STUDY: NGT placement COMPARISON: None. NUMBER OF VIEWS: One view. TECHNIQUE: Supine radiographic image of the abdomen acquired. LIMITATIONS: None. FINDINGS: BOWEL GAS PATTERN: Nonspecific bowel gas pattern noted throughout the abdomen. There appe ars to be stool within the right colon. CALCIFICATIONS: Calcification projects over the left mid abdomen could represent renal calculus. SOFT TISSUES: No gross mass or suggestion of organomegaly. HARDWARE: Nasogastric tube noted with tip in side hole projecting over the left upper quadrant in the region of the stomach. BONES: No acute fracture. No worrisome bone lesions. OTHER: No other significant finding. IMPRESSION: NG tube appears to be in adequate location. TECHNICAL DOCUMENTATION: JOB ID: [id number] [employer]- All Rights Reserved
[2017-04-29] MEDS: RIVAROXABAN 10 MG TABLET PO SCH (21:54)
[2017-04-29] MEDS: PROPOFOL 100 ML IV PRN (21:55)
[2017-04-30] MEDS: PIPERACILLIN SODIUM/TAZOBACTAM 3.375 GM in NORMAL SALINE 100 ML IV SCH ×4 (01:19→23:16)
[2017-04-30] MEDS: PROPOFOL 100 ML IV PRN ×7 (01:19→23:18)
[2017-04-30] MEDS: DEXTROSE 5%-WATER 250 ML with PHENYLEPHRINE HCL 40 MG IV PRN ×8 (01:19→16:34)
[2017-04-30 04:58] LABS: ALANINE AMINOTRANSFERASE 36 U/L (21-72); ALBUMIN 2.9 g/dL (3.5-5.0); ALKALINE PHOSPHATASE 76 U/L (38-126); ANION GAP 13 (5-19); ASPARTATE AMINO TRANSFERASE 34 U/L (17-59); BILIRUBIN,DIRECT 0.6 mg/dL (0.0-0.4); BLOOD UREA NITROGEN 17 mg/dL (7-20); CALCIUM 8.5 mg/dL (8.4-10.2); CARBON DIOXIDE 26 mmol/L (22-30); CHLORIDE 95 mmol/L (98-107); CREATININE RESULT 0.91 mg/dL (0.52-1.25); GLUCOSE 282 mg/dL (75-110); MAGNESIUM 2.2 mg/dL (1.6-2.3); POTASSIUM 4.4 mmol/L (3.6-5.0); SODIUM 133.9 mmol/L (137-145)
[2017-04-30] MEDS: HALOPERIDOL 0.5 MG TABLET PO SCH ×2 (05:01→14:00)
[2017-04-30] MEDS: DILTIAZEM HCL 60 MG TABLET PO SCH ×2 (05:01→14:00)
[2017-04-30] MEDS: LANSOPRAZOLE 30 MG TAB.RAP.DR PO SCH (05:04)
[2017-04-30] MEDS: METHYLPREDNISOLONE INJ 125 MG/2 ML SDV IV SCH ×3 (05:04→21:51)
[2017-04-30 05:12] LABS: ARTERIAL BLOOD BASE EXCESS 0.5 mmol/L; ARTERIAL BLOOD O2 SATURATION 97.6 % (94-98)
[2017-04-30 05:44] LABS: HEMATOCRIT 34.3 % (37.9-51.0); HEMOGLOBIN 11.1 g/dL (13.5-17.0); MEAN CORPUSCULAR HGB CONC 32.5 g/dL (32.0-36.0); MEAN CORPUSCULAR VOLUME 89 fl (80-97); RED BLOOD COUNT 3.84 10^6/uL (4.35-5.55); RED CELL DISTRIBUTION WIDTH 16.4 % (11.5-14.0); WHITE BLOOD COUNT 14.2 10^3/uL (4.0-10.5)
[2017-04-30 05:50] LABS: ANISOCYTOSIS 1+; BAND NEUTROPHILS % (MANUAL) 21 % (3-5); BASOPHILS % (MANUAL) 0 % (0-2); EOSINOPHILS % (MANUAL) 1 % (0-6); LYMPHOCYTES % (MANUAL) 3 % (13-45); OVALOCYTES SLIGHT; POIKILOCYTOSIS SLIGHT; TOTAL CELLS COUNTED 100; TOXIC GRANULATION 1+
[2017-04-30 05:51] LABS: SCHISTOCYTES SLIGHT; TEAR DROP CELLS SLIGHT
--- NOTE | 2017-04-30 07:35 | RADIOLOGY REPORT (SQ) ---
EXAM DESCRIPTION: CHEST SINGLE VIEW COMPLETED DATE/TIME: 04/30/2017 6:17 am REASON FOR STUDY: PNA COMPARISON: 04/29/2017 EXAM PARAMETERS: NUMBER OF VIEWS: One view. TECHNIQUE: Single frontal radiographic view of the chest acquired. RADIATION DOSE: NA LIMITATIONS: None. FINDINGS: LUNGS AND PLEURA: Moderate patchy airspace opacities of the left lower hemithorax, small s treakiness of the right lower lobe, layered effusion -opacity of the left lung base. MEDIASTINUM AND HILAR STRUCTURES: No masses. Contour normal. HEART AND VASCULAR STRUCTURES: Heart normal in size. Normal vasculature. BONES: No acute findings. HARDWARE: Adequate appearing endotracheal tube and likely adequate partially imaged NG tube. OTHER: No other significant finding. IMPRESSION: No significant interval change. TECHNICAL DOCUMENTATION: JOB ID: [id number]
[2017-04-30] MEDS: VANCOMYCIN HCL 1,250 MG in DEXTROSE 5%-WATER 250 ML IV SCH ×2 (11:26→21:51)
[2017-04-30] MEDS: CHOLECALCIFEROL (D3) 1,000 UNIT TABLET PO SCH (11:43)
[2017-04-30] MEDS: SERTRALINE HCL 50 MG TABLET PO SCH (11:44)
[2017-04-30] MEDS: OMEGA-3 ACID ETHYL ESTERS 1 GM CAPSULE PO SCH (11:45)
[2017-04-30] MEDS: METFORMIN HCL 850 MG TABLET PO SCH (11:45)
[2017-04-30] MEDS: SITAGLIPTIN PHOSPHATE 50 MG TABLET PO SCH (11:45)
[2017-04-30] MEDS: LEVALBUTEROL HCL NEB 1.25 MG/3 ML AMPUL NEB PRN (13:37)
[2017-04-30] MEDS ORDERED: HALOPERIDOL 0.5 MG TABLET PO PRN (14:18)
[2017-04-30] MEDS: CYANOCOBALAMIN (VITAMIN B-12) 1,000 MCG TABLET PO SCH (15:56)
[2017-04-30] MEDS: INSULIN LISPRO 100 UNIT/ML 3 ML VIAL SUBCUT PRN ×2 (16:31→23:30)
[2017-04-30] MEDS: ACETAMINOPHEN SOLN 325 MG/10.15 ML UDCUP NG PRN (16:34)
[2017-04-30] MEDS: MULTIVITAMIN TABLET PO SCH (18:00)
--- NOTE | 2017-04-30 18:10 | PDOC PROGRESS REPORT ---
Subjective Progress Note for:: 04/30/17 Subjective:: intubated sedated Physical Exam Vital Signs: Temp Pulse Resp BP Pulse Ox 99.1 F 82 18 113/59 L 94 04/30/17 08:00 04/30/17 08:00 04/30/17 08:00 04/30/17 08:00 04/30/17 08:00 Intake & Output 04/29/17 04/30/17 05/01/17 06:59 06:59 06:59 Intake Total 1175 Output Total 1215 Balance -40 Weight 86.7 kg General appearance: PRESENT: no acute distress, disheveled, obese, well- developed Head exam: PRESENT: atraumatic, normocephalic Eye exam: PRESENT: conjunctiva pale Mouth exam: PRESENT: dry mucosa, neck supple, tongue midline, other - ET tube Neck exam: ABSENT: carotid bruit, JVD, lymphadenopathy, thyromegaly Respiratory exam: PRESENT: decreased breath sounds, prolonged expiratory phas, rhonchi, symmetrical, unlabored Cardiovascular exam: PRESENT: RRR, +S1, +S2 Pulses: PRESENT: normal radial pulses GI/Abdominal exam: PRESENT: normal bowel sounds, soft. ABSENT: distended, guarding, mass, organolmegaly, rebound, tenderness Rectal exam: PRESENT: deferred Gentrourinary exam: PRESENT: indwelling catheter Musculoskeletal exam: PRESENT: normal inspection Skin exam: PRESENT: dry, warm Results Laboratory Results: 04/30/17 04:30 04/30/17 04:30 04/29/17 04/29/17 04/29/17 18:51 18:51 19:39 WBC 12.6 H RBC 4.14 L Hgb 12.0 L Hct 36.6 L MCV 88 MCH 29.0 MCHC 32.7 RDW 16.5 H Plt Count 416 Seg Neutrophils % Not Reportable Lymphocytes % Not Reportable Monocytes % Not Reportable Eosinophils % Not Reportable Basophils % Not Reportable Absolute Neutrophils Not Reportable Absolute Lymphocytes Not Reportable Absolute Monocytes Not Reportable Absolute Eosinophils Not Reportable Absolute Basophils Not Reportable Carbonic Acid 1.17 HCO3/H2CO3 Ratio 20:1 ABG pH 7.42 ABG pCO2 38.8 ABG pO2 218.9 H ABG HCO3 24.4 ABG O2 Saturation 99.5 H ABG Base Excess 0 FiO2 100% Sodium 133.1 L Potassium 4.6 Chloride 96 L Carbon Dioxide 23 Anion Gap 14 BUN 14 Creatinine 0.71 Est GFR ( Amer) > 60 Est GFR (Non-Af Amer) > 60 Glucose 280 H Calcium 8.7 Magnesium Total Bilirubin AST ALT Alkaline Phosphatase Total Protein Albumin 04/30/17 04/30/17 04/30/17 04:30 04:30 04:50 WBC 14.2 H RBC 3.84 L Hgb 11.1 L Hct 34.3 L MCV 89 MCH 29.0 MCHC 32.5 RDW 16.4 H Plt Count 422 Seg Neutrophils % Not Reportable Lymphocytes % Not Reportable Monocytes % Not Reportable Eosinophils % Not Reportable Basophils % Not Reportable Absolute Neutrophils Not Reportable Absolute Lymphocytes Not Reportable Absolute Monocytes Not Reportable Absolute Eosinophils Not Reportable Absolute Basophils Not Reportable Carbonic Acid 1.06 HCO3/H2CO3 Ratio 22:1 ABG pH 7.46 H ABG pCO2 35.1 ABG pO2 95.8 ABG HCO3 24.1 ABG O2 Saturation 97.6 ABG Base Excess 0.5 FiO2 50% Sodium 133.9 L Potassium 4.4 Chloride 95 L Carbon Dioxide 26 Anion Gap 13 BUN 17 Creatinine 0.91 Est GFR ( Amer) > 60 Est GFR (Non-Af Amer) > 60 Glucose 282 H Calcium 8.5 Magnesium 2.2 Total Bilirubin 1.0 AST 34 ALT 36 Alkaline Phosphatase 76 Total Protein 6.0 L Albumin 2.9 L Impressions: Abdomen/Pelvis CT 04/28/17 19:11 IMPRESSION: 1. Basilar pulmonary changes as above. Lower lobe infiltrates bilaterally. 2. No acute or suspicious abdominopelvic abnormality, findings as above. KUB X-Ray 04/29/17 19:35 IMPRESSION: NG tube appears to be in adequate location. Chest X-Ray 04/30/17 06:00 IMPRESSION: No significant interval change. Assessment & Plan - Diagnosis (1) COPD with acute exacerbation Is this a current diagnosis for this admission?: Yes (2) Dehydration Is this a current diagnosis for this admission?: Yes (3) Pneumonia Qualifiers: Pneumonia type: due to unspecified organism Laterality: bilateral Lung location: lower lobe of lung Qualified Code(s): J18.9 - Pneumonia, unspecified organism Is this a current diagnosis for this admission?: Yes (4) GERD (gastroesophageal reflux disease) Qualifiers: Esophagitis presence: without esophagitis Qualified Code(s): K21.9 - Gastro-esophageal reflux disease without esophagitis Is this a current diagnosis for this admission?: Yes - Time Critical Time spent with patient: 25-34 minutes
--- NOTE | 2017-04-30 18:25 | PDOC PROGRESS REPORT ---
Subjective Progress Note for:: 04/30/17 Subjective:: Overall work of breathing did stress patient out since my last clinical evaluation necessitating transfer to ICU and intubation with vent support. He was seen in consultation by surgicalist, Dr Flores, due to cc of abdominal pain prior to transfer and eventual intubation. Remain on IV Vancomycin and Zosyn coverage but continue to demonstrate intermittent fever. Currently on downward lindsey of IV Neosyn pressor support due to episodes of hypotension post intubation and on Cardizem drip. Remain sedated on IV Propofol. No bowel movement so far. Physical Exam Vital Signs: Temp Pulse Resp BP Pulse Ox 100.9 F H 94 25 H 112/65 95 04/30/17 16:00 04/30/17 16:00 04/30/17 16:00 04/30/17 16:00 04/30/17 16:45 Intake & Output 04/29/17 04/30/17 05/01/17 06:59 06:59 06:59 Intake Total 1175 Output Total 1215 1275 Balance -40 -1275 Weight 86.7 kg Physical Exam: Intubed and vent supported ET and OG tubes in situ. Head exam: PRESENT: atraumatic, normocephalic Eye exam: PRESENT: conjunctiva pink, EOMI, PERRLA. ABSENT: scleral icterus Mouth exam: PRESENT: moist Respiratory exam: PRESENT: crackles - scattered at lung bases, decreased breath sounds - at lung bases Cardiovascular exam: PRESENT: RRR. ABSENT: diastolic murmur, rubs, systolic murmur GI/Abdominal exam: PRESENT: distended - but soft, normal bowel sounds, soft. ABSENT: guarding, mass, organolmegaly, rebound, tenderness Rectal exam: PRESENT: deferred Extremities exam: ABSENT: pedal edema Neurological exam: PRESENT: altered - sedated on IV Propofol Skin exam: PRESENT: dry, intact, warm. ABSENT: cyanosis, rash Results Laboratory Results: 04/30/17 04:30 04/30/17 04:30 04/29/17 04/29/17 04/29/17 18:51 18:51 19:39 WBC 12.6 H RBC 4.14 L Hgb 12.0 L Hct 36.6 L MCV 88 MCH 29.0 MCHC 32.7 RDW 16.5 H Plt Count 416 Seg Neutrophils % Not Reportable Lymphocytes % Not Reportable Monocytes % Not Reportable Eosinophils % Not Reportable Basophils % Not Reportable Absolute Neutrophils Not Reportable Absolute Lymphocytes Not Reportable Absolute Monocytes Not Reportable Absolute Eosinophils Not Reportable Absolute Basophils Not Reportable Carbonic Acid 1.17 HCO3/H2CO3 Ratio 20:1 ABG pH 7.42 ABG pCO2 38.8 ABG pO2 218.9 H ABG HCO3 24.4 ABG O2 Saturation 99.5 H ABG Base Excess 0 FiO2 100% Sodium 133.1 L Potassium 4.6 Chloride 96 L Carbon Dioxide 23 Anion Gap 14 BUN 14 Creatinine 0.71 Est GFR ( Amer) > 60 Est GFR (Non-Af Amer) > 60 Glucose 280 H Lactic Acid Calcium 8.7 Magnesium Total Bilirubin AST ALT Alkaline Phosphatase Total Protein Albumin 04/30/17 04/30/17 04/30/17 04:30 04:30 04:50 WBC 14.2 H RBC 3.84 L Hgb 11.1 L Hct 34.3 L MCV 89 MCH 29.0 MCHC 32.5 RDW 16.4 H Plt Count 422 Seg Neutrophils % Not Reportable Lymphocytes % Not Reportable Monocytes % Not Reportable Eosinophils % Not Reportable Basophils % Not Reportable Absolute Neutrophils Not Reportable Absolute Lymphocytes Not Reportable Absolute Monocytes Not Reportable Absolute Eosinophils Not Reportable Absolute Basophils Not Reportable Carbonic Acid 1.06 HCO3/H2CO3 Ratio 22:1 ABG pH 7.46 H ABG pCO2 35.1 ABG pO2 95.8 ABG HCO3 24.1 ABG O2 Saturation 97.6 ABG Base Excess 0.5 FiO2 50% Sodium 133.9 L Potassium 4.4 Chloride 95 L Carbon Dioxide 26 Anion Gap 13 BUN 17 Creatinine 0.91 Est GFR ( Amer) > 60 Est GFR (Non-Af Amer) > 60 Glucose 282 H Lactic Acid Calcium 8.5 Magnesium 2.2 Total Bilirubin 1.0 AST 34 ALT 36 Alkaline Phosphatase 76 Total Protein 6.0 L Albumin 2.9 L 04/30/17 04/30/17 12:00 16:30 WBC RBC Hgb Hct MCV MCH MCHC RDW Plt Count Seg Neutrophils % Lymphocytes % Monocytes % Eosinophils % Basophils % Absolute Neutrophils Absolute Lymphocytes Absolute Monocytes Absolute Eosinophils Absolute Basophils Carbonic Acid HCO3/H2CO3 Ratio ABG pH ABG pCO2 ABG pO2 ABG HCO3 ABG O2 Saturation ABG Base Excess FiO2 Sodium Potassium Chloride Carbon Dioxide Anion Gap BUN Creatinine Est GFR ( Amer) Est GFR (Non-Af Amer) Glucose Lactic Acid 2.7 H 2.6 H Calcium Magnesium Total Bilirubin AST ALT Alkaline Phosphatase Total Protein Albumin Impressions: Abdomen/Pelvis CT 04/28/17 19:11 IMPRESSION: 1. Basilar pulmonary changes as above. Lower lobe infiltrates bilaterally. 2. No acute or suspicious abdominopelvic abnormality, findings as above. KUB X-Ray 04/29/17 19:35 IMPRESSION: NG tube appears to be in adequate location. Chest X-Ray 04/30/17 06:00 IMPRESSION: No significant interval change. Assessment & Plan - Diagnosis (1) Sepsis due to Enterobacter species Is this a current diagnosis for this admission?: YesPlan: With urine culture growth. Sensitive to Zosyn. (2) Acute respiratory failure Qualifiers: Respiratory failure complication: hypoxia Qualified Code(s): J96.01 - Acute respiratory failure with hypoxia Is this a current diagnosis for this admission?: YesPlan: Continue ventilatory support as per foundry patternmaker recommendation. (3) COPD with acute exacerbation Is this a current diagnosis for this admission?: YesPlan: See attending physician orders. (4) Pneumonia Qualifiers: Pneumonia type: due to unspecified organism Laterality: bilateral Lung location: lower lobe of lung Qualified Code(s): J18.9 - Pneumonia, unspecified organism Is this a current diagnosis for this admission?: YesPlan: See attending physician orders. (5) Chronic delirium Is this a current diagnosis for this admission?: Yes (6) Diabetes mellitus type 2 in nonobese Is this a current diagnosis for this admission?: YesPlan: See attending physician orders. (7) HTN (hypertension) Qualifiers: Hypertension type: essential hypertension Qualified Code(s): I10 - Essential (primary) hypertension Is this a current diagnosis for this admission?: YesPlan: See attending physician orders. (8) Coronary artery disease Qualifiers: Coronary Disease-Associated Artery/Lesion type: [place] artery [place] vs. transplanted heart: [place] heart Associated angina: without angina Qualified Code(s): I25.10 - Atherosclerotic heart disease of [place] coronary artery without angina pectoris Is this a current diagnosis for this admission?: YesPlan: See attending physician orders. (9) HLD (hyperlipidemia) Qualifiers: Hyperlipidemia type: pure hypercholesterolemia Qualified Code(s): E78.00 - Pure hypercholesterolemia, unspecified; E78.0 - Pure hypercholesterolemia Is this a current diagnosis for this admission?: YesPlan: See attending physician orders. (10) Old myocardial infarction Is this a current diagnosis for this admission?: YesPlan: See attending physician orders. - Time Time Spent with patient: 35 or more minutes Medications reviewed and adjusted accordingly: Yes Anticipated discharge: Other Within: Other - Inpatient Certification Based on my medical assessment, after consideration of the patient's comorbidities, presenting symptoms, or acuity I expect that the services needed warrant INPATIENT care.: Yes I certify that my determination is in accordance with my understanding of Medicare's requirements for reasonable and necessary INPATIENT services [42 CFR 412.3e].: Yes Medical Necessity: Need Close Monitoring Due to Risk of Patient Decompensation, Need For IV Fluids, Need For Continuous Telemetry Monitoring, Need for Nebulizer Therapy and Monitoring of Response, Need for IV Antibiotics, Risk of Complication if Not Cared For in Hospital Post Hospital Care: D/C or Transfer Summary - Plan Summary Plan Summary: See attending physician orders.
[2017-04-30] MEDS: CETIRIZINE 10 MG TABLET PO SCH (18:53)
[2017-04-30] MEDS: RIVAROXABAN 10 MG TABLET PO SCH (21:51)
[2017-04-30] MEDS: METRONIDAZOLE 500 MG/NS RTU 100 ML IV SCH (23:17)
[2017-05-01] MEDS: PROPOFOL 100 ML IV PRN ×5 (03:26→20:38)
[2017-05-01 04:39] LABS: ARTERIAL BLOOD BASE EXCESS 4.2 mmol/L; ARTERIAL BLOOD O2 SATURATION 96.1 % (94-98)
[2017-05-01] MEDS: LANSOPRAZOLE 30 MG TAB.RAP.DR PO SCH (05:39)
[2017-05-01] MEDS: METHYLPREDNISOLONE INJ 125 MG/2 ML SDV IV SCH ×3 (05:39→21:30)
[2017-05-01] MEDS: METRONIDAZOLE 500 MG/NS RTU 100 ML IV SCH ×4 (05:40→23:18)
[2017-05-01] MEDS: PIPERACILLIN SODIUM/TAZOBACTAM 3.375 GM in NORMAL SALINE 100 ML IV SCH ×4 (05:40→23:18)
[2017-05-01 05:51] LABS: ALANINE AMINOTRANSFERASE 30 U/L (21-72); ALBUMIN 2.6 g/dL (3.5-5.0); ALKALINE PHOSPHATASE 88 U/L (38-126); ANION GAP 11 (5-19); ASPARTATE AMINO TRANSFERASE 19 U/L (17-59); BILIRUBIN,DIRECT 0.5 mg/dL (0.0-0.4); BILIRUBIN,TOTAL 0.7 mg/dL (0.2-1.3); BLOOD UREA NITROGEN 22 mg/dL (7-20); CALCIUM 8.5 mg/dL (8.4-10.2); CARBON DIOXIDE 25 mmol/L (22-30); CHLORIDE 98 mmol/L (98-107); CREATININE RESULT 0.59 mg/dL (0.52-1.25); GLUCOSE 302 mg/dL (75-110); MAGNESIUM 2.5 mg/dL (1.6-2.3); PHOSPHORUS 2.7 mg/dL (2.5-4.5); POTASSIUM 4.4 mmol/L (3.6-5.0); SODIUM 134.4 mmol/L (137-145); TOTAL PROTEIN 5.7 g/dL (6.3-8.2)
[2017-05-01 06:00] LABS: HEMATOCRIT 28.4 % (37.9-51.0); HEMOGLOBIN 9.3 g/dL (13.5-17.0); HGB HCT DIFFERENCE -0.5; MEAN CORPUSCULAR HEMOGLOBIN 28.8 pg (27.0-33.4); MEAN CORPUSCULAR HGB CONC 32.6 g/dL (32.0-36.0); MEAN CORPUSCULAR VOLUME 89 fl (80-97); RED BLOOD COUNT 3.21 10^6/uL (4.35-5.55); RED CELL DISTRIBUTION WIDTH 16.5 % (11.5-14.0); WHITE BLOOD COUNT 12.1 10^3/uL (4.0-10.5)
[2017-05-01 06:07] LABS: BAND NEUTROPHILS % (MANUAL) 9 % (3-5); BASOPHILS % (MANUAL) 0 % (0-2); EOSINOPHILS % (MANUAL) 0 % (0-6); LYMPHOCYTES % (MANUAL) 2 % (13-45); TOTAL CELLS COUNTED 100
[2017-05-01 06:09] LABS: ANISOCYTOSIS 1+; POLYCHROMASIA SLIGHT; TOXIC GRANULATION 1+
--- NOTE | 2017-05-01 07:09 | RADIOLOGY REPORT (SQ) ---
EXAM DESCRIPTION: CHEST SINGLE VIEW COMPLETED DATE/TIME: 05/01/2017 6:35 am REASON FOR STUDY: resp fail COMPARISON: 04/30/2017 EXAM PARAMETERS: NUMBER OF VIEWS: One view. TECHNIQUE: Single frontal radiographic view of the chest acquired. RADIATION DOSE: NA LIMITATIONS: None. FINDINGS: LUNGS AND PLEURA: Moderate patchy opacity of the left lower lung field, small patchiness o f the right lower lung field, small right infrahilar opacity. MEDIASTINUM AND HILAR STRUCTURES: No masses. Contour normal. HEART AND VASCULAR STRUCTURES: Heart normal in size. Normal vasculature. BONES: No acute findings. HARDWARE: Adequate appearing endotracheal tube and partially imaged NG tube. OTHER: No other significant finding. IMPRESSION: No significant interval change. TECHNICAL DOCUMENTATION: JOB ID: [id number]
[2017-05-01] MEDS: DILTIAZEM HCL/D5W 125 ML IV PRN ×2 (09:28→16:09)
[2017-05-01] MEDS: VANCOMYCIN HCL 1,250 MG in DEXTROSE 5%-WATER 250 ML IV SCH (09:49)
[2017-05-01] MEDS: CHOLECALCIFEROL (D3) 1,000 UNIT TABLET PO SCH (09:49)
[2017-05-01] MEDS: SERTRALINE HCL 50 MG TABLET PO SCH (09:49)
[2017-05-01] MEDS ORDERED: MULTIVITAMIN ORAL LIQUID 60 ML PO SCH (10:00)
[2017-05-01] MEDS: INSULIN LISPRO 100 UNIT/ML 3 ML VIAL SUBCUT PRN ×3 (10:27→18:35)
[2017-05-01] MEDS ORDERED: DIGOXIN INJ 0.5 MG/2 ML AMPULE ONE (10:49)
[2017-05-01] MEDS ORDERED: DIGOXIN INJ 0.5 MG/2 ML AMPULE IV ONE (11:00)
--- NOTE | 2017-05-01 11:06 | PDOC PROGRESS REPORT ---
Subjective Progress Note for:: 05/01/17 Subjective:: Patient did demonstrate low grade fever in 99F range last night. Episode of tachycardia developed this morning following taper of sedation protocol. Currently back on IV Cardizem infusion for SVT management. Remain NPO. Physical Exam Vital Signs: Temp Pulse Resp BP Pulse Ox 99.5 F 170 H 19 117/69 95 05/01/17 09:59 05/01/17 09:59 05/01/17 10:30 05/01/17 09:59 05/01/17 10:30 Intake & Output 04/30/17 05/01/17 05/02/17 06:59 06:59 06:59 Intake Total 1175 2649 60 Output Total 1215 2925 125 Balance -40 -276 -65 Weight 86.7 kg 86 kg Physical Exam: Intubed and vent supported ET and OG tubes in situ. Head exam: PRESENT: atraumatic, normocephalic Eye exam: PRESENT: conjunctiva pink, EOMI, PERRLA. ABSENT: scleral icterus Mouth exam: PRESENT: moist Respiratory exam: PRESENT: crackles - scattered at lung bases, decreased breath sounds - at lung bases Cardiovascular exam: PRESENT: Tachycardia. ABSENT: diastolic murmur, rubs, systolic murmur GI/Abdominal exam: PRESENT: distended - but soft, normal bowel sounds, soft. ABSENT: guarding, mass, organomegaly, rebound, tenderness Rectal exam: PRESENT: deferred Extremities exam: ABSENT: pedal edema Neurological exam: PRESENT: altered - sedated on IV Propofol Skin exam: PRESENT: dry, intact, warm. ABSENT: cyanosis, rash Results Laboratory Results: 05/01/17 04:48 05/01/17 04:58 04/30/17 04/30/17 05/01/17 12:00 16:30 04:34 WBC RBC Hgb Hct MCV MCH MCHC RDW Plt Count Seg Neutrophils % Lymphocytes % Monocytes % Eosinophils % Basophils % Absolute Neutrophils Absolute Lymphocytes Absolute Monocytes Absolute Eosinophils Absolute Basophils Carbonic Acid 1.16 HCO3/H2CO3 Ratio 24:1 ABG pH 7.48 H ABG pCO2 38.6 ABG pO2 76.7 L ABG HCO3 28.0 H ABG O2 Saturation 96.1 ABG Base Excess 4.2 FiO2 30% Sodium Potassium Chloride Carbon Dioxide Anion Gap BUN Creatinine Est GFR ( Amer) Est GFR (Non-Af Amer) Glucose Lactic Acid 2.7 H 2.6 H Calcium Phosphorus Magnesium Total Bilirubin AST ALT Alkaline Phosphatase Total Protein Albumin 05/01/17 05/01/17 04:48 04:58 WBC 12.1 H RBC 3.21 L Hgb 9.3 L Hct 28.4 L MCV 89 MCH 28.8 MCHC 32.6 RDW 16.5 H Plt Count 382 Seg Neutrophils % Not Reportable Lymphocytes % Not Reportable Monocytes % Not Reportable Eosinophils % Not Reportable Basophils % Not Reportable Absolute Neutrophils Not Reportable Absolute Lymphocytes Not Reportable Absolute Monocytes Not Reportable Absolute Eosinophils Not Reportable Absolute Basophils Not Reportable Carbonic Acid HCO3/H2CO3 Ratio ABG pH ABG pCO2 ABG pO2 ABG HCO3 ABG O2 Saturation ABG Base Excess FiO2 Sodium 134.4 L Potassium 4.4 Chloride 98 Carbon Dioxide 25 Anion Gap 11 BUN 22 H Creatinine 0.59 Est GFR ( Amer) > 60 Est GFR (Non-Af Amer) > 60 Glucose 302 H Lactic Acid Calcium 8.5 Phosphorus 2.7 Magnesium 2.5 H Total Bilirubin 0.7 AST 19 ALT 30 Alkaline Phosphatase 88 Total Protein 5.7 L Albumin 2.6 L 04/29/17 19:39 Tracheal Aspirate Gram Stain - Final Impressions: Abdomen/Pelvis CT 04/28/17 19:11 IMPRESSION: 1. Basilar pulmonary changes as above. Lower lobe infiltrates bilaterally. 2. No acute or suspicious abdominopelvic abnormality, findings as above. KUB X-Ray 04/29/17 19:35 IMPRESSION: NG tube appears to be in adequate location. Chest X-Ray 05/01/17 06:00 IMPRESSION: No significant interval change. Assessment & Plan - Diagnosis (1) Sepsis due to Enterobacter species Is this a current diagnosis for this admission?: YesPlan: Continue IV Vancomycin and Zosyn for tracheal aspirate growth of Gram positive cocci in clusters and urine culture growth of Enterobacter Aerogenes. MAintain on IV Metronidazole for possible GI anaerobic coverage in view of his complain about abdominal pain despite negative CT scan evaluation. (2) Acute respiratory failure Qualifiers: Respiratory failure complication: hypoxia Qualified Code(s): J96.01 - Acute respiratory failure with hypoxia Is this a current diagnosis for this admission?: YesPlan: Continue ventilatory support as per red hat open stack administrator recommendation. (3) COPD with acute exacerbation Is this a current diagnosis for this admission?: YesPlan: See attending physician orders. I will decrease IV Solu-Medrol to 80mg q 8 hours. (4) Pneumonia Qualifiers: Pneumonia type: due to unspecified organism Laterality: bilateral Lung location: lower lobe of lung Qualified Code(s): J18.9 - Pneumonia, unspecified organism Is this a current diagnosis for this admission?: YesPlan: See attending physician orders. Continue current antibiotic therapy. (5) Chronic delirium Is this a current diagnosis for this admission?: Yes (6) Diabetes mellitus type 2 in nonobese Is this a current diagnosis for this admission?: YesPlan: See attending physician orders. Start on OG tube feeding. His hyperglycemia is most likely due to steroid usage for COPD management. (7) HTN (hypertension) Qualifiers: Hypertension type: essential hypertension Qualified Code(s): I10 - Essential (primary) hypertension Is this a current diagnosis for this admission?: YesPlan: See attending physician orders. (8) Coronary artery disease Qualifiers: Coronary Disease-Associated Artery/Lesion type: [place] artery [place] vs. transplanted heart: [place] heart Associated angina: without angina Qualified Code(s): I25.10 - Atherosclerotic heart disease of [place] coronary artery without angina pectoris Is this a current diagnosis for this admission?: YesPlan: See attending physician orders. (9) HLD (hyperlipidemia) Qualifiers: Hyperlipidemia type: pure hypercholesterolemia Qualified Code(s): E78.00 - Pure hypercholesterolemia, unspecified; E78.0 - Pure hypercholesterolemia Is this a current diagnosis for this admission?: YesPlan: See attending physician orders. (10) Old myocardial infarction Is this a current diagnosis for this admission?: YesPlan: See attending physician orders. (11) SVT (supraventricular tachycardia) Is this a current diagnosis for this admission?: YesPlan: Obtain 12 lead EKG documentation. Continue IV Cardizem. Obtain cardiology consultation with Dr. Whiteside for further input and intervention. - Time Time Spent with patient: 35 or more minutes Medications reviewed and adjusted accordingly: Yes Anticipated discharge: SNF Within: Other - Inpatient Certification Based on my medical assessment, after consideration of the patient's comorbidities, presenting symptoms, or acuity I expect that the services needed warrant INPATIENT care.: Yes I certify that my determination is in accordance with my understanding of Medicare's requirements for reasonable and necessary INPATIENT services [42 CFR 412.3e].: Yes Medical Necessity: Need Close Monitoring Due to Risk of Patient Decompensation, Need For IV Fluids, Need For Continuous Telemetry Monitoring, Need for Nebulizer Therapy and Monitoring of Response, Need for Pain Control, Need for IV Antibiotics, Risk of Complication if Not Cared For in Hospital Post Hospital Care: D/C or Transfer Summary - Plan Summary Plan Summary: See attending physician orders.
[2017-05-01] MEDS ORDERED: BISACODYL 10 MG SUPP.RECT PR ONE (12:00)
[2017-05-01] MEDS: CYANOCOBALAMIN (VITAMIN B-12) 1,000 MCG TABLET PO SCH (12:10)
--- NOTE | 2017-05-01 13:02 | EKG REPORT ---
SEVERITY:- ABNORMAL ECG - ATRIAL FIBRILLATION : Confirmed by: Manjeet Tineo MD 01-May-2017 13:02:05
--- NOTE | 2017-05-01 13:49 | PDOC PROGRESS REPORT ---
Subjective Progress Note for:: 05/01/17 Subjective:: intubated sedated Physical Exam Vital Signs: Temp Pulse Resp BP Pulse Ox 100.0 F 100 23 H 114/68 95 05/01/17 12:00 05/01/17 12:00 05/01/17 12:00 05/01/17 12:00 05/01/17 12:00 Intake & Output 04/30/17 05/01/17 05/02/17 06:59 06:59 06:59 Intake Total 1175 2649 120 Output Total 1211 1963 355 Balance -40 -276 -235 Weight 86.7 kg 86 kg General appearance: PRESENT: no acute distress, disheveled, morbidly obese, well -developed Head exam: PRESENT: atraumatic, normocephalic Eye exam: PRESENT: conjunctiva pink Mouth exam: PRESENT: dry mucosa, neck supple, tongue midline, other - ET tube in place Neck exam: ABSENT: carotid bruit, JVD, lymphadenopathy, thyromegaly Respiratory exam: PRESENT: decreased breath sounds, prolonged expiratory phas, rales, rhonchi, stridor, unlabored Cardiovascular exam: PRESENT: RRR, +S1, +S2 Pulses: PRESENT: normal radial pulses GI/Abdominal exam: PRESENT: normal bowel sounds, soft. ABSENT: distended, guarding, mass, organolmegaly, rebound, tenderness Rectal exam: PRESENT: deferred Gentrourinary exam: PRESENT: indwelling catheter Musculoskeletal exam: PRESENT: normal inspection Skin exam: PRESENT: dry, warm Results Laboratory Results: 05/01/17 04:48 05/01/17 04:58 04/30/17 05/01/17 05/01/17 16:30 04:34 04:48 WBC 12.1 H RBC 3.21 L Hgb 9.3 L Hct 28.4 L MCV 89 MCH 28.8 MCHC 32.6 RDW 16.5 H Plt Count 382 Seg Neutrophils % Not Reportable Lymphocytes % Not Reportable Monocytes % Not Reportable Eosinophils % Not Reportable Basophils % Not Reportable Absolute Neutrophils Not Reportable Absolute Lymphocytes Not Reportable Absolute Monocytes Not Reportable Absolute Eosinophils Not Reportable Absolute Basophils Not Reportable Carbonic Acid 1.16 HCO3/H2CO3 Ratio 24:1 ABG pH 7.48 H ABG pCO2 38.6 ABG pO2 76.7 L ABG HCO3 28.0 H ABG O2 Saturation 96.1 ABG Base Excess 4.2 FiO2 30% Sodium Potassium Chloride Carbon Dioxide Anion Gap BUN Creatinine Est GFR ( Amer) Est GFR (Non-Af Amer) Glucose Lactic Acid 2.6 H Calcium Phosphorus Magnesium Total Bilirubin AST ALT Alkaline Phosphatase Total Protein Albumin 05/01/17 05/01/17 04:58 11:38 WBC RBC Hgb Hct MCV MCH MCHC RDW Plt Count Seg Neutrophils % Lymphocytes % Monocytes % Eosinophils % Basophils % Absolute Neutrophils Absolute Lymphocytes Absolute Monocytes Absolute Eosinophils Absolute Basophils Carbonic Acid HCO3/H2CO3 Ratio ABG pH ABG pCO2 ABG pO2 ABG HCO3 ABG O2 Saturation ABG Base Excess FiO2 Sodium 134.4 L Potassium 4.4 Chloride 98 Carbon Dioxide 25 Anion Gap 11 BUN 22 H Creatinine 0.59 Est GFR ( Amer) > 60 Est GFR (Non-Af Amer) > 60 Glucose 302 H Lactic Acid 2.0 Calcium 8.5 Phosphorus 2.7 Magnesium 2.5 H Total Bilirubin 0.7 AST 19 ALT 30 Alkaline Phosphatase 88 Total Protein 5.7 L Albumin 2.6 L 04/29/17 19:39 Tracheal Aspirate Gram Stain - Final Impressions: Abdomen/Pelvis CT 04/28/17 19:11 IMPRESSION: 1. Basilar pulmonary changes as above. Lower lobe infiltrates bilaterally. 2. No acute or suspicious abdominopelvic abnormality, findings as above. KUB X-Ray 04/29/17 19:35 IMPRESSION: NG tube appears to be in adequate location. Chest X-Ray 05/01/17 06:00 IMPRESSION: No significant interval change. Assessment & Plan - Diagnosis (1) COPD with acute exacerbation Is this a current diagnosis for this admission?: YesPlan: Minute volume remains elevated leukocytosis with left shift and bands (2) Dehydration Is this a current diagnosis for this admission?: Yes (3) Pneumonia Qualifiers: Pneumonia type: due to unspecified organism Laterality: bilateral Lung location: lower lobe of lung Qualified Code(s): J18.9 - Pneumonia, unspecified organism Is this a current diagnosis for this admission?: YesPlan: T-max 100.9 WBC elevated left shift bandemia (4) GERD (gastroesophageal reflux disease) Qualifiers: Esophagitis presence: without esophagitis Qualified Code(s): K21.9 - Gastro-esophageal reflux disease without esophagitis Is this a current diagnosis for this admission?: Yes - Time Critical Time spent with patient: 35 or more minutes - 45 minutes
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
[2017-05-01] MEDS: CETIRIZINE 10 MG TABLET PO SCH (17:09)
[2017-05-01] MEDS: ACETAMINOPHEN SOLN 325 MG/10.15 ML UDCUP NG PRN (17:09)
[2017-05-01] MEDS: VANCOMYCIN HCL 1,000 MG in DEXTROSE 5%-WATER 250 ML IV SCH (18:50)
[2017-05-01] MEDS: RIVAROXABAN 10 MG TABLET PO SCH (21:30)
[2017-05-02] MEDS: INSULIN LISPRO 100 UNIT/ML 3 ML VIAL SUBCUT PRN ×5 (00:02→23:14)
[2017-05-02] MEDS: PROPOFOL 100 ML IV PRN ×3 (00:02→18:54)
[2017-05-02] MEDS: VANCOMYCIN HCL 1,000 MG in DEXTROSE 5%-WATER 250 ML IV SCH ×2 (02:12→11:51)
[2017-05-02] MEDS: DILTIAZEM HCL/D5W 125 ML IV PRN (04:07)
[2017-05-02 04:11] LABS: HEMATOCRIT 33.8 % (37.9-51.0); HEMOGLOBIN 10.7 g/dL (13.5-17.0); HGB HCT DIFFERENCE -1.7; MEAN CORPUSCULAR HEMOGLOBIN 28.3 pg (27.0-33.4); MEAN CORPUSCULAR HGB CONC 31.5 g/dL (32.0-36.0); MEAN CORPUSCULAR VOLUME 90 fl (80-97); RED BLOOD COUNT 3.77 10^6/uL (4.35-5.55); RED CELL DISTRIBUTION WIDTH 16.7 % (11.5-14.0); WHITE BLOOD COUNT 12.5 10^3/uL (4.0-10.5)
[2017-05-02 04:25] LABS: ALANINE AMINOTRANSFERASE 27 U/L (21-72); ALBUMIN 2.9 g/dL (3.5-5.0); ALKALINE PHOSPHATASE 99 U/L (38-126); ANION GAP 10 (5-19); ASPARTATE AMINO TRANSFERASE 15 U/L (17-59); BILIRUBIN,DIRECT 0.5 mg/dL (0.0-0.4); BILIRUBIN,TOTAL 0.7 mg/dL (0.2-1.3); BLOOD UREA NITROGEN 30 mg/dL (7-20); CALCIUM 8.4 mg/dL (8.4-10.2); CARBON DIOXIDE 26 mmol/L (22-30); CHLORIDE 100 mmol/L (98-107); CREATININE RESULT 0.72 mg/dL (0.52-1.25); GLUCOSE 354 mg/dL (75-110); MAGNESIUM 2.6 mg/dL (1.6-2.3); PHOSPHORUS 3.1 mg/dL (2.5-4.5); POTASSIUM 4.1 mmol/L (3.6-5.0); SODIUM 136.3 mmol/L (137-145); TOTAL PROTEIN 6.4 g/dL (6.3-8.2)
[2017-05-02 04:51] LABS: BAND NEUTROPHILS % (MANUAL) 9 % (3-5); BASOPHILS % (MANUAL) 0 % (0-2); EOSINOPHILS % (MANUAL) 0 % (0-6); LYMPHOCYTES % (MANUAL) 4 % (13-45); TOTAL CELLS COUNTED 100
[2017-05-02 04:52] LABS: POLYCHROMASIA SLIGHT; TOXIC GRANULATION SLIGHT
[2017-05-02 04:53] LABS: ANISOCYTOSIS 1+; NUCLEATED RED BLOOD CELLS 0 /100 WBC (0); TEAR DROP CELLS SLIGHT
[2017-05-02] MEDS: METHYLPREDNISOLONE INJ 125 MG/2 ML SDV IV SCH ×2 (05:34→13:35)
[2017-05-02] MEDS: METRONIDAZOLE 500 MG/NS RTU 100 ML IV SCH ×3 (05:34→17:14)
[2017-05-02] MEDS: LANSOPRAZOLE 30 MG TAB.RAP.DR PO SCH (05:35)
[2017-05-02] MEDS: PIPERACILLIN SODIUM/TAZOBACTAM 3.375 GM in NORMAL SALINE 100 ML IV SCH ×3 (05:35→17:15)
[2017-05-02 05:47] LABS: ARTERIAL BLOOD BASE EXCESS 4.6 mmol/L; ARTERIAL BLOOD O2 SATURATION 98.2 % (94-98)
--- NOTE | 2017-05-02 07:26 | PDOC PROGRESS REPORT ---
Subjective Progress Note for:: 05/02/17 Subjective:: 82-year-old white male approximately 2 weeks status post left knee arthroplasty with an interim hospital admission, ICU admission, and intubation. Not aware of this until the patient did not present yesterday to the office for staple removal. Physical Exam Vital Signs: Temp Pulse Resp BP Pulse Ox 36.8 C 83 21 H 113/69 96 05/02/17 06:00 05/02/17 06:00 05/02/17 06:01 05/02/17 06:00 05/02/17 06:01 Intake & Output 05/01/17 05/02/17 05/03/17 06:59 06:59 06:59 Intake Total 2649 2594 Output Total 2925 2550 Balance -276 44 Weight 86 kg 85.4 kg Pulses: PRESENT: +1 pedal pulses bilateral Vascular exam: PRESENT: normal capillary refill Extremities exam: PRESENT: other - Knee incision is clean dry and intact. Александр are in place. Motion assessment is limited by the patient's bedbound status and intubation. Results Laboratory Results: 05/02/17 03:51 05/02/17 03:51 05/01/17 05/02/17 05/02/17 11:38 03:51 03:51 WBC 12.5 H RBC 3.77 L Hgb 10.7 L Hct 33.8 L MCV 90 MCH 28.3 MCHC 31.5 L RDW 16.7 H Plt Count 400 Seg Neutrophils % Not Reportable Lymphocytes % Not Reportable Monocytes % Not Reportable Eosinophils % Not Reportable Basophils % Not Reportable Absolute Neutrophils Not Reportable Absolute Lymphocytes Not Reportable Absolute Monocytes Not Reportable Absolute Eosinophils Not Reportable Absolute Basophils Not Reportable Carbonic Acid HCO3/H2CO3 Ratio ABG pH ABG pCO2 ABG pO2 ABG HCO3 ABG O2 Saturation ABG Base Excess FiO2 Sodium 136.3 L Potassium 4.1 Chloride 100 Carbon Dioxide 26 Anion Gap 10 BUN 30 H Creatinine 0.72 Est GFR ( Amer) > 60 Est GFR (Non-Af Amer) > 60 Glucose 354 H Lactic Acid 2.0 Calcium 8.4 Phosphorus 3.1 Magnesium 2.6 H Total Bilirubin 0.7 AST 15 L ALT 27 Alkaline Phosphatase 99 Total Protein 6.4 Albumin 2.9 L 05/02/17 05:27 WBC RBC Hgb Hct MCV MCH MCHC RDW Plt Count Seg Neutrophils % Lymphocytes % Monocytes % Eosinophils % Basophils % Absolute Neutrophils Absolute Lymphocytes Absolute Monocytes Absolute Eosinophils Absolute Basophils Carbonic Acid 1.20 HCO3/H2CO3 Ratio 23:1 ABG pH 7.47 H ABG pCO2 39.8 ABG pO2 109.0 H ABG HCO3 28.5 H ABG O2 Saturation 98.2 H ABG Base Excess 4.6 FiO2 40% Sodium Potassium Chloride Carbon Dioxide Anion Gap BUN Creatinine Est GFR ( Amer) Est GFR (Non-Af Amer) Glucose Lactic Acid Calcium Phosphorus Magnesium Total Bilirubin AST ALT Alkaline Phosphatase Total Protein Albumin 04/29/17 19:39 Tracheal Aspirate Gram Stain - Final 05/02/17 03:51 Troponin I 0.437 Impressions: Abdomen/Pelvis CT 04/28/17 19:11 IMPRESSION: 1. Basilar pulmonary changes as above. Lower lobe infiltrates bilaterally. 2. No acute or suspicious abdominopelvic abnormality, findings as above. KUB X-Ray 04/29/17 19:35 IMPRESSION: NG tube appears to be in adequate location. Status: Imported from PACS Assessment & Plan - Diagnosis (1) Knee joint replacement status Is this a current diagnosis for this admission?: YesPlan: Patient can have the александр removed today and Steri-Strips applied. Once his medical condition permits he can begin a physical therapy program for range of motion, strengthening, and weightbearing as tolerated ambulation. - Time Time Spent with patient: 15-24 minutes Anticipated discharge: SNF Within: Other
--- NOTE | 2017-05-02 07:32 | RADIOLOGY REPORT (SQ) ---
EXAM DESCRIPTION: CHEST SINGLE VIEW COMPLETED DATE/TIME: 05/02/2017 6:46 am REASON FOR STUDY: pna/respiratory failure COMPARISON: 05/01/2017 EXAM PARAMETERS: NUMBER OF VIEWS: One view. TECHNIQUE: Single frontal radiographic view of the chest acquired. RADIATION DOSE: NA LIMITATIONS: None. FINDINGS: LUNGS AND PLEURA: Small to moderate airspace patchiness of bilateral lower lung castorena, le ft more than right. MEDIASTINUM AND HILAR STRUCTURES: No masses. Contour normal. HEART AND VASCULAR STRUCTURES: Heart normal in size. Normal vasculature. BONES: No acute findings. HARDWARE: Adequate appearing endotracheal tube and likely adequate partially imaged NG tube. OTHER: No other significant finding. IMPRESSION: No significant interval change. TECHNICAL DOCUMENTATION: JOB ID: [id number]
--- NOTE | 2017-05-02 08:04 | EKG REPORT ---
SEVERITY:- ABNORMAL ECG - ATRIAL FIBRILLATION, V-RATE 60-98 : Confirmed by: Manjeet Tineo MD 02-May-2017 08:03:46
[2017-05-02] MEDS: CHOLECALCIFEROL (D3) 1,000 UNIT TABLET PO SCH (11:52)
[2017-05-02] MEDS: SOTALOL HCL 80 MG TABLET NG SCH ×2 (11:52→21:26)
[2017-05-02] MEDS: SERTRALINE HCL 50 MG TABLET PO SCH (11:52)
[2017-05-02] MEDS: CYANOCOBALAMIN (VITAMIN B-12) 1,000 MCG TABLET PO SCH (11:52)
[2017-05-02] MEDS: DIGOXIN INJ 0.5 MG/2 ML AMPULE IV SCH (11:54)
--- NOTE | 2017-05-02 13:29 | PROGRESS NOTE E ---
Progress Note NAME: BRUCE KNOTT : 1935 AGE: 82Y DATE: 05/02/2017 ROOM: 612 SUBJECTIVE: The patient is intubated and sedated. There is no ventricular arrhythmia seen. The patient continues to be in atrial fibrillation with a ventricular response around 101 beats per minute. OBJECTIVE: VITAL SIGNS: He is afebrile with a temperature of 98.4 degrees Fahrenheit. Pulse is 101 beats per minute, irregularly irregular. Blood pressure is 110/85. Respirations 20 per minute. Oxygen saturations are 96% on mechanical ventilator with FiO2 of 40%. HEAD: Atraumatic and normocephalic. EYES: Pupils are equal, round and regular, and reactive to light. ENT: Negative. NECK: Supple. There is no JVD. Carotids are equal. There are no bruits. There is no goiter. There is no lymphadenopathy. LUNGS: Show bibasilar crackles of pneumonia, no evidence of congestive heart failure. There is diminished air entry and prolonged expiration elsewhere and there is hyperresonance to percussion elsewhere. HEART: S1 and S2 are heard. S1 is of variable in intensity. There is no S3 gallop. There is no S4 gallop. There is a systolic murmur in the left sternal border at the apex. There is no rub. ABDOMEN: Soft. There is no hepatosplenomegaly. Bowel sounds are well heard. EXTREMITIES: Femorals are diminished. There is no femoral bruit. Leg pulses are diminished. There is no pedal edema. There is no DVT or cellulitis. There is no cyanosis or clubbing. CENTRAL NERVOUS SYSTEM: Not examined since the patient is intubated and sedated. PSYCHIATRIC: Not examined since the patient is intubated and sedated. STUDIES: The patient's 24-hour intake is 2594 mL. Output is 2550 mL. The patient's EKG shows some atrial fibrillation. No acute changes. The patient's chest x-ray shows small to moderate areas of increased patchiness of bilateral lower lung castorena, left more than right. The patient's white is 12,500, hemoglobin is 10.7, hematocrit is 33.8, platelet count is 400,000. The patient's sodium is 136.3, potassium 4.1, chloride 100, CO2 of 76. The patient's BUN is 30, creatinine 0.72, GFR is greater than 60. His glucose is 354. His calcium is 8.4. His phosphorus is 3.1 and his magnesium is elevated at 2.6. His direct bilirubin is elevated at 0.5. His AST is low at 15. The rest of the liver functions are normal. His troponin I has come down to 0.437. His total protein is 6.4. Albumin is 2.9. Note that the patient's troponin I is elevated secondary to atrial fibrillation with rapid ventricular response. IMPRESSION: 1. ATRIAL FIBRILLATION WITH VENTRICULAR RESPONSE IN THE 100S. Note that the patient is off the Cardizem drip. We will start the patient on sotalol since the patient's atrial fibrillation started yesterday and is less than 48 hours. We will see if the patient will cardiovert to sinus rhythm with the sotalol. 2. ACUTE RESPIRATORY FAILURE WITH HYPOXIA. Continue respiratory treatment. Continue antibiotics and nebulizer treatment. Continue steroids. 3. BILATERAL BASILAR PNEUMONIA, LEFT GREATER THAN RIGHT. Continue antibiotic. Continue ventilator support. Continue oxygen through the ventilator and continue respiratory support. Note that the patient's arterial blood gas showed a pH of 7.47, pO2 is 109, pCO2 is 39.8, O2 saturations are 98.2 on the FiO2 of 40%. Hence, the hypoxia is resolved. 4. CHRONIC OBSTRUCTIVE PULMONARY DISEASE, ACUTE EXACERBATION. Continue current treatment. Patient improving. Continue antibiotics, steroids, respiratory treatments, and ventilator support. 5. 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 Patient's troponin I was negative. 6. DIABETES MELLITUS, TYPE 2, NON-INSULIN DEPENDENT. 7. HYPERTENSION. Blood pressure seems to be stable. 8. HISTORY OF ASTHMA. 9. HISTORY OF PANCREATIC CANCER. 10. HISTORY OF DEPRESSION, ALTHOUGH IT IS NOT MENTIONED. The patient is on Zoloft. 11. HISTORY OF LEFT TOTAL KNEE ARTHROPLASTY 2 WEEKS AGO. 12. TRANSIENT HYPOTENSION, RESOLVED. Blood pressures normal. Note that the patient is on Digoxin 0.125 mg IV daily. His Cardizem drip has been stopped. We will start the patient on sotalol. Continue the patient on Eliquis. We will follow with you. Note 30 minutes was spent on this patient. More than 50% of the time spent in direct patient care and also his medications have been reviewed. The case was discussed with other caregiving providers on the case and management plan, particularly patient's illnesses happening and generated. Note continues to have the need to make high complex medical decision-making. We will follow with you. DICTATING PHYSICIAN: ELIN ZHANG M.D. [id number] PHY#: [id number] ID: [id number] JOB#: [id number] ACCT: [id number] cc: > [facility]
[2017-05-02] MEDS: VANCOMYCIN HCL 1,250 MG in DEXTROSE 5%-WATER 250 ML IV SCH (17:14)
[2017-05-02] MEDS: CETIRIZINE 10 MG TABLET PO SCH (17:15)
--- NOTE | 2017-05-02 17:55 | PDOC PROGRESS REPORT ---
Subjective Progress Note for:: 05/02/17 Subjective:: intubated sedated Physical Exam Vital Signs: Temp Pulse Resp BP Pulse Ox 98.4 F 101 H 20 110/85 96 05/02/17 07:54 05/02/17 07:54 05/02/17 07:54 05/02/17 07:54 05/02/17 07:54 Intake & Output 05/01/17 05/02/17 05/03/17 06:59 06:59 06:59 Intake Total 2649 2594 Output Total 2926 2550 23 Balance -276 44 -23 Weight 86 kg 85.4 kg General appearance: PRESENT: no acute distress, disheveled, obese, well- developed Head exam: PRESENT: atraumatic, normocephalic Eye exam: PRESENT: conjunctiva pale Mouth exam: PRESENT: dry mucosa, neck supple, tongue midline, other - ET tube in place Neck exam: ABSENT: carotid bruit, JVD, lymphadenopathy, thyromegaly Respiratory exam: PRESENT: decreased breath sounds, prolonged expiratory phas, rhonchi, unlabored Cardiovascular exam: PRESENT: RRR, +S1, +S2 Pulses: PRESENT: normal radial pulses GI/Abdominal exam: PRESENT: normal bowel sounds, soft. ABSENT: distended, guarding, mass, organolmegaly, rebound, tenderness Rectal exam: PRESENT: deferred Gentrourinary exam: PRESENT: indwelling catheter Musculoskeletal exam: PRESENT: normal inspection Skin exam: PRESENT: dry, warm Results Laboratory Results: 05/02/17 03:51 05/02/17 03:51 05/01/17 05/02/17 05/02/17 11:38 03:51 03:51 WBC 12.5 H RBC 3.77 L Hgb 10.7 L Hct 33.8 L MCV 90 MCH 28.3 MCHC 31.5 L RDW 16.7 H Plt Count 400 Seg Neutrophils % Not Reportable Lymphocytes % Not Reportable Monocytes % Not Reportable Eosinophils % Not Reportable Basophils % Not Reportable Absolute Neutrophils Not Reportable Absolute Lymphocytes Not Reportable Absolute Monocytes Not Reportable Absolute Eosinophils Not Reportable Absolute Basophils Not Reportable Carbonic Acid HCO3/H2CO3 Ratio ABG pH ABG pCO2 ABG pO2 ABG HCO3 ABG O2 Saturation ABG Base Excess FiO2 Sodium 136.3 L Potassium 4.1 Chloride 100 Carbon Dioxide 26 Anion Gap 10 BUN 30 H Creatinine 0.72 Est GFR ( Amer) > 60 Est GFR (Non-Af Amer) > 60 Glucose 354 H Lactic Acid 2.0 Calcium 8.4 Phosphorus 3.1 Magnesium 2.6 H Total Bilirubin 0.7 AST 15 L ALT 27 Alkaline Phosphatase 99 Total Protein 6.4 Albumin 2.9 L 05/02/17 05:27 WBC RBC Hgb Hct MCV MCH MCHC RDW Plt Count Seg Neutrophils % Lymphocytes % Monocytes % Eosinophils % Basophils % Absolute Neutrophils Absolute Lymphocytes Absolute Monocytes Absolute Eosinophils Absolute Basophils Carbonic Acid 1.20 HCO3/H2CO3 Ratio 23:1 ABG pH 7.47 H ABG pCO2 39.8 ABG pO2 109.0 H ABG HCO3 28.5 H ABG O2 Saturation 98.2 H ABG Base Excess 4.6 FiO2 40% Sodium Potassium Chloride Carbon Dioxide Anion Gap BUN Creatinine Est GFR ( Amer) Est GFR (Non-Af Amer) Glucose Lactic Acid Calcium Phosphorus Magnesium Total Bilirubin AST ALT Alkaline Phosphatase Total Protein Albumin 04/29/17 19:39 Tracheal Aspirate Gram Stain - Final 05/02/17 03:51 Troponin I 0.437 Impressions: Abdomen/Pelvis CT 04/28/17 19:11 IMPRESSION: 1. Basilar pulmonary changes as above. Lower lobe infiltrates bilaterally. 2. No acute or suspicious abdominopelvic abnormality, findings as above. KUB X-Ray 04/29/17 19:35 IMPRESSION: NG tube appears to be in adequate location. Chest X-Ray 05/02/17 06:00 IMPRESSION: No significant interval change. Assessment & Plan - Diagnosis (1) COPD with acute exacerbation Is this a current diagnosis for this admission?: YesPlan: Improving oxygenation and ventilation (2) Dehydration Is this a current diagnosis for this admission?: Yes (3) Pneumonia Qualifiers: Pneumonia type: due to unspecified organism Laterality: bilateral Lung location: lower lobe of lung Qualified Code(s): J18.9 - Pneumonia, unspecified organism Is this a current diagnosis for this admission?: YesPlan: T-max 100.9 WBC elevated left shift bandemia,staph A in sputum (not MRSA)and Enterobacter in urine (4) GERD (gastroesophageal reflux disease) Qualifiers: Esophagitis presence: without esophagitis Qualified Code(s): K21.9 - Gastro-esophageal reflux disease without esophagitis Is this a current diagnosis for this admission?: Yes
[2017-05-02] MEDS: CLINDAMYCIN 600 MG/D5W RTU 600 MG/50 ML RTUPB IV SCH (18:54)
[2017-05-02] MEDS: RIVAROXABAN 10 MG TABLET PO SCH (21:24)
--- NOTE | 2017-05-02 21:34 | PDOC PROGRESS REPORT ---
Subjective Progress Note for:: 05/02/17 Subjective:: Patient remain intubated and vent supported. There is more bronchotracheal secretion with less bloody component today. Parameters pn the vent fairly satisfactory. Continue to mount low grade fever. Remain in A.Fib with fairly controlled ventricular rate. Physical Exam Vital Signs: Temp Pulse Resp BP Pulse Ox 99.9 F 90 10 L 103/63 95 05/02/17 18:00 05/02/17 18:00 05/02/17 18:46 05/02/17 18:46 05/02/17 18:46 Intake & Output 05/01/17 05/02/17 05/03/17 06:59 06:59 06:59 Intake Total 2649 2594 1055 Output Total 2925 2550 983 Balance -276 44 72 Weight 86 kg 85.4 kg Physical Exam: Intubed and vent supported ET and OG tubes in situ. Head exam: PRESENT: atraumatic, normocephalic Eye exam: PRESENT: conjunctiva pink, EOMI, PERRLA. ABSENT: scleral icterus Mouth exam: PRESENT: moist Respiratory exam: PRESENT: crackles - scattered at lung bases, decreased breath sounds - at lung bases Cardiovascular exam: PRESENT: Irregular rhythm. ABSENT: diastolic murmur, rubs , systolic murmur GI/Abdominal exam: PRESENT: distended - but soft, normal bowel sounds, soft. ABSENT: guarding, mass, organomegaly, rebound, tenderness Rectal exam: PRESENT: deferred Extremities exam: ABSENT: pedal edema Neurological exam: PRESENT: altered - sedated on IV Propofol Skin exam: PRESENT: dry, intact, warm. ABSENT: cyanosis, rash Results Laboratory Results: 05/02/17 03:51 05/02/17 03:51 05/02/17 05/02/17 05/02/17 03:51 03:51 05:27 WBC 12.5 H RBC 3.77 L Hgb 10.7 L Hct 33.8 L MCV 90 MCH 28.3 MCHC 31.5 L RDW 16.7 H Plt Count 400 Seg Neutrophils % Not Reportable Lymphocytes % Not Reportable Monocytes % Not Reportable Eosinophils % Not Reportable Basophils % Not Reportable Absolute Neutrophils Not Reportable Absolute Lymphocytes Not Reportable Absolute Monocytes Not Reportable Absolute Eosinophils Not Reportable Absolute Basophils Not Reportable Carbonic Acid 1.20 HCO3/H2CO3 Ratio 23:1 ABG pH 7.47 H ABG pCO2 39.8 ABG pO2 109.0 H ABG HCO3 28.5 H ABG O2 Saturation 98.2 H ABG Base Excess 4.6 FiO2 40% Sodium 136.3 L Potassium 4.1 Chloride 100 Carbon Dioxide 26 Anion Gap 10 BUN 30 H Creatinine 0.72 Est GFR ( Amer) > 60 Est GFR (Non-Af Amer) > 60 Glucose 354 H Lactic Acid Calcium 8.4 Phosphorus 3.1 Magnesium 2.6 H Total Bilirubin 0.7 AST 15 L ALT 27 Alkaline Phosphatase 99 Total Protein 6.4 Albumin 2.9 L 05/02/17 11:13 WBC RBC Hgb Hct MCV MCH MCHC RDW Plt Count Seg Neutrophils % Lymphocytes % Monocytes % Eosinophils % Basophils % Absolute Neutrophils Absolute Lymphocytes Absolute Monocytes Absolute Eosinophils Absolute Basophils Carbonic Acid HCO3/H2CO3 Ratio ABG pH ABG pCO2 ABG pO2 ABG HCO3 ABG O2 Saturation ABG Base Excess FiO2 Sodium Potassium Chloride Carbon Dioxide Anion Gap BUN Creatinine Est GFR ( Amer) Est GFR (Non-Af Amer) Glucose Lactic Acid 1.5 Calcium Phosphorus Magnesium Total Bilirubin AST ALT Alkaline Phosphatase Total Protein Albumin 04/29/17 19:39 Tracheal Aspirate Gram Stain - Final 04/29/17 19:39 Tracheal Aspirate Sputum Culture - Final Staphylococcus Aureus Normal Vikki Absent 05/02/17 03:51 Troponin I 0.437 Impressions: Abdomen/Pelvis CT 04/28/17 19:11 IMPRESSION: 1. Basilar pulmonary changes as above. Lower lobe infiltrates bilaterally. 2. No acute or suspicious abdominopelvic abnormality, findings as above. KUB X-Ray 04/29/17 19:35 IMPRESSION: NG tube appears to be in adequate location. Chest X-Ray 05/02/17 06:00 IMPRESSION: No significant interval change. Assessment & Plan - Diagnosis (1) Sepsis due to Enterobacter species Is this a current diagnosis for this admission?: YesPlan: Currently off IV Zosyn. Maintaion on IV Cleocin and Vancomycin as per book packer. I will monitor response in terms of his temperature and leukocytosis. (2) Acute respiratory failure Qualifiers: Respiratory failure complication: hypoxia Qualified Code(s): J96.01 - Acute respiratory failure with hypoxia Is this a current diagnosis for this admission?: YesPlan: Continue ventilatory support as per book packer recommendation. There is consideration of possible toileting bronchoscopy tomorrow. I will hold off feeding initiation. (3) COPD with acute exacerbation Is this a current diagnosis for this admission?: YesPlan: See attending physician orders. He is totally off IV Solu-Medrol at this time. (4) Pneumonia Qualifiers: Pneumonia type: due to unspecified organism Laterality: bilateral Lung location: lower lobe of lung Qualified Code(s): J18.9 - Pneumonia, unspecified organism Is this a current diagnosis for this admission?: YesPlan: See attending physician orders. Continue current antibiotic therapy. (5) Chronic delirium Is this a current diagnosis for this admission?: YesPlan: See admitting physician orders. (6) Diabetes mellitus type 2 in nonobese Is this a current diagnosis for this admission?: YesPlan: See attending physician orders. Continue current Humalog insulin sliding scale management. (7) HTN (hypertension) Qualifiers: Hypertension type: essential hypertension Qualified Code(s): I10 - Essential (primary) hypertension Is this a current diagnosis for this admission?: YesPlan: See attending physician orders. (8) Coronary artery disease Qualifiers: Coronary Disease-Associated Artery/Lesion type: [place] artery [place] vs. transplanted heart: [place] heart Associated angina: without angina Qualified Code(s): I25.10 - Atherosclerotic heart disease of [place] coronary artery without angina pectoris Is this a current diagnosis for this admission?: YesPlan: See attending physician orders. (9) HLD (hyperlipidemia) Qualifiers: Hyperlipidemia type: pure hypercholesterolemia Qualified Code(s): E78.00 - Pure hypercholesterolemia, unspecified; E78.0 - Pure hypercholesterolemia Is this a current diagnosis for this admission?: YesPlan: See attending physician orders. (10) Old myocardial infarction Is this a current diagnosis for this admission?: YesPlan: See attending physician orders. (11) SVT (supraventricular tachycardia) Is this a current diagnosis for this admission?: Yes (12) Atrial fibrillation with rapid ventricular response Is this a current diagnosis for this admission?: YesPlan: See attending physician orders. Cyber Forensic Specialist input appreciated. - Time Time Spent with patient: 35 or more minutes Medications reviewed and adjusted accordingly: Yes Anticipated discharge: SNF Within: Other - Inpatient Certification Based on my medical assessment, after consideration of the patient's comorbidities, presenting symptoms, or acuity I expect that the services needed warrant INPATIENT care.: Yes I certify that my determination is in accordance with my understanding of Medicare's requirements for reasonable and necessary INPATIENT services [42 CFR 412.3e].: Yes Medical Necessity: Need Close Monitoring Due to Risk of Patient Decompensation, Need For IV Fluids, Need For Continuous Telemetry Monitoring, Need for Nebulizer Therapy and Monitoring of Response, Need for IV Antibiotics, Risk of Complication if Not Cared For in Hospital Post Hospital Care: D/C or Transfer Summary - Plan Summary Plan Summary: See attending physician orders.
[2017-05-03] MEDS: CLINDAMYCIN 600 MG/D5W RTU 600 MG/50 ML RTUPB IV SCH (01:50)
[2017-05-03] MEDS ORDERED: VANCOMYCIN HCL INJ 500 MG VIAL ONE (01:52)
[2017-05-03] MEDS ORDERED: VANCOMYCIN HCL INJ 1000 MG VIAL ONE (01:52)
[2017-05-03] MEDS: VANCOMYCIN HCL 1,250 MG in DEXTROSE 5%-WATER 250 ML IV SCH (01:58)
[2017-05-03] MEDS: PROPOFOL 100 ML IV PRN ×4 (02:34→22:04)
[2017-05-03 04:59] LABS: ABSOLUTE LYMPHOCYTES (AUTO) 0.6 10^3/uL (0.5-4.7); ABSOLUTE NEUT (AUTO) 9.1 10^3/uL (1.7-8.2); BASOPHILS % (AUTO) 0.3 % (0-2); HEMATOCRIT 34.9 % (37.9-51.0); HGB HCT DIFFERENCE -1.9; LYMPHOCYTES % (AUTO) 5.3 % (13-45); MEAN CORPUSCULAR HEMOGLOBIN 28.2 pg (27.0-33.4); MEAN CORPUSCULAR HGB CONC 31.5 g/dL (32.0-36.0); MEAN CORPUSCULAR VOLUME 90 fl (80-97); MONOCYTES % (AUTO) 9.6 % (3-13); RED BLOOD COUNT 3.89 10^6/uL (4.35-5.55); RED CELL DISTRIBUTION WIDTH 16.7 % (11.5-14.0); SEGMENTED NEUTROPHILS % (AUTO) 84.8 % (42-78); WHITE BLOOD COUNT 10.7 10^3/uL (4.0-10.5)
[2017-05-03] MEDS: LANSOPRAZOLE 30 MG TAB.RAP.DR PO SCH (05:06)
[2017-05-03 05:21] LABS: ALANINE AMINOTRANSFERASE 32 U/L (21-72); ALBUMIN 2.5 g/dL (3.5-5.0); ALKALINE PHOSPHATASE 86 U/L (38-126); ANION GAP 12 (5-19); ASPARTATE AMINO TRANSFERASE 16 U/L (17-59); BILIRUBIN,DIRECT 0.4 mg/dL (0.0-0.4); BILIRUBIN,TOTAL 0.7 mg/dL (0.2-1.3); BLOOD UREA NITROGEN 35 mg/dL (7-20); CALCIUM 8.1 mg/dL (8.4-10.2); CARBON DIOXIDE 25 mmol/L (22-30); CHLORIDE 103 mmol/L (98-107); CREATININE RESULT 0.67 mg/dL (0.52-1.25); GLUCOSE 311 mg/dL (75-110); MAGNESIUM 2.6 mg/dL (1.6-2.3); PHOSPHORUS 3.6 mg/dL (2.5-4.5); SODIUM 139.6 mmol/L (137-145); TOTAL PROTEIN 5.4 g/dL (6.3-8.2)
[2017-05-03 05:37] LABS: ARTERIAL BLOOD BASE EXCESS 5.7 mmol/L; ARTERIAL BLOOD O2 SATURATION 97.6 % (94-98)
[2017-05-03] MEDS ORDERED: NOREPINEPHRINE BITARTRATE INJ/PF 4 MG/4 ML SDV IV ONE (06:25)
[2017-05-03] MEDS: INSULIN LISPRO 100 UNIT/ML 3 ML VIAL SUBCUT PRN ×2 (06:36→17:50)
--- NOTE | 2017-05-03 07:31 | RADIOLOGY REPORT (SQ) ---
EXAM DESCRIPTION: CHEST SINGLE VIEW COMPLETED DATE/TIME: 05/03/2017 6:42 am REASON FOR STUDY: pna/resp fail COMPARISON: 05/02/2017. CT, 01/27/2017. EXAM PARAMETERS: NUMBER OF VIEWS: One view. TECHNIQUE: Single frontal radiographic view of the chest acquired. RADIATION DOSE: NA LIMITATIONS: Rotated. FINDINGS: LUNGS AND PLEURA: Moderate mixed interstitial and airspace opacity, left much more than ri ght with lower lobe predominance. Moderate right lung volume. MEDIASTINUM AND HILAR STRUCTURES: No masses. Contour normal. HEART AND VASCULAR STRUCTURES: Heart normal in size. Normal vasculature. BONES: No acute findings. HARDWARE: Adequate appearing endotracheal tube and partially imaged NG tube. OTHER: No other significant finding. IMPRESSION: Worsened moderate interstitial and airspace opacity, left more than right may indicate p ulmonary edema, and/or pneumonia. Lines and tubes. TECHNICAL DOCUMENTATION: JOB ID: [id number]
--- NOTE | 2017-05-03 08:22 | EKG REPORT ---
SEVERITY:- ABNORMAL ECG - ATRIAL FIBRILLATION : Confirmed by: Manjeet Tineo MD 03-May-2017 08:21:49
[2017-05-03] MEDS: CHOLECALCIFEROL (D3) 1,000 UNIT TABLET PO SCH (10:42)
[2017-05-03] MEDS: SERTRALINE HCL 50 MG TABLET PO SCH (10:42)
[2017-05-03] MEDS: CYANOCOBALAMIN (VITAMIN B-12) 1,000 MCG TABLET PO SCH (10:43)
[2017-05-03] MEDS: SOTALOL HCL 80 MG TABLET NG SCH ×2 (10:43→22:02)
[2017-05-03] MEDS: SULFAMETHOXAZOLE/TRIMETHOPRIM 800-160 MG/20 ML UDCUP NG SCH ×2 (10:43→22:04)
[2017-05-03] MEDS: DIGOXIN INJ 0.5 MG/2 ML AMPULE IV SCH (10:43)
[2017-05-03 12:20] LABS: FLUID APPEARANCE TURBID; FLUID TYPE BRONCHIAL WASH
[2017-05-03 12:21] LABS: FLUID RBC DILUENT USED SALINE; FLUID RBC DILUTION FACTOR 10; FLUID RBC SIDE 1 275; FLUID RBC SIDE 2 263; TOTAL RBC SQUARES COUNTED FLD 25
[2017-05-03] MEDS: IMIPENEM/CILASTATIN SODIUM 500 MG in NORMAL SALINE 100 ML IV SCH ×2 (12:57→17:17)
--- NOTE | 2017-05-03 13:28 | PROGRESS NOTE E ---
Progress Note NAME: BRUCE KNOTT : 1935 AGE: 82Y DATE: 05/03/2017 ROOM: 612 SUBJECTIVE: Note that the patient is intubated and sedated. He had a bronchoscopy since the patient's ammonia is not getting any better. OBJECTIVE: GENERAL: On examination, the patient is well built and does not appear to be fighting the ventilator. He is well groomed. VITAL SIGNS: Temperature is 99.5 degrees Fahrenheit, pulse is 97 beats per minute, blood pressure 102/66, respirations are 19 per minute, O2 saturations are 94% on FiO2 of 50% on the mechanical ventilator. There is no arrhythmia seen on the monitor. HEAD: Atraumatic, normocephalic. EYES: Pupils are equal, round, regular, reactive to light. ENT: Negative. NECK: Supple. There is no JVD. Carotids are equal. There is no bruit. There is no goiter. There is no lymphadenopathy. LUNGS: Bibasilar crackles with pneumonia, left greater than right. There is no evidence of congestive heart failure. There is diminished air entry and prolonged expiration throughout and there is hyperresonance to percussion elsewhere. HEART: S1 and S2 are heard. S1 is of variable intensity. There is no S3 gallop. There is no S4 gallop. There is a systolic murmur in the left sternal border of the apex. There is no rub. ABDOMEN: Soft. There is no hepatosplenomegaly. Bowel sounds are well heard. EXTREMITIES: Femorals are diminished. There are no femoral bruits. Leg pulses are diminished. There is no pedal edema. There is no DVT or cellulitis. There is no cyanosis or clubbing. PSYCHIATRIC: Not examined. DIAGNOSTIC STUDIES: Note that the patient had bronchoscopy done since the patient's pneumonia is not getting better, especially on the left side. Findings are not variable. The patient's 24-hour intake is 1998 mL. Output is 1983 mL. The patient's ABG show a pH of 7.51, PCO2 of 37.1, PO2 is 90.5, O2 saturations are 97.6% on FiO2 of 40%. The patient's sodium is 139.6, potassium 4.0, chloride 103, CO2 is 25. The patient's BUN is 35, creatinine is 0.67. GFR is greater than 60. His glucose is 311. His calcium is 8.1. His magnesium is elevated at 2.6, phosphorus is 3.6. His liver function tests are normal except for a low AST of 16. His albumin is 2.5, total protein is 5.4. His white count is 10,700, hemoglobin is 11, hematocrit is 34.9, and his platelet count is 406,000. IMPRESSION AND RECOMMENDATIONS: 1. ATRIAL FIBRILLATION WITH VENTRICULAR RESPONSE IN THE 90S. Patient is off the Cardizem drip. Patient is on sotalol at 80 mg via the NG tube q. 12 hours. The patient is also on digoxin. 2. ACUTE RESPIRATORY FAILURE WITH HYPOXIA. Now hypoxia is ruled out. The patient continues to need respiratory support. He is also on antibiotics with nebulizer treatment. Continue steroids inhaler. 3. BILATERAL BASILAR PNEUMONIA, LEFT GREATER THAN RIGHT. Continue antibiotics. Continue ventilator support. Note that the patient had a bronchoscopy. The results are awaited. Continue oxygen through the ventilator. Continue respiratory support. 4. COPD WITH ACUTE EXACERBATION. Seems to have improved. Continue antibiotics, steroids, and respiratory treatments. 5. CORONARY ARTERY DISEASE WITH A HISTORY OF OLD MYOCARDIAL INFARCTION. Patient's troponin I was negative. 6. DIABETES MELLITUS TYPE 2, [id number]. 7. HYPERTENSION. 8. HISTORY OF ASTHMA. 9. HISTORY OF PANCREATIC CANCER. 10. HISTORY OF DEPRESSION. 11. HISTORY OF LEFT TOTAL KNEE REPLACEMENT 2 WEEKS AGO. 12. TRANSIENT HYPOTENSION, RESOLVED. Note that the patient is on anticoagulation of Xarelto, which has been increased to 15 mg p.o. daily at bedtime in view of the patient's age. Note that the patient's EKG showed atrial fibrillation with controlled ventricular response. His QTC is 446, which has not increased. Continue the patient on current medication, including digoxin and sotalol. Will check a dig level in a.m. If the patient does not convert to sinus rhythm, then will stop the patient's sotalol and place him on a beta ron or a calcium channel ron. NOTE: Thirty minutes spent on the patient with more than 50% of the time spent in direct patient care and also review of the patient's medications, labs ordered. This case involves highly complex medical decision making. Discussed with other caregiving providers, especially Dr. Song and formulated a management plan for the patient. Will follow with you. DICTATING PHYSICIAN: ELIN ZHANG M.D. [id number] PHY#: [id number] ID: [id number] JOB#: [id number] ACCT: [id number] cc: >
--- NOTE | 2017-05-03 13:42 | PDOC PROGRESS REPORT ---
Subjective Subjective:: Patient remain intubated and vent supported. Post toileting bronchoscopy earlier today. Bronchotracheal secretion is less. No fever so far today. Remain on IV Vancomycin and Cleocin coverage. Physical Exam Vital Signs: Temp Pulse Resp BP Pulse Ox 98.6 F 98 20 98/69 L 95 05/03/17 08:00 05/03/17 10:00 05/03/17 11:47 05/03/17 11:47 05/03/17 11:47 Intake & Output 05/02/17 05/03/17 05/04/17 06:59 06:59 06:59 Intake Total 2594 1997 Output Total 2550 1983 400 Balance 44 15 -400 Weight 85.4 kg 86.3 kg Physical Exam: Intubed and vent supported ET and OG tubes in situ. Head exam: PRESENT: atraumatic, normocephalic Eye exam: PRESENT: conjunctiva pink, EOMI, PERRLA. ABSENT: scleral icterus Mouth exam: PRESENT: moist Respiratory exam: PRESENT: crackles - scattered at lung bases, decreased breath sounds - at lung bases Cardiovascular exam: PRESENT: Irregular rhythm. ABSENT: diastolic murmur, rubs , systolic murmur GI/Abdominal exam: PRESENT: distended - but soft, normal bowel sounds, soft. ABSENT: guarding, mass, organomegaly, rebound, tenderness : PRESENT: Indwelling Dozier catheter Extremities exam: ABSENT: pedal edema Neurological exam: PRESENT: altered - sedated on IV Propofol Skin exam: PRESENT: dry, intact, warm. ABSENT: cyanosis, rash Results Laboratory Results: 05/03/17 04:34 05/03/17 04:34 05/03/17 05/03/17 05/03/17 04:34 04:34 05:15 WBC 10.7 H RBC 3.89 L Hgb 11.0 L Hct 34.9 L MCV 90 MCH 28.2 MCHC 31.5 L RDW 16.7 H Plt Count 406 Seg Neutrophils % 84.8 H Lymphocytes % 5.3 L Monocytes % 9.6 Eosinophils % 0.0 Basophils % 0.3 Absolute Neutrophils 9.1 H Absolute Lymphocytes 0.6 Absolute Monocytes 1.0 Absolute Eosinophils 0.0 Absolute Basophils 0.0 Carbonic Acid 1.12 HCO3/H2CO3 Ratio 25:1 ABG pH 7.51 H ABG pCO2 37.1 ABG pO2 90.5 ABG HCO3 28.9 H ABG O2 Saturation 97.6 ABG Base Excess 5.7 FiO2 40% Sodium 139.6 Potassium 4.0 Chloride 103 Carbon Dioxide 25 Anion Gap 12 BUN 35 H Creatinine 0.67 Est GFR ( Amer) > 60 Est GFR (Non-Af Amer) > 60 Glucose 311 H Calcium 8.1 L Phosphorus 3.6 Magnesium 2.6 H Total Bilirubin 0.7 AST 16 L ALT 32 Alkaline Phosphatase 86 Total Protein 5.4 L Albumin 2.5 L Fluid Type Fluid Source Fluid Color Fluid Appearance Fluid Viscosity Fluid WBC Fluid RBC 05/03/17 10:10 WBC RBC Hgb Hct MCV MCH MCHC RDW Plt Count Seg Neutrophils % Lymphocytes % Monocytes % Eosinophils % Basophils % Absolute Neutrophils Absolute Lymphocytes Absolute Monocytes Absolute Eosinophils Absolute Basophils Carbonic Acid HCO3/H2CO3 Ratio ABG pH ABG pCO2 ABG pO2 ABG HCO3 ABG O2 Saturation ABG Base Excess FiO2 Sodium Potassium Chloride Carbon Dioxide Anion Gap BUN Creatinine Est GFR ( Amer) Est GFR (Non-Af Amer) Glucose Calcium Phosphorus Magnesium Total Bilirubin AST ALT Alkaline Phosphatase Total Protein Albumin Fluid Type BRONCHIAL WASH Fluid Source LUNG Fluid Color RED Fluid Appearance TURBID Fluid Viscosity HIGHLY VISCOUS Fluid WBC 1510 Fluid RBC 56721 05/02/17 03:51 Troponin I 0.437 Impressions: Abdomen/Pelvis CT 04/28/17 19:11 IMPRESSION: 1. Basilar pulmonary changes as above. Lower lobe infiltrates bilaterally. 2. No acute or suspicious abdominopelvic abnormality, findings as above. KUB X-Ray 04/29/17 19:35 IMPRESSION: NG tube appears to be in adequate location. Chest X-Ray 05/03/17 06:00 IMPRESSION: Worsened moderate interstitial and airspace opacity, left more than right may indicate pulmonary edema, and/or pneumonia. Lines and tubes. Assessment & Plan - Diagnosis (1) Sepsis due to Enterobacter species Is this a current diagnosis for this admission?: YesPlan: Patient had total of 14 doses of IV Zosyn which should be adequate rosanna his growth of Enterobacter Aerogenes ion his urine culture. His leukocytosis is improving and no fever presently. (2) Acute respiratory failure Qualifiers: Respiratory failure complication: hypoxia Qualified Code(s): J96.01 - Acute respiratory failure with hypoxia Is this a current diagnosis for this admission?: YesPlan: Continue ventilatory support as per toddler teacher recommendation. (3) COPD with acute exacerbation Is this a current diagnosis for this admission?: YesPlan: See attending physician orders. Continue current medication management. (4) Pneumonia Qualifiers: Pneumonia type: due to unspecified organism Laterality: bilateral Lung location: lower lobe of lung Qualified Code(s): J18.9 - Pneumonia, unspecified organism Is this a current diagnosis for this admission?: YesPlan: See attending physician orders. Continue current antibiotic therapy. (5) Chronic delirium Is this a current diagnosis for this admission?: YesPlan: See admitting physician orders. (6) Diabetes mellitus type 2 in nonobese Is this a current diagnosis for this admission?: YesPlan: See attending physician orders. Hyperglycemia remain a concern. Continue current Humalog insulin sliding scale management. I will start on Glucena tube feeding and Levemir Insulin therapy. (7) HTN (hypertension) Qualifiers: Hypertension type: essential hypertension Qualified Code(s): I10 - Essential (primary) hypertension Is this a current diagnosis for this admission?: YesPlan: See attending physician orders. (8) Coronary artery disease Qualifiers: Coronary Disease-Associated Artery/Lesion type: [place] artery [place] vs. transplanted heart: [place] heart Associated angina: without angina Qualified Code(s): I25.10 - Atherosclerotic heart disease of [place] coronary artery without angina pectoris Is this a current diagnosis for this admission?: YesPlan: See attending physician orders. (9) HLD (hyperlipidemia) Qualifiers: Hyperlipidemia type: pure hypercholesterolemia Qualified Code(s): E78.00 - Pure hypercholesterolemia, unspecified; E78.0 - Pure hypercholesterolemia Is this a current diagnosis for this admission?: YesPlan: See attending physician orders. (10) Old myocardial infarction Is this a current diagnosis for this admission?: YesPlan: See attending physician orders. (11) Atrial fibrillation with rapid ventricular response Is this a current diagnosis for this admission?: YesPlan: See attending physician orders. Continue current medication management. Automotive Service Director input appreciated. - Time Time Spent with patient: 35 or more minutes Medications reviewed and adjusted accordingly: Yes Anticipated discharge: SNF Within: Other - Inpatient Certification Based on my medical assessment, after consideration of the patient's comorbidities, presenting symptoms, or acuity I expect that the services needed warrant INPATIENT care.: Yes I certify that my determination is in accordance with my understanding of Medicare's requirements for reasonable and necessary INPATIENT services [42 CFR 412.3e].: Yes Medical Necessity: Need Close Monitoring Due to Risk of Patient Decompensation, Need For IV Fluids, Need For Continuous Telemetry Monitoring, Need for Nebulizer Therapy and Monitoring of Response, Need for IV Antibiotics, Risk of Complication if Not Cared For in Hospital Post Hospital Care: D/C or Transfer Summary - Plan Summary Plan Summary: See attending physician orders.
--- NOTE | 2017-05-03 14:08 | Operative Report ---
Operative Report DATE OF SURGERY: 05/03/17 Operative Report: 82-year-old male with progressive pneumonia on the left side currently intubated and sedated on the propofol anesthesia his tracheal bronchial tree was explored and distal trachea was trachea was within normal limits. Mucosa had a thin white film and no submucosal hemorrhage just film extended over the right mainstem bronchus right upper lobe right bronchus meet bronchus intermediate and right lower lobe. The film also extended into the left mainstem bronchus the left upper lobe lingula and the left lower lobe. Large amounts of secretions were noted in the left upper lobe and left correction left lower lobe this area was lavaged copiously initially phlegm the lavage fluid was clear however after time to is seen to have a blood-tinged to it there was no submucosal edema patient tolerated procedure well his postprocedure SaO2 was 99% [place] alveolar lavage fluid was sent to the lab for appropriate cultures and studies PREOPERATIVE DIAGNOSIS: left lower lobe infiltrate POSTOPERATIVE DIAGNOSIS: same OPERATION: fiberoptic bronchoscopy with lavage SURGEON: JAMIR BELL ANESTHESIA: GA TISSUE REMOVED OR ALTERED: bronchoalveolar lavage COMPLICATIONS: none ESTIMATED BLOOD LOSS: 0 ml
[2017-05-03] MEDS ORDERED: INSULIN DETEMIR 100 UNIT/ML 3 ML PEN SUBCUT ONE (15:00)
[2017-05-03] MEDS: ACETAMINOPHEN SOLN 325 MG/10.15 ML UDCUP NG PRN (17:17)
[2017-05-03] MEDS: CETIRIZINE 10 MG TABLET PO SCH (17:18)
[2017-05-03] MEDS: INSULIN DETEMIR 100 UNIT/ML 3 ML PEN SUBCUT SCH (22:01)
[2017-05-03] MEDS: RIVAROXABAN 10 MG TABLET PO SCH (22:03)
[2017-05-04] MEDS: IMIPENEM/CILASTATIN SODIUM 500 MG in NORMAL SALINE 100 ML IV SCH ×4 (00:03→17:23)
[2017-05-04] MEDS ORDERED: PHENYLEPHRINE HCL INJ/PF 10 MG/1 ML SDV ONE (01:24)
[2017-05-04] MEDS: DEXTROSE 5%-WATER 250 ML with PHENYLEPHRINE HCL 40 MG IV PRN ×2 (01:46)
[2017-05-04] MEDS: PROPOFOL 100 ML IV PRN ×3 (04:17→17:24)
[2017-05-04 04:19] LABS: HEMATOCRIT 36.2 % (37.9-51.0); HEMOGLOBIN 11.5 g/dL (13.5-17.0); HGB HCT DIFFERENCE -1.7; MEAN CORPUSCULAR HEMOGLOBIN 28.1 pg (27.0-33.4); MEAN CORPUSCULAR HGB CONC 31.9 g/dL (32.0-36.0); MEAN CORPUSCULAR VOLUME 88 fl (80-97); RED CELL DISTRIBUTION WIDTH 16.6 % (11.5-14.0); WHITE BLOOD COUNT 10.1 10^3/uL (4.0-10.5)
[2017-05-04 04:36] LABS: ALANINE AMINOTRANSFERASE 45 U/L (21-72); ALBUMIN 2.4 g/dL (3.5-5.0); ALKALINE PHOSPHATASE 103 U/L (38-126); ANION GAP 9 (5-19); ASPARTATE AMINO TRANSFERASE 37 U/L (17-59); BILIRUBIN,DIRECT 0.4 mg/dL (0.0-0.4); BILIRUBIN,TOTAL 0.7 mg/dL (0.2-1.3); BLOOD UREA NITROGEN 32 mg/dL (7-20); CALCIUM 8.3 mg/dL (8.4-10.2); CARBON DIOXIDE 26 mmol/L (22-30); CHLORIDE 104 mmol/L (98-107); CREATININE RESULT 0.64 mg/dL (0.52-1.25); DIGOXIN 0.74 ng/mL (0.8-2.0); GLUCOSE 225 mg/dL (75-110); MAGNESIUM 2.3 mg/dL (1.6-2.3); SODIUM 139.3 mmol/L (137-145); TOTAL PROTEIN 5.4 g/dL (6.3-8.2)
[2017-05-04 05:10] LABS: BASOPHILS % (MANUAL) 0 % (0-2); EOSINOPHILS % (MANUAL) 0 % (0-6); LYMPHOCYTES % (MANUAL) 7 % (13-45); TOTAL CELLS COUNTED 100
[2017-05-04 05:12] LABS: TOXIC GRANULATION 1+
[2017-05-04 05:14] LABS: ANISOCYTOSIS 1+; POIKILOCYTOSIS 1+; POLYCHROMASIA 1+
[2017-05-04 05:15] LABS: PLATELET CLUMPS PRESENT; STOMATOCYTES 1+
[2017-05-04] MEDS: LANSOPRAZOLE 30 MG TAB.RAP.DR PO SCH (06:28)
[2017-05-04 07:56] LABS: ARTERIAL BLOOD O2 SATURATION 95.5 % (94-98)
--- NOTE | 2017-05-04 08:05 | RADIOLOGY REPORT (SQ) ---
EXAM DESCRIPTION: CHEST SINGLE VIEW COMPLETED DATE/TIME: 05/04/2017 7:22 am REASON FOR STUDY: pna COMPARISON: 05/03/2017 EXAM PARAMETERS: NUMBER OF VIEWS: One view. TECHNIQUE: Single frontal radiographic view of the chest acquired. RADIATION DOSE: NA LIMITATIONS: None. FINDINGS: LUNGS AND PLEURA: The previously described moderate mixed interstitial and airspace opacit y on the left appears minimally improved with decreasing confluence. Residual changes are identified predominately in the left lung base. Right basilar density appears essentially unchanged. MEDIASTINUM AND HILAR STRUCTURES: No masses. Contour normal. HEART AND VASCULAR STRUCTURES: Heart normal in size. Normal vasculature. BONES: No acute findings. HARDWARE: Endotracheal tube is unchanged in position. NG tube is seen in course to the abdomen. OTHER: No other significant finding. IMPRESSION: Minimal interval improvement in the mixed interstitial and airspace opacities on the lef t as noted above. Other findings as noted above. TECHNICAL DOCUMENTATION: JOB ID: [id number]
--- NOTE | 2017-05-04 08:40 | PDOC PROGRESS REPORT ---
Subjective Progress Note for:: 05/04/17 Subjective:: Currently doing same. Denied any further event. Still intubated and on ventilations and still on pressor support Physical Exam Vital Signs: Temp Pulse Resp BP Pulse Ox 99.9 F 77 20 108/57 L 92 05/04/17 08:00 05/04/17 08:00 05/04/17 08:00 05/04/17 08:00 05/04/17 08:00 Intake & Output 05/03/17 05/04/17 05/05/17 06:59 06:59 06:59 Intake Total 1997 1107 Output Total 1982 170 130 Balance 15 -633 -130 Weight 86.3 kg 84.5 kg Physical Exam: Intubated and currently under sedation's General appearance: PRESENT: no acute distress Eye exam: PRESENT: PERRLA Respiratory exam: PRESENT: clear to auscultation boris Cardiovascular exam: PRESENT: +S1, +S2 GI/Abdominal exam: PRESENT: normal bowel sounds, soft Extremities exam: ABSENT: pedal edema Neurological exam: PRESENT: other Results Laboratory Results: 05/04/17 03:53 05/04/17 03:53 05/03/17 05/04/17 05/04/17 10:10 03:53 03:53 WBC 10.1 RBC 4.10 L Hgb 11.5 L Hct 36.2 L MCV 88 MCH 28.1 MCHC 31.9 L RDW 16.6 H Plt Count 460 H Seg Neutrophils % Not Reportable Lymphocytes % Not Reportable Monocytes % Not Reportable Eosinophils % Not Reportable Basophils % Not Reportable Absolute Neutrophils Not Reportable Absolute Lymphocytes Not Reportable Absolute Monocytes Not Reportable Absolute Eosinophils Not Reportable Absolute Basophils Not Reportable Carbonic Acid HCO3/H2CO3 Ratio ABG pH ABG pCO2 ABG pO2 ABG HCO3 ABG O2 Saturation ABG Base Excess FiO2 Sodium 139.3 Potassium 4.0 Chloride 104 Carbon Dioxide 26 Anion Gap 9 BUN 32 H Creatinine 0.64 Est GFR ( Amer) > 60 Est GFR (Non-Af Amer) > 60 Glucose 225 H Calcium 8.3 L Magnesium 2.3 Total Bilirubin 0.7 AST 37 ALT 45 Alkaline Phosphatase 103 Total Protein 5.4 L Albumin 2.4 L Fluid Type BRONCHIAL WASH Fluid Source LUNG Fluid Color RED Fluid Appearance TURBID Fluid Viscosity HIGHLY VISCOUS Fluid WBC 1510 Fluid RBC 70779 05/04/17 07:40 WBC RBC Hgb Hct MCV MCH MCHC RDW Plt Count Seg Neutrophils % Lymphocytes % Monocytes % Eosinophils % Basophils % Absolute Neutrophils Absolute Lymphocytes Absolute Monocytes Absolute Eosinophils Absolute Basophils Carbonic Acid 1.26 HCO3/H2CO3 Ratio 23:1 ABG pH 7.48 H ABG pCO2 41.8 ABG pO2 73.0 L ABG HCO3 30.2 H ABG O2 Saturation 95.5 ABG Base Excess 6.0 FiO2 70% Sodium Potassium Chloride Carbon Dioxide Anion Gap BUN Creatinine Est GFR ( Amer) Est GFR (Non-Af Amer) Glucose Calcium Magnesium Total Bilirubin AST ALT Alkaline Phosphatase Total Protein Albumin Fluid Type Fluid Source Fluid Color Fluid Appearance Fluid Viscosity Fluid WBC Fluid RBC 05/02/17 03:51 Troponin I 0.437 Impressions: Abdomen/Pelvis CT 04/28/17 19:11 IMPRESSION: 1. Basilar pulmonary changes as above. Lower lobe infiltrates bilaterally. 2. No acute or suspicious abdominopelvic abnormality, findings as above. KUB X-Ray 04/29/17 19:35 IMPRESSION: NG tube appears to be in adequate location. Chest X-Ray 05/04/17 06:00 IMPRESSION: Minimal interval improvement in the mixed interstitial and airspace opacities on the left as noted above. Other findings as noted above. Assessment & Plan - Diagnosis (1) Acute respiratory failure Qualifiers: Respiratory failure complication: hypoxia Qualified Code(s): J96.01 - Acute respiratory failure with hypoxia Is this a current diagnosis for this admission?: YesPlan: Ventilation support (2) Atrial fibrillation with rapid ventricular response Is this a current diagnosis for this admission?: Yes (3) COPD with acute exacerbation Is this a current diagnosis for this admission?: YesPlan: Nebulizer treatment (4) Dehydration Is this a current diagnosis for this admission?: Yes (5) Diabetes mellitus type 2 in nonobese Is this a current diagnosis for this admission?: Yes (6) Sepsis due to Enterobacter species Is this a current diagnosis for this admission?: YesPlan: Continue IV antibiotic (7) Coronary artery disease Qualifiers: Coronary Disease-Associated Artery/Lesion type: [place] artery [place] vs. transplanted heart: [place] heart Associated angina: without angina Qualified Code(s): I25.10 - Atherosclerotic heart disease of [place] coronary artery without angina pectoris Is this a current diagnosis for this admission?: Yes (8) HLD (hyperlipidemia) Qualifiers: Hyperlipidemia type: pure hypercholesterolemia Qualified Code(s): E78.00 - Pure hypercholesterolemia, unspecified; E78.0 - Pure hypercholesterolemia Is this a current diagnosis for this admission?: Yes (9) HTN (hypertension) Qualifiers: Hypertension type: essential hypertension Qualified Code(s): I10 - Essential (primary) hypertension Is this a current diagnosis for this admission?: Yes - Time Time Spent with patient: 15-24 minutes Medications reviewed and adjusted accordingly: Yes Anticipated discharge: Other Within: Other - Inpatient Certification Medical Necessity: Need Close Monitoring Due to Risk of Patient Decompensation, Need for IV Antibiotics Post Hospital Care: D/C It Operations Specialist Documentation - Plan Summary Plan Summary: Current medication
--- NOTE | 2017-05-04 09:18 | EKG REPORT ---
SEVERITY:- NORMAL ECG - SINUS RHYTHM : Confirmed by: Manjeet Tineo MD 04-May-2017 09:17:18
[2017-05-04] MEDS: INSULIN DETEMIR 100 UNIT/ML 3 ML PEN SUBCUT SCH (10:41)
[2017-05-04] MEDS: DIGOXIN INJ 0.5 MG/2 ML AMPULE IV SCH (10:42)
[2017-05-04] MEDS: SOTALOL HCL 80 MG TABLET NG SCH (10:42)
[2017-05-04] MEDS: SERTRALINE HCL 50 MG TABLET PO SCH (10:42)
[2017-05-04] MEDS: CHOLECALCIFEROL (D3) 1,000 UNIT TABLET PO SCH (10:42)
[2017-05-04] MEDS: CYANOCOBALAMIN (VITAMIN B-12) 1,000 MCG TABLET PO SCH (10:42)
[2017-05-04] MEDS: SULFAMETHOXAZOLE/TRIMETHOPRIM 800-160 MG/20 ML UDCUP NG SCH (10:43)
[2017-05-04] MEDS ORDERED: FLUCONAZOLE 400 MG/NS RTU 400 MG/200 ML RTUPB IV ONE (11:00)
[2017-05-04] MEDS: INSULIN LISPRO 100 UNIT/ML 3 ML VIAL SUBCUT PRN ×2 (11:36→17:23)
--- NOTE | 2017-05-04 13:04 | PROGRESS NOTE E ---
Progress Note NAME: BRUCE KNOTT : 1935 AGE: 82Y DATE: 05/04/2017 ROOM: 612 SUBJECTIVE: Note that the patient has converted to sinus rhythm. There is no ventricular arrhythmia seen. There are no positive AV blocks. The patient is on the ventilator and intubated but has his eyes open and responds by gestures that he has no chest pain or shortness of breath. There are no arrhythmias seen on the monitor. There is no recurrence of atrial fibrillation with the patient now being in sinus rhythm. There is no evidence of TIA or CVA. OBJECTIVE: VITAL SIGNS: On examination the patient's temperature is 99.9 degrees Fahrenheit, pulse is 81 beats per minute, blood pressure 112/68, respirations are 14 per minute, 02 saturations are 94% on mechanical ventilator with a FiO2 of 70%. GENERAL: Note that the patient is well built and well nourished in no acute distress. There are no axillary muscles of respiration in use. HEENT: Head is atraumatic, normocephalic. Eyes: Pupils are equal, round, regular, and reactive to light. ENT is negative. NECK: Supple. There is no JVD. Carotids are equal. There is no bruit. There is no goiter. There is no lymphadenopathy. LUNGS: Show bibasilar crackles of pneumonia, left greater than right. There is no evidence of congestive heart failure by exam. There is diminished air entry and prolonged expiration throughout and with hyperresonance to percussion elsewhere. HEART: S1 and S2 are heard. S1 is of normal intensity now. There is no S3 gallop. There is no S4 gallop. There is a systolic murmur in the left sternal border and the apex. There are no rubs. ABDOMEN: Soft. There is no hepatosplenomegaly. Bowel sounds are well heard. ABDOMEN: Nontender. EXTREMITIES: Femorals are diminished. There are no femoral bruits. Leg pulses are diminished. There is no pedal edema. There is no DVT or cellulitis. There is no clubbing or cyanosis. PSYCHIATRIC: The patient does not appear to be agitated. CENTRAL NERVOUS SYSTEM: The patient is awake, eyes are open, and he moves all 4 extremities although they are restrained with soft restraints. The patient's 24-hour intake has been 1107. Output is 1700 mL. DIAGNOSTICS: The patient's chest x-ray shows minimal interval improvement in the mixed interstitial and airspace opacities on the left as described above. No evidence of congestive heart failure by exam and review of the chest x-ray. The chest x-ray has been reviewed by me and also the EKG. The EKG shows sinus rhythm within normal limits. The QTC is 415 which is good. There are no pleural arrhythmias on the patient's sotalol on the monitor. The patient's white count is 10,100; hemoglobin is stable at 11.5; hematocrit is 36.2; and platelet count is 460,000. The patient's sodium is 139.3, potassium is 4.0, chloride is 104, CO2 is 26. The patient's BUN is 32, creatinine is 0.64. GFR is greater than 60. Glucose is 225. The patient's calcium is low at 8.3. The patient's magnesium is now normal at 2.3. Liver function tests are normal. His albumin is 2.4. Total protein is 5.4. IMPRESSION: 1. PAROXYSMAL ATRIAL FIBRILLATION, AT PRESENT IN SINUS RHYTHM. The patient is on digoxin and sotalol. Continue the same. Note that the patient's QTC interval is monitored by EKG in view of the patient being on sotalol. There is no pleural arrhythmias on sotalol. There is no increased QTC prolongation on current dose of sotalol which is 80 mg via NG tube q.12 hours. 2. ACUTE RESPIRATORY FAILURE WITH HYPOXIA, MUCH IMPROVED. Continue ventilator treatment. Continue nebulizer treatment and antibiotics. 3. BILATERAL BASILAR PNEUMONIA. Much improved clinically. Patient is on antibiotics. Continue antibiotics. Continue oxygen through ventilation. I expect that the patient will be soon extubated. 4. COPD, AT PRESENT NO EVIDENCE OF ACUTE EXACERBATION. Back to baseline. Continue nebulizer treatment. Continue antibiotics. 5. 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 Patient's troponin I was negative. Patient without any anginal symptoms. Later it was recommended that the patient have IV Lexiscan Cardiolite stress test once the patient is extubated and goes back to his baseline with regards to his multiple medical comorbidities. 6. DIABETES MELLITUS TYPE 2, NONINSULIN DEPENDENT. 7. HYPERTENSION. 8. HISTORY OF ASTHMA. 9. HISTORY OF PANCREATIC CANCER. 10. HISTORY OF DEPRESSION. 11. HISTORY OF LEFT TOTAL KNEE REPLACEMENT 2+ WEEKS AGO. Continue the patient on Xarelto. The Xarelto has been increased to 15 mg p.o. daily with the patient being in atrial fibrillation, the patient's age, and also the patient having had recent knee surgery for DVT/PE prophylaxis and also the Xarelto for stroke prophylaxis. RECOMMENDATIONS: At present blood pressure is stable. Continue patient on current doses of digoxin and sotalol. Note that the patient's dig level is 0.74. The patient's ABG shows a pH of 7.48, pCO2 is 41.8, pO2 is 78, O2 sats are 95.5% on FiO2 of 70%. Note 30 minutes spent on this patient with more than 50% of the time spent on direct patient care. His medications have been reviewed. Discussed the case with other caregiving providers and formulating a plan of care/management plan for this patient's care. The patient continues to require a highly complex medical decision making. Will watch the patient for him going back into atrial fibrillation. If that happens, would increase the patient's dose of sotalol. We will follow with you. Thanking you. DICTATING PHYSICIAN: ELIN ZHANG M.D. [id number] PHY#: [id number] ID: [id number] JOB#: [id number] ACCT: [id number] cc: >
[2017-05-04] MEDS: CETIRIZINE 10 MG TABLET PO SCH (17:23)
[2017-05-05] MEDS: INSULIN DETEMIR 100 UNIT/ML 3 ML PEN SUBCUT SCH ×3 (00:16→22:47)
[2017-05-05] MEDS: PROPOFOL 100 ML IV PRN ×5 (00:16→22:44)
[2017-05-05] MEDS: SOTALOL HCL 80 MG TABLET NG SCH ×3 (00:17→22:48)
[2017-05-05] MEDS: RIVAROXABAN 10 MG TABLET PO SCH ×2 (00:17→22:48)
[2017-05-05] MEDS: IMIPENEM/CILASTATIN SODIUM 500 MG in NORMAL SALINE 100 ML IV SCH ×4 (00:18→17:14)
[2017-05-05] MEDS: ACETAMINOPHEN SOLN 325 MG/10.15 ML UDCUP NG PRN (00:18)
[2017-05-05] MEDS: SULFAMETHOXAZOLE/TRIMETHOPRIM 800-160 MG/20 ML UDCUP NG SCH ×3 (00:18→22:48)
[2017-05-05] MEDS: INSULIN LISPRO 100 UNIT/ML 3 ML VIAL SUBCUT PRN ×3 (00:51→17:14)
[2017-05-05 04:29] LABS: HEMATOCRIT 33.4 % (37.9-51.0); HEMOGLOBIN 10.8 g/dL (13.5-17.0); MEAN CORPUSCULAR HEMOGLOBIN 28.4 pg (27.0-33.4); MEAN CORPUSCULAR HGB CONC 32.3 g/dL (32.0-36.0); MEAN CORPUSCULAR VOLUME 88 fl (80-97); RED BLOOD COUNT 3.79 10^6/uL (4.35-5.55); RED CELL DISTRIBUTION WIDTH 16.5 % (11.5-14.0); WHITE BLOOD COUNT 11.8 10^3/uL (4.0-10.5)
[2017-05-05 04:42] LABS: ANION GAP 7 (5-19); BLOOD UREA NITROGEN 27 mg/dL (7-20); CALCIUM 8.1 mg/dL (8.4-10.2); CARBON DIOXIDE 29 mmol/L (22-30); CHLORIDE 104 mmol/L (98-107); CREATININE RESULT 0.73 mg/dL (0.52-1.25); GLUCOSE 227 mg/dL (75-110); MAGNESIUM 2.5 mg/dL (1.6-2.3); POTASSIUM 4.2 mmol/L (3.6-5.0); SODIUM 139.6 mmol/L (137-145)
[2017-05-05 04:46] LABS: BAND NEUTROPHILS % (MANUAL) 2 % (3-5); BASOPHILS % (MANUAL) 0 % (0-2); EOSINOPHILS % (MANUAL) 0 % (0-6); LYMPHOCYTES % (MANUAL) 11 % (13-45); NUCLEATED RED BLOOD CELLS 2 /100 WBC (0); TOTAL CELLS COUNTED 100
[2017-05-05 04:47] LABS: ANISOCYTOSIS 1+; TOXIC GRANULATION SLIGHT
[2017-05-05 04:48] LABS: PLATELET CLUMPS PRESENT; POIKILOCYTOSIS SLIGHT; POLYCHROMASIA SLIGHT; TARGET CELLS SLIGHT; TEAR DROP CELLS SLIGHT
[2017-05-05 04:50] LABS: STOMATOCYTES SLIGHT
[2017-05-05] MEDS: LANSOPRAZOLE 30 MG TAB.RAP.DR PO SCH (05:33)
[2017-05-05 06:21] LABS: ARTERIAL BLOOD BASE EXCESS 5.6 mmol/L; ARTERIAL BLOOD O2 SATURATION 97.4 % (94-98)
--- NOTE | 2017-05-05 07:42 | RADIOLOGY REPORT (SQ) ---
EXAM DESCRIPTION: CHEST SINGLE VIEW COMPLETED DATE/TIME: 05/05/2017 7:07 am REASON FOR STUDY: pna/resp failure COMPARISON: 05/04/2017. EXAM PARAMETERS: NUMBER OF VIEWS: One view. TECHNIQUE: Single frontal radiographic view of the chest acquired. RADIATION DOSE: NA LIMITATIONS: None. FINDINGS: LUNGS AND PLEURA: Small to moderate opacity-interstitial markings of bilateral lower lobes , left more than right. MEDIASTINUM AND HILAR STRUCTURES: No masses. Contour normal. HEART AND VASCULAR STRUCTURES: Normal cardiac silhouette size. Atherosclerosis. BONES: No acute findings. HARDWARE: Adequate appearing endotracheal tube and partially obscured NG tube. OTHER: No other significant finding. IMPRESSION: No significant interval change. TECHNICAL DOCUMENTATION: JOB ID: [id number]
--- NOTE | 2017-05-05 08:05 | EKG REPORT ---
SEVERITY:- BORDERLINE ECG - SINUS RHYTHM BORDERLINE T ABNORMALITIES, ANT-LAT LEADS : Confirmed by: Manjeet Tineo MD 05-May-2017 08:05:25
[2017-05-05] MEDS: CYANOCOBALAMIN (VITAMIN B-12) 1,000 MCG TABLET PO SCH (09:42)
[2017-05-05] MEDS: CHOLECALCIFEROL (D3) 1,000 UNIT TABLET PO SCH (09:43)
[2017-05-05] MEDS: DIGOXIN INJ 0.5 MG/2 ML AMPULE IV SCH (09:43)
[2017-05-05] MEDS: SERTRALINE HCL 50 MG TABLET PO SCH (09:44)
--- NOTE | 2017-05-05 10:11 | PDOC PROGRESS REPORT ---
Subjective Progress Note for:: 05/05/17 Subjective:: Patient is currently doing fair. Still intubated off pressor Physical Exam Vital Signs: Temp Pulse Resp BP Pulse Ox 98.4 F 81 16 125/59 L 96 05/05/17 08:00 05/05/17 08:00 05/05/17 08:00 05/05/17 08:00 05/05/17 08:30 Intake & Output 05/04/17 05/05/17 05/06/17 06:59 06:59 06:59 Intake Total 1107 1884 Output Total 1700 1570 190 Balance -593 314 -190 Weight 84.5 kg 85 kg Physical Exam: Currently intubated under sedation's General appearance: PRESENT: no acute distress Eye exam: PRESENT: PERRLA Respiratory exam: PRESENT: clear to auscultation boris Cardiovascular exam: PRESENT: +S1, +S2 GI/Abdominal exam: PRESENT: normal bowel sounds, soft Neurological exam: PRESENT: altered Skin exam: PRESENT: dry Results Laboratory Results: 05/05/17 04:06 05/05/17 04:06 05/04/17 05/05/17 05/05/17 11:10 04:06 04:06 WBC 11.8 H RBC 3.79 L Hgb 10.8 L Hct 33.4 L MCV 88 MCH 28.4 MCHC 32.3 RDW 16.5 H Plt Count 317 Seg Neutrophils % Not Reportable Lymphocytes % Not Reportable Monocytes % Not Reportable Eosinophils % Not Reportable Basophils % Not Reportable Absolute Neutrophils Not Reportable Absolute Lymphocytes Not Reportable Absolute Monocytes Not Reportable Absolute Eosinophils Not Reportable Absolute Basophils Not Reportable Carbonic Acid HCO3/H2CO3 Ratio ABG pH ABG pCO2 ABG pO2 ABG HCO3 ABG O2 Saturation ABG Base Excess FiO2 Sodium 139.6 Potassium 4.2 Chloride 104 Carbon Dioxide 29 Anion Gap 7 BUN 27 H Creatinine 0.73 Est GFR ( Amer) > 60 Est GFR (Non-Af Amer) > 60 Glucose 227 H Lactic Acid 1.7 Calcium 8.1 L Magnesium 2.5 H 05/05/17 06:05 WBC RBC Hgb Hct MCV MCH MCHC RDW Plt Count Seg Neutrophils % Lymphocytes % Monocytes % Eosinophils % Basophils % Absolute Neutrophils Absolute Lymphocytes Absolute Monocytes Absolute Eosinophils Absolute Basophils Carbonic Acid 1.25 HCO3/H2CO3 Ratio 23:1 ABG pH 7.47 H ABG pCO2 41.4 ABG pO2 90.9 ABG HCO3 29.7 H ABG O2 Saturation 97.4 ABG Base Excess 5.6 FiO2 60% Sodium Potassium Chloride Carbon Dioxide Anion Gap BUN Creatinine Est GFR ( Amer) Est GFR (Non-Af Amer) Glucose Lactic Acid Calcium Magnesium 05/02/17 03:51 Troponin I 0.437 Impressions: Abdomen/Pelvis CT 04/28/17 19:11 IMPRESSION: 1. Basilar pulmonary changes as above. Lower lobe infiltrates bilaterally. 2. No acute or suspicious abdominopelvic abnormality, findings as above. KUB X-Ray 04/29/17 19:35 IMPRESSION: NG tube appears to be in adequate location. Chest X-Ray 05/05/17 06:00 IMPRESSION: No significant interval change. Assessment & Plan - Diagnosis (1) Acute respiratory failure Qualifiers: Respiratory failure complication: hypoxia Qualified Code(s): J96.01 - Acute respiratory failure with hypoxia Is this a current diagnosis for this admission?: YesPlan: Ventilation support (2) Atrial fibrillation with rapid ventricular response Is this a current diagnosis for this admission?: YesPlan: Patients follow with the cardiology (3) COPD with acute exacerbation Is this a current diagnosis for this admission?: YesPlan: Nebulizer treatment (4) Dehydration Is this a current diagnosis for this admission?: Yes (5) Diabetes mellitus type 2 in nonobese Is this a current diagnosis for this admission?: YesPlan: Continues a sliding scale (6) Sepsis due to Enterobacter species Is this a current diagnosis for this admission?: YesPlan: Continue IV antibiotic (7) Coronary artery disease Qualifiers: Coronary Disease-Associated Artery/Lesion type: [place] artery [place] vs. transplanted heart: [place] heart Associated angina: without angina Qualified Code(s): I25.10 - Atherosclerotic heart disease of [place] coronary artery without angina pectoris Is this a current diagnosis for this admission?: Yes (8) HLD (hyperlipidemia) Qualifiers: Hyperlipidemia type: pure hypercholesterolemia Qualified Code(s): E78.00 - Pure hypercholesterolemia, unspecified; E78.0 - Pure hypercholesterolemia Is this a current diagnosis for this admission?: Yes (9) HTN (hypertension) Qualifiers: Hypertension type: essential hypertension Qualified Code(s): I10 - Essential (primary) hypertension Is this a current diagnosis for this admission?: Yes (10) Diarrhea Qualifiers: Diarrhea type: unspecified type Qualified Code(s): R19.7 - Diarrhea , unspecified Is this a current diagnosis for this admission?: YesPlan: Patient's C. difficile is negative most likely related to tube fedding Start the patient on Imodium as needed - Time Time Spent with patient: 15-24 minutes Medications reviewed and adjusted accordingly: Yes Anticipated discharge: Other Within: Other - Inpatient Certification Medical Necessity: Need Close Monitoring Due to Risk of Patient Decompensation Post Hospital Care: D/C Certified Welding Inspector Documentation - Plan Summary Plan Summary: Continues current medication follow with the pulmonary
--- NOTE | 2017-05-05 11:34 | PDOC PROGRESS REPORT ---
Subjective Progress Note for:: 05/03/17 Subjective:: intubated sedated Physical Exam Vital Signs: Temp Pulse Resp BP Pulse Ox 98.6 F 90 16 92/65 L 95 05/03/17 08:00 05/03/17 08:00 05/03/17 08:00 05/03/17 08:00 05/03/17 08:00 Intake & Output 05/02/17 05/03/17 05/04/17 06:59 06:59 06:59 Intake Total 2594 1997 Output Total 2550 1982 Balance 44 15 Weight 85.4 kg 86.3 kg General appearance: PRESENT: no acute distress, disheveled, obese, well- developed Head exam: PRESENT: atraumatic, normocephalic Eye exam: PRESENT: conjunctiva pale Mouth exam: PRESENT: dry mucosa, neck supple, tongue midline, other - Endotracheal tube in place Neck exam: PRESENT: other - Old surgical scar from prior endarterectomy noted. ABSENT: carotid bruit, JVD, lymphadenopathy, thyromegaly Respiratory exam: PRESENT: decreased breath sounds, prolonged expiratory phas, rales - Predominantly at the left base, rhonchi, unlabored Cardiovascular exam: PRESENT: RRR, +S1, +S2 Pulses: PRESENT: normal radial pulses GI/Abdominal exam: PRESENT: normal bowel sounds, soft. ABSENT: distended, guarding, mass, organolmegaly, rebound, tenderness Rectal exam: PRESENT: deferred Gentrourinary exam: PRESENT: indwelling catheter Extremities exam: PRESENT: +1 edema Skin exam: PRESENT: dry Results Laboratory Results: 05/03/17 04:34 05/03/17 04:34 05/02/17 05/03/17 05/03/17 11:13 04:34 04:34 WBC 10.7 H RBC 3.89 L Hgb 11.0 L Hct 34.9 L MCV 90 MCH 28.2 MCHC 31.5 L RDW 16.7 H Plt Count 406 Seg Neutrophils % 84.8 H Lymphocytes % 5.3 L Monocytes % 9.6 Eosinophils % 0.0 Basophils % 0.3 Absolute Neutrophils 9.1 H Absolute Lymphocytes 0.6 Absolute Monocytes 1.0 Absolute Eosinophils 0.0 Absolute Basophils 0.0 Carbonic Acid HCO3/H2CO3 Ratio ABG pH ABG pCO2 ABG pO2 ABG HCO3 ABG O2 Saturation ABG Base Excess FiO2 Sodium 139.6 Potassium 4.0 Chloride 103 Carbon Dioxide 25 Anion Gap 12 BUN 35 H Creatinine 0.67 Est GFR ( Amer) > 60 Est GFR (Non-Af Amer) > 60 Glucose 311 H Lactic Acid 1.5 Calcium 8.1 L Phosphorus 3.6 Magnesium 2.6 H Total Bilirubin 0.7 AST 16 L ALT 32 Alkaline Phosphatase 86 Total Protein 5.4 L Albumin 2.5 L 05/03/17 05:15 WBC RBC Hgb Hct MCV MCH MCHC RDW Plt Count Seg Neutrophils % Lymphocytes % Monocytes % Eosinophils % Basophils % Absolute Neutrophils Absolute Lymphocytes Absolute Monocytes Absolute Eosinophils Absolute Basophils Carbonic Acid 1.12 HCO3/H2CO3 Ratio 25:1 ABG pH 7.51 H ABG pCO2 37.1 ABG pO2 90.5 ABG HCO3 28.9 H ABG O2 Saturation 97.6 ABG Base Excess 5.7 FiO2 40% Sodium Potassium Chloride Carbon Dioxide Anion Gap BUN Creatinine Est GFR ( Amer) Est GFR (Non-Af Amer) Glucose Lactic Acid Calcium Phosphorus Magnesium Total Bilirubin AST ALT Alkaline Phosphatase Total Protein Albumin 04/29/17 19:39 Tracheal Aspirate Gram Stain - Final 04/29/17 19:39 Tracheal Aspirate Sputum Culture - Final Staphylococcus Aureus Normal Vikki Absent 05/02/17 03:51 Troponin I 0.437 Impressions: Abdomen/Pelvis CT 04/28/17 19:11 IMPRESSION: 1. Basilar pulmonary changes as above. Lower lobe infiltrates bilaterally. 2. No acute or suspicious abdominopelvic abnormality, findings as above. KUB X-Ray 04/29/17 19:35 IMPRESSION: NG tube appears to be in adequate location. Chest X-Ray 05/03/17 06:00 IMPRESSION: Worsened moderate interstitial and airspace opacity, left more than right may indicate pulmonary edema, and/or pneumonia. Lines and tubes. Assessment & Plan - Diagnosis (1) COPD with acute exacerbation Is this a current diagnosis for this admission?: Yes (2) Dehydration Is this a current diagnosis for this admission?: Yes (3) Pneumonia Qualifiers: Pneumonia type: due to unspecified organism Laterality: bilateral Lung location: lower lobe of lung Qualified Code(s): J18.9 - Pneumonia, unspecified organism Is this a current diagnosis for this admission?: Yes (4) GERD (gastroesophageal reflux disease) Qualifiers: Esophagitis presence: without esophagitis Qualified Code(s): K21.9 - Gastro-esophageal reflux disease without esophagitis Is this a current diagnosis for this admission?: Yes - Time Critical Time spent with patient: 35 or more minutes
--- NOTE | 2017-05-05 11:36 | PDOC PROGRESS REPORT ---
Subjective Progress Note for:: 05/04/17 Subjective:: intubated sedated unable to sustain weaning trial >3 hrs Physical Exam Vital Signs: Temp Pulse Resp BP Pulse Ox 99.9 F 77 20 108/57 L 92 05/04/17 08:00 05/04/17 08:00 05/04/17 08:00 05/04/17 08:00 05/04/17 08:00 Intake & Output 05/03/17 05/04/17 05/05/17 06:59 06:59 06:59 Intake Total 1997 1106 Output Total 1982 170 130 Balance 15 -593 -130 Weight 86.3 kg 84.5 kg Results Laboratory Results: 05/04/17 03:53 05/04/17 03:53 05/03/17 05/04/17 05/04/17 10:10 03:53 03:53 WBC 10.1 RBC 4.10 L Hgb 11.5 L Hct 36.2 L MCV 88 MCH 28.1 MCHC 31.9 L RDW 16.6 H Plt Count 460 H Seg Neutrophils % Not Reportable Lymphocytes % Not Reportable Monocytes % Not Reportable Eosinophils % Not Reportable Basophils % Not Reportable Absolute Neutrophils Not Reportable Absolute Lymphocytes Not Reportable Absolute Monocytes Not Reportable Absolute Eosinophils Not Reportable Absolute Basophils Not Reportable Carbonic Acid HCO3/H2CO3 Ratio ABG pH ABG pCO2 ABG pO2 ABG HCO3 ABG O2 Saturation ABG Base Excess FiO2 Sodium 139.3 Potassium 4.0 Chloride 104 Carbon Dioxide 26 Anion Gap 9 BUN 32 H Creatinine 0.64 Est GFR ( Amer) > 60 Est GFR (Non-Af Amer) > 60 Glucose 225 H Calcium 8.3 L Magnesium 2.3 Total Bilirubin 0.7 AST 37 ALT 45 Alkaline Phosphatase 103 Total Protein 5.4 L Albumin 2.4 L Fluid Type BRONCHIAL WASH Fluid Source LUNG Fluid Color RED Fluid Appearance TURBID Fluid Viscosity HIGHLY VISCOUS Fluid WBC 1510 Fluid RBC 55668 05/04/17 07:40 WBC RBC Hgb Hct MCV MCH MCHC RDW Plt Count Seg Neutrophils % Lymphocytes % Monocytes % Eosinophils % Basophils % Absolute Neutrophils Absolute Lymphocytes Absolute Monocytes Absolute Eosinophils Absolute Basophils Carbonic Acid 1.26 HCO3/H2CO3 Ratio 23:1 ABG pH 7.48 H ABG pCO2 41.8 ABG pO2 73.0 L ABG HCO3 30.2 H ABG O2 Saturation 95.5 ABG Base Excess 6.0 FiO2 70% Sodium Potassium Chloride Carbon Dioxide Anion Gap BUN Creatinine Est GFR ( Amer) Est GFR (Non-Af Amer) Glucose Calcium Magnesium Total Bilirubin AST ALT Alkaline Phosphatase Total Protein Albumin Fluid Type Fluid Source Fluid Color Fluid Appearance Fluid Viscosity Fluid WBC Fluid RBC 05/02/17 03:51 Troponin I 0.437 Impressions: Abdomen/Pelvis CT 04/28/17 19:11 IMPRESSION: 1. Basilar pulmonary changes as above. Lower lobe infiltrates bilaterally. 2. No acute or suspicious abdominopelvic abnormality, findings as above. KUB X-Ray 04/29/17 19:35 IMPRESSION: NG tube appears to be in adequate location. Chest X-Ray 05/04/17 06:00 IMPRESSION: Minimal interval improvement in the mixed interstitial and airspace opacities on the left as noted above. Other findings as noted above. Assessment & Plan - Diagnosis (1) COPD with acute exacerbation Is this a current diagnosis for this admission?: Yes (2) Dehydration Is this a current diagnosis for this admission?: Yes (3) Pneumonia Qualifiers: Pneumonia type: due to unspecified organism Laterality: bilateral Lung location: lower lobe of lung Qualified Code(s): J18.9 - Pneumonia, unspecified organism Is this a current diagnosis for this admission?: Yes (4) GERD (gastroesophageal reflux disease) Qualifiers: Esophagitis presence: without esophagitis Qualified Code(s): K21.9 - Gastro-esophageal reflux disease without esophagitis Is this a current diagnosis for this admission?: Yes - Time Critical Time spent with patient: 35 or more minutes
--- NOTE | 2017-05-05 17:05 | PDOC PROGRESS REPORT ---
Subjective Progress Note for:: 05/05/17 Subjective:: Patient still intubated and sedated Physical Exam Vital Signs: Temp Pulse Resp BP Pulse Ox 37.7 C 91 24 H 125/71 94 05/05/17 16:00 05/05/17 16:00 05/05/17 16:15 05/05/17 16:00 05/05/17 16:15 Intake & Output 05/04/17 05/05/17 05/06/17 06:59 06:59 06:59 Intake Total 1107 1884 100 Output Total 1700 1570 795 Balance -593 314 695 Weight 84.5 kg 85 kg Adult Front & Back Image: 1 - Left knee incision is dry clean and intact. Good capillary refill distally. Results Laboratory Results: 05/05/17 04:06 05/05/17 04:06 05/05/17 05/05/17 05/05/17 04:06 04:06 06:05 WBC 11.8 H RBC 3.79 L Hgb 10.8 L Hct 33.4 L MCV 88 MCH 28.4 MCHC 32.3 RDW 16.5 H Plt Count 317 Seg Neutrophils % Not Reportable Lymphocytes % Not Reportable Monocytes % Not Reportable Eosinophils % Not Reportable Basophils % Not Reportable Absolute Neutrophils Not Reportable Absolute Lymphocytes Not Reportable Absolute Monocytes Not Reportable Absolute Eosinophils Not Reportable Absolute Basophils Not Reportable Carbonic Acid 1.25 HCO3/H2CO3 Ratio 23:1 ABG pH 7.47 H ABG pCO2 41.4 ABG pO2 90.9 ABG HCO3 29.7 H ABG O2 Saturation 97.4 ABG Base Excess 5.6 FiO2 60% Sodium 139.6 Potassium 4.2 Chloride 104 Carbon Dioxide 29 Anion Gap 7 BUN 27 H Creatinine 0.73 Est GFR ( Amer) > 60 Est GFR (Non-Af Amer) > 60 Glucose 227 H Calcium 8.1 L Magnesium 2.5 H 05/02/17 03:51 Troponin I 0.437 Impressions: Abdomen/Pelvis CT 04/28/17 19:11 IMPRESSION: 1. Basilar pulmonary changes as above. Lower lobe infiltrates bilaterally. 2. No acute or suspicious abdominopelvic abnormality, findings as above. KUB X-Ray 04/29/17 19:35 IMPRESSION: NG tube appears to be in adequate location. Chest X-Ray 05/05/17 06:00 IMPRESSION: No significant interval change. Assessment & Plan - Plan Summary Plan Summary: 82-year-old intubated for respiratory failure. He is status post left total knee arthroplasty with incision of his healing nicely with no signs of infection. Nurse is telling me that she is doing range of motion exercises on the left total knee. Continued care per ICU
[2017-05-05] MEDS: CETIRIZINE 10 MG TABLET PO SCH (17:14)
--- NOTE | 2017-05-05 18:14 | PROGRESS NOTE E ---
Progress Note NAME: BRUCE KNOTT : 1935 AGE: 82Y DATE: 05/05/2017 ROOM: 612 SUBJECTIVE: Note that the patient is intubated and sedated. He is not fighting the ventilator. There is no arrhythmia seen on the monitor. At present, the patient is off the Bren-Synephrine. He was on Bren-Synephrine yesterday for a brief period for hypotension. At present, blood pressure is stable off Bren-Synephrine. He is tolerating sotalol well. He remains in sinus rhythm. There is no recurrence of atrial fibrillation. OBJECTIVE: GENERAL: On examination, the patient is well built and well nourished. He is not fighting the ventilator. There are no accessory muscles of respiration in use. VITAL SIGNS: His temperature is 99 degrees Fahrenheit, his pulse is 92 beats per minute, blood pressure 109/57, respirations are 20 per minute, O2 saturations are 93% on mechanical ventilator with a FIO2 of 50%. HEENT: Head is atraumatic, normocephalic. Eyes: Pupils are equal, round, regular, and reactive to light. ENT is negative. NECK: Supple. There is no JVD. Carotids are equal. There is no bruit. There is no goiter. There is no lymphadenopathy. LUNGS: Bibasilar crackles of pneumonia, left greater than right. There is no evidence of congestive heart failure. There is diminished air entry and prolonged expiration throughout the rest of the lungs and hyperresonance to percussion elsewhere. HEART: S1 and S2 are heard. S1 is of normal intensity. There is no S3 gallop. There is no S4 gallop. There is a systolic murmur in the left sternal border and the apex. There are no rubs. ABDOMEN: Soft. There is no hepatosplenomegaly. Bowel sounds are well heard. EXTREMITIES: Femorals are diminished. There are no femoral bruits. Leg pulses are diminished. There is no pedal edema. There is no DVT or cellulitis. There is no clubbing or cyanosis. CENTRAL NERVOUS SYSTEM/PSYCHIATRIC: Not examined since the patient, at present, is sedated. INTAKE/OUTPUT: His 24-hour intake has been 1,884 mL; output is 1,570 mL. DIAGNOSTIC DATA: The patient's EKG shows sinus rhythm, nonspecific T-wave abnormalities in the anterolateral leads, which are minor. The QTC is normal at 403. The patient's chest x-ray shows small to moderate opacities, interstitial markings in bilateral lower lobes, left more than right. There is no evidence for congestive heart failure. I have reviewed the echo and the chest x-ray by myself. The white count is 11,800; hemoglobin is 10.8; hematocrit is 33.4; platelet count is 317,000. The patient's sodium is 139.6, potassium is 4.2, chloride is 104, CO2 is 29. The patient's BUN is 27, creatinine is 0.73. GFR is greater than 60. Glucose is 225. His calcium is 8.1 and his magnesium is 2.5. His ABG shows a pH of 7.47, his pCO2 is 41.4, PO2 is 90.9, and his FIO2 is 60% with an O2 sat of 97.4. ASSESSMENT AND PLAN: 1. PAROXYSMAL ATRIAL FIBRILLATION, AT PRESENT IN SINUS RHYTHM. Continue the patient on Xarelto and continue the patient on sotalol and digoxin. 2. ACUTE RESPIRATORY FAILURE WITH HYPOXIA, IMPROVED. THERE IS NO HYPOXIA NOW, BUT THE PATIENT IS CURRENTLY ON THE VENTILATOR. 3. BILATERAL BASILAR PNEUMONIA, IMPROVED CLINICALLY, BUT THE CHEST X-RAY DOES NOT ANY MAJOR IMPROVEMENT. Continue antibiotics. Continue ventilator support. 4. COPD, AT PRESENT NO EVIDENCE OF ACUTE EXACERBATION. BACK TO BASELINE. Continue nebulizer treatment. Continue antibiotics. 5. 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 THE PATIENT'S TROPONIN-I IS NEGATIVE. The patient later will be recommended to have an IV Lexiscan Cardiolite stress test once the patient is extubated and goes back to his baseline with regards to his multiple medical comorbidities. 6. DIABETES MELLITUS TYPE 2, NON-INSULIN DEPENDENT. 7. HISTORY OF HYPERTENSION. BUT PATIENT HAD HYPOTENSION YESTERDAY, REQUIRING BREN-SYNEPHRINE. At present, blood pressure is stable off Bren-Synephrine. 8. HISTORY OF ASTHMA. 9. HISTORY OF PANCREATIC CANCER. 10. HISTORY OF DEPRESSION. 11. HISTORY OF LEFT TOTAL KNEE REPLACEMENT ABOUT 2+ WEEKS AGO. Continue the patient on Xarelto for DVT/PE prophylaxis. Note, 30 minutes were spent on this patient with more than 50% of the time spent on direct patient care and I also reviewed the patient's medications. I discussed the case with the other caregiving providers on the case and coordination of care done and formulated a management plan along with discussions with the other caregiving providers on the case. Note that the patient continues to need highly-complex medical decision making in view of the periodic episodes of hypotension that he had been having yesterday, the patient's paroxysmal atrial fibrillation, and the patient's pneumonia, which by chest x-ray has not improved a lot, but clinically, the patient has shown improvement. Hopefully, the patient will be extubated soon. Thanking you. DICTATING PHYSICIAN: ELIN ZHANG M.D. [id number] PHY#: [id number] ID: [id number] JOB#: [id number] ACCT: [id number] cc: > MTDD
[2017-05-05] MEDS ORDERED: LOPERAMIDE HCL 2 MG CAPSULE NG PRN (20:18)
[2017-05-05] MEDS ORDERED: LOPERAMIDE HCL 2 MG CAPSULE NG ONE (20:30)
[2017-05-06] MEDS: IMIPENEM/CILASTATIN SODIUM 500 MG in NORMAL SALINE 100 ML IV SCH ×5 (00:17→23:15)
[2017-05-06] MEDS: PROPOFOL 100 ML IV PRN ×3 (06:10→20:43)
[2017-05-06] MEDS: LANSOPRAZOLE 30 MG TAB.RAP.DR PO SCH (06:10)
[2017-05-06 06:44] LABS: ARTERIAL BLOOD BASE EXCESS 2.9 mmol/L
[2017-05-06 06:46] LABS: HEMOGLOBIN 10.3 g/dL (13.5-17.0); HGB HCT DIFFERENCE -1.1; MEAN CORPUSCULAR HEMOGLOBIN 28.3 pg (27.0-33.4); MEAN CORPUSCULAR HGB CONC 32.2 g/dL (32.0-36.0); MEAN CORPUSCULAR VOLUME 88 fl (80-97); RED BLOOD COUNT 3.63 10^6/uL (4.35-5.55); WHITE BLOOD COUNT 13.6 10^3/uL (4.0-10.5)
[2017-05-06 07:00] LABS: ANION GAP 6 (5-19); BLOOD UREA NITROGEN 20 mg/dL (7-20); CALCIUM 8.1 mg/dL (8.4-10.2); CARBON DIOXIDE 28 mmol/L (22-30); CHLORIDE 105 mmol/L (98-107); CREATININE RESULT 0.55 mg/dL (0.52-1.25); GLUCOSE 196 mg/dL (75-110); MAGNESIUM 2.3 mg/dL (1.6-2.3); POTASSIUM 4.2 mmol/L (3.6-5.0); SODIUM 139.1 mmol/L (137-145)
--- NOTE | 2017-05-06 07:32 | RADIOLOGY REPORT (SQ) ---
EXAM DESCRIPTION: CHEST SINGLE VIEW COMPLETED DATE/TIME: 05/06/2017 6:33 am REASON FOR STUDY: resp fail COMPARISON: 05/05/2017. EXAM PARAMETERS: NUMBER OF VIEWS: One view. TECHNIQUE: Single frontal radiographic view of the chest acquired. RADIATION DOSE: NA LIMITATIONS: None. FINDINGS: LUNGS AND PLEURA: Moderate lung volumes. Small to moderate interstitial and airspace patc hiness of both lower lung castorena, left more than right. Small obscuration-effusion of left costophre nohemi angle. MEDIASTINUM AND HILAR STRUCTURES: No masses. Contour normal. HEART AND VASCULAR STRUCTURES: Normal cardiac silhouette size. Atherosclerosis. BONES: No acute findings. HARDWARE: Adequate appearing endotracheal tube and likely adequate partially obscured NG tube. OTHER: No other significant finding. IMPRESSION: No significant interval change including bilateral lower lung opacities. Intubated. TECHNICAL DOCUMENTATION: JOB ID: [id number]
[2017-05-06 08:12] LABS: BASOPHILS % (MANUAL) 0 % (0-2); EOSINOPHILS % (MANUAL) 1 % (0-6); LYMPHOCYTES % (MANUAL) 3 % (13-45); TOTAL CELLS COUNTED 100; TOXIC GRANULATION 1+; TOXIC VACUOLATION PRESENT
[2017-05-06 08:13] LABS: ANISOCYTOSIS 2+; HYPOCHROMASIA SLIGHT; PLATELET CLUMPS PRESENT; POLYCHROMASIA SLIGHT
--- NOTE | 2017-05-06 08:43 | PDOC PROGRESS REPORT ---
Subjective Progress Note for:: 05/06/17 Subjective:: Patient remain intubated and vent supported. He continue to demonstrate bronchotracheal secretion. No fever so far today. Remain on IV Primaxin and oral Bactrim coverage. Tolerating tube feeding but hyperglycemia persist. Physical Exam Vital Signs: Temp Pulse Resp BP Pulse Ox 97.9 F 75 16 114/59 L 97 05/06/17 07:56 05/06/17 08:00 05/06/17 07:56 05/06/17 07:56 05/06/17 07:56 Intake & Output 05/05/17 05/06/17 05/07/17 06:59 06:59 06:59 Intake Total 1884 1763 Output Total 1570 1670 125 Balance 314 93 -125 Weight 85 kg 85 kg Physical Exam: Intubed and vent supported ET and OG tubes in situ. Head exam: PRESENT: atraumatic, normocephalic Eye exam: PRESENT: conjunctiva pink, EOMI, PERRLA. ABSENT: scleral icterus Mouth exam: PRESENT: moist Respiratory exam: PRESENT: Clear to auscultation bilaterally, decreased breath sounds - at lung bases Cardiovascular exam: PRESENT: Irregular rhythm. ABSENT: diastolic murmur, rubs , systolic murmur GI/Abdominal exam: PRESENT: distended - but soft, normal bowel sounds, soft. ABSENT: guarding, mass, organomegaly, rebound, tenderness : PRESENT: Indwelling Dozier catheter Extremities exam: ABSENT: pedal edema Neurological exam: PRESENT: altered - sedated on IV Propofol Skin exam: PRESENT: dry, intact, warm. ABSENT: cyanosis, rash Results Laboratory Results: 05/06/17 06:00 05/06/17 06:00 05/06/17 05/06/17 05/06/17 06:00 06:00 06:00 WBC 13.6 H RBC 3.63 L Hgb 10.3 L Hct 32.0 L MCV 88 MCH 28.3 MCHC 32.2 RDW 17.0 H Plt Count 274 Seg Neutrophils % Not Reportable Lymphocytes % Not Reportable Monocytes % Not Reportable Eosinophils % Not Reportable Basophils % Not Reportable Absolute Neutrophils Not Reportable Absolute Lymphocytes Not Reportable Absolute Monocytes Not Reportable Absolute Eosinophils Not Reportable Absolute Basophils Not Reportable Carbonic Acid 1.24 HCO3/H2CO3 Ratio 22:1 ABG pH 7.44 ABG pCO2 41.2 ABG pO2 78.5 L ABG HCO3 27.3 H ABG O2 Saturation 96.0 ABG Base Excess 2.9 FiO2 40% Sodium 139.1 Potassium 4.2 Chloride 105 Carbon Dioxide 28 Anion Gap 6 BUN 20 Creatinine 0.55 Est GFR ( Amer) > 60 Est GFR (Non-Af Amer) > 60 Glucose 196 H Calcium 8.1 L Magnesium 2.3 05/02/17 03:51 Troponin I 0.437 Impressions: Abdomen/Pelvis CT 04/28/17 19:11 IMPRESSION: 1. Basilar pulmonary changes as above. Lower lobe infiltrates bilaterally. 2. No acute or suspicious abdominopelvic abnormality, findings as above. KUB X-Ray 04/29/17 19:35 IMPRESSION: NG tube appears to be in adequate location. Chest X-Ray 05/06/17 06:00 IMPRESSION: No significant interval change including bilateral lower lung opacities. Intubated. Assessment & Plan - Diagnosis (1) Sepsis due to Enterobacter species Is this a current diagnosis for this admission?: Yes (2) Acute respiratory failure Qualifiers: Respiratory failure complication: hypoxia Qualified Code(s): J96.01 - Acute respiratory failure with hypoxia Is this a current diagnosis for this admission?: Yes (3) COPD with acute exacerbation Is this a current diagnosis for this admission?: Yes (4) Pneumonia Qualifiers: Pneumonia type: due to unspecified organism Laterality: bilateral Lung location: lower lobe of lung Qualified Code(s): J18.9 - Pneumonia, unspecified organism Is this a current diagnosis for this admission?: Yes (5) Chronic delirium Is this a current diagnosis for this admission?: Yes (6) Diabetes mellitus type 2 in nonobese Is this a current diagnosis for this admission?: Yes (7) HTN (hypertension) Qualifiers: Hypertension type: essential hypertension Qualified Code(s): I10 - Essential (primary) hypertension Is this a current diagnosis for this admission?: Yes (8) Coronary artery disease Qualifiers: Coronary Disease-Associated Artery/Lesion type: [place] artery [place] vs. transplanted heart: [place] heart Associated angina: without angina Qualified Code(s): I25.10 - Atherosclerotic heart disease of [place] coronary artery without angina pectoris Is this a current diagnosis for this admission?: Yes (9) HLD (hyperlipidemia) Qualifiers: Hyperlipidemia type: pure hypercholesterolemia Qualified Code(s): E78.00 - Pure hypercholesterolemia, unspecified; E78.0 - Pure hypercholesterolemia Is this a current diagnosis for this admission?: Yes (10) Old myocardial infarction Is this a current diagnosis for this admission?: Yes (11) Atrial fibrillation with rapid ventricular response Is this a current diagnosis for this admission?: Yes - Time Time Spent with patient: 25-34 minutes Medications reviewed and adjusted accordingly: Yes Within: Other - Inpatient Certification Based on my medical assessment, after consideration of the patient's comorbidities, presenting symptoms, or acuity I expect that the services needed warrant INPATIENT care.: Yes I certify that my determination is in accordance with my understanding of Medicare's requirements for reasonable and necessary INPATIENT services [42 CFR 412.3e].: Yes Medical Necessity: Need Close Monitoring Due to Risk of Patient Decompensation, Need For IV Fluids, Need For Continuous Telemetry Monitoring, Need for Nebulizer Therapy and Monitoring of Response, Need for IV Antibiotics, Risk of Complication if Not Cared For in Hospital Post Hospital Care: D/C or Transfer Summary - Plan Summary Plan Summary: See attending physician coverage. Increase Levemir insulin to 20 units subcut q12 hours. Maintain on current antibiotic therapy. Follow up on pending culture reports.
[2017-05-06] MEDS: CHOLECALCIFEROL (D3) 1,000 UNIT TABLET PO SCH (09:06)
[2017-05-06] MEDS: SERTRALINE HCL 50 MG TABLET PO SCH (09:06)
[2017-05-06] MEDS: SULFAMETHOXAZOLE/TRIMETHOPRIM 800-160 MG/20 ML UDCUP NG SCH ×2 (09:08→21:42)
[2017-05-06] MEDS: SOTALOL HCL 80 MG TABLET NG SCH ×2 (09:08→21:41)
[2017-05-06] MEDS: CYANOCOBALAMIN (VITAMIN B-12) 1,000 MCG TABLET PO SCH (09:08)
[2017-05-06] MEDS: DIGOXIN INJ 0.5 MG/2 ML AMPULE IV SCH (09:13)
[2017-05-06] MEDS: INSULIN DETEMIR 100 UNIT/ML 3 ML PEN SUBCUT SCH ×2 (09:24→21:42)
[2017-05-06] MEDS: INSULIN LISPRO 100 UNIT/ML 3 ML VIAL SUBCUT PRN ×2 (09:25→14:23)
--- NOTE | 2017-05-06 11:59 | PROGRESS NOTE E ---
Progress Note NAME: BRUCE KNOTT : 1935 AGE: 82Y DATE: 05/06/2017 ROOM: 612 SUBJECTIVE: The patient continues to be intubated and sedated. There is no recurrence of atrial fibrillation. There is no ventricular arrhythmia seen. There is no AV blocks or pauses seen. There is no sotalol-induced ventricular tachycardia or ventricular arrhythmia seen. Note that the patient is not on any pressors and is maintaining his blood pressure on his own. PHYSICAL EXAMINATION: GENERAL: The patient is well built and well nourished. He is not fighting the ventilator. There is no accessory muscles of respiration in use. VITAL SIGNS: He is afebrile with a temperature of 97.9 degrees Fahrenheit. Pulse is 78 beats per minute. Blood pressure is 114/59. Respirations are 16 per minute. O2 sats are 97% on a mechanical ventilator with an FIO2 of 40%. HEENT: Head is atraumatic, normocephalic. Eyes - Pupils are equal, round, regular, reactive to light. ENT is negative. NECK: Supple. There is no JVD. Carotids are equal. There is no bruit. There is no goiter. There is no lymphadenopathy. LUNGS: Continue to show bibasilar crackles of pneumonia, left greater than right. There is no evidence of congestive heart failure. The rest of the lungs show diminished air entry and prolonged expiration throughout the rest of the lungs and hyperresonance to percussion throughout the lung castorena. Note, there is no rhonchi or wheezing. HEART: S1, S2 is heard. S1 is of normal intensity. There is no S3 gallop. There is no S4 gallop. There is a systolic murmur at the left sternal border and the apex. There is no rubs. ABDOMEN: Soft. There is no hepatosplenomegaly. Bowel sounds are well heard. EXTREMITIES: Femorals are diminished. There are no femoral bruits. Leg pulses are diminished. There is no pedal edema. There is no DVT or cellulitis. There is no cyanosis or clubbing. Capillary refill is normal. CENTRAL NERVOUS SYSTEM/PSYCHIATRIC: Not examined since the patient is intubated and sedated. DIAGNOSTICS: The patient's 24-hour intake is 1760 mL. Output is 1670 mL. The patient's white count is 13,600, hemoglobin is 10.3, hematocrit is 32, and the platelet count is 274,000. The patient's sodium is 139, potassium 4.2, chloride 105, CO2 is 28. The patient's BUN is 20, creatinine 0.55, GFR is greater than 60, glucose is 106, calcium is 8.1, magnesium is 2.3. The patient's ABG shows a pH of 7.44, PCO2 is 41.2, PO2 is low at 78.5, O2 sats are 96% on FIO2 40%. The patient's chest x-ray shows no significant changes in the bilateral lower lung apices, left greater than right, due to pneumonia. There is no evidence of congestive heart failure. I have reviewed the x-ray by myself. IMPRESSION AND PLAN: 1. PAROXYSMAL ATRIAL FIBRILLATION, PRESENTLY SINUS RHYTHM. Continue the patient on sotalol. The patient is tolerating sotalol well. Continue Xarelto. Continue digoxin. Will check a digoxin level in the morning. 2. ACUTE RESPIRATORY FAILURE WITH HYPOXIA, IMPROVED BUT STILL PATIENT ON THE VENTILATOR. Continue ventilator support and oxygen. 3. BILATERAL BASAL PNEUMONIA, IMPROVED CLINICALLY, BUT CHEST X-RAY DOES NOT SHOW ANY IMPROVEMENT. Continue antibiotics. Continue ventilatory support. Continue anti-COPD medication. 4. COPD, AT PRESENT NO EVIDENCE OF ACUTE EXACERBATION, BACK TO BASELINE. Continue nebulizer treatment. Continue antibiotics. 5. CORONARY ARTERY DISEASE, HISTORY OF OLD MYOCARDIAL INFARCTION. Patient's troponin I is negative. Patient later will be recommended to have an IV Lexiscan stress test once the patient is extubated and close back to his baseline with regards to his multiple medical comorbidities. 6. DIABETES MELLITUS, TYPE 2, NONINSULIN DEPENDENT. Blood sugar well controlled. 7. HYPERTENSION. Blood pressure well controlled off any pressors. The patient is tolerating his sotalol. 8. HISTORY OF ASTHMA. No evidence of acute exacerbation of asthma. 9. HISTORY OF PANCREATIC CANCER. 10. HISTORY OF DEPRESSION. 11. HISTORY OF TOTAL KNEE REPLACEMENT OVER 2+ WEEKS AGO. Continue the patient on Xarelto for DVT prophylaxis. NOTE: Thirty minutes were spent on this patient with more than 50% of the time spent on direct patient care. His medications have been reviewed. New lab tests have been ordered. Note, this involves moderately complex medical decision making. Will follow with you. DICTATING PHYSICIAN: ELIN ZHANG M.D. [id number] PHY#: [id number] ID: [id number] JOB#: [id number] ACCT: [id number] cc: >
--- NOTE | 2017-05-06 14:09 | PDOC PROGRESS REPORT ---
Subjective Progress Note for:: 05/05/17 Subjective:: intubated sedated Weaning trials will begin to last a little bit long Physical Exam Vital Signs: Temp Pulse Resp BP Pulse Ox 99.0 F 92 21 H 112/64 92 05/05/17 10:00 05/05/17 10:00 05/05/17 10:30 05/05/17 10:11 05/05/17 10:30 Intake & Output 05/04/17 05/05/17 05/06/17 06:59 06:59 06:59 Intake Total 1107 1884 Output Total 1700 1570 340 Balance -593 314 -340 Weight 84.5 kg 85 kg General appearance: PRESENT: no acute distress, disheveled, obese Head exam: PRESENT: atraumatic, normocephalic Eye exam: PRESENT: conjunctiva pale, EOMI Mouth exam: PRESENT: dry mucosa, neck supple, tongue midline, other - ET tube in place Neck exam: ABSENT: carotid bruit, JVD, lymphadenopathy, thyromegaly Respiratory exam: PRESENT: crackles, decreased breath sounds, prolonged expiratory phas, rhonchi, symmetrical - Bibasilar, unlabored Cardiovascular exam: PRESENT: RRR, +S1, +S2 Pulses: PRESENT: normal radial pulses GI/Abdominal exam: PRESENT: normal bowel sounds, soft. ABSENT: distended, guarding, mass, organolmegaly, rebound, tenderness Rectal exam: PRESENT: deferred Gentrourinary exam: PRESENT: indwelling catheter Musculoskeletal exam: PRESENT: normal inspection Skin exam: PRESENT: dry, warm Results Laboratory Results: 05/05/17 04:06 05/05/17 04:06 05/05/17 05/05/17 05/05/17 04:06 04:06 06:05 WBC 11.8 H RBC 3.79 L Hgb 10.8 L Hct 33.4 L MCV 88 MCH 28.4 MCHC 32.3 RDW 16.5 H Plt Count 317 Seg Neutrophils % Not Reportable Lymphocytes % Not Reportable Monocytes % Not Reportable Eosinophils % Not Reportable Basophils % Not Reportable Absolute Neutrophils Not Reportable Absolute Lymphocytes Not Reportable Absolute Monocytes Not Reportable Absolute Eosinophils Not Reportable Absolute Basophils Not Reportable Carbonic Acid 1.25 HCO3/H2CO3 Ratio 23:1 ABG pH 7.47 H ABG pCO2 41.4 ABG pO2 90.9 ABG HCO3 29.7 H ABG O2 Saturation 97.4 ABG Base Excess 5.6 FiO2 60% Sodium 139.6 Potassium 4.2 Chloride 104 Carbon Dioxide 29 Anion Gap 7 BUN 27 H Creatinine 0.73 Est GFR ( Amer) > 60 Est GFR (Non-Af Amer) > 60 Glucose 227 H Calcium 8.1 L Magnesium 2.5 H 05/02/17 03:51 Troponin I 0.437 Impressions: Abdomen/Pelvis CT 04/28/17 19:11 IMPRESSION: 1. Basilar pulmonary changes as above. Lower lobe infiltrates bilaterally. 2. No acute or suspicious abdominopelvic abnormality, findings as above. KUB X-Ray 04/29/17 19:35 IMPRESSION: NG tube appears to be in adequate location. Chest X-Ray 05/05/17 06:00 IMPRESSION: No significant interval change. Assessment & Plan - Diagnosis (1) COPD with acute exacerbation Is this a current diagnosis for this admission?: YesPlan: Improving oxygenation and ventilation (2) Dehydration Is this a current diagnosis for this admission?: Yes (3) Pneumonia Qualifiers: Pneumonia type: due to unspecified organism Laterality: bilateral Lung location: lower lobe of lung Qualified Code(s): J18.9 - Pneumonia, unspecified organism Is this a current diagnosis for this admission?: YesPlan: Gram-positive cocci and bronchoalveolar lavage and. Sputum as well (4) GERD (gastroesophageal reflux disease) Qualifiers: Esophagitis presence: without esophagitis Qualified Code(s): K21.9 - Gastro-esophageal reflux disease without esophagitis Is this a current diagnosis for this admission?: Yes - Time Critical Time spent with patient: 25-34 minutes
--- NOTE | 2017-05-06 14:12 | PDOC PROGRESS REPORT ---
Subjective Progress Note for:: 05/06/17 Subjective:: intubated sedated Physical Exam Vital Signs: Temp Pulse Resp BP Pulse Ox 97.9 F 75 16 114/59 L 97 05/06/17 07:56 05/06/17 08:00 05/06/17 07:56 05/06/17 07:56 05/06/17 07:56 Intake & Output 05/05/17 05/06/17 05/07/17 06:59 06:59 06:59 Intake Total 1884 1763 Output Total 1570 1670 125 Balance 314 93 -125 Weight 85 kg 85 kg General appearance: PRESENT: no acute distress, disheveled, obese Head exam: PRESENT: atraumatic, normocephalic Eye exam: PRESENT: conjunctiva pale Mouth exam: PRESENT: dry mucosa, neck supple, tongue midline, other - ET tube in place Neck exam: ABSENT: carotid bruit, JVD, lymphadenopathy, thyromegaly Respiratory exam: PRESENT: crackles, decreased breath sounds, prolonged expiratory phas, rhonchi, symmetrical - Bibasilar, unlabored Cardiovascular exam: PRESENT: RRR, +S1, +S2 Pulses: PRESENT: normal radial pulses GI/Abdominal exam: PRESENT: normal bowel sounds, soft. ABSENT: distended, guarding, mass, organolmegaly, rebound, tenderness Rectal exam: PRESENT: deferred Gentrourinary exam: PRESENT: indwelling catheter Musculoskeletal exam: PRESENT: normal inspection Skin exam: PRESENT: dry, warm Results Laboratory Results: 05/06/17 06:00 05/06/17 06:00 05/06/17 05/06/17 05/06/17 06:00 06:00 06:00 WBC 13.6 H RBC 3.63 L Hgb 10.3 L Hct 32.0 L MCV 88 MCH 28.3 MCHC 32.2 RDW 17.0 H Plt Count 274 Seg Neutrophils % Not Reportable Lymphocytes % Not Reportable Monocytes % Not Reportable Eosinophils % Not Reportable Basophils % Not Reportable Absolute Neutrophils Not Reportable Absolute Lymphocytes Not Reportable Absolute Monocytes Not Reportable Absolute Eosinophils Not Reportable Absolute Basophils Not Reportable Carbonic Acid 1.24 HCO3/H2CO3 Ratio 22:1 ABG pH 7.44 ABG pCO2 41.2 ABG pO2 78.5 L ABG HCO3 27.3 H ABG O2 Saturation 96.0 ABG Base Excess 2.9 FiO2 40% Sodium 139.1 Potassium 4.2 Chloride 105 Carbon Dioxide 28 Anion Gap 6 BUN 20 Creatinine 0.55 Est GFR ( Amer) > 60 Est GFR (Non-Af Amer) > 60 Glucose 196 H Calcium 8.1 L Magnesium 2.3 05/02/17 03:51 Troponin I 0.437 Impressions: Abdomen/Pelvis CT 04/28/17 19:11 IMPRESSION: 1. Basilar pulmonary changes as above. Lower lobe infiltrates bilaterally. 2. No acute or suspicious abdominopelvic abnormality, findings as above. KUB X-Ray 04/29/17 19:35 IMPRESSION: NG tube appears to be in adequate location. Chest X-Ray 05/06/17 06:00 IMPRESSION: No significant interval change including bilateral lower lung opacities. Intubated. Assessment & Plan - Diagnosis (1) COPD with acute exacerbation Is this a current diagnosis for this admission?: YesPlan: Still very weak (2) Dehydration Is this a current diagnosis for this admission?: Yes (3) Pneumonia Qualifiers: Pneumonia type: due to unspecified organism Laterality: bilateral Lung location: lower lobe of lung Qualified Code(s): J18.9 - Pneumonia, unspecified organism Is this a current diagnosis for this admission?: YesPlan: Gram-positive cocci bronchoalveolar lavage fluid and sputum (4) GERD (gastroesophageal reflux disease) Qualifiers: Esophagitis presence: without esophagitis Qualified Code(s): K21.9 - Gastro-esophageal reflux disease without esophagitis Is this a current diagnosis for this admission?: Yes - Time Critical Time spent with patient: 35 or more minutes - Plan Summary Plan Summary: Discussed at length this current situation with spouse who is willing to proceed with a second bronchoscopy if necessary within the next 48 hours
[2017-05-06] MEDS: CETIRIZINE 10 MG TABLET PO SCH (18:57)
[2017-05-06] MEDS: RIVAROXABAN 10 MG TABLET PO SCH (21:42)
[2017-05-07] MEDS: PROPOFOL 100 ML IV PRN ×3 (03:27→18:34)
[2017-05-07 04:09] LABS: ABSOLUTE LYMPHOCYTES (AUTO) 0.9 10^3/uL (0.5-4.7); ABSOLUTE MONOCYTES (AUTO) 0.8 10^3/uL (0.1-1.4); ABSOLUTE NEUT (AUTO) 11.9 10^3/uL (1.7-8.2); BASOPHILS % (AUTO) 0.4 % (0-2); EOSINOPHILS % (AUTO) 0.3 % (0-6); HEMATOCRIT 33.6 % (37.9-51.0); HEMOGLOBIN 10.5 g/dL (13.5-17.0); HGB HCT DIFFERENCE -2.1; LYMPHOCYTES % (AUTO) 6.3 % (13-45); MEAN CORPUSCULAR HEMOGLOBIN 27.8 pg (27.0-33.4); MEAN CORPUSCULAR HGB CONC 31.3 g/dL (32.0-36.0); MEAN CORPUSCULAR VOLUME 89 fl (80-97); MONOCYTES % (AUTO) 5.8 % (3-13); RED BLOOD COUNT 3.78 10^6/uL (4.35-5.55); RED CELL DISTRIBUTION WIDTH 16.9 % (11.5-14.0); SEGMENTED NEUTROPHILS % (AUTO) 87.2 % (42-78); WHITE BLOOD COUNT 13.6 10^3/uL (4.0-10.5)
[2017-05-07 04:24] LABS: ANION GAP 6 (5-19); BLOOD UREA NITROGEN 21 mg/dL (7-20); CALCIUM 8.3 mg/dL (8.4-10.2); CARBON DIOXIDE 30 mmol/L (22-30); CHLORIDE 103 mmol/L (98-107); CREATININE RESULT 0.59 mg/dL (0.52-1.25); DIGOXIN 0.99 ng/mL (0.8-2.0); GLUCOSE 171 mg/dL (75-110); MAGNESIUM 2.4 mg/dL (1.6-2.3); PHOSPHORUS 3.9 mg/dL (2.5-4.5); POTASSIUM 4.6 mmol/L (3.6-5.0); SODIUM 139.2 mmol/L (137-145)
[2017-05-07] MEDS: LANSOPRAZOLE 30 MG TAB.RAP.DR PO SCH (05:27)
[2017-05-07] MEDS: IMIPENEM/CILASTATIN SODIUM 500 MG in NORMAL SALINE 100 ML IV SCH ×3 (05:27→18:21)
[2017-05-07 05:36] LABS: ARTERIAL BLOOD BASE EXCESS 7.8 mmol/L; ARTERIAL BLOOD O2 SATURATION 96.6 % (94-98)
[2017-05-07] MEDS: INSULIN LISPRO 100 UNIT/ML 3 ML VIAL SUBCUT PRN ×3 (06:17→18:21)
--- NOTE | 2017-05-07 06:55 | RADIOLOGY REPORT (SQ) ---
EXAM DESCRIPTION: CHEST SINGLE VIEW COMPLETED DATE/TIME: 05/07/2017 6:41 am REASON FOR STUDY: pna COMPARISON: 05/06/2017. EXAM PARAMETERS: NUMBER OF VIEWS: One view. TECHNIQUE: Single frontal radiographic view of the chest acquired. RADIATION DOSE: NA LIMITATIONS: None. FINDINGS: LUNGS AND PLEURA: Mild interstitial markings. Small patchiness of the right lower lobe. MEDIASTINUM AND HILAR STRUCTURES: No masses. Contour normal. HEART AND VASCULAR STRUCTURES: Heart normal in size. Normal vasculature. BONES: No acute findings. HARDWARE: Adequate appearing endotracheal tube and partially imaged NG tube. OTHER: No other significant finding. IMPRESSION: No significant interval change. Lines and tubes. TECHNICAL DOCUMENTATION: JOB ID: [id number]
--- NOTE | 2017-05-07 07:48 | PDOC PROGRESS REPORT ---
Subjective Progress Note for:: 05/07/17 Subjective:: Patient remain intubated and vent supported. No reported significant fever. Tolerating eneteral tube feeding. There is persistent of significant bronchotracheal secretion with plan for repeat toilet bronchoscopy later today. Remain on IV Primaxin and oral Bactrim coverage. There is some improvement in his heart rate and rhythm management on current therapy. Hyperglycemia is fairly controlled on current insulin regimen. Physical Exam Vital Signs: Temp Pulse Resp BP Pulse Ox 99.5 F 88 16 112/62 96 05/07/17 04:00 05/06/17 20:00 05/07/17 06:00 05/07/17 05:42 05/07/17 06:00 Intake & Output 05/06/17 05/07/17 05/08/17 06:59 06:59 06:59 Intake Total 1763 1489 Output Total 1670 1750 Balance 93 -261 Weight 85.6 kg Physical Exam: Intubed and vent supported ET and OG tubes in situ. Head exam: PRESENT: atraumatic, normocephalic Eye exam: PRESENT: conjunctiva pink, EOMI, PERRLA. ABSENT: scleral icterus Mouth exam: PRESENT: moist Respiratory exam: PRESENT: Clear to auscultation bilaterally, decreased breath sounds - at lung bases Cardiovascular exam: PRESENT: Irregular rhythm. ABSENT: diastolic murmur, rubs , systolic murmur GI/Abdominal exam: PRESENT: distended - but soft, normal bowel sounds, soft. ABSENT: guarding, mass, organomegaly, rebound, tenderness : PRESENT: Indwelling Dozier catheter Extremities exam: ABSENT: pedal edema Neurological exam: PRESENT: altered - sedated on IV Propofol but awake enough to follow simple commands at the time of my evaluation this morning. Skin exam: PRESENT: dry, intact, warm. ABSENT: cyanosis, rash Results Laboratory Results: 05/07/17 03:47 05/07/17 03:47 05/06/17 05/07/17 05/07/17 06:00 03:47 03:47 WBC 13.6 H 13.6 H RBC 3.63 L 3.78 L Hgb 10.3 L 10.5 L Hct 32.0 L 33.6 L MCV 88 89 MCH 28.3 27.8 MCHC 32.2 31.3 L RDW 17.0 H 16.9 H Plt Count 274 243 Seg Neutrophils % 87.2 H Lymphocytes % 6.3 L Monocytes % 5.8 Eosinophils % 0.3 Basophils % 0.4 Absolute Neutrophils 11.9 H Absolute Lymphocytes 0.9 Absolute Monocytes 0.8 Absolute Eosinophils 0.0 Absolute Basophils 0.0 Carbonic Acid HCO3/H2CO3 Ratio ABG pH ABG pCO2 ABG pO2 ABG HCO3 ABG O2 Saturation ABG Base Excess FiO2 Sodium 139.2 Potassium 4.6 Chloride 103 Carbon Dioxide 30 Anion Gap 6 BUN 21 H Creatinine 0.59 Est GFR ( Amer) > 60 Est GFR (Non-Af Amer) > 60 Glucose 171 H Calcium 8.3 L Phosphorus 3.9 Magnesium 2.4 H 05/07/17 05:07 WBC RBC Hgb Hct MCV MCH MCHC RDW Plt Count Seg Neutrophils % Lymphocytes % Monocytes % Eosinophils % Basophils % Absolute Neutrophils Absolute Lymphocytes Absolute Monocytes Absolute Eosinophils Absolute Basophils Carbonic Acid 1.19 HCO3/H2CO3 Ratio 26:1 ABG pH 7.52 H ABG pCO2 39.4 ABG pO2 77.7 L ABG HCO3 31.3 H ABG O2 Saturation 96.6 ABG Base Excess 7.8 FiO2 40% Sodium Potassium Chloride Carbon Dioxide Anion Gap BUN Creatinine Est GFR ( Amer) Est GFR (Non-Af Amer) Glucose Calcium Phosphorus Magnesium 05/02/17 03:51 Troponin I 0.437 Impressions: Abdomen/Pelvis CT 04/28/17 19:11 IMPRESSION: 1. Basilar pulmonary changes as above. Lower lobe infiltrates bilaterally. 2. No acute or suspicious abdominopelvic abnormality, findings as above. KUB X-Ray 04/29/17 19:35 IMPRESSION: NG tube appears to be in adequate location. Chest X-Ray 05/07/17 06:00 IMPRESSION: No significant interval change. Lines and tubes. Assessment & Plan - Diagnosis (1) Sepsis due to Enterobacter species Is this a current diagnosis for this admission?: Yes (2) Acute respiratory failure Qualifiers: Respiratory failure complication: hypoxia Qualified Code(s): J96.01 - Acute respiratory failure with hypoxia Is this a current diagnosis for this admission?: Yes (3) COPD with acute exacerbation Is this a current diagnosis for this admission?: Yes (4) Pneumonia Qualifiers: Pneumonia type: due to unspecified organism Laterality: bilateral Lung location: lower lobe of lung Qualified Code(s): J18.9 - Pneumonia, unspecified organism Is this a current diagnosis for this admission?: Yes (5) Chronic delirium Is this a current diagnosis for this admission?: Yes (6) Diabetes mellitus type 2 in nonobese Is this a current diagnosis for this admission?: Yes (7) HTN (hypertension) Qualifiers: Hypertension type: essential hypertension Qualified Code(s): I10 - Essential (primary) hypertension Is this a current diagnosis for this admission?: Yes (8) Coronary artery disease Qualifiers: Coronary Disease-Associated Artery/Lesion type: [place] artery [place] vs. transplanted heart: [place] heart Associated angina: without angina Qualified Code(s): I25.10 - Atherosclerotic heart disease of [place] coronary artery without angina pectoris Is this a current diagnosis for this admission?: Yes (9) HLD (hyperlipidemia) Qualifiers: Hyperlipidemia type: pure hypercholesterolemia Qualified Code(s): E78.00 - Pure hypercholesterolemia, unspecified; E78.0 - Pure hypercholesterolemia Is this a current diagnosis for this admission?: Yes (10) Old myocardial infarction Is this a current diagnosis for this admission?: Yes (11) Atrial fibrillation with rapid ventricular response Is this a current diagnosis for this admission?: Yes - Time Time Spent with patient: 25-34 minutes Medications reviewed and adjusted accordingly: Yes Anticipated discharge: SNF Within: Other - Inpatient Certification Medical Necessity: Need Close Monitoring Due to Risk of Patient Decompensation, Need For IV Fluids, Need For Continuous Telemetry Monitoring, Need for Nebulizer Therapy and Monitoring of Response, Need for IV Antibiotics, Risk of Complication if Not Cared For in Hospital Post Hospital Care: D/C or Transfer Summary - Plan Summary Plan Summary: See attending physician orders.
[2017-05-07] MEDS: CHOLECALCIFEROL (D3) 1,000 UNIT TABLET PO SCH (11:48)
[2017-05-07] MEDS: SULFAMETHOXAZOLE/TRIMETHOPRIM 800-160 MG/20 ML UDCUP NG SCH ×2 (11:48→21:12)
[2017-05-07] MEDS: CYANOCOBALAMIN (VITAMIN B-12) 1,000 MCG TABLET PO SCH (11:48)
[2017-05-07] MEDS: SERTRALINE HCL 50 MG TABLET PO SCH (11:48)
[2017-05-07] MEDS: DIGOXIN INJ 0.5 MG/2 ML AMPULE IV SCH (11:51)
[2017-05-07] MEDS: SOTALOL HCL 80 MG TABLET NG SCH ×2 (11:51→21:12)
[2017-05-07] MEDS: INSULIN DETEMIR 100 UNIT/ML 3 ML PEN SUBCUT SCH ×2 (11:53→21:13)
[2017-05-07] MEDS: MORPHINE SULFATE 10 MG/ML INJ IV PRN (13:11)
--- NOTE | 2017-05-07 14:33 | PDOC PROGRESS REPORT ---
Subjective Progress Note for:: 05/07/17 Subjective:: intubated sedated Physical Exam Vital Signs: Temp Pulse Resp BP Pulse Ox 99.1 F 57 L 16 155/76 H 93 05/07/17 08:00 05/07/17 08:00 05/07/17 08:00 05/07/17 08:00 05/07/17 08:31 Intake & Output 05/06/17 05/07/17 05/08/17 06:59 06:59 06:59 Intake Total 1763 1489 Output Total 1670 1750 100 Balance 93 -261 -100 Weight 85.6 kg General appearance: PRESENT: no acute distress, disheveled, obese, well- developed, well-nourished Head exam: PRESENT: atraumatic, normocephalic Eye exam: PRESENT: conjunctiva pale Mouth exam: PRESENT: dry mucosa, neck supple, tongue midline, other - ET tube in place Neck exam: ABSENT: carotid bruit, JVD, lymphadenopathy, thyromegaly Respiratory exam: PRESENT: decreased breath sounds, prolonged expiratory phas, rhonchi, symmetrical, wheezes Cardiovascular exam: PRESENT: RRR, +S1, +S2 Pulses: PRESENT: normal radial pulses GI/Abdominal exam: PRESENT: normal bowel sounds, soft. ABSENT: distended, guarding, mass, organolmegaly, rebound, tenderness Rectal exam: PRESENT: deferred Gentrourinary exam: PRESENT: indwelling catheter Musculoskeletal exam: PRESENT: normal inspection Skin exam: PRESENT: dry, warm Results Laboratory Results: 05/07/17 03:47 05/07/17 03:47 05/06/17 05/07/17 05/07/17 06:00 03:47 03:47 WBC 13.6 H 13.6 H RBC 3.63 L 3.78 L Hgb 10.3 L 10.5 L Hct 32.0 L 33.6 L MCV 88 89 MCH 28.3 27.8 MCHC 32.2 31.3 L RDW 17.0 H 16.9 H Plt Count 274 243 Seg Neutrophils % 87.2 H Lymphocytes % 6.3 L Monocytes % 5.8 Eosinophils % 0.3 Basophils % 0.4 Absolute Neutrophils 11.9 H Absolute Lymphocytes 0.9 Absolute Monocytes 0.8 Absolute Eosinophils 0.0 Absolute Basophils 0.0 Carbonic Acid HCO3/H2CO3 Ratio ABG pH ABG pCO2 ABG pO2 ABG HCO3 ABG O2 Saturation ABG Base Excess FiO2 Sodium 139.2 Potassium 4.6 Chloride 103 Carbon Dioxide 30 Anion Gap 6 BUN 21 H Creatinine 0.59 Est GFR ( Amer) > 60 Est GFR (Non-Af Amer) > 60 Glucose 171 H Calcium 8.3 L Phosphorus 3.9 Magnesium 2.4 H 05/07/17 05:07 WBC RBC Hgb Hct MCV MCH MCHC RDW Plt Count Seg Neutrophils % Lymphocytes % Monocytes % Eosinophils % Basophils % Absolute Neutrophils Absolute Lymphocytes Absolute Monocytes Absolute Eosinophils Absolute Basophils Carbonic Acid 1.19 HCO3/H2CO3 Ratio 26:1 ABG pH 7.52 H ABG pCO2 39.4 ABG pO2 77.7 L ABG HCO3 31.3 H ABG O2 Saturation 96.6 ABG Base Excess 7.8 FiO2 40% Sodium Potassium Chloride Carbon Dioxide Anion Gap BUN Creatinine Est GFR ( Amer) Est GFR (Non-Af Amer) Glucose Calcium Phosphorus Magnesium 05/02/17 03:51 Troponin I 0.437 Impressions: Abdomen/Pelvis CT 04/28/17 19:11 IMPRESSION: 1. Basilar pulmonary changes as above. Lower lobe infiltrates bilaterally. 2. No acute or suspicious abdominopelvic abnormality, findings as above. KUB X-Ray 04/29/17 19:35 IMPRESSION: NG tube appears to be in adequate location. Chest X-Ray 05/07/17 06:00 IMPRESSION: No significant interval change. Lines and tubes. Assessment & Plan - Diagnosis (1) COPD with acute exacerbation Is this a current diagnosis for this admission?: Yes (2) Dehydration Is this a current diagnosis for this admission?: Yes (3) Pneumonia Qualifiers: Pneumonia type: due to unspecified organism Laterality: bilateral Lung location: lower lobe of lung Qualified Code(s): J18.9 - Pneumonia, unspecified organism Is this a current diagnosis for this admission?: Yes (4) GERD (gastroesophageal reflux disease) Qualifiers: Esophagitis presence: without esophagitis Qualified Code(s): K21.9 - Gastro-esophageal reflux disease without esophagitis Is this a current diagnosis for this admission?: Yes - Time Critical Time spent with patient: 25-34 minutes
[2017-05-07] MEDS: CETIRIZINE 10 MG TABLET PO SCH (18:21)
--- NOTE | 2017-05-07 19:04 | PROGRESS NOTE E ---
Progress Note NAME: BRUCE KNOTT : 1935 AGE: 82Y DATE: 05/07/2017 ROOM: 612 SUBJECTIVE: The patient continues to be intubated and sedated. There is no recurrence of atrial fibrillation. The patient remains in sinus rhythm. There are no arrhythmias on sotalol. There is no ventricular arrhythmia seen. Note the patient is off all pressors and is maintaining blood pressure on his own. OBJECTIVE: GENERAL: On examination the patient is well built and well nourished. He is not fighting the ventilator. There are no accessory muscles of respiration being used. VITAL SIGNS: He is afebrile with a temperature of 98.6 degrees Fahrenheit. Pulse is 71 beats per minute. Blood pressure 107/55. Respirations are 15 per minute. O2 saturations are 92% on the mechanical ventilator on an FIO2 of 40%. HEAD: Atraumatic/normocephalic. EYES: Pupils are equal, round, regular, reactive to light. EARS, NOSE, AND THROAT: Negative. NECK: Supple. There is no JVD. Carotids are equal. There is no bruit. There is no goiter. There is no lymphadenopathy. LUNGS: Continue to show bibasilar crackles of pneumonia left greater than right. There is no evidence of congestive heart failure. The rest of the lungs show diminished air entry and prolonged expiration throughout the rest of the lungs and hyperresonance to percussion throughout the lung [place]. There is no rhonchi or wheezing. HEART: S1, S2 is heard. S1 is of normal intensity. There is no S3 gallop. There is no S4 gallop. There is a systolic murmur in the left sternal border and the apex. There is no rub. ABDOMEN: Soft. There is no hepatosplenomegaly. Bowel sounds are well heard. EXTREMITIES: Femorals are diminished. There is no femoral bruit. Leg pulses are diminished. There is no pedal edema. There is no DVT or cellulitis. There is no cyanosis or clubbing. Capillary refill is normal. CENTRAL NERVOUS SYSTEM AND PSYCHIATRIC: Not examined since the patient is intubated and sedated. FLUID BALANCE: The patient's 24-hour intake is 1489 mL, output is 1750 mL. DIAGNOSTIC DATA: The patient's chest x-ray shows patchiness in the right lower lobe, and also there is some mild interstitial prominence in the left lower lobe. There is not much significant change. There is no evidence of congestive heart failure. The patient's white count is 13,600, hemoglobin is 10.5, hematocrit is 33.6, platelet count is 243,000. The patient's sodium is 139.2, potassium 4.6, chloride is 103, CO2 is 30, the patient's BUN is 21, creatinine 0.59, GFR is greater than 60, glucose is 171. His calcium is 8.3. His phosphorous is 3.9, magnesium is 2.4. The patient's ABG shows a pH of 7.52, pCO2 is normal at 39.4, pO2 is low at 77.7, and the O2 saturations are 96.6 on an FIO2 of 40%. Of note, the patient's Digoxin level is 0.99. IMPRESSION: 1. PAROXYSMAL ATRIAL FIBRILLATION. Presently in sinus rhythm. Continue sotalol and continue Digoxin. The patient's Digoxin level is low-therapeutic level. There are no arrhythmias on sotalol. Also continue Xarelto at 15 mg p.o. daily for stroke prophylaxis. 2. ACUTE RESPIRATORY FAILURE WITH HYPOXIA. Improved but the patient is still on the ventilator and still has evidence of pneumonia. 3. BILATERAL BASAL PNEUMONIA. Improved clinically but the chest x-ray still shows infiltrates. Continue ventilatory support. Continue antibiotics. 4. COPD. Baseline. No evidence of acute exacerbation. 5. DIABETES MELLITUS TYPE 2. Non-insulin dependent. Blood sugar is fairly well controlled. 6. HYPERTENSION. Blood pressure is normal off pressors. 7. HISTORY OF ASTHMA. No evidence of acute exacerbation of asthma. 8. HISTORY OF PANCREATIC CANCER. Seems to be stable. 9. HISTORY OF DEPRESSION. 10. HISTORY OF TOTAL KNEE REPLACEMENT ABOUT 2+ WEEKS AGO. Continue the patient on Xarelto for DVT/PE prophylaxis. RECOMMENDATIONS: Continue current therapy as mentioned earlier. Continue antibiotics. Continue sotalol. Continue Digoxin. Continue Xarelto. Continue respiratory treatments and antibiotics. Continue ventilatory support. Note, 35 minutes were spent on this patient with more than 50% of the time spent on direct patient care. Note, I discussed the case with the attending physician and formulated a plan. His medications have been reviewed, and discussed the plan of care with the attending physician. Note, this involved moderate complexity in the medical decision making. Cardiac status is stable. Will sign off. Please call if Cardiology services are needed. DICTATING PHYSICIAN: ELIN ZHANG M.D. [id number] PHY#: [id number] ID: [id number] JOB#: [id number] ACCT: [id number] cc:ELIN ZHANG M.D. >
[2017-05-07] MEDS: RIVAROXABAN 10 MG TABLET PO SCH (21:13)
[2017-05-08] MEDS: IMIPENEM/CILASTATIN SODIUM 500 MG in NORMAL SALINE 100 ML IV SCH ×5 (00:01→23:52)
[2017-05-08] MEDS: PROPOFOL 100 ML IV PRN ×3 (01:41→21:53)
[2017-05-08 04:28] LABS: ABSOLUTE LYMPHOCYTES (AUTO) 0.7 10^3/uL (0.5-4.7); ABSOLUTE MONOCYTES (AUTO) 0.7 10^3/uL (0.1-1.4); ABSOLUTE NEUT (AUTO) 9.3 10^3/uL (1.7-8.2); BASOPHILS % (AUTO) 0.2 % (0-2); EOSINOPHILS % (AUTO) 0.2 % (0-6); LYMPHOCYTES % (AUTO) 6.7 % (13-45); MEAN CORPUSCULAR HEMOGLOBIN 28.4 pg (27.0-33.4); MEAN CORPUSCULAR HGB CONC 32.1 g/dL (32.0-36.0); MEAN CORPUSCULAR VOLUME 88 fl (80-97); MONOCYTES % (AUTO) 6.8 % (3-13); RED BLOOD COUNT 3.51 10^6/uL (4.35-5.55); RED CELL DISTRIBUTION WIDTH 16.4 % (11.5-14.0); SEGMENTED NEUTROPHILS % (AUTO) 86.1 % (42-78); WHITE BLOOD COUNT 10.8 10^3/uL (4.0-10.5)
[2017-05-08 04:52] LABS: ALANINE AMINOTRANSFERASE 36 U/L (21-72); ALBUMIN 2.3 g/dL (3.5-5.0); ALKALINE PHOSPHATASE 129 U/L (38-126); ANION GAP 7 (5-19); ASPARTATE AMINO TRANSFERASE 38 U/L (17-59); BILIRUBIN,DIRECT 0.3 mg/dL (0.0-0.4); BILIRUBIN,TOTAL 0.5 mg/dL (0.2-1.3); BLOOD UREA NITROGEN 20 mg/dL (7-20); CALCIUM 8.1 mg/dL (8.4-10.2); CARBON DIOXIDE 29 mmol/L (22-30); CHLORIDE 101 mmol/L (98-107); CREATININE RESULT 0.62 mg/dL (0.52-1.25); GLUCOSE 136 mg/dL (75-110); MAGNESIUM 2.4 mg/dL (1.6-2.3); POTASSIUM 4.7 mmol/L (3.6-5.0); SODIUM 137.3 mmol/L (137-145); TOTAL PROTEIN 5.8 g/dL (6.3-8.2)
[2017-05-08] MEDS: LANSOPRAZOLE 30 MG TAB.RAP.DR PO SCH (05:26)
[2017-05-08 05:27] LABS: ARTERIAL BLOOD BASE EXCESS 8.8 mmol/L; ARTERIAL BLOOD O2 SATURATION 96.2 % (94-98)
--- NOTE | 2017-05-08 07:11 | RADIOLOGY REPORT (SQ) ---
EXAM DESCRIPTION: CHEST SINGLE VIEW COMPLETED DATE/TIME: 05/08/2017 6:46 am REASON FOR STUDY: resp fail/pna COMPARISON: Chest x-ray 05/07/2017. EXAM PARAMETERS: NUMBER OF VIEWS: One view TECHNIQUE: Single frontal radiograph of the chest. RADIATION DOSE: N/A LIMITATIONS: None. FINDINGS: TEMPORARY SUPPORT DEVICES:ETT in expected location. NG tube courses below the left arsen-d iaphragm in to the stomach. LUNGS AND PLEURA: Mild interval increase in the airspace opacities at the bilateral lung bases. Ther e is a small left pleural effusion. No pneumothorax. MEDIASTINUM AND HILAR STRUCTURES: No masses. Contour normal. HEART AND VASCULAR STRUCTURES: Heart size normal. No overt vascular congestion. BONES: No acute findings. IMPRESSION: Mild interval increase in the airspace opacities at the bilateral lung bases, may repres ent worsening pneumonia. Small left pleural effusion. Support devices in expected locations. TECHNICAL DOCUMENTATION: JOB ID: [id number] [employer]- All Rights Reserved
[2017-05-08] MEDS: CHOLECALCIFEROL (D3) 1,000 UNIT TABLET PO SCH (09:45)
[2017-05-08] MEDS: SERTRALINE HCL 50 MG TABLET PO SCH (09:46)
[2017-05-08] MEDS: DIGOXIN INJ 0.5 MG/2 ML AMPULE IV SCH (09:47)
[2017-05-08] MEDS: SOTALOL HCL 80 MG TABLET NG SCH ×2 (10:47→21:54)
[2017-05-08] MEDS: SULFAMETHOXAZOLE/TRIMETHOPRIM 800-160 MG/20 ML UDCUP NG SCH ×2 (10:47→21:53)
[2017-05-08] MEDS: CYANOCOBALAMIN (VITAMIN B-12) 1,000 MCG TABLET PO SCH (10:48)
[2017-05-08] MEDS: INSULIN DETEMIR 100 UNIT/ML 3 ML PEN SUBCUT SCH ×2 (10:58→21:53)
--- NOTE | 2017-05-08 11:19 | PDOC PROGRESS REPORT ---
Subjective Progress Note for:: 05/08/17 Subjective:: intubated sedated Physical Exam Vital Signs: Temp Pulse Resp BP Pulse Ox 98.6 F 63 16 98/54 L 94 05/08/17 08:00 05/08/17 08:00 05/08/17 08:00 05/08/17 08:00 05/08/17 08:00 Intake & Output 05/07/17 05/08/17 05/09/17 06:59 06:59 06:59 Intake Total 1489 1444 Output Total 1750 1785 100 Balance -261 -341 -100 Weight 85.6 kg 85.7 kg General appearance: PRESENT: no acute distress, disheveled, thin, well-developed Head exam: PRESENT: atraumatic, normocephalic Eye exam: PRESENT: conjunctiva pale Mouth exam: PRESENT: dry mucosa, neck supple, tongue midline, other - ET tube in place Neck exam: ABSENT: carotid bruit, JVD, lymphadenopathy, thyromegaly Respiratory exam: PRESENT: decreased breath sounds, prolonged expiratory phas, rales, rhonchi, symmetrical, unlabored Cardiovascular exam: PRESENT: RRR, +S1, +S2 Pulses: PRESENT: normal radial pulses GI/Abdominal exam: PRESENT: normal bowel sounds, soft. ABSENT: distended, guarding, mass, organolmegaly, rebound, tenderness Rectal exam: PRESENT: deferred Musculoskeletal exam: PRESENT: normal inspection Skin exam: PRESENT: dry, warm Results Laboratory Results: 05/08/17 03:46 05/08/17 03:46 05/08/17 05/08/17 05/08/17 03:46 03:46 05:20 WBC 10.8 H RBC 3.51 L Hgb 10.0 L Hct 31.0 L MCV 88 MCH 28.4 MCHC 32.1 RDW 16.4 H Plt Count 232 Seg Neutrophils % 86.1 H Lymphocytes % 6.7 L Monocytes % 6.8 Eosinophils % 0.2 Basophils % 0.2 Absolute Neutrophils 9.3 H Absolute Lymphocytes 0.7 Absolute Monocytes 0.7 Absolute Eosinophils 0.0 Absolute Basophils 0.0 Carbonic Acid 1.25 HCO3/H2CO3 Ratio 26:1 ABG pH 7.51 H ABG pCO2 41.5 ABG pO2 74.9 L ABG HCO3 32.5 H ABG O2 Saturation 96.2 ABG Base Excess 8.8 FiO2 40% Sodium 137.3 Potassium 4.7 Chloride 101 Carbon Dioxide 29 Anion Gap 7 BUN 20 Creatinine 0.62 Est GFR ( Amer) > 60 Est GFR (Non-Af Amer) > 60 Glucose 136 H Calcium 8.1 L Magnesium 2.4 H Total Bilirubin 0.5 AST 38 ALT 36 Alkaline Phosphatase 129 H Total Protein 5.8 L Albumin 2.3 L 05/03/17 10:10 Bronchial Washings Gram Stain - Final 05/03/17 10:10 Bronchial Washings Bronchial Washings Culture - Final Staphylococcus Aureus Achromobacter Xlosoxidans Normal Vikki Absent 05/03/17 10:10 Bronchial Washings AFB Smear Concentration - Final 05/03/17 10:10 Bronchial Washings Acid Fast Bacilli Smear - Final 05/06/17 11:42 Tracheal Aspirate Gram Stain - Final 05/02/17 03:51 Troponin I 0.437 Impressions: Abdomen/Pelvis CT 04/28/17 19:11 IMPRESSION: 1. Basilar pulmonary changes as above. Lower lobe infiltrates bilaterally. 2. No acute or suspicious abdominopelvic abnormality, findings as above. KUB X-Ray 04/29/17 19:35 IMPRESSION: NG tube appears to be in adequate location. Chest X-Ray 05/08/17 06:00 IMPRESSION: Mild interval increase in the airspace opacities at the bilateral lung bases, may represent worsening pneumonia. Small left pleural effusion. Support devices in expected locations. Assessment & Plan - Diagnosis (1) COPD with acute exacerbation Is this a current diagnosis for this admission?: YesPlan: Improving minute ventilation still elevated but decreasing (2) Dehydration Is this a current diagnosis for this admission?: Yes (3) Pneumonia Qualifiers: Pneumonia type: due to unspecified organism Laterality: bilateral Lung location: lower lobe of lung Qualified Code(s): J18.9 - Pneumonia, unspecified organism Is this a current diagnosis for this admission?: YesPlan: T-max 99.9, white count declining 05/06/17 11:42 Gram Stain - Final Tracheal Aspirate Sputum Culture - Preliminary Gram Positive Cocci Clusters Normal Vikki Absent 05/06/17 11:42 Gram Stain - Final Tracheal Aspirate Sputum Culture - Preliminary Gram Positive Cocci Clusters Normal Vikki Absent 05/03/17 10:10 Gram Stain - Final Bronchial Washings Bronchial Washings Culture - Final Staphylococcus Aureus Achromobacter Xlosoxidans Normal Vikki Absent 05/03/17 10:10 Fungal Smear - Pending Bronchial Washings Fungal Culture - Pending 05/03/17 10:10 AFB Smear Concentration - Final Bronchial Washings Acid Fast Bacilli Culture & Smear - Pending 04/29/17 19:39 Gram Stain - Final Tracheal Aspirate Sputum Culture - Final Staphylococcus Aureus Normal Vikki Absent 04/28/17 20:21 Urine Culture - Final Clean Catch Midstream Enterobacter Aerogenes (4) GERD (gastroesophageal reflux disease) Qualifiers: Esophagitis presence: without esophagitis Qualified Code(s): K21.9 - Gastro-esophageal reflux disease without esophagitis Is this a current diagnosis for this admission?: Yes - Time Critical Time spent with patient: 35 or more minutes - Discussed with RN PCP and RT
--- NOTE | 2017-05-08 17:35 | PDOC PROGRESS REPORT ---
Subjective Progress Note for:: 05/08/17 Subjective:: Patient remain intubated and vent supported. Awake and cooperative at the time of my evaluation. No reported significant fever. Tolerating enteral tube feeding. Less issue with tracheal secretion so far today. Remain on IV Primaxin and enteral Bactrim coverage. Hyperglycemia is fairly controlled on current insulin regimen. Physical Exam Vital Signs: Temp Pulse Resp BP Pulse Ox 98.1 F 63 16 100/50 L 96 05/08/17 16:00 05/08/17 16:00 05/08/17 16:00 05/08/17 16:00 05/08/17 16:00 Intake & Output 05/07/17 05/08/17 05/09/17 06:59 06:59 06:59 Intake Total 1489 1444 Output Total 1750 1785 925 Balance -261 -341 -925 Weight 85.6 kg 85.7 kg Physical Exam: Intubed and vent supported ET and OG tubes in situ. Head exam: PRESENT: atraumatic, normocephalic Eye exam: PRESENT: conjunctiva pink, EOMI, PERRLA. ABSENT: scleral icterus Mouth exam: PRESENT: moist Respiratory exam: PRESENT: Clear to auscultation bilaterally, decreased breath sounds - at lung bases Cardiovascular exam: PRESENT: Regular rhythm. ABSENT: diastolic murmur, rubs, systolic murmur GI/Abdominal exam: PRESENT: distended - but soft, normal bowel sounds, soft. ABSENT: guarding, mass, organomegaly, rebound, tenderness : PRESENT: Indwelling Dozier catheter Extremities exam: ABSENT: pedal edema Neurological exam: PRESENT: altered - sedated on IV Propofol but awake enough to follow simple commands at the time of my evaluation this morning. Skin exam: PRESENT: dry, intact, warm. ABSENT: cyanosis, rash Results Laboratory Results: 05/08/17 03:46 05/08/17 03:46 05/08/17 05/08/17 05/08/17 03:46 03:46 05:20 WBC 10.8 H RBC 3.51 L Hgb 10.0 L Hct 31.0 L MCV 88 MCH 28.4 MCHC 32.1 RDW 16.4 H Plt Count 232 Seg Neutrophils % 86.1 H Lymphocytes % 6.7 L Monocytes % 6.8 Eosinophils % 0.2 Basophils % 0.2 Absolute Neutrophils 9.3 H Absolute Lymphocytes 0.7 Absolute Monocytes 0.7 Absolute Eosinophils 0.0 Absolute Basophils 0.0 Carbonic Acid 1.25 HCO3/H2CO3 Ratio 26:1 ABG pH 7.51 H ABG pCO2 41.5 ABG pO2 74.9 L ABG HCO3 32.5 H ABG O2 Saturation 96.2 ABG Base Excess 8.8 FiO2 40% Sodium 137.3 Potassium 4.7 Chloride 101 Carbon Dioxide 29 Anion Gap 7 BUN 20 Creatinine 0.62 Est GFR ( Amer) > 60 Est GFR (Non-Af Amer) > 60 Glucose 136 H Calcium 8.1 L Magnesium 2.4 H Total Bilirubin 0.5 AST 38 ALT 36 Alkaline Phosphatase 129 H Total Protein 5.8 L Albumin 2.3 L 05/03/17 10:10 Bronchial Washings Fungal Smear - Final 05/03/17 10:10 Bronchial Washings Fungal Smear - Final 05/03/17 10:10 Bronchial Washings Fungal Smear - Final 05/06/17 11:42 Tracheal Aspirate Gram Stain - Final 05/02/17 03:51 Troponin I 0.437 Impressions: Abdomen/Pelvis CT 04/28/17 19:11 IMPRESSION: 1. Basilar pulmonary changes as above. Lower lobe infiltrates bilaterally. 2. No acute or suspicious abdominopelvic abnormality, findings as above. KUB X-Ray 04/29/17 19:35 IMPRESSION: NG tube appears to be in adequate location. Chest X-Ray 05/08/17 06:00 IMPRESSION: Mild interval increase in the airspace opacities at the bilateral lung bases, may represent worsening pneumonia. Small left pleural effusion. Support devices in expected locations. Assessment & Plan - Diagnosis (1) Sepsis due to Enterobacter species Is this a current diagnosis for this admission?: Yes (2) Acute respiratory failure Qualifiers: Respiratory failure complication: hypoxia Qualified Code(s): J96.01 - Acute respiratory failure with hypoxia Is this a current diagnosis for this admission?: Yes (3) COPD with acute exacerbation Is this a current diagnosis for this admission?: Yes (4) Pneumonia Qualifiers: Pneumonia type: due to unspecified organism Laterality: bilateral Lung location: lower lobe of lung Qualified Code(s): J18.9 - Pneumonia, unspecified organism Is this a current diagnosis for this admission?: Yes (5) Chronic delirium Is this a current diagnosis for this admission?: Yes (6) Diabetes mellitus type 2 in nonobese Is this a current diagnosis for this admission?: Yes (7) HTN (hypertension) Qualifiers: Hypertension type: essential hypertension Qualified Code(s): I10 - Essential (primary) hypertension Is this a current diagnosis for this admission?: Yes (8) Coronary artery disease Qualifiers: Coronary Disease-Associated Artery/Lesion type: [place] artery [place] vs. transplanted heart: [place] heart Associated angina: without angina Qualified Code(s): I25.10 - Atherosclerotic heart disease of [place] coronary artery without angina pectoris Is this a current diagnosis for this admission?: Yes (9) HLD (hyperlipidemia) Qualifiers: Hyperlipidemia type: pure hypercholesterolemia Qualified Code(s): E78.00 - Pure hypercholesterolemia, unspecified; E78.0 - Pure hypercholesterolemia Is this a current diagnosis for this admission?: Yes (10) Old myocardial infarction Is this a current diagnosis for this admission?: Yes (11) Atrial fibrillation with rapid ventricular response Is this a current diagnosis for this admission?: Yes - Time Time Spent with patient: 25-34 minutes Medications reviewed and adjusted accordingly: Yes Anticipated discharge: SNF Within: Other - Inpatient Certification Medical Necessity: Need Close Monitoring Due to Risk of Patient Decompensation, Need For IV Fluids, Need For Continuous Telemetry Monitoring, Need for Nebulizer Therapy and Monitoring of Response, Need for IV Antibiotics, Risk of Complication if Not Cared For in Hospital Post Hospital Care: D/C or Transfer Summary - Plan Summary Plan Summary: Continue current antibiotic therapy and monitor chest X ray status. Continue efforts at weaning as much as possible.
[2017-05-08] MEDS: CETIRIZINE 10 MG TABLET PO SCH (18:15)
[2017-05-08] MEDS: RIVAROXABAN 10 MG TABLET PO SCH (21:54)
[2017-05-09 04:17] LABS: ABSOLUTE LYMPHOCYTES (AUTO) 0.7 10^3/uL (0.5-4.7); ABSOLUTE MONOCYTES (AUTO) 0.9 10^3/uL (0.1-1.4); ABSOLUTE NEUT (AUTO) 8.9 10^3/uL (1.7-8.2); BASOPHILS % (AUTO) 0.2 % (0-2); EOSINOPHILS % (AUTO) 0.4 % (0-6); HEMATOCRIT 31.1 % (37.9-51.0); HEMOGLOBIN 10.3 g/dL (13.5-17.0); HGB HCT DIFFERENCE -0.2; LYMPHOCYTES % (AUTO) 6.8 % (13-45); MEAN CORPUSCULAR HEMOGLOBIN 28.8 pg (27.0-33.4); MEAN CORPUSCULAR VOLUME 87 fl (80-97); MONOCYTES % (AUTO) 8.4 % (3-13); RED BLOOD COUNT 3.57 10^6/uL (4.35-5.55); RED CELL DISTRIBUTION WIDTH 16.6 % (11.5-14.0); SEGMENTED NEUTROPHILS % (AUTO) 84.2 % (42-78); WHITE BLOOD COUNT 10.6 10^3/uL (4.0-10.5)
[2017-05-09 04:38] LABS: ALANINE AMINOTRANSFERASE 43 U/L (21-72); ALBUMIN 2.4 g/dL (3.5-5.0); ALKALINE PHOSPHATASE 138 U/L (38-126); ANION GAP 11 (5-19); ASPARTATE AMINO TRANSFERASE 46 U/L (17-59); BILIRUBIN,DIRECT 0.3 mg/dL (0.0-0.4); BILIRUBIN,TOTAL 0.6 mg/dL (0.2-1.3); BLOOD UREA NITROGEN 16 mg/dL (7-20); CARBON DIOXIDE 26 mmol/L (22-30); CHLORIDE 99 mmol/L (98-107); CREATININE RESULT 0.59 mg/dL (0.52-1.25); GLUCOSE 159 mg/dL (75-110); MAGNESIUM 2.4 mg/dL (1.6-2.3); POTASSIUM 4.6 mmol/L (3.6-5.0); SODIUM 135.5 mmol/L (137-145)
[2017-05-09 05:40] LABS: ARTERIAL BLOOD BASE EXCESS 6.5 mmol/L; ARTERIAL BLOOD O2 SATURATION 97.1 % (94-98)
[2017-05-09] MEDS: PROPOFOL 100 ML IV PRN (05:49)
[2017-05-09] MEDS: IMIPENEM/CILASTATIN SODIUM 500 MG in NORMAL SALINE 100 ML IV SCH ×4 (05:50→23:07)
[2017-05-09] MEDS: LANSOPRAZOLE 30 MG TAB.RAP.DR PO SCH (05:50)
--- NOTE | 2017-05-09 07:26 | RADIOLOGY REPORT (SQ) ---
EXAM DESCRIPTION: CHEST SINGLE VIEW COMPLETED DATE/TIME: 05/09/2017 7:10 am REASON FOR STUDY: resp fail COMPARISON: Chest x-ray 05/08/2017 EXAM PARAMETERS: NUMBER OF VIEWS: One view TECHNIQUE: Single frontal radiograph of the chest. RADIATION DOSE: N/A LIMITATIONS: None. FINDINGS: TEMPORARY SUPPORT DEVICES:ETT in expected location. NG tube courses along the midline and terminates under the diaphragm, its tip is not visualized on this exam. LUNGS AND PLEURA: No significant interval change in the airspace opacities at the bilateral lung base s. Small left pleural effusion. No pneumothorax. MEDIASTINUM AND HILAR STRUCTURES: No masses. Contour normal. HEART AND VASCULAR STRUCTURES: Heart size normal. No overt vascular congestion. BONES: No acute findings. IMPRESSION: No significant interval change in the appearance of the chest with bibasilar airspace op acities and small left pleural effusion. TECHNICAL DOCUMENTATION: JOB ID: [id number] 2010 [employer]- All Rights Reserved
[2017-05-09 08:57] LABS: ARTERIAL BLOOD BASE EXCESS 5.7 mmol/L; ARTERIAL BLOOD O2 SATURATION 96.3 % (94-98)
[2017-05-09] MEDS: INSULIN DETEMIR 100 UNIT/ML 3 ML PEN SUBCUT SCH ×2 (09:30→21:37)
[2017-05-09] MEDS: CHOLECALCIFEROL (D3) 1,000 UNIT TABLET PO SCH (09:31)
[2017-05-09] MEDS: SERTRALINE HCL 50 MG TABLET PO SCH (09:31)
[2017-05-09] MEDS: SOTALOL HCL 80 MG TABLET NG SCH ×2 (09:32→21:37)
[2017-05-09] MEDS: SULFAMETHOXAZOLE/TRIMETHOPRIM 800-160 MG/20 ML UDCUP NG SCH ×2 (09:32→21:37)
[2017-05-09] MEDS: CYANOCOBALAMIN (VITAMIN B-12) 1,000 MCG TABLET PO SCH (09:33)
[2017-05-09] MEDS: DIGOXIN INJ 0.5 MG/2 ML AMPULE IV SCH (09:33)
[2017-05-09] MEDS: CETIRIZINE 10 MG TABLET PO SCH (17:10)
--- NOTE | 2017-05-09 19:49 | PDOC PROGRESS REPORT ---
Subjective Progress Note for:: 05/09/17 Subjective:: Patient is s/p extubation ion BiPAP support presently. Awake, cooperative and following commands at the time of my evaluation. No reported significant fever or chills. Remain NPO post extubation awaiting swallowing evaluation. Remain on IV Primaxin and oral Bactrim coverage. Hyperglycemia is fairly controlled on current insulin regimen. Physical Exam Vital Signs: Temp Pulse Resp BP Pulse Ox 97.5 F 70 19 111/60 94 05/09/17 18:00 05/09/17 18:00 05/09/17 18:45 05/09/17 18:02 05/09/17 18:45 Intake & Output 05/08/17 05/09/17 05/10/17 06:59 06:59 06:59 Intake Total 1444 1820 230 Output Total 1785 2050 1600 Balance -341 -230 -1370 Weight 85.7 kg 86.2 kg General appearance: PRESENT: no acute distress, cooperative Head exam: PRESENT: atraumatic, normocephalic Eye exam: PRESENT: conjunctiva pink, EOMI, PERRLA. ABSENT: scleral icterus Mouth exam: PRESENT: moist, tongue midline Respiratory exam: PRESENT: clear to auscultation [place], decreased breath sounds - at lung bases Cardiovascular exam: PRESENT: RRR. ABSENT: diastolic murmur, rubs, systolic murmur GI/Abdominal exam: PRESENT: normal bowel sounds, soft. ABSENT: distended, guarding, mass, organolmegaly, rebound, tenderness Extremities exam: ABSENT: pedal edema Musculoskeletal exam: PRESENT: deformity - related to multiple joints involvement with arthritis Neurological exam: PRESENT: alert, awake, oriented to person, oriented to place , oriented to time, oriented to situation, CN II-XII grossly intact. ABSENT: motor sensory deficit Psychiatric exam: PRESENT: appropriate affect, normal mood. ABSENT: homicidal ideation, suicidal ideation Skin exam: PRESENT: dry, intact, warm. ABSENT: cyanosis, rash Results Laboratory Results: 05/09/17 04:03 05/09/17 04:03 05/09/17 05/09/17 05/09/17 04:03 04:03 05:30 WBC 10.6 H RBC 3.57 L Hgb 10.3 L Hct 31.1 L MCV 87 MCH 28.8 MCHC 33.0 RDW 16.6 H Plt Count 253 Seg Neutrophils % 84.2 H Lymphocytes % 6.8 L Monocytes % 8.4 Eosinophils % 0.4 Basophils % 0.2 Absolute Neutrophils 8.9 H Absolute Lymphocytes 0.7 Absolute Monocytes 0.9 Absolute Eosinophils 0.0 Absolute Basophils 0.0 Carbonic Acid 1.11 HCO3/H2CO3 Ratio 26:1 ABG pH 7.52 H ABG pCO2 37.0 ABG pO2 82.4 ABG HCO3 29.7 H ABG O2 Saturation 97.1 ABG Base Excess 6.5 FiO2 40% Sodium 135.5 L Potassium 4.6 Chloride 99 Carbon Dioxide 26 Anion Gap 11 BUN 16 Creatinine 0.59 Est GFR ( Amer) > 60 Est GFR (Non-Af Amer) > 60 Glucose 159 H Calcium 8.0 L Magnesium 2.4 H Total Bilirubin 0.6 AST 46 ALT 43 Alkaline Phosphatase 138 H Total Protein 6.0 L Albumin 2.4 L 05/09/17 08:43 WBC RBC Hgb Hct MCV MCH MCHC RDW Plt Count Seg Neutrophils % Lymphocytes % Monocytes % Eosinophils % Basophils % Absolute Neutrophils Absolute Lymphocytes Absolute Monocytes Absolute Eosinophils Absolute Basophils Carbonic Acid 1.08 HCO3/H2CO3 Ratio 26:1 ABG pH 7.52 H ABG pCO2 36.0 ABG pO2 74.8 L ABG HCO3 28.7 H ABG O2 Saturation 96.3 ABG Base Excess 5.7 FiO2 40% Sodium Potassium Chloride Carbon Dioxide Anion Gap BUN Creatinine Est GFR ( Amer) Est GFR (Non-Af Amer) Glucose Calcium Magnesium Total Bilirubin AST ALT Alkaline Phosphatase Total Protein Albumin 05/06/17 11:42 Tracheal Aspirate Gram Stain - Final 05/06/17 11:42 Tracheal Aspirate Sputum Culture - Final Staphylococcus Aureus Normal Vikki Absent 05/03/17 10:10 Bronchial Washings Fungal Smear - Final 05/03/17 10:10 Bronchial Washings Fungal Smear - Final 05/03/17 10:10 Bronchial Washings Fungal Smear - Final 05/02/17 03:51 Troponin I 0.437 Impressions: Abdomen/Pelvis CT 04/28/17 19:11 IMPRESSION: 1. Basilar pulmonary changes as above. Lower lobe infiltrates bilaterally. 2. No acute or suspicious abdominopelvic abnormality, findings as above. KUB X-Ray 04/29/17 19:35 IMPRESSION: NG tube appears to be in adequate location. Chest X-Ray 05/09/17 06:00 IMPRESSION: No significant interval change in the appearance of the chest with bibasilar airspace opacities and small left pleural effusion. Assessment & Plan - Diagnosis (1) Sepsis due to Enterobacter species Is this a current diagnosis for this admission?: Yes (2) Acute respiratory failure Qualifiers: Respiratory failure complication: hypoxia Qualified Code(s): J96.01 - Acute respiratory failure with hypoxia Is this a current diagnosis for this admission?: Yes (3) COPD with acute exacerbation Is this a current diagnosis for this admission?: Yes (4) Pneumonia Qualifiers: Pneumonia type: due to unspecified organism Laterality: bilateral Lung location: lower lobe of lung Qualified Code(s): J18.9 - Pneumonia, unspecified organism Is this a current diagnosis for this admission?: Yes (5) Chronic delirium Is this a current diagnosis for this admission?: Yes (6) Diabetes mellitus type 2 in nonobese Is this a current diagnosis for this admission?: Yes (7) HTN (hypertension) Qualifiers: Hypertension type: essential hypertension Qualified Code(s): I10 - Essential (primary) hypertension Is this a current diagnosis for this admission?: Yes (8) Coronary artery disease Qualifiers: Coronary Disease-Associated Artery/Lesion type: [place] artery [place] vs. transplanted heart: [place] heart Associated angina: without angina Qualified Code(s): I25.10 - Atherosclerotic heart disease of [place] coronary artery without angina pectoris Is this a current diagnosis for this admission?: Yes (9) HLD (hyperlipidemia) Qualifiers: Hyperlipidemia type: pure hypercholesterolemia Qualified Code(s): E78.00 - Pure hypercholesterolemia, unspecified; E78.0 - Pure hypercholesterolemia Is this a current diagnosis for this admission?: Yes (10) Old myocardial infarction Is this a current diagnosis for this admission?: Yes (11) Atrial fibrillation with rapid ventricular response Is this a current diagnosis for this admission?: Yes - Time Time Spent with patient: 25-34 minutes Medications reviewed and adjusted accordingly: Yes Anticipated discharge: SNF Within: Other - Inpatient Certification Medical Necessity: Need Close Monitoring Due to Risk of Patient Decompensation, Need For IV Fluids, Need For Continuous Telemetry Monitoring, Need for Nebulizer Therapy and Monitoring of Response, Need for IV Antibiotics, Risk of Complication if Not Cared For in Hospital Post Hospital Care: D/C or Transfer Summary - Plan Summary Plan Summary: Continue current antibiotic therapy. Follow up on swallowing evaluation if satisfactory will start on Clear liquid diet in AM. Remain on BiPAP support overnight.
[2017-05-09] MEDS: RIVAROXABAN 10 MG TABLET PO SCH (21:37)
[2017-05-09] MEDS: HALOPERIDOL LACTATE INJ 5 MG/1 ML VIAL IM PRN (22:52)
[2017-05-10 04:01] LABS: HEMATOCRIT 35.1 % (37.9-51.0); HEMOGLOBIN 11.3 g/dL (13.5-17.0); HGB HCT DIFFERENCE -1.2; MEAN CORPUSCULAR HEMOGLOBIN 28.5 pg (27.0-33.4); MEAN CORPUSCULAR HGB CONC 32.2 g/dL (32.0-36.0); MEAN CORPUSCULAR VOLUME 89 fl (80-97); RED BLOOD COUNT 3.96 10^6/uL (4.35-5.55); RED CELL DISTRIBUTION WIDTH 16.6 % (11.5-14.0); WHITE BLOOD COUNT 9.1 10^3/uL (4.0-10.5)
[2017-05-10 04:23] LABS: ALANINE AMINOTRANSFERASE 37 U/L (21-72); ALBUMIN 2.6 g/dL (3.5-5.0); ALKALINE PHOSPHATASE 141 U/L (38-126); ANION GAP 10 (5-19); ASPARTATE AMINO TRANSFERASE 29 U/L (17-59); BILIRUBIN,DIRECT 0.3 mg/dL (0.0-0.4); BILIRUBIN,TOTAL 0.9 mg/dL (0.2-1.3); BLOOD UREA NITROGEN 13 mg/dL (7-20); CALCIUM 8.1 mg/dL (8.4-10.2); CARBON DIOXIDE 24 mmol/L (22-30); CHLORIDE 100 mmol/L (98-107); CREATININE RESULT 0.57 mg/dL (0.52-1.25); GLUCOSE 142 mg/dL (75-110); MAGNESIUM 2.2 mg/dL (1.6-2.3); PHOSPHORUS 3.4 mg/dL (2.5-4.5); POTASSIUM 4.4 mmol/L (3.6-5.0); TOTAL PROTEIN 6.5 g/dL (6.3-8.2)
[2017-05-10 04:25] LABS: BAND NEUTROPHILS % (MANUAL) 3 % (3-5); BASOPHILS % (MANUAL) 0 % (0-2); EOSINOPHILS % (MANUAL) 0 % (0-6); LYMPHOCYTES % (MANUAL) 4 % (13-45); TOTAL CELLS COUNTED 100
[2017-05-10 04:28] LABS: ANISOCYTOSIS 1+; OVALOCYTES SLIGHT; POIKILOCYTOSIS SLIGHT; POLYCHROMASIA SLIGHT; TEAR DROP CELLS SLIGHT; TOXIC GRANULATION 1+
[2017-05-10 04:29] LABS: PLATELET CLUMPS PRESENT
[2017-05-10] MEDS: LANSOPRAZOLE 30 MG TAB.RAP.DR PO SCH (05:01)
[2017-05-10] MEDS: IMIPENEM/CILASTATIN SODIUM 500 MG in NORMAL SALINE 100 ML IV SCH (05:01)
[2017-05-10 05:08] LABS: ARTERIAL BLOOD BASE EXCESS 3.8 mmol/L; ARTERIAL BLOOD O2 SATURATION 95.7 % (94-98)
--- NOTE | 2017-05-10 07:19 | PDOC PROGRESS REPORT ---
Subjective Progress Note for:: 05/10/17 Subjective:: The patient has been extubated Physical Exam Vital Signs: Temp Pulse Resp BP Pulse Ox 36.4 C 79 19 121/65 92 05/10/17 06:00 05/10/17 06:00 05/10/17 06:02 05/10/17 06:02 05/10/17 06:02 Intake & Output 05/09/17 05/10/17 05/11/17 06:59 06:59 06:59 Intake Total 1820 516 Output Total 2050 3200 Balance -230 -2684 Weight 83.3 kg General appearance: PRESENT: no acute distress, thin Head exam: PRESENT: normocephalic Pulses: PRESENT: +1 pedal pulses bilateral, other GI/Abdominal exam: PRESENT: soft Rectal exam: PRESENT: deferred Extremities exam: PRESENT: other - Knee wound remains benign. [place] have been removed. Results Laboratory Results: 05/10/17 03:51 05/10/17 03:51 05/09/17 05/10/17 05/10/17 08:43 03:51 03:51 WBC 9.1 RBC 3.96 L Hgb 11.3 L Hct 35.1 L MCV 89 MCH 28.5 MCHC 32.2 RDW 16.6 H Plt Count 277 Seg Neutrophils % Not Reportable Lymphocytes % Not Reportable Monocytes % Not Reportable Eosinophils % Not Reportable Basophils % Not Reportable Absolute Neutrophils Not Reportable Absolute Lymphocytes Not Reportable Absolute Monocytes Not Reportable Absolute Eosinophils Not Reportable Absolute Basophils Not Reportable Carbonic Acid 1.08 HCO3/H2CO3 Ratio 26:1 ABG pH 7.52 H ABG pCO2 36.0 ABG pO2 74.8 L ABG HCO3 28.7 H ABG O2 Saturation 96.3 ABG Base Excess 5.7 FiO2 40% Sodium 134.0 L Potassium 4.4 Chloride 100 Carbon Dioxide 24 Anion Gap 10 BUN 13 Creatinine 0.57 Est GFR ( Amer) > 60 Est GFR (Non-Af Amer) > 60 Glucose 142 H Calcium 8.1 L Phosphorus 3.4 Magnesium 2.2 Total Bilirubin 0.9 AST 29 ALT 37 Alkaline Phosphatase 141 H Total Protein 6.5 Albumin 2.6 L 05/10/17 04:55 WBC RBC Hgb Hct MCV MCH MCHC RDW Plt Count Seg Neutrophils % Lymphocytes % Monocytes % Eosinophils % Basophils % Absolute Neutrophils Absolute Lymphocytes Absolute Monocytes Absolute Eosinophils Absolute Basophils Carbonic Acid 0.98 L HCO3/H2CO3 Ratio 26:1 ABG pH 7.53 H ABG pCO2 32.4 L ABG pO2 69.3 L ABG HCO3 26.3 H ABG O2 Saturation 95.7 ABG Base Excess 3.8 FiO2 25% Sodium Potassium Chloride Carbon Dioxide Anion Gap BUN Creatinine Est GFR ( Amer) Est GFR (Non-Af Amer) Glucose Calcium Phosphorus Magnesium Total Bilirubin AST ALT Alkaline Phosphatase Total Protein Albumin 05/06/17 11:42 Tracheal Aspirate Gram Stain - Final 05/06/17 11:42 Tracheal Aspirate Sputum Culture - Final Staphylococcus Aureus Normal Vikki Absent 05/02/17 03:51 Troponin I 0.437 Impressions: Abdomen/Pelvis CT 04/28/17 19:11 IMPRESSION: 1. Basilar pulmonary changes as above. Lower lobe infiltrates bilaterally. 2. No acute or suspicious abdominopelvic abnormality, findings as above. KUB X-Ray 04/29/17 19:35 IMPRESSION: NG tube appears to be in adequate location. Assessment & Plan - Diagnosis (1) Knee joint replacement status Is this a current diagnosis for this admission?: YesPlan: The patient's been extubated and his medical condition is improving perhaps physical therapy can be consulted for range of motion, strengthening, and ambulation - Time Time Spent with patient: 15-24 minutes Anticipated discharge: SNF Within: Other
--- NOTE | 2017-05-10 08:06 | RADIOLOGY REPORT (SQ) ---
EXAM DESCRIPTION: CHEST SINGLE VIEW COMPLETED DATE/TIME: 05/10/2017 7:54 am REASON FOR STUDY: pna COMPARISON: Chest x-ray 05/09/2017. EXAM PARAMETERS: NUMBER OF VIEWS: One view. TECHNIQUE: Single frontal radiographic view of the chest acquired. RADIATION DOSE: NA LIMITATIONS: Patient positioning. FINDINGS: LUNGS AND PLEURA: The patient is rotated and the left costophrenic angle is excluded from the field the view. No significant interval change in the airspace opacity at the right lung base or the visualized airspace opacity at the left lung base. No large pleural effusion or pneumothorax is identified. MEDIASTINUM AND HILAR STRUCTURES: Stable. HEART AND VASCULAR STRUCTURES: The heart is not enlarged. No overt vascular congestion. BONES: No acute findings. HARDWARE: None in the chest. IMPRESSION: Persistent bibasilar airspace opacities. TECHNICAL DOCUMENTATION: JOB ID: [id number]
[2017-05-10] MEDS ORDERED: LORAZEPAM INJ 2 MG/1 ML VIAL IV SCH (09:00)
[2017-05-10] MEDS: CHOLECALCIFEROL (D3) 1,000 UNIT TABLET PO SCH (09:29)
[2017-05-10] MEDS: CYANOCOBALAMIN (VITAMIN B-12) 1,000 MCG TABLET PO SCH (09:29)
[2017-05-10] MEDS: SOTALOL HCL 80 MG TABLET NG SCH ×2 (09:29→22:31)
[2017-05-10] MEDS: SERTRALINE HCL 50 MG TABLET PO SCH (09:29)
[2017-05-10] MEDS: DIGOXIN INJ 0.5 MG/2 ML AMPULE IV SCH (09:42)
[2017-05-10] MEDS: INSULIN DETEMIR 100 UNIT/ML 3 ML PEN SUBCUT SCH ×2 (09:43→23:51)
--- NOTE | 2017-05-10 13:06 | PDOC PROGRESS REPORT ---
Subjective Progress Note for:: 05/09/17 Subjective:: Awake responsive to commands remains intubated Physical Exam Vital Signs: Temp Pulse Resp BP Pulse Ox 98.6 F 76 17 101/63 93 05/09/17 07:55 05/09/17 07:55 05/09/17 07:55 05/09/17 07:55 05/09/17 07:55 Intake & Output 05/08/17 05/09/17 05/10/17 06:59 06:59 06:59 Intake Total 1444 1820 Output Total 1785 0 210 Balance -341 -230 -210 Weight 85.7 kg 86.2 kg General appearance: PRESENT: no acute distress, cooperative, disheveled, well- developed Head exam: PRESENT: atraumatic, normocephalic Eye exam: PRESENT: conjunctiva pale, EOMI Mouth exam: PRESENT: dry mucosa, neck supple, tongue midline, other - ET tube in place Neck exam: ABSENT: carotid bruit, JVD, lymphadenopathy, thyromegaly Respiratory exam: PRESENT: decreased breath sounds, prolonged expiratory phas, rhonchi, symmetrical, unlabored Cardiovascular exam: PRESENT: RRR, +S1, +S2 Pulses: PRESENT: normal radial pulses GI/Abdominal exam: PRESENT: normal bowel sounds, soft. ABSENT: distended, guarding, mass, organolmegaly, rebound, tenderness Rectal exam: PRESENT: deferred Gentrourinary exam: PRESENT: indwelling catheter Musculoskeletal exam: PRESENT: normal inspection Neurological exam: PRESENT: alert, awake Psychiatric exam: PRESENT: normal mood Skin exam: PRESENT: dry, warm Results Laboratory Results: 05/09/17 04:03 05/09/17 04:03 05/09/17 05/09/17 05/09/17 04:03 04:03 05:30 WBC 10.6 H RBC 3.57 L Hgb 10.3 L Hct 31.1 L MCV 87 MCH 28.8 MCHC 33.0 RDW 16.6 H Plt Count 253 Seg Neutrophils % 84.2 H Lymphocytes % 6.8 L Monocytes % 8.4 Eosinophils % 0.4 Basophils % 0.2 Absolute Neutrophils 8.9 H Absolute Lymphocytes 0.7 Absolute Monocytes 0.9 Absolute Eosinophils 0.0 Absolute Basophils 0.0 Carbonic Acid 1.11 HCO3/H2CO3 Ratio 26:1 ABG pH 7.52 H ABG pCO2 37.0 ABG pO2 82.4 ABG HCO3 29.7 H ABG O2 Saturation 97.1 ABG Base Excess 6.5 FiO2 40% Sodium 135.5 L Potassium 4.6 Chloride 99 Carbon Dioxide 26 Anion Gap 11 BUN 16 Creatinine 0.59 Est GFR ( Amer) > 60 Est GFR (Non-Af Amer) > 60 Glucose 159 H Calcium 8.0 L Magnesium 2.4 H Total Bilirubin 0.6 AST 46 ALT 43 Alkaline Phosphatase 138 H Total Protein 6.0 L Albumin 2.4 L 05/03/17 10:10 Bronchial Washings Fungal Smear - Final 05/03/17 10:10 Bronchial Washings Fungal Smear - Final 05/03/17 10:10 Bronchial Washings Fungal Smear - Final 05/06/17 11:42 Tracheal Aspirate Gram Stain - Final 05/02/17 03:51 Troponin I 0.437 Impressions: Abdomen/Pelvis CT 04/28/17 19:11 IMPRESSION: 1. Basilar pulmonary changes as above. Lower lobe infiltrates bilaterally. 2. No acute or suspicious abdominopelvic abnormality, findings as above. KUB X-Ray 04/29/17 19:35 IMPRESSION: NG tube appears to be in adequate location. Chest X-Ray 05/09/17 06:00 IMPRESSION: No significant interval change in the appearance of the chest with bibasilar airspace opacities and small left pleural effusion. Assessment & Plan - Diagnosis (1) COPD with acute exacerbation Is this a current diagnosis for this admission?: YesPlan: We will proceed with extubation (2) Dehydration Is this a current diagnosis for this admission?: Yes (3) Pneumonia Qualifiers: Pneumonia type: due to unspecified organism Laterality: bilateral Lung location: lower lobe of lung Qualified Code(s): J18.9 - Pneumonia, unspecified organism Is this a current diagnosis for this admission?: Yes (4) GERD (gastroesophageal reflux disease) Qualifiers: Esophagitis presence: without esophagitis Qualified Code(s): K21.9 - Gastro-esophageal reflux disease without esophagitis Is this a current diagnosis for this admission?: Yes - Time Critical Time spent with patient: 35 or more minutes - 55 minutes extubation
--- NOTE | 2017-05-10 13:08 | PDOC PROGRESS REPORT ---
Subjective Progress Note for:: 05/10/17 Subjective:: Awake and alert currently on BiPAP Physical Exam Vital Signs: Temp Pulse Resp BP Pulse Ox 97.5 F 93 24 H 111/62 93 05/10/17 08:00 05/10/17 08:00 05/10/17 08:00 05/10/17 08:00 05/10/17 08:00 Intake & Output 05/09/17 05/10/17 05/11/17 06:59 06:59 06:59 Intake Total 1820 516 Output Total 2050 3200 100 Balance -230 -2684 -100 Weight 83.3 kg General appearance: PRESENT: no acute distress, cooperative, disheveled, well- developed Head exam: PRESENT: atraumatic, normocephalic Eye exam: PRESENT: conjunctiva pale, EOMI Mouth exam: PRESENT: dry mucosa, neck supple, tongue midline Neck exam: ABSENT: carotid bruit, JVD, lymphadenopathy, thyromegaly Respiratory exam: PRESENT: decreased breath sounds, prolonged expiratory phas, rhonchi - Rare, scattered, symmetrical Cardiovascular exam: PRESENT: RRR, +S1, +S2 Pulses: PRESENT: normal radial pulses GI/Abdominal exam: PRESENT: normal bowel sounds, soft. ABSENT: distended, guarding, mass, organolmegaly, rebound, tenderness Rectal exam: PRESENT: deferred Gentrourinary exam: PRESENT: indwelling catheter Musculoskeletal exam: PRESENT: normal inspection Neurological exam: PRESENT: alert, awake Psychiatric exam: PRESENT: normal mood Skin exam: PRESENT: dry, warm Results Laboratory Results: 05/10/17 03:51 05/10/17 03:51 05/09/17 05/10/17 05/10/17 08:43 03:51 03:51 WBC 9.1 RBC 3.96 L Hgb 11.3 L Hct 35.1 L MCV 89 MCH 28.5 MCHC 32.2 RDW 16.6 H Plt Count 277 Seg Neutrophils % Not Reportable Lymphocytes % Not Reportable Monocytes % Not Reportable Eosinophils % Not Reportable Basophils % Not Reportable Absolute Neutrophils Not Reportable Absolute Lymphocytes Not Reportable Absolute Monocytes Not Reportable Absolute Eosinophils Not Reportable Absolute Basophils Not Reportable Carbonic Acid 1.08 HCO3/H2CO3 Ratio 26:1 ABG pH 7.52 H ABG pCO2 36.0 ABG pO2 74.8 L ABG HCO3 28.7 H ABG O2 Saturation 96.3 ABG Base Excess 5.7 FiO2 40% Sodium 134.0 L Potassium 4.4 Chloride 100 Carbon Dioxide 24 Anion Gap 10 BUN 13 Creatinine 0.57 Est GFR ( Amer) > 60 Est GFR (Non-Af Amer) > 60 Glucose 142 H Calcium 8.1 L Phosphorus 3.4 Magnesium 2.2 Total Bilirubin 0.9 AST 29 ALT 37 Alkaline Phosphatase 141 H Total Protein 6.5 Albumin 2.6 L 05/10/17 04:55 WBC RBC Hgb Hct MCV MCH MCHC RDW Plt Count Seg Neutrophils % Lymphocytes % Monocytes % Eosinophils % Basophils % Absolute Neutrophils Absolute Lymphocytes Absolute Monocytes Absolute Eosinophils Absolute Basophils Carbonic Acid 0.98 L HCO3/H2CO3 Ratio 26:1 ABG pH 7.53 H ABG pCO2 32.4 L ABG pO2 69.3 L ABG HCO3 26.3 H ABG O2 Saturation 95.7 ABG Base Excess 3.8 FiO2 25% Sodium Potassium Chloride Carbon Dioxide Anion Gap BUN Creatinine Est GFR ( Amer) Est GFR (Non-Af Amer) Glucose Calcium Phosphorus Magnesium Total Bilirubin AST ALT Alkaline Phosphatase Total Protein Albumin 05/06/17 11:42 Tracheal Aspirate Gram Stain - Final 05/06/17 11:42 Tracheal Aspirate Sputum Culture - Final Staphylococcus Aureus Normal Vikki Absent 05/02/17 03:51 Troponin I 0.437 Impressions: Abdomen/Pelvis CT 04/28/17 19:11 IMPRESSION: 1. Basilar pulmonary changes as above. Lower lobe infiltrates bilaterally. 2. No acute or suspicious abdominopelvic abnormality, findings as above. KUB X-Ray 04/29/17 19:35 IMPRESSION: NG tube appears to be in adequate location. Chest X-Ray 05/10/17 06:00 IMPRESSION: Persistent bibasilar airspace opacities. Assessment & Plan - Diagnosis (1) COPD with acute exacerbation Is this a current diagnosis for this admission?: YesPlan: Extubated on BiPAP minute ventilation respiratory rate slightly elevated paper patient denies complaints of pain or sensation of dyspnea (2) Dehydration Is this a current diagnosis for this admission?: Yes (3) Pneumonia Qualifiers: Pneumonia type: due to unspecified organism Laterality: bilateral Lung location: lower lobe of lung Qualified Code(s): J18.9 - Pneumonia, unspecified organism Is this a current diagnosis for this admission?: Yes (4) GERD (gastroesophageal reflux disease) Qualifiers: Esophagitis presence: without esophagitis Qualified Code(s): K21.9 - Gastro-esophageal reflux disease without esophagitis Is this a current diagnosis for this admission?: Yes - Time Critical Time spent with patient: 35 or more minutes - Discussed with RT and nursing staff 50 minutes
--- NOTE | 2017-05-10 16:52 | PDOC PROGRESS REPORT ---
Subjective Progress Note for:: 05/10/17 Subjective:: Patient remain on BiPAP support. There is issue of persistent tachypnea. No reported significant fever or chills. Still remain NPO post extubation awaiting swallowing evaluation. Remain on IV Primaxin and oral Bactrim coverage. Hyperglycemia is fairly controlled on current insulin regimen. Physical Exam Vital Signs: Temp Pulse Resp BP Pulse Ox 98.1 F 95 22 H 121/72 94 05/10/17 12:00 05/10/17 14:00 05/10/17 15:36 05/10/17 14:02 05/10/17 15:36 Intake & Output 05/09/17 05/10/17 05/11/17 06:59 06:59 06:59 Intake Total 1820 516 Output Total 0 3200 650 Balance -230 -9993 -650 Weight 83.3 kg Physical Exam: General appearance: PRESENT: no acute distress, cooperative Head exam: PRESENT: atraumatic, normocephalic Eye exam: PRESENT: conjunctiva pink, EOMI, PERRLA. ABSENT: scleral icterus Mouth exam: PRESENT: moist, tongue midline Respiratory exam: PRESENT: tachypnea, clear to auscultation boris, decreased breath sounds - at lung bases Cardiovascular exam: PRESENT: RRR. ABSENT: diastolic murmur, rubs, systolic murmur GI/Abdominal exam: PRESENT: normal bowel sounds, soft. ABSENT: distended, guarding, mass, organomegaly, rebound, tenderness Extremities exam: ABSENT: pedal edema Musculoskeletal exam: PRESENT: deformity - related to multiple joints involvement with arthritis Neurological exam: PRESENT: alert, awake, oriented to person, oriented to place , oriented to time, oriented to situation, CN II-XII grossly intact. ABSENT: motor sensory deficit Psychiatric exam: PRESENT: appropriate affect, normal mood. ABSENT: homicidal ideation, suicidal ideation Skin exam: PRESENT: dry, intact, warm. ABSENT: cyanosis, rash Results Laboratory Results: 05/10/17 03:51 05/10/17 03:51 05/10/17 05/10/17 05/10/17 03:51 03:51 04:55 WBC 9.1 RBC 3.96 L Hgb 11.3 L Hct 35.1 L MCV 89 MCH 28.5 MCHC 32.2 RDW 16.6 H Plt Count 277 Seg Neutrophils % Not Reportable Lymphocytes % Not Reportable Monocytes % Not Reportable Eosinophils % Not Reportable Basophils % Not Reportable Absolute Neutrophils Not Reportable Absolute Lymphocytes Not Reportable Absolute Monocytes Not Reportable Absolute Eosinophils Not Reportable Absolute Basophils Not Reportable Carbonic Acid 0.98 L HCO3/H2CO3 Ratio 26:1 ABG pH 7.53 H ABG pCO2 32.4 L ABG pO2 69.3 L ABG HCO3 26.3 H ABG O2 Saturation 95.7 ABG Base Excess 3.8 FiO2 25% Sodium 134.0 L Potassium 4.4 Chloride 100 Carbon Dioxide 24 Anion Gap 10 BUN 13 Creatinine 0.57 Est GFR ( Amer) > 60 Est GFR (Non-Af Amer) > 60 Glucose 142 H Calcium 8.1 L Phosphorus 3.4 Magnesium 2.2 Total Bilirubin 0.9 AST 29 ALT 37 Alkaline Phosphatase 141 H Total Protein 6.5 Albumin 2.6 L 05/02/17 03:51 Troponin I 0.437 Impressions: Abdomen/Pelvis CT 04/28/17 19:11 IMPRESSION: 1. Basilar pulmonary changes as above. Lower lobe infiltrates bilaterally. 2. No acute or suspicious abdominopelvic abnormality, findings as above. KUB X-Ray 04/29/17 19:35 IMPRESSION: NG tube appears to be in adequate location. Chest X-Ray 05/10/17 06:00 IMPRESSION: Persistent bibasilar airspace opacities. Assessment & Plan - Diagnosis (1) Sepsis due to Enterobacter species Is this a current diagnosis for this admission?: Yes (2) Acute respiratory failure Qualifiers: Respiratory failure complication: hypoxia Qualified Code(s): J96.01 - Acute respiratory failure with hypoxia Is this a current diagnosis for this admission?: Yes (3) COPD with acute exacerbation Is this a current diagnosis for this admission?: Yes (4) Pneumonia Qualifiers: Pneumonia type: due to unspecified organism Laterality: bilateral Lung location: lower lobe of lung Qualified Code(s): J18.9 - Pneumonia, unspecified organism Is this a current diagnosis for this admission?: Yes (5) Chronic delirium Is this a current diagnosis for this admission?: Yes (6) Diabetes mellitus type 2 in nonobese Is this a current diagnosis for this admission?: Yes (7) HTN (hypertension) Qualifiers: Hypertension type: essential hypertension Qualified Code(s): I10 - Essential (primary) hypertension Is this a current diagnosis for this admission?: Yes (8) Coronary artery disease Qualifiers: Coronary Disease-Associated Artery/Lesion type: [place] artery [place] vs. transplanted heart: [place] heart Associated angina: without angina Qualified Code(s): I25.10 - Atherosclerotic heart disease of [place] coronary artery without angina pectoris Is this a current diagnosis for this admission?: Yes (9) HLD (hyperlipidemia) Qualifiers: Hyperlipidemia type: pure hypercholesterolemia Qualified Code(s): E78.00 - Pure hypercholesterolemia, unspecified; E78.0 - Pure hypercholesterolemia Is this a current diagnosis for this admission?: Yes (10) Old myocardial infarction Is this a current diagnosis for this admission?: Yes (11) Atrial fibrillation with rapid ventricular response Is this a current diagnosis for this admission?: Yes - Time Time Spent with patient: 35 or more minutes Medications reviewed and adjusted accordingly: Yes Anticipated discharge: SNF Within: Other - Inpatient Certification Based on my medical assessment, after consideration of the patient's comorbidities, presenting symptoms, or acuity I expect that the services needed warrant INPATIENT care.: Yes I certify that my determination is in accordance with my understanding of Medicare's requirements for reasonable and necessary INPATIENT services [42 CFR 412.3e].: Yes Medical Necessity: Need Close Monitoring Due to Risk of Patient Decompensation, Need For IV Fluids, Need For Continuous Telemetry Monitoring, Need for Nebulizer Therapy and Monitoring of Response, Need for IV Antibiotics, Risk of Complication if Not Cared For in Hospital Post Hospital Care: D/C or Transfer Summary - [id number] - Plan Summary Plan Summary: Patient checo continue on his current medication management. I will change his haloperidol to 0.5 mg p.o q12 hours to assist with his agitation and tachypnea. I will follow up on swallowing evaluation and initiate oral feeding accordingly. I discussed his case with Dr Multani earlier today regarding his work of breathing and possible exhaustion. Family not clear about issue of re- intubation if necessary due to his high work of breathing. Overall prognosis remain guarded. I checo continue ICU status.
[2017-05-10] MEDS: CETIRIZINE 10 MG TABLET PO SCH (17:52)
[2017-05-10] MEDS: MORPHINE SULFATE 10 MG/ML INJ IV PRN (18:35)
[2017-05-10] MEDS ORDERED: LORAZEPAM INJ 2 MG/1 ML VIAL IV PRN (19:39)
[2017-05-10] MEDS ORDERED: HALOPERIDOL 0.5 MG TABLET PO ONE (21:00)
[2017-05-10] MEDS: RIVAROXABAN 10 MG TABLET PO SCH (22:31)
[2017-05-11 04:38] LABS: HEMATOCRIT 36.1 % (37.9-51.0); HEMOGLOBIN 11.7 g/dL (13.5-17.0); MEAN CORPUSCULAR HEMOGLOBIN 28.4 pg (27.0-33.4); MEAN CORPUSCULAR HGB CONC 32.4 g/dL (32.0-36.0); MEAN CORPUSCULAR VOLUME 88 fl (80-97); RED BLOOD COUNT 4.12 10^6/uL (4.35-5.55); RED CELL DISTRIBUTION WIDTH 16.6 % (11.5-14.0); WHITE BLOOD COUNT 10.7 10^3/uL (4.0-10.5)
[2017-05-11 04:44] LABS: ALANINE AMINOTRANSFERASE 32 U/L (21-72); ALBUMIN 2.8 g/dL (3.5-5.0); ALKALINE PHOSPHATASE 154 U/L (38-126); ANION GAP 13 (5-19); ASPARTATE AMINO TRANSFERASE 28 U/L (17-59); BILIRUBIN,DIRECT 0.4 mg/dL (0.0-0.4); BILIRUBIN,TOTAL 1.1 mg/dL (0.2-1.3); BLOOD UREA NITROGEN 14 mg/dL (7-20); CALCIUM 8.3 mg/dL (8.4-10.2); CARBON DIOXIDE 24 mmol/L (22-30); CHLORIDE 98 mmol/L (98-107); CREATININE RESULT 0.64 mg/dL (0.52-1.25); GLUCOSE 175 mg/dL (75-110); MAGNESIUM 2.2 mg/dL (1.6-2.3); POTASSIUM 4.4 mmol/L (3.6-5.0); SODIUM 134.6 mmol/L (137-145); TOTAL PROTEIN 6.9 g/dL (6.3-8.2)
[2017-05-11 05:10] LABS: BAND NEUTROPHILS % (MANUAL) 1 % (3-5); BASOPHILS % (MANUAL) 1 % (0-2); EOSINOPHILS % (MANUAL) 0 % (0-6); LYMPHOCYTES % (MANUAL) 10 % (13-45); TOTAL CELLS COUNTED 100
[2017-05-11 05:11] LABS: TOXIC GRANULATION 2+
[2017-05-11 05:12] LABS: ANISOCYTOSIS 1+; POIKILOCYTOSIS SLIGHT; POLYCHROMASIA SLIGHT; STOMATOCYTES SLIGHT
[2017-05-11] MEDS: INSULIN LISPRO 100 UNIT/ML 3 ML VIAL SUBCUT PRN (05:18)
[2017-05-11] MEDS: LANSOPRAZOLE 30 MG TAB.RAP.DR PO SCH (05:18)
[2017-05-11 06:05] LABS: ARTERIAL BLOOD BASE EXCESS 2.8 mmol/L; ARTERIAL BLOOD O2 SATURATION 94.5 % (94-98)
--- NOTE | 2017-05-11 07:20 | RADIOLOGY REPORT (SQ) ---
EXAM DESCRIPTION: CHEST SINGLE VIEW COMPLETED DATE/TIME: 05/11/2017 6:58 am REASON FOR STUDY: resp fail pna COMPARISON: Chest x-ray 05/10/2017 EXAM PARAMETERS: NUMBER OF VIEWS: One view. TECHNIQUE: Single frontal radiographic view of the chest acquired. RADIATION DOSE: NA LIMITATIONS: None. FINDINGS: LUNGS AND PLEURA: Persistent bibasilar airspace opacities. No sizable pleural effusion. No pneumothorax. MEDIASTINUM AND HILAR STRUCTURES: No masses. Contour normal. HEART AND VASCULAR STRUCTURES: Heart normal in size. No overt vascular congestion. BONES: No acute findings. HARDWARE: None in the chest. IMPRESSION: No significant interval change in the bibasilar airspace opacities. TECHNICAL DOCUMENTATION: JOB ID: [id number]
[2017-05-11] MEDS ORDERED: HALOPERIDOL 0.5 MG TABLET PO SCH (10:00)
[2017-05-11] MEDS: CHOLECALCIFEROL (D3) 1,000 UNIT TABLET PO SCH (10:23)
[2017-05-11] MEDS: CYANOCOBALAMIN (VITAMIN B-12) 1,000 MCG TABLET PO SCH (10:23)
[2017-05-11] MEDS: SOTALOL HCL 80 MG TABLET NG SCH ×2 (10:23→22:26)
[2017-05-11] MEDS: SERTRALINE HCL 50 MG TABLET PO SCH (10:23)
[2017-05-11] MEDS: DIGOXIN INJ 0.5 MG/2 ML AMPULE IV SCH (11:12)
[2017-05-11] MEDS: INSULIN DETEMIR 100 UNIT/ML 3 ML PEN SUBCUT SCH ×2 (11:12→22:36)
--- NOTE | 2017-05-11 14:43 | PDOC PROGRESS REPORT ---
Subjective Progress Note for:: 05/11/17 Subjective:: Patient was seen by the bedside, he was admitted for the management of acute respiratory failure due to pneumonia, presently extubated, he failed swallow studies, not able to eat by mouth presently n.p.o. NG tube will be started to feed and also missed her medications. The plan of care was discussed with the nursing staff Physical Exam Vital Signs: Temp Pulse Resp BP Pulse Ox 98.1 F 102 H 29 H 127/78 H 95 05/11/17 12:00 05/11/17 12:00 05/11/17 14:00 05/11/17 13:17 05/11/17 14:00 Intake & Output 05/10/17 05/11/17 05/12/17 06:59 06:59 06:59 Intake Total 516 332 Output Total 3200 2585 400 Balance -2684 -1443 -400 Weight 83.3 kg 78.7 kg General appearance: PRESENT: no acute distress Eye exam: PRESENT: PERRLA Respiratory exam: PRESENT: clear to auscultation boris Cardiovascular exam: PRESENT: +S1, +S2 GI/Abdominal exam: PRESENT: soft Neurological exam: PRESENT: alert, CN II-XII grossly intact Results Laboratory Results: 05/11/17 04:13 05/11/17 04:13 05/11/17 05/11/17 05/11/17 04:13 04:13 05:46 WBC 10.7 H RBC 4.12 L Hgb 11.7 L Hct 36.1 L MCV 88 MCH 28.4 MCHC 32.4 RDW 16.6 H Plt Count 343 Seg Neutrophils % Not Reportable Lymphocytes % Not Reportable Monocytes % Not Reportable Eosinophils % Not Reportable Basophils % Not Reportable Absolute Neutrophils Not Reportable Absolute Lymphocytes Not Reportable Absolute Monocytes Not Reportable Absolute Eosinophils Not Reportable Absolute Basophils Not Reportable Carbonic Acid 0.99 L HCO3/H2CO3 Ratio 25:1 ABG pH 7.51 H ABG pCO2 32.9 L ABG pO2 64.6 L ABG HCO3 25.4 ABG O2 Saturation 94.5 ABG Base Excess 2.8 FiO2 25% Sodium 134.6 L Potassium 4.4 Chloride 98 Carbon Dioxide 24 Anion Gap 13 BUN 14 Creatinine 0.64 Est GFR ( Amer) > 60 Est GFR (Non-Af Amer) > 60 Glucose 175 H Calcium 8.3 L Magnesium 2.2 Total Bilirubin 1.1 AST 28 ALT 32 Alkaline Phosphatase 154 H Total Protein 6.9 Albumin 2.8 L 05/02/17 03:51 Troponin I 0.437 Impressions: Abdomen/Pelvis CT 04/28/17 19:11 IMPRESSION: 1. Basilar pulmonary changes as above. Lower lobe infiltrates bilaterally. 2. No acute or suspicious abdominopelvic abnormality, findings as above. KUB X-Ray 04/29/17 19:35 IMPRESSION: NG tube appears to be in adequate location. Chest X-Ray 05/11/17 06:00 IMPRESSION: No significant interval change in the bibasilar airspace opacities. Assessment & Plan - Diagnosis (1) Pneumonia Qualifiers: Pneumonia type: due to unspecified organism Laterality: unspecified laterality Lung location: unspecified part of lung Qualified Code(s) : J18.9 - Pneumonia, unspecified organism Is this a current diagnosis for this admission?: Yes (2) Acute respiratory failure Qualifiers: Respiratory failure complication: hypoxia Qualified Code(s): J96.01 - Acute respiratory failure with hypoxia Is this a current diagnosis for this admission?: Yes (3) Atrial fibrillation with rapid ventricular response Is this a current diagnosis for this admission?: Yes (4) COPD with acute exacerbation Is this a current diagnosis for this admission?: Yes (5) Chronic delirium Is this a current diagnosis for this admission?: Yes (6) Dehydration Is this a current diagnosis for this admission?: Yes (7) Diabetes mellitus type 2 in nonobese Is this a current diagnosis for this admission?: Yes (8) Diarrhea Qualifiers: Diarrhea type: unspecified type Qualified Code(s): R19.7 - Diarrhea , unspecified Is this a current diagnosis for this admission?: Yes - Plan Summary Plan Summary: Patient will be restarted on tube feed via NG tube, he will be downgraded to medical floor/[facility]
--- NOTE | 2017-05-11 16:31 | RADIOLOGY REPORT (SQ) ---
EXAM DESCRIPTION: KUB/ABDOMEN (SINGLE VIEW) COMPLETED DATE/TIME: 05/11/2017 4:16 pm REASON FOR STUDY: Check Placement of NG Tube COMPARISON: 04/29/2017 NUMBER OF VIEWS: One view. TECHNIQUE: Supine radiographic image of the abdomen acquired. LIMITATIONS: None. FINDINGS: BOWEL GAS PATTERN: Normal bowel gas pattern. No dilated loops. CALCIFICATIONS: There is curvilinear calcification in the abdomen this could represent aneurysm or ec gómez aorta. Correlation with abdominal ultrasound is recommended. SOFT TISSUES: No gross mass or suggestion of organomegaly. HARDWARE: NG tube tip lies in the left upper quadrant. BONES: No acute fracture. No worrisome bone lesions. OTHER: No other significant finding. IMPRESSION: Calcification the abdominal aorta. This could represent aneurysm or ectasia. Correlati on with abdominal ultrasound is recommended. The NG tube tip is in the left upper quadrant. TECHNICAL DOCUMENTATION: JOB ID: [id number] [employer]- All Rights Reserved
[2017-05-11] MEDS: CETIRIZINE 10 MG TABLET PO SCH (17:44)
--- NOTE | 2017-05-11 18:24 | PDOC PROGRESS REPORT ---
Subjective Progress Note for:: 05/11/17 Subjective:: Awake and lethargic currently on BiPAP Physical Exam Vital Signs: Temp Pulse Resp BP Pulse Ox 97.9 F 108 H 23 H 113/67 92 05/11/17 08:00 05/11/17 08:00 05/11/17 08:00 05/11/17 08:00 05/11/17 08:00 Intake & Output 05/10/17 05/11/17 05/12/17 06:59 06:59 06:59 Intake Total 516 332 Output Total 3200 1775 125 Balance -2684 -1443 -125 Weight 83.3 kg 78.7 kg General appearance: PRESENT: no acute distress, disheveled, well-developed Head exam: PRESENT: atraumatic, normocephalic Eye exam: PRESENT: conjunctiva pale, EOMI Mouth exam: PRESENT: dry mucosa, neck supple, tongue midline Neck exam: ABSENT: carotid bruit, JVD, lymphadenopathy, thyromegaly Respiratory exam: PRESENT: decreased breath sounds, prolonged expiratory phas, rhonchi, symmetrical Cardiovascular exam: PRESENT: RRR, +S1, +S2 Pulses: PRESENT: normal radial pulses GI/Abdominal exam: PRESENT: normal bowel sounds, soft. ABSENT: distended, guarding, mass, organolmegaly, rebound, tenderness Rectal exam: PRESENT: deferred Gentrourinary exam: PRESENT: indwelling catheter Musculoskeletal exam: PRESENT: normal inspection Neurological exam: PRESENT: awake Psychiatric exam: PRESENT: flat affect Skin exam: PRESENT: dry, warm Results Laboratory Results: 05/11/17 04:13 05/11/17 04:13 05/11/17 05/11/17 05/11/17 04:13 04:13 05:46 WBC 10.7 H RBC 4.12 L Hgb 11.7 L Hct 36.1 L MCV 88 MCH 28.4 MCHC 32.4 RDW 16.6 H Plt Count 343 Seg Neutrophils % Not Reportable Lymphocytes % Not Reportable Monocytes % Not Reportable Eosinophils % Not Reportable Basophils % Not Reportable Absolute Neutrophils Not Reportable Absolute Lymphocytes Not Reportable Absolute Monocytes Not Reportable Absolute Eosinophils Not Reportable Absolute Basophils Not Reportable Carbonic Acid 0.99 L HCO3/H2CO3 Ratio 25:1 ABG pH 7.51 H ABG pCO2 32.9 L ABG pO2 64.6 L ABG HCO3 25.4 ABG O2 Saturation 94.5 ABG Base Excess 2.8 FiO2 25% Sodium 134.6 L Potassium 4.4 Chloride 98 Carbon Dioxide 24 Anion Gap 13 BUN 14 Creatinine 0.64 Est GFR ( Amer) > 60 Est GFR (Non-Af Amer) > 60 Glucose 175 H Calcium 8.3 L Magnesium 2.2 Total Bilirubin 1.1 AST 28 ALT 32 Alkaline Phosphatase 154 H Total Protein 6.9 Albumin 2.8 L 05/02/17 03:51 Troponin I 0.437 Impressions: Abdomen/Pelvis CT 04/28/17 19:11 IMPRESSION: 1. Basilar pulmonary changes as above. Lower lobe infiltrates bilaterally. 2. No acute or suspicious abdominopelvic abnormality, findings as above. KUB X-Ray 04/29/17 19:35 IMPRESSION: NG tube appears to be in adequate location. Chest X-Ray 05/11/17 06:00 IMPRESSION: No significant interval change in the bibasilar airspace opacities. Assessment & Plan - Diagnosis (1) COPD with acute exacerbation Is this a current diagnosis for this admission?: YesPlan: resp alkalosis not associated with anxiety or metabolic acidosis (2) Dehydration Is this a current diagnosis for this admission?: Yes (3) Pneumonia Qualifiers: Pneumonia type: due to unspecified organism Laterality: bilateral Lung location: lower lobe of lung Qualified Code(s): J18.9 - Pneumonia, unspecified organism Is this a current diagnosis for this admission?: Yes (4) GERD (gastroesophageal reflux disease) Qualifiers: Esophagitis presence: without esophagitis Qualified Code(s): K21.9 - Gastro-esophageal reflux disease without esophagitis Is this a current diagnosis for this admission?: Yes - Time Critical Time spent with patient: 25-34 minutes - Plan Summary Plan Summary: trial on n/c
[2017-05-11] MEDS: RIVAROXABAN 10 MG TABLET NG SCH (22:26)
[2017-05-11] MEDS: HALOPERIDOL 0.5 MG TABLET NG SCH (22:26)
[2017-05-12] MEDS: ACETAMINOPHEN SOLN 325 MG/10.15 ML UDCUP NG PRN (00:58)
[2017-05-12] MEDS: LANSOPRAZOLE 30 MG TAB.RAP.DR NG SCH (05:33)
[2017-05-12 05:58] LABS: ABSOLUTE BASOPHILS # (AUTO) 0.1 10^3/uL (0.0-0.2); ABSOLUTE LYMPHOCYTES (AUTO) 0.8 10^3/uL (0.5-4.7); ABSOLUTE NEUT (AUTO) 6.1 10^3/uL (1.7-8.2); BASOPHILS % (AUTO) 0.7 % (0-2); EOSINOPHILS % (AUTO) 0.4 % (0-6); HEMATOCRIT 34.2 % (37.9-51.0); HGB HCT DIFFERENCE -1.2; MEAN CORPUSCULAR HEMOGLOBIN 28.6 pg (27.0-33.4); MEAN CORPUSCULAR HGB CONC 32.3 g/dL (32.0-36.0); MEAN CORPUSCULAR VOLUME 89 fl (80-97); MONOCYTES % (AUTO) 12.3 % (3-13); RED BLOOD COUNT 3.86 10^6/uL (4.35-5.55); RED CELL DISTRIBUTION WIDTH 16.2 % (11.5-14.0); SEGMENTED NEUTROPHILS % (AUTO) 76.6 % (42-78)
[2017-05-12 06:16] LABS: ALANINE AMINOTRANSFERASE 28 U/L (21-72); ALBUMIN 2.5 g/dL (3.5-5.0); ALKALINE PHOSPHATASE 147 U/L (38-126); ANION GAP 9 (5-19); ASPARTATE AMINO TRANSFERASE 27 U/L (17-59); BILIRUBIN,DIRECT 0.3 mg/dL (0.0-0.4); BILIRUBIN,TOTAL 0.7 mg/dL (0.2-1.3); BLOOD UREA NITROGEN 16 mg/dL (7-20); CALCIUM 8.6 mg/dL (8.4-10.2); CARBON DIOXIDE 26 mmol/L (22-30); CHLORIDE 101 mmol/L (98-107); CREATININE RESULT 0.54 mg/dL (0.52-1.25); GLUCOSE 145 mg/dL (75-110); MAGNESIUM 2.3 mg/dL (1.6-2.3); SODIUM 135.6 mmol/L (137-145); TOTAL PROTEIN 6.4 g/dL (6.3-8.2)
--- NOTE | 2017-05-12 08:08 | RADIOLOGY REPORT (SQ) ---
EXAM DESCRIPTION: CHEST SINGLE VIEW COMPLETED DATE/TIME: 05/12/2017 7:46 am REASON FOR STUDY: RESP FAIL COMPARISON: Chest x-ray 05/11/2017. EXAM PARAMETERS: NUMBER OF VIEWS: One view. TECHNIQUE: Single frontal radiographic view of the chest acquired. RADIATION DOSE: NA LIMITATIONS: None. FINDINGS: LUNGS AND PLEURA: Redemonstration of bibasilar airspace opacities. Blunting of the left c ostophrenic angle is suggestive of a small pleural effusion. No pneumothorax. MEDIASTINUM AND HILAR STRUCTURES: No masses. Contour normal. HEART AND VASCULAR STRUCTURES: The heart is not enlarged. No overt vascular congestion. BONES: No acute findings. HARDWARE: Interval placement of an enteric tube, its tip is not included on this view. IMPRESSION: Bibasilar airspace opacities and small left pleural effusion. TECHNICAL DOCUMENTATION: JOB ID: [id number]
[2017-05-12 08:21] LABS: ARTERIAL BLOOD BASE EXCESS 3.5 mmol/L; ARTERIAL BLOOD O2 SATURATION 96.3 % (94-98)
[2017-05-12] MEDS: HALOPERIDOL 0.5 MG TABLET NG SCH ×2 (09:58→22:21)
[2017-05-12] MEDS: SOTALOL HCL 80 MG TABLET NG SCH ×2 (09:58→22:20)
[2017-05-12] MEDS: SERTRALINE HCL 50 MG TABLET NG SCH (09:58)
[2017-05-12] MEDS: DIGOXIN INJ 0.5 MG/2 ML AMPULE IV SCH (09:59)
[2017-05-12] MEDS: CYANOCOBALAMIN (VITAMIN B-12) 1,000 MCG TABLET NG SCH (09:59)
[2017-05-12] MEDS: CHOLECALCIFEROL (D3) 1,000 UNIT TABLET NG SCH (09:59)
[2017-05-12] MEDS ORDERED: MULTIVITAMIN ORAL LIQUID 60 ML NG SCH (10:00)
[2017-05-12] MEDS: INSULIN DETEMIR 100 UNIT/ML 3 ML PEN SUBCUT SCH ×2 (10:03→22:55)
--- NOTE | 2017-05-12 14:32 | PDOC PROGRESS REPORT ---
Subjective Progress Note for:: 05/12/17 Subjective:: Patient was seen by the bedside, yesterday nasogastric tube was inserted. He may need a swallow study again during the week Physical Exam Vital Signs: Temp Pulse Resp BP Pulse Ox 97.8 F 73 20 118/58 L 95 05/12/17 11:27 05/12/17 11:27 05/12/17 11:27 05/12/17 11:27 05/12/17 11:27 Intake & Output 05/11/17 05/12/17 05/13/17 06:59 06:59 06:59 Intake Total 332 481 Output Total 1775 1340 Balance -1443 -859 Weight 78.7 kg 77.8 kg General appearance: PRESENT: no acute distress Eye exam: PRESENT: PERRLA Respiratory exam: PRESENT: clear to auscultation boris Cardiovascular exam: PRESENT: +S1, +S2 GI/Abdominal exam: PRESENT: soft Neurological exam: PRESENT: alert, CN II-XII grossly intact Results Laboratory Results: 05/12/17 05:22 05/12/17 05:22 05/12/17 05/12/17 05/12/17 05:22 05:22 06:45 WBC 8.0 RBC 3.86 L Hgb 11.0 L Hct 34.2 L MCV 89 MCH 28.6 MCHC 32.3 RDW 16.2 H Plt Count 329 Seg Neutrophils % 76.6 Lymphocytes % 10.0 L Monocytes % 12.3 Eosinophils % 0.4 Basophils % 0.7 Absolute Neutrophils 6.1 Absolute Lymphocytes 0.8 Absolute Monocytes 1.0 Absolute Eosinophils 0.0 Absolute Basophils 0.1 Carbonic Acid 1.10 HCO3/H2CO3 Ratio 24:1 ABG pH 7.48 H ABG pCO2 36.6 ABG pO2 77.2 L ABG HCO3 26.9 H ABG O2 Saturation 96.3 ABG Base Excess 3.5 FiO2 2 LPM Sodium 135.6 L Potassium 4.0 Chloride 101 Carbon Dioxide 26 Anion Gap 9 BUN 16 Creatinine 0.54 Est GFR ( Amer) > 60 Est GFR (Non-Af Amer) > 60 Glucose 145 H Calcium 8.6 Magnesium 2.3 Total Bilirubin 0.7 AST 27 ALT 28 Alkaline Phosphatase 147 H Total Protein 6.4 Albumin 2.5 L 05/02/17 03:51 Troponin I 0.437 Impressions: Abdomen/Pelvis CT 04/28/17 19:11 IMPRESSION: 1. Basilar pulmonary changes as above. Lower lobe infiltrates bilaterally. 2. No acute or suspicious abdominopelvic abnormality, findings as above. KUB X-Ray 05/11/17 15:02 IMPRESSION: Calcification the abdominal aorta. This could represent aneurysm or ectasia. Correlation with abdominal ultrasound is recommended. The NG tube tip is in the left upper quadrant. Chest X-Ray 05/12/17 06:00 IMPRESSION: Bibasilar airspace opacities and small left pleural effusion. Assessment & Plan - Diagnosis (1) Pneumonia Qualifiers: Pneumonia type: due to unspecified organism Laterality: unspecified laterality Lung location: unspecified part of lung Qualified Code(s) : J18.9 - Pneumonia, unspecified organism Is this a current diagnosis for this admission?: Yes (2) Acute respiratory failure Qualifiers: Respiratory failure complication: hypoxia Qualified Code(s): J96.01 - Acute respiratory failure with hypoxia Is this a current diagnosis for this admission?: Yes (3) Atrial fibrillation with rapid ventricular response Is this a current diagnosis for this admission?: Yes (4) COPD with acute exacerbation Is this a current diagnosis for this admission?: Yes (5) Chronic delirium Is this a current diagnosis for this admission?: Yes (6) Dehydration Is this a current diagnosis for this admission?: Yes (7) Diabetes mellitus type 2 in nonobese Is this a current diagnosis for this admission?: Yes (8) Diarrhea Qualifiers: Diarrhea type: unspecified type Qualified Code(s): R19.7 - Diarrhea , unspecified Is this a current diagnosis for this admission?: Yes (9) Hyperglycemia Is this a current diagnosis for this admission?: Yes - Plan Summary Plan Summary: Continue present treatment
[2017-05-12] MEDS: IMIPENEM/CILASTATIN SODIUM 500 MG in NORMAL SALINE 100 ML IV SCH ×2 (17:48→23:09)
[2017-05-12] MEDS ORDERED: CETIRIZINE 10 MG TABLET NG SCH (18:00)
--- NOTE | 2017-05-12 22:04 | EKG REPORT ---
SEVERITY:- ABNORMAL ECG - SINUS RHYTHM NONSPECIFIC ST-T CHANGES , DIFFUSE : Confirmed by: Manjeet Tineo MD 12-May-2017 22:03:35
[2017-05-12] MEDS: SULFAMETHOXAZOLE/TRIMETHOPRIM 800-160 MG/20 ML UDCUP NG SCH (22:21)
[2017-05-12] MEDS: RIVAROXABAN 10 MG TABLET NG SCH (22:21)
[2017-05-13] MEDS: IMIPENEM/CILASTATIN SODIUM 500 MG in NORMAL SALINE 100 ML IV SCH ×4 (05:41→23:18)
[2017-05-13] MEDS: LANSOPRAZOLE 30 MG TAB.RAP.DR NG SCH (05:41)
[2017-05-13] MEDS: SERTRALINE HCL 50 MG TABLET NG SCH (10:57)
[2017-05-13] MEDS: HALOPERIDOL 0.5 MG TABLET NG SCH (10:57)
[2017-05-13] MEDS: CYANOCOBALAMIN (VITAMIN B-12) 1,000 MCG TABLET NG SCH (10:57)
[2017-05-13] MEDS: SOTALOL HCL 80 MG TABLET NG SCH (10:57)
[2017-05-13] MEDS: CHOLECALCIFEROL (D3) 1,000 UNIT TABLET NG SCH (10:57)
[2017-05-13] MEDS: DIGOXIN INJ 0.5 MG/2 ML AMPULE IV SCH (10:58)
[2017-05-13] MEDS: SULFAMETHOXAZOLE/TRIMETHOPRIM 800-160 MG/20 ML UDCUP NG SCH (10:58)
[2017-05-13] MEDS ORDERED: MULTIVITS W-MIN/IRON SOLN 60 ML NG SCH (14:00)
[2017-05-13] MEDS: INSULIN DETEMIR 100 UNIT/ML 3 ML PEN SUBCUT SCH ×2 (14:28→23:02)
[2017-05-13] MEDS ORDERED: LOPERAMIDE HCL 2 MG CAPSULE PO PRN (15:33)
[2017-05-13] MEDS ORDERED: ACETAMINOPHEN SOLN 325 MG/10.15 ML UDCUP PO PRN (15:34)
[2017-05-13] MEDS: MULTIVITS W-MIN/IRON SOLN 60 ML PO SCH (16:36)
[2017-05-13] MEDS: CETIRIZINE 10 MG TABLET PO SCH (16:36)
--- NOTE | 2017-05-13 19:11 | PDOC PROGRESS REPORT ---
Subjective Progress Note for:: 05/13/17 Subjective:: Patient is clinically improving gradually. Tolerating puree diet with honey thicken fluid. No reported fever or chills. No chest pain or palpitation. Living girlfriend at bedside. Physical Exam Vital Signs: Temp Pulse Resp BP Pulse Ox 97.7 F 81 18 108/58 L 98 05/13/17 15:41 05/13/17 15:41 05/13/17 15:41 05/13/17 15:41 05/13/17 15:41 Intake & Output 05/12/17 05/13/17 05/14/17 06:59 06:59 06:59 Intake Total 481 652 673 Output Total 1340 1025 575 Balance -859 -373 98 Weight 77.8 kg 77.2 kg Physical Exam: General appearance: PRESENT: no acute distress, cooperative Head exam: PRESENT: atraumatic, normocephalic Eye exam: PRESENT: conjunctiva pink, EOMI, PERRLA. ABSENT: scleral icterus Mouth exam: PRESENT: moist, tongue midline Respiratory exam: PRESENT: clear to auscultation boris, decreased breath sounds - at lung bases Cardiovascular exam: PRESENT: RRR. ABSENT: diastolic murmur, rubs, systolic murmur GI/Abdominal exam: PRESENT: normal bowel sounds, soft. ABSENT: distended, guarding, mass, organomegaly, rebound, tenderness Extremities exam: ABSENT: pedal edema Musculoskeletal exam: PRESENT: deformity - related to multiple joints involvement with arthritis Neurological exam: PRESENT: alert, awake, oriented to person, oriented to place , oriented to time, oriented to situation, CN II-XII grossly intact. ABSENT: motor sensory deficit Psychiatric exam: PRESENT: appropriate affect, normal mood. ABSENT: homicidal ideation, suicidal ideation Skin exam: PRESENT: dry, intact, warm. ABSENT: cyanosis, rash Results Laboratory Results: 05/12/17 05:22 05/12/17 05:22 05/02/17 03:51 Troponin I 0.437 Impressions: Abdomen/Pelvis CT 04/28/17 19:11 IMPRESSION: 1. Basilar pulmonary changes as above. Lower lobe infiltrates bilaterally. 2. No acute or suspicious abdominopelvic abnormality, findings as above. KUB X-Ray 05/11/17 15:02 IMPRESSION: Calcification the abdominal aorta. This could represent aneurysm or ectasia. Correlation with abdominal ultrasound is recommended. The NG tube tip is in the left upper quadrant. Chest X-Ray 05/12/17 06:00 IMPRESSION: Bibasilar airspace opacities and small left pleural effusion. Assessment & Plan - Diagnosis (1) Sepsis due to Enterobacter species Is this a current diagnosis for this admission?: Yes (2) Acute respiratory failure Qualifiers: Respiratory failure complication: hypoxia Qualified Code(s): J96.01 - Acute respiratory failure with hypoxia Is this a current diagnosis for this admission?: Yes (3) COPD with acute exacerbation Is this a current diagnosis for this admission?: Yes (4) Pneumonia Qualifiers: Pneumonia type: due to unspecified organism Laterality: bilateral Lung location: lower lobe of lung Qualified Code(s): J18.9 - Pneumonia, unspecified organism Is this a current diagnosis for this admission?: Yes (5) Chronic delirium Is this a current diagnosis for this admission?: Yes (6) Diabetes mellitus type 2 in nonobese Is this a current diagnosis for this admission?: Yes (7) HTN (hypertension) Qualifiers: Hypertension type: essential hypertension Qualified Code(s): I10 - Essential (primary) hypertension Is this a current diagnosis for this admission?: Yes (8) Coronary artery disease Qualifiers: Coronary Disease-Associated Artery/Lesion type: [place] artery [place] vs. transplanted heart: [place] heart Associated angina: without angina Qualified Code(s): I25.10 - Atherosclerotic heart disease of [place] coronary artery without angina pectoris Is this a current diagnosis for this admission?: Yes (9) HLD (hyperlipidemia) Qualifiers: Hyperlipidemia type: pure hypercholesterolemia Qualified Code(s): E78.00 - Pure hypercholesterolemia, unspecified; E78.0 - Pure hypercholesterolemia Is this a current diagnosis for this admission?: Yes (10) Old myocardial infarction Is this a current diagnosis for this admission?: Yes (11) Atrial fibrillation with rapid ventricular response Is this a current diagnosis for this admission?: Yes - Time Time Spent with patient: 25-34 minutes Medications reviewed and adjusted accordingly: Yes Anticipated discharge: SNF Within: Other - Inpatient Certification Based on my medical assessment, after consideration of the patient's comorbidities, presenting symptoms, or acuity I expect that the services needed warrant INPATIENT care.: Yes I certify that my determination is in accordance with my understanding of Medicare's requirements for reasonable and necessary INPATIENT services [42 CFR 412.3e].: Yes Medical Necessity: Need Close Monitoring Due to Risk of Patient Decompensation, Need For IV Fluids, Need For Continuous Telemetry Monitoring, Need for Nebulizer Therapy and Monitoring of Response, Need for IV Antibiotics, Risk of Complication if Not Cared For in Hospital Post Hospital Care: D/C or Transfer Summary - Plan Summary Plan Summary: Obtain CBC with Diff, BMP in AM. Continue IV Primaxin and oral Bactrim coverage. Advance diet as tolerated. Encouraged participation in physical therapy. Continue all other current medication management.
[2017-05-13] MEDS: RIVAROXABAN 10 MG TABLET PO SCH (21:45)
[2017-05-13] MEDS: SOTALOL HCL 80 MG TABLET PO SCH (21:49)
[2017-05-13] MEDS: SULFAMETHOXAZOLE/TRIMETHOPRIM 800-160 MG/20 ML UDCUP PO SCH (21:49)
[2017-05-13] MEDS: HALOPERIDOL 0.5 MG TABLET PO SCH (21:49)
[2017-05-14] MEDS: LANSOPRAZOLE 30 MG TAB.RAP.DR PO SCH (05:07)
[2017-05-14] MEDS: IMIPENEM/CILASTATIN SODIUM 500 MG in NORMAL SALINE 100 ML IV SCH ×4 (05:07→23:23)
[2017-05-14 06:08] LABS: ABSOLUTE BASOPHILS # (AUTO) 0.1 10^3/uL (0.0-0.2); ABSOLUTE EOSINOPHILS # (AUTO) 0.1 10^3/uL (0.0-0.6); ABSOLUTE LYMPHOCYTES (AUTO) 0.6 10^3/uL (0.5-4.7); ABSOLUTE MONOCYTES (AUTO) 0.7 10^3/uL (0.1-1.4); BASOPHILS % (AUTO) 0.8 % (0-2); EOSINOPHILS % (AUTO) 1.1 % (0-6); HEMATOCRIT 30.8 % (37.9-51.0); HEMOGLOBIN 9.9 g/dL (13.5-17.0); HGB HCT DIFFERENCE -1.1; MEAN CORPUSCULAR HEMOGLOBIN 28.4 pg (27.0-33.4); MEAN CORPUSCULAR HGB CONC 32.1 g/dL (32.0-36.0); MEAN CORPUSCULAR VOLUME 89 fl (80-97); MONOCYTES % (AUTO) 11.3 % (3-13); RED BLOOD COUNT 3.48 10^6/uL (4.35-5.55); SEGMENTED NEUTROPHILS % (AUTO) 77.8 % (42-78); WHITE BLOOD COUNT 6.4 10^3/uL (4.0-10.5)
[2017-05-14 06:29] LABS: ANION GAP 10 (5-19); BLOOD UREA NITROGEN 10 mg/dL (7-20); CARBON DIOXIDE 20 mmol/L (22-30); CHLORIDE 107 mmol/L (98-107); CREATININE RESULT 0.45 mg/dL (0.52-1.25); GLUCOSE 106 mg/dL (75-110); POTASSIUM 3.4 mmol/L (3.6-5.0); SODIUM 136.9 mmol/L (137-145)
[2017-05-14 06:38] LABS: CALCIUM 6.6 mg/dL (8.4-10.2)
[2017-05-14] MEDS: DIGOXIN INJ 0.5 MG/2 ML AMPULE IV SCH (10:18)
[2017-05-14] MEDS: SOTALOL HCL 80 MG TABLET PO SCH ×2 (10:20→22:27)
[2017-05-14] MEDS: CHOLECALCIFEROL (D3) 1,000 UNIT TABLET PO SCH (10:20)
[2017-05-14] MEDS: CYANOCOBALAMIN (VITAMIN B-12) 1,000 MCG TABLET PO SCH (10:20)
[2017-05-14] MEDS: HALOPERIDOL 0.5 MG TABLET PO SCH ×2 (10:21→22:30)
[2017-05-14] MEDS: SULFAMETHOXAZOLE/TRIMETHOPRIM 800-160 MG/20 ML UDCUP PO SCH ×2 (10:21→22:27)
[2017-05-14] MEDS: INSULIN DETEMIR 100 UNIT/ML 3 ML PEN SUBCUT SCH ×2 (10:25→22:32)
[2017-05-14] MEDS: SERTRALINE HCL 50 MG TABLET PO SCH (10:25)
[2017-05-14] MEDS: INSULIN LISPRO 100 UNIT/ML 3 ML VIAL SUBCUT PRN ×2 (12:02→17:34)
[2017-05-14] MEDS ORDERED: DEXTROSE 5% IV ONE (12:30)
[2017-05-14] MEDS ORDERED: WATER IV ONE (12:30)
[2017-05-14] MEDS ORDERED: CALCIUM GLUCONATE IV ONE (12:30)
--- NOTE | 2017-05-14 13:33 | PDOC PROGRESS REPORT ---
Subjective Progress Note for:: 05/14/17 Subjective:: Patient po intake is improving. Remain on puree diet with honey thicken fluid. No nausea or vomiting. No abdominal pain. No reported fever or chills. No chest pain or palpitation. Physical Exam Vital Signs: Temp Pulse Resp BP Pulse Ox 98.2 F 86 17 119/62 98 05/14/17 11:51 05/14/17 11:51 05/14/17 11:51 05/14/17 11:51 05/14/17 11:51 Intake & Output 05/13/17 05/14/17 05/15/17 06:59 06:59 06:59 Intake Total 652 728 581 Output Total 1025 1395 200 Balance -373 -667 381 Weight 77.2 kg 78.1 kg Physical Exam: General appearance: PRESENT: no acute distress, cooperative Head exam: PRESENT: atraumatic, normocephalic Eye exam: PRESENT: conjunctiva pink, EOMI, PERRLA. ABSENT: scleral icterus Mouth exam: PRESENT: moist, tongue midline Respiratory exam: PRESENT: clear to auscultation boris, decreased breath sounds - at lung bases Cardiovascular exam: PRESENT: RRR. ABSENT: diastolic murmur, rubs, systolic murmur GI/Abdominal exam: PRESENT: normal bowel sounds, soft. ABSENT: distended, guarding, mass, organomegaly, rebound, tenderness : Indwelling Dozier catheter in situ. Extremities exam: ABSENT: pedal edema Musculoskeletal exam: PRESENT: deformity - related to multiple joints involvement with arthritis Neurological exam: PRESENT: alert, awake, oriented to person, oriented to place , oriented to time, oriented to situation, CN II-XII grossly intact. ABSENT: motor sensory deficit Psychiatric exam: PRESENT: appropriate affect, normal mood. ABSENT: homicidal ideation, suicidal ideation Skin exam: PRESENT: dry, intact, warm. ABSENT: cyanosis, rash Results Laboratory Results: 05/14/17 05:47 05/14/17 05:47 05/14/17 05/14/17 05/14/17 05:47 05:47 05:47 WBC 6.4 RBC 3.48 L Hgb 9.9 L Hct 30.8 L MCV 89 MCH 28.4 MCHC 32.1 RDW 16.0 H Plt Count 350 Seg Neutrophils % 77.8 Lymphocytes % 9.0 L Monocytes % 11.3 Eosinophils % 1.1 Basophils % 0.8 Absolute Neutrophils 5.0 Absolute Lymphocytes 0.6 Absolute Monocytes 0.7 Absolute Eosinophils 0.1 Absolute Basophils 0.1 Sodium 136.9 L Potassium 3.4 L Chloride 107 Carbon Dioxide 20 L Anion Gap 10 BUN 10 Creatinine 0.45 L Est GFR ( Amer) > 60 Est GFR (Non-Af Amer) > 60 Glucose 106 Calcium 6.6 L* Albumin 2.1 L 05/02/17 03:51 Troponin I 0.437 Impressions: Abdomen/Pelvis CT 04/28/17 19:11 IMPRESSION: 1. Basilar pulmonary changes as above. Lower lobe infiltrates bilaterally. 2. No acute or suspicious abdominopelvic abnormality, findings as above. KUB X-Ray 05/11/17 15:02 IMPRESSION: Calcification the abdominal aorta. This could represent aneurysm or ectasia. Correlation with abdominal ultrasound is recommended. The NG tube tip is in the left upper quadrant. Chest X-Ray 05/12/17 06:00 IMPRESSION: Bibasilar airspace opacities and small left pleural effusion. Assessment & Plan - Diagnosis (1) Sepsis due to Enterobacter species Is this a current diagnosis for this admission?: Yes (2) Acute respiratory failure Qualifiers: Respiratory failure complication: hypoxia Qualified Code(s): J96.01 - Acute respiratory failure with hypoxia Is this a current diagnosis for this admission?: Yes (3) COPD with acute exacerbation Is this a current diagnosis for this admission?: Yes (4) Pneumonia Qualifiers: Pneumonia type: due to unspecified organism Laterality: bilateral Lung location: lower lobe of lung Qualified Code(s): J18.9 - Pneumonia, unspecified organism Is this a current diagnosis for this admission?: Yes (5) Chronic delirium Is this a current diagnosis for this admission?: Yes (6) Diabetes mellitus type 2 in nonobese Is this a current diagnosis for this admission?: Yes (7) HTN (hypertension) Qualifiers: Hypertension type: essential hypertension Qualified Code(s): I10 - Essential (primary) hypertension Is this a current diagnosis for this admission?: Yes (8) Coronary artery disease Qualifiers: Coronary Disease-Associated Artery/Lesion type: [place] artery [place] vs. transplanted heart: [place] heart Associated angina: without angina Qualified Code(s): I25.10 - Atherosclerotic heart disease of [place] coronary artery without angina pectoris Is this a current diagnosis for this admission?: Yes (9) HLD (hyperlipidemia) Qualifiers: Hyperlipidemia type: pure hypercholesterolemia Qualified Code(s): E78.00 - Pure hypercholesterolemia, unspecified; E78.0 - Pure hypercholesterolemia Is this a current diagnosis for this admission?: Yes (10) Old myocardial infarction Is this a current diagnosis for this admission?: Yes (11) Atrial fibrillation with rapid ventricular response Is this a current diagnosis for this admission?: Yes - Time Time Spent with patient: 25-34 minutes Medications reviewed and adjusted accordingly: Yes Anticipated discharge: SNF Within: Other - Inpatient Certification Based on my medical assessment, after consideration of the patient's comorbidities, presenting symptoms, or acuity I expect that the services needed warrant INPATIENT care.: Yes I certify that my determination is in accordance with my understanding of Medicare's requirements for reasonable and necessary INPATIENT services [42 CFR 412.3e].: Yes Medical Necessity: Need Close Monitoring Due to Risk of Patient Decompensation, Need For IV Fluids, Need For Continuous Telemetry Monitoring, Need for Nebulizer Therapy and Monitoring of Response, Need for Neurological Checks, Need for Pain Control, Need for IV Antibiotics, Risk of Complication if Not Cared For in Hospital Post Hospital Care: D/C or Transfer Summary - Plan Summary Plan Summary: Patient will receive supplemental calcium infusion in view of his low corrected serum calcium level. Encouraged participation in physical therapy. Continue all other current medication management
[2017-05-14] MEDS ORDERED: MULTIVITS W-MIN/IRON SOLN 60 ML PO ONE (14:00)
--- NOTE | 2017-05-14 17:02 | PDOC PROGRESS REPORT ---
Subjective Progress Note for:: 05/14/17 Subjective:: lethargic currently on BiPAP Physical Exam Vital Signs: Temp Pulse Resp BP Pulse Ox 98.2 F 86 17 119/62 98 05/14/17 11:51 05/14/17 11:51 05/14/17 11:51 05/14/17 11:51 05/14/17 11:51 Intake & Output 05/13/17 05/14/17 05/15/17 06:59 06:59 06:59 Intake Total 652 728 581 Output Total 1025 1395 200 Balance -373 -667 381 Weight 77.2 kg 78.1 kg General appearance: PRESENT: no acute distress, well-developed, well-nourished Head exam: PRESENT: atraumatic, normocephalic Eye exam: PRESENT: conjunctiva pale, EOMI Mouth exam: PRESENT: dry mucosa, neck supple Neck exam: ABSENT: carotid bruit, JVD, lymphadenopathy, thyromegaly Respiratory exam: PRESENT: decreased breath sounds, prolonged expiratory phas, rhonchi, symmetrical, unlabored Cardiovascular exam: PRESENT: RRR, +S1, +S2 Pulses: PRESENT: normal radial pulses GI/Abdominal exam: PRESENT: normal bowel sounds, soft. ABSENT: distended, guarding, mass, organolmegaly, rebound, tenderness Rectal exam: PRESENT: deferred Gentrourinary exam: PRESENT: indwelling catheter Musculoskeletal exam: PRESENT: normal inspection Neurological exam: PRESENT: awake Skin exam: PRESENT: dry, warm Results Laboratory Results: 05/14/17 05:47 05/14/17 05:47 05/14/17 05/14/17 05/14/17 05:47 05:47 05:47 WBC 6.4 RBC 3.48 L Hgb 9.9 L Hct 30.8 L MCV 89 MCH 28.4 MCHC 32.1 RDW 16.0 H Plt Count 350 Seg Neutrophils % 77.8 Lymphocytes % 9.0 L Monocytes % 11.3 Eosinophils % 1.1 Basophils % 0.8 Absolute Neutrophils 5.0 Absolute Lymphocytes 0.6 Absolute Monocytes 0.7 Absolute Eosinophils 0.1 Absolute Basophils 0.1 Sodium 136.9 L Potassium 3.4 L Chloride 107 Carbon Dioxide 20 L Anion Gap 10 BUN 10 Creatinine 0.45 L Est GFR ( Amer) > 60 Est GFR (Non-Af Amer) > 60 Glucose 106 Calcium 6.6 L* Albumin 2.1 L 05/02/17 03:51 Troponin I 0.437 Impressions: Abdomen/Pelvis CT 04/28/17 19:11 IMPRESSION: 1. Basilar pulmonary changes as above. Lower lobe infiltrates bilaterally. 2. No acute or suspicious abdominopelvic abnormality, findings as above. KUB X-Ray 05/11/17 15:02 IMPRESSION: Calcification the abdominal aorta. This could represent aneurysm or ectasia. Correlation with abdominal ultrasound is recommended. The NG tube tip is in the left upper quadrant. Chest X-Ray 05/12/17 06:00 IMPRESSION: Bibasilar airspace opacities and small left pleural effusion. Assessment & Plan - Diagnosis (1) COPD with acute exacerbation Is this a current diagnosis for this admission?: Yes (2) Dehydration Is this a current diagnosis for this admission?: Yes (3) Pneumonia Qualifiers: Pneumonia type: due to unspecified organism Laterality: bilateral Lung location: lower lobe of lung Qualified Code(s): J18.9 - Pneumonia, unspecified organism Is this a current diagnosis for this admission?: Yes (4) GERD (gastroesophageal reflux disease) Qualifiers: Esophagitis presence: without esophagitis Qualified Code(s): K21.9 - Gastro-esophageal reflux disease without esophagitis Is this a current diagnosis for this admission?: Yes
--- NOTE | 2017-05-14 17:03 | PDOC PROGRESS REPORT ---
Subjective Progress Note for:: 05/13/17 Subjective:: Unchanged Physical Exam Vital Signs: Temp Pulse Resp BP Pulse Ox 98.3 F 93 20 116/58 L 93 05/13/17 19:27 05/13/17 19:27 05/13/17 19:27 05/13/17 19:27 05/13/17 19:27 Intake & Output 05/12/17 05/13/17 05/14/17 06:59 06:59 06:59 Intake Total 481 652 673 Output Total 1340 1025 575 Balance -859 -373 98 Weight 77.8 kg 77.2 kg General appearance: PRESENT: disheveled, well-developed, well-nourished Head exam: PRESENT: atraumatic, normocephalic Eye exam: PRESENT: conjunctiva pale Mouth exam: PRESENT: dry mucosa, neck supple, tongue midline Neck exam: ABSENT: carotid bruit, JVD, lymphadenopathy, thyromegaly Respiratory exam: PRESENT: decreased breath sounds, prolonged expiratory phas, rhonchi, symmetrical, unlabored Cardiovascular exam: PRESENT: irregular rhythm Pulses: PRESENT: normal radial pulses GI/Abdominal exam: PRESENT: normal bowel sounds, soft. ABSENT: distended, guarding, mass, organolmegaly, rebound, tenderness Rectal exam: PRESENT: deferred Gentrourinary exam: PRESENT: indwelling catheter Musculoskeletal exam: PRESENT: normal inspection Skin exam: PRESENT: dry, warm Results Laboratory Results: 05/12/17 05:22 05/12/17 05:22 05/02/17 03:51 Troponin I 0.437 Impressions: Abdomen/Pelvis CT 04/28/17 19:11 IMPRESSION: 1. Basilar pulmonary changes as above. Lower lobe infiltrates bilaterally. 2. No acute or suspicious abdominopelvic abnormality, findings as above. KUB X-Ray 05/11/17 15:02 IMPRESSION: Calcification the abdominal aorta. This could represent aneurysm or ectasia. Correlation with abdominal ultrasound is recommended. The NG tube tip is in the left upper quadrant. Chest X-Ray 05/12/17 06:00 IMPRESSION: Bibasilar airspace opacities and small left pleural effusion. Assessment & Plan - Diagnosis (1) COPD with acute exacerbation Is this a current diagnosis for this admission?: Yes (2) Dehydration Is this a current diagnosis for this admission?: Yes (3) Pneumonia Qualifiers: Pneumonia type: due to unspecified organism Laterality: bilateral Lung location: lower lobe of lung Qualified Code(s): J18.9 - Pneumonia, unspecified organism Is this a current diagnosis for this admission?: Yes (4) GERD (gastroesophageal reflux disease) Qualifiers: Esophagitis presence: without esophagitis Qualified Code(s): K21.9 - Gastro-esophageal reflux disease without esophagitis Is this a current diagnosis for this admission?: Yes
[2017-05-14] MEDS: CETIRIZINE 10 MG TABLET PO SCH (17:33)
[2017-05-14] MEDS: RIVAROXABAN 10 MG TABLET PO SCH (22:28)
[2017-05-15] MEDS: LANSOPRAZOLE 30 MG TAB.RAP.DR PO SCH (05:52)
[2017-05-15] MEDS: IMIPENEM/CILASTATIN SODIUM 500 MG in NORMAL SALINE 100 ML IV SCH ×4 (05:52→23:24)
[2017-05-15] MEDS: CHOLECALCIFEROL (D3) 1,000 UNIT TABLET PO SCH (10:52)
[2017-05-15] MEDS: SERTRALINE HCL 50 MG TABLET PO SCH (10:52)
[2017-05-15] MEDS: SOTALOL HCL 80 MG TABLET PO SCH ×2 (10:52→22:04)
[2017-05-15] MEDS: CYANOCOBALAMIN (VITAMIN B-12) 1,000 MCG TABLET PO SCH (10:52)
[2017-05-15] MEDS: SULFAMETHOXAZOLE/TRIMETHOPRIM 800-160 MG/20 ML UDCUP PO SCH ×2 (10:54→22:05)
[2017-05-15] MEDS: INSULIN DETEMIR 100 UNIT/ML 3 ML PEN SUBCUT SCH ×2 (10:54→22:05)
[2017-05-15] MEDS: HALOPERIDOL 0.5 MG TABLET PO SCH ×2 (10:54→22:04)
[2017-05-15] MEDS: DIGOXIN INJ 0.5 MG/2 ML AMPULE IV SCH (10:54)
[2017-05-15] MEDS: INSULIN LISPRO 100 UNIT/ML 3 ML VIAL SUBCUT PRN ×2 (13:00→17:30)
[2017-05-15] MEDS: MULTIVITS W-MIN/IRON SOLN 60 ML PO SCH (14:22)
[2017-05-15] MEDS: CETIRIZINE 10 MG TABLET PO SCH (17:30)
--- NOTE | 2017-05-15 19:17 | PDOC PROGRESS REPORT ---
Subjective Progress Note for:: 05/15/17 Subjective:: No chest pain or palpitation. No nausea or vomiting. No abdominal pain. Remain on puree diet with honey thicken fluid. Intake is improving. No reported fever or chills. Participation in PT session limited to standing at bedside. Living girlfriend is advocating for home discharge with COMPUTER SYSTEMS SECURITY ANALYST services including VN, PT, PCS upon discharge. Physical Exam Vital Signs: Temp Pulse Resp BP Pulse Ox 98.0 F 93 18 122/60 96 05/15/17 15:44 05/15/17 15:44 05/15/17 15:44 05/15/17 15:44 05/15/17 15:44 Intake & Output 05/14/17 05/15/17 05/16/17 06:59 06:59 06:59 Intake Total 728 2039 459 Output Total 1395 650 Balance -667 1389 459 Weight 78.1 kg 79.9 kg Physical Exam: General appearance: PRESENT: no acute distress, cooperative Head exam: PRESENT: atraumatic, normocephalic Eye exam: PRESENT: conjunctiva pink, EOMI, PERRLA. ABSENT: scleral icterus Mouth exam: PRESENT: moist, tongue midline Respiratory exam: PRESENT: clear to auscultation boris, decreased breath sounds - at lung bases Cardiovascular exam: PRESENT: RRR. ABSENT: diastolic murmur, rubs, systolic murmur GI/Abdominal exam: PRESENT: normal bowel sounds, soft. ABSENT: distended, guarding, mass, organomegaly, rebound, tenderness Extremities exam: ABSENT: pedal edema Musculoskeletal exam: PRESENT: deformity - related to multiple joints involvement with arthritis Neurological exam: PRESENT: alert, awake, oriented to person, oriented to place , oriented to time, oriented to situation, CN II-XII grossly intact. ABSENT: motor sensory deficit Psychiatric exam: PRESENT: appropriate affect, normal mood. ABSENT: homicidal ideation, suicidal ideation Skin exam: PRESENT: dry, intact, warm. ABSENT: cyanosis, rash Results Laboratory Results: 05/14/17 05:47 05/14/17 05:47 05/02/17 03:51 Troponin I 0.437 Impressions: Abdomen/Pelvis CT 04/28/17 19:11 IMPRESSION: 1. Basilar pulmonary changes as above. Lower lobe infiltrates bilaterally. 2. No acute or suspicious abdominopelvic abnormality, findings as above. KUB X-Ray 05/11/17 15:02 IMPRESSION: Calcification the abdominal aorta. This could represent aneurysm or ectasia. Correlation with abdominal ultrasound is recommended. The NG tube tip is in the left upper quadrant. Chest X-Ray 05/12/17 06:00 IMPRESSION: Bibasilar airspace opacities and small left pleural effusion. Assessment & Plan - Diagnosis (1) Sepsis due to Enterobacter species Is this a current diagnosis for this admission?: Yes (2) Acute respiratory failure Qualifiers: Respiratory failure complication: hypoxia Qualified Code(s): J96.01 - Acute respiratory failure with hypoxia Is this a current diagnosis for this admission?: Yes (3) COPD with acute exacerbation Is this a current diagnosis for this admission?: Yes (4) Pneumonia Qualifiers: Pneumonia type: due to unspecified organism Laterality: bilateral Lung location: lower lobe of lung Qualified Code(s): J18.9 - Pneumonia, unspecified organism Is this a current diagnosis for this admission?: Yes (5) Chronic delirium Is this a current diagnosis for this admission?: Yes (6) Diabetes mellitus type 2 in nonobese Is this a current diagnosis for this admission?: Yes (7) HTN (hypertension) Qualifiers: Hypertension type: essential hypertension Qualified Code(s): I10 - Essential (primary) hypertension Is this a current diagnosis for this admission?: Yes (8) Coronary artery disease Qualifiers: Coronary Disease-Associated Artery/Lesion type: [place] artery [place] vs. transplanted heart: [place] heart Associated angina: without angina Qualified Code(s): I25.10 - Atherosclerotic heart disease of [place] coronary artery without angina pectoris Is this a current diagnosis for this admission?: Yes (9) HLD (hyperlipidemia) Qualifiers: Hyperlipidemia type: pure hypercholesterolemia Qualified Code(s): E78.00 - Pure hypercholesterolemia, unspecified; E78.0 - Pure hypercholesterolemia Is this a current diagnosis for this admission?: Yes (10) Old myocardial infarction Is this a current diagnosis for this admission?: Yes (11) Atrial fibrillation with rapid ventricular response Is this a current diagnosis for this admission?: Yes - Time Time Spent with patient: 25-34 minutes Medications reviewed and adjusted accordingly: Yes Anticipated discharge: Home with Homehealth Within: Other - Inpatient Certification Based on my medical assessment, after consideration of the patient's comorbidities, presenting symptoms, or acuity I expect that the services needed warrant INPATIENT care.: Yes I certify that my determination is in accordance with my understanding of Medicare's requirements for reasonable and necessary INPATIENT services [42 CFR 412.3e].: Yes Medical Necessity: Need Close Monitoring Due to Risk of Patient Decompensation, Need For IV Fluids, Need For Continuous Telemetry Monitoring, Need for Nebulizer Therapy and Monitoring of Response, Need for IV Antibiotics, Risk of Complication if Not Cared For in Hospital Post Hospital Care: D/C Physician Extender Documentation - Plan Summary Plan Summary: Continue current medication management. I had extensive discussion with patient and girlfriend regard disposition request and advantage of physical therapy rehabilitation. We will advance diet as tolerated.
[2017-05-15] MEDS: RIVAROXABAN 10 MG TABLET PO SCH (22:07)
[2017-05-16] MEDS: IMIPENEM/CILASTATIN SODIUM 500 MG in NORMAL SALINE 100 ML IV SCH ×4 (05:46→23:16)
[2017-05-16] MEDS: LANSOPRAZOLE 30 MG TAB.RAP.DR PO SCH (05:46)
--- NOTE | 2017-05-16 07:14 | PDOC PROGRESS REPORT ---
Subjective Progress Note for:: 05/16/17 Subjective:: Sleeping soundly with the CPAP machine disconnected Physical Exam Vital Signs: Temp Pulse Resp BP Pulse Ox 36.9 C 74 16 107/67 93 05/15/17 23:17 05/16/17 02:00 05/15/17 23:54 05/15/17 23:17 05/16/17 03:34 Intake & Output 05/15/17 05/16/17 05/17/17 06:59 06:59 06:59 Intake Total 2039 1213 Output Total 650 Balance 1389 1213 Weight 79.9 kg General appearance: PRESENT: no acute distress Head exam: PRESENT: normocephalic Respiratory exam: PRESENT: unlabored Vascular exam: PRESENT: normal capillary refill Extremities exam: PRESENT: other - Dressing clean dry and intact. Existing Steri-Strips are peeling which is fine. Minimal pedal edema. There is brisk capillary refill. Results Laboratory Results: 05/16/17 06:13 05/16/17 06:13 05/16/17 05/16/17 06:13 06:13 WBC Cancelled RBC Cancelled Hgb Cancelled Hct Cancelled MCV Cancelled MCH Cancelled MCHC Cancelled RDW Cancelled Plt Count Cancelled Seg Neutrophils % Cancelled Lymphocytes % Cancelled Monocytes % Cancelled Eosinophils % Cancelled Basophils % Cancelled Absolute Neutrophils Cancelled Absolute Lymphocytes Cancelled Absolute Monocytes Cancelled Absolute Eosinophils Cancelled Absolute Basophils Cancelled Sodium Cancelled Potassium Cancelled Chloride Cancelled Carbon Dioxide Cancelled Anion Gap Cancelled BUN Cancelled Creatinine Cancelled Est GFR ( Amer) Cancelled Est GFR (Non-Af Amer) Cancelled Glucose Cancelled Calcium Cancelled 05/02/17 03:51 Troponin I 0.437 Impressions: Abdomen/Pelvis CT 04/28/17 19:11 IMPRESSION: 1. Basilar pulmonary changes as above. Lower lobe infiltrates bilaterally. 2. No acute or suspicious abdominopelvic abnormality, findings as above. KUB X-Ray 05/11/17 15:02 IMPRESSION: Calcification the abdominal aorta. This could represent aneurysm or ectasia. Correlation with abdominal ultrasound is recommended. The NG tube tip is in the left upper quadrant. Chest X-Ray 05/12/17 06:00 IMPRESSION: Bibasilar airspace opacities and small left pleural effusion. Assessment & Plan - Diagnosis (1) Knee joint replacement status Is this a current diagnosis for this admission?: YesPlan: 2-year-old white male status post left knee arthroplasty with postoperative rehabilitation interrupted by cardiopulmonary events. Currently patient is making minimal progress with physical therapy. Anticipate discharge to a fdc facility when medical condition permits.
[2017-05-16 07:49] LABS: ANION GAP 9 (5-19); BLOOD UREA NITROGEN 11 mg/dL (7-20); CARBON DIOXIDE 30 mmol/L (22-30); CHLORIDE 96 mmol/L (98-107); CREATININE RESULT 0.68 mg/dL (0.52-1.25); GLUCOSE 159 mg/dL (75-110); POTASSIUM 5.1 mmol/L (3.6-5.0); SODIUM 135.2 mmol/L (137-145)
[2017-05-16 07:52] LABS: ABSOLUTE BASOPHILS # (AUTO) 0.1 10^3/uL (0.0-0.2); ABSOLUTE EOSINOPHILS # (AUTO) 0.1 10^3/uL (0.0-0.6); ABSOLUTE LYMPHOCYTES (AUTO) 0.7 10^3/uL (0.5-4.7); ABSOLUTE MONOCYTES (AUTO) 0.7 10^3/uL (0.1-1.4); ABSOLUTE NEUT (AUTO) 3.8 10^3/uL (1.7-8.2); BASOPHILS % (AUTO) 1.2 % (0-2); EOSINOPHILS % (AUTO) 2.3 % (0-6); HEMATOCRIT 38.4 % (37.9-51.0); HGB HCT DIFFERENCE -1.5; LYMPHOCYTES % (AUTO) 12.4 % (13-45); MEAN CORPUSCULAR HEMOGLOBIN 28.6 pg (27.0-33.4); MEAN CORPUSCULAR HGB CONC 32.1 g/dL (32.0-36.0); MEAN CORPUSCULAR VOLUME 89 fl (80-97); MONOCYTES % (AUTO) 13.3 % (3-13); RED CELL DISTRIBUTION WIDTH 16.2 % (11.5-14.0); SEGMENTED NEUTROPHILS % (AUTO) 70.8 % (42-78); WHITE BLOOD COUNT 5.4 10^3/uL (4.0-10.5)
[2017-05-16 07:55] LABS: HEMOGLOBIN 12.3 g/dL (13.5-17.0)
[2017-05-16] MEDS: CHOLECALCIFEROL (D3) 1,000 UNIT TABLET PO SCH (09:46)
[2017-05-16] MEDS: SERTRALINE HCL 50 MG TABLET PO SCH (09:47)
[2017-05-16] MEDS: CYANOCOBALAMIN (VITAMIN B-12) 1,000 MCG TABLET PO SCH (09:47)
[2017-05-16] MEDS: SOTALOL HCL 80 MG TABLET PO SCH ×2 (09:47→21:56)
[2017-05-16] MEDS: DIGOXIN INJ 0.5 MG/2 ML AMPULE IV SCH (09:48)
[2017-05-16] MEDS: HALOPERIDOL 0.5 MG TABLET PO SCH ×2 (09:48→21:57)
[2017-05-16] MEDS: INSULIN DETEMIR 100 UNIT/ML 3 ML PEN SUBCUT SCH ×2 (09:48→23:13)
[2017-05-16] MEDS: SULFAMETHOXAZOLE/TRIMETHOPRIM 800-160 MG/20 ML UDCUP PO SCH ×2 (09:50→21:56)
[2017-05-16] MEDS: INSULIN LISPRO 100 UNIT/ML 3 ML VIAL SUBCUT PRN ×2 (13:03→23:17)
[2017-05-16] MEDS: MULTIVITS W-MIN/IRON SOLN 60 ML PO SCH (13:03)
[2017-05-16] MEDS ORDERED: LORAZEPAM INJ 2 MG/1 ML VIAL IV PRN (15:17)
[2017-05-16] MEDS: CETIRIZINE 10 MG TABLET PO SCH (17:26)
--- NOTE | 2017-05-16 20:10 | PDOC PROGRESS REPORT ---
Subjective Progress Note for:: 05/16/17 Subjective:: Nursing staff and Living girlfriend reported better sleep pattern last night with use of CPAP machine. There was episode of aspiration and respiratory distress earlier today while eating lunch in recumbent position. Dinner intake in sitting position was better tolerated. No chest pain or palpitation. No nausea or vomiting. No abdominal pain. He remain on puree diet with honey thicken fluid. He is schedule for modified swallowing test tomorrow. Patient is agreeable to return to SNF for short term rehabilitation. Physical Exam Vital Signs: Temp Pulse Resp BP Pulse Ox 98.5 F 79 18 106/63 95 05/16/17 15:38 05/16/17 19:00 05/16/17 15:38 05/16/17 15:38 05/16/17 15:38 Intake & Output 05/15/17 05/16/17 05/17/17 06:59 06:59 06:59 Intake Total 2039 1213 1109 Output Total 650 0 925 Balance 1389 1213 184 Weight 79.9 kg 79 kg Physical Exam: General appearance: PRESENT: no acute distress, cooperative Head exam: PRESENT: atraumatic, normocephalic Eye exam: PRESENT: conjunctiva pink, EOMI, PERRLA. ABSENT: scleral icterus Mouth exam: PRESENT: moist, tongue midline Respiratory exam: PRESENT: clear to auscultation boris, decreased breath sounds - at lung bases Cardiovascular exam: PRESENT: RRR. ABSENT: diastolic murmur, rubs, systolic murmur GI/Abdominal exam: PRESENT: normal bowel sounds, soft. ABSENT: distended, guarding, mass, organomegaly, rebound, tenderness Extremities exam: ABSENT: pedal edema Musculoskeletal exam: PRESENT: deformity - related to multiple joints involvement with arthritis Neurological exam: PRESENT: alert, awake, oriented to person, oriented to place , oriented to time, oriented to situation, CN II-XII grossly intact. ABSENT: motor sensory deficit Psychiatric exam: PRESENT: appropriate affect, normal mood. ABSENT: homicidal ideation, suicidal ideation Skin exam: PRESENT: dry, intact, warm. ABSENT: cyanosis, rash Results Laboratory Results: 05/16/17 07:23 05/16/17 07:23 05/16/17 05/16/17 05/16/17 06:13 06:13 07:23 WBC Cancelled 5.4 RBC Cancelled 4.30 L Hgb Cancelled 12.3 L D Hct Cancelled 38.4 MCV Cancelled 89 MCH Cancelled 28.6 MCHC Cancelled 32.1 RDW Cancelled 16.2 H Plt Count Cancelled 369 Seg Neutrophils % Cancelled 70.8 Lymphocytes % Cancelled 12.4 L Monocytes % Cancelled 13.3 H Eosinophils % Cancelled 2.3 Basophils % Cancelled 1.2 Absolute Neutrophils Cancelled 3.8 Absolute Lymphocytes Cancelled 0.7 Absolute Monocytes Cancelled 0.7 Absolute Eosinophils Cancelled 0.1 Absolute Basophils Cancelled 0.1 Sodium Cancelled Potassium Cancelled Chloride Cancelled Carbon Dioxide Cancelled Anion Gap Cancelled BUN Cancelled Creatinine Cancelled Est GFR ( Amer) Cancelled Est GFR (Non-Af Amer) Cancelled Glucose Cancelled Calcium Cancelled 05/16/17 07:23 WBC RBC Hgb Hct MCV MCH MCHC RDW Plt Count Seg Neutrophils % Lymphocytes % Monocytes % Eosinophils % Basophils % Absolute Neutrophils Absolute Lymphocytes Absolute Monocytes Absolute Eosinophils Absolute Basophils Sodium 135.2 L Potassium 5.1 H Chloride 96 L Carbon Dioxide 30 Anion Gap 9 BUN 11 Creatinine 0.68 Est GFR ( Amer) > 60 Est GFR (Non-Af Amer) > 60 Glucose 159 H Calcium 9.0 05/02/17 03:51 Troponin I 0.437 Impressions: Abdomen/Pelvis CT 04/28/17 19:11 IMPRESSION: 1. Basilar pulmonary changes as above. Lower lobe infiltrates bilaterally. 2. No acute or suspicious abdominopelvic abnormality, findings as above. KUB X-Ray 05/11/17 15:02 IMPRESSION: Calcification the abdominal aorta. This could represent aneurysm or ectasia. Correlation with abdominal ultrasound is recommended. The NG tube tip is in the left upper quadrant. Chest X-Ray 05/12/17 06:00 IMPRESSION: Bibasilar airspace opacities and small left pleural effusion. Assessment & Plan - Diagnosis (1) Sepsis due to Enterobacter species Is this a current diagnosis for this admission?: Yes (2) Acute respiratory failure Qualifiers: Respiratory failure complication: hypoxia Qualified Code(s): J96.01 - Acute respiratory failure with hypoxia Is this a current diagnosis for this admission?: Yes (3) COPD with acute exacerbation Is this a current diagnosis for this admission?: Yes (4) Pneumonia Qualifiers: Pneumonia type: due to unspecified organism Laterality: bilateral Lung location: lower lobe of lung Qualified Code(s): J18.9 - Pneumonia, unspecified organism Is this a current diagnosis for this admission?: Yes (5) Chronic delirium Is this a current diagnosis for this admission?: Yes (6) Diabetes mellitus type 2 in nonobese Is this a current diagnosis for this admission?: Yes (7) HTN (hypertension) Qualifiers: Hypertension type: essential hypertension Qualified Code(s): I10 - Essential (primary) hypertension Is this a current diagnosis for this admission?: Yes (8) Coronary artery disease Qualifiers: Coronary Disease-Associated Artery/Lesion type: [place] artery [place] vs. transplanted heart: [place] heart Associated angina: without angina Qualified Code(s): I25.10 - Atherosclerotic heart disease of [place] coronary artery without angina pectoris Is this a current diagnosis for this admission?: Yes (9) HLD (hyperlipidemia) Qualifiers: Hyperlipidemia type: pure hypercholesterolemia Qualified Code(s): E78.00 - Pure hypercholesterolemia, unspecified; E78.0 - Pure hypercholesterolemia Is this a current diagnosis for this admission?: Yes (10) Old myocardial infarction Is this a current diagnosis for this admission?: Yes (11) Atrial fibrillation with rapid ventricular response Is this a current diagnosis for this admission?: Yes - Time Time Spent with patient: 25-34 minutes Medications reviewed and adjusted accordingly: Yes Anticipated discharge: SNF Within: Other - Inpatient Certification Based on my medical assessment, after consideration of the patient's comorbidities, presenting symptoms, or acuity I expect that the services needed warrant INPATIENT care.: Yes I certify that my determination is in accordance with my understanding of Medicare's requirements for reasonable and necessary INPATIENT services [42 CFR 412.3e].: Yes Medical Necessity: Need Close Monitoring Due to Risk of Patient Decompensation, Need For IV Fluids, Need For Continuous Telemetry Monitoring, Need for Nebulizer Therapy and Monitoring of Response, Risk of Complication if Not Cared For in Hospital Post Hospital Care: D/C or Transfer Summary - Plan Summary Plan Summary: Continue on all current medication management. Discuss with brand planner regarding returning to [facility] for short term rehabilitation. He will benefit from CPAP machine usage while sleeping in view of his end stage COPD with hypoxemia and hypercapnia. This will be arranged before transfer to SNF. Emphasized full aspiration precautions to patient and girlfriend during my bedside consultation today. Follow up on modified swallowing test tomorrow.
[2017-05-16] MEDS: RIVAROXABAN 10 MG TABLET PO SCH (21:57)
[2017-05-17] MEDS: IMIPENEM/CILASTATIN SODIUM 500 MG in NORMAL SALINE 100 ML IV SCH ×3 (06:05→17:36)
[2017-05-17] MEDS: LANSOPRAZOLE 30 MG TAB.RAP.DR PO SCH (06:06)
--- NOTE | 2017-05-17 07:04 | PDOC PROGRESS REPORT ---
Subjective Progress Note for:: 05/17/17 Subjective:: Patient resting comfortably Physical Exam Vital Signs: Temp Pulse Resp BP Pulse Ox 36.6 C 71 19 100/66 97 05/17/17 03:18 05/17/17 03:18 05/17/17 03:18 05/17/17 03:18 05/17/17 03:18 Intake & Output 05/16/17 05/17/17 05/18/17 06:59 06:59 06:59 Intake Total 1213 1419 Output Total 0 1525 Balance 1213 -106 Weight 79 kg 78.5 kg General appearance: PRESENT: no acute distress Musculoskeletal exam: PRESENT: other - Left knee wound clean dry and intact. Flexor contracture present. Brisk capillary refill. Results Laboratory Results: 05/16/17 07:23 05/16/17 07:23 05/16/17 05/16/17 07:23 07:23 WBC 5.4 RBC 4.30 L Hgb 12.3 L D Hct 38.4 MCV 89 MCH 28.6 MCHC 32.1 RDW 16.2 H Plt Count 369 Seg Neutrophils % 70.8 Lymphocytes % 12.4 L Monocytes % 13.3 H Eosinophils % 2.3 Basophils % 1.2 Absolute Neutrophils 3.8 Absolute Lymphocytes 0.7 Absolute Monocytes 0.7 Absolute Eosinophils 0.1 Absolute Basophils 0.1 Sodium 135.2 L Potassium 5.1 H Chloride 96 L Carbon Dioxide 30 Anion Gap 9 BUN 11 Creatinine 0.68 Est GFR ( Amer) > 60 Est GFR (Non-Af Amer) > 60 Glucose 159 H Calcium 9.0 05/02/17 03:51 Troponin I 0.437 Impressions: Abdomen/Pelvis CT 04/28/17 19:11 IMPRESSION: 1. Basilar pulmonary changes as above. Lower lobe infiltrates bilaterally. 2. No acute or suspicious abdominopelvic abnormality, findings as above. KUB X-Ray 05/11/17 15:02 IMPRESSION: Calcification the abdominal aorta. This could represent aneurysm or ectasia. Correlation with abdominal ultrasound is recommended. The NG tube tip is in the left upper quadrant. Chest X-Ray 05/12/17 06:00 IMPRESSION: Bibasilar airspace opacities and small left pleural effusion. Assessment & Plan - Diagnosis (1) Knee joint replacement status Is this a current diagnosis for this admission?: YesPlan: With limited progress at physical therapy presumably secondary to deconditioning. Aggressive approaches to the flexion contracture and muscle strengthening are appropriate. - Time Time Spent with patient: 15-24 minutes Anticipated discharge: SNF Within: Other
--- NOTE | 2017-05-17 09:02 | ST Inp Modified Barium Swallow ---
Medical Diagnosis - Medical Diagnoses Medical Diagnosis Description & ICD-10 Code(s): choked on lunch 05/16 per RN - ICD-10 Tx Diagnosis Coding (1) Dysphagia, oral phase ICD-10 Code(s): R13.11 - DYSPHAGIA, ORAL PHASE (2) Dysphagia, pharyngeal phase ICD-10 Code(s): R13.13 - DYSPHAGIA, PHARYNGEAL PHASE ST Inpatient MBS - General Date: 05/17/17 Date of Onset: 04/29/17 - History History Obtained From: Patient -: Medical - per EMR; respiratory failure, fever, hypoxemia, CAD, HLD, HTN, PNA , chronic delirium, COPD exacerbation. Pt ventelated from 05/06/17-05/09/17. Pt currently tube fed. RN reports swallow screen failed x2. chest xray shows bibasilar airspace opacities and small left pleural effusion. PMHx: diabetes, CAD, HTN, HLD, COPD, GERD, pancreatic CA, anemia, pneumothorax x3, AMS in evening, [place]. Pt has been followed by acute care ST for treatment. RN reported on 05/16/17 that pt "choked on lunch". MBSS placed due to event. Medications: Medications Reviewed Allergies: Refer to medical record - Subjective Current Nutritional Means: PO Current PO Diet: Pureed Current Symptoms: Coughing Pain: 0/5 - Objective Assessment: Upright, Left Lateral - Food Trials Food Trials Used: Thin liquids, Pureed, Soft solids The Patient: Required Assist - Assessment Labial Function: Within Functional Limits Lingual Function: Impaired - mildly weak-trace lingual residuals Mandibular Function: Impaired - mildly weak Dentition: Dentures-Upper, Edentulous Velo-Pharyngeal Function: Unremarkable Laryngeal Function: Volitional Cough, Volitional Swallow, weak voicing - Pharyngeal Stage Initiation of Pharyngeal Stage: Normal Decreased Laryngeal Elevation: No Reduced Velo-Pharyngeal Closure: no Reduced Pressure Generation: No Reduced Tongue Base Retraction: Yes - mild,trace column of contrast Pre-Swallowing Pooling in Valleculae: None Pre-Swallowing Pooling in Pyriforms: None Reduced Thyro-Hyiod Approximation: No Reduced Epiglottic Excursion: No Reduced Pharyngeal Peristalsis: No Post Swallow Residuals in Valleculae: None Post Swallow Residuals in Pyriforms: None - Impression/Summary Laryngeal Penetration: No Tracheal Aspiration: no Patient Presents With: Oral stage dysphagia - mild-reduced base of tongue strength, Pharyngeal stage dysph. - mild Risk of Aspiration: Mild - Recommendations NPO: no Solid Diet Recommendations: Mechanical Soft, Ground Meat Liquid Diet Recommendations: Thin Dysphagia Therapy with SURVEY RESEARCH ASSOCIATE: Yes - continue current plan of care for x2 a week starting next week Recommended Techniques: Fully Upright During Meal, Med Crushed in Applesauce, Small Bites and Sips, Alternate Bites/Sips - to clear oral residuals of solids Supervision: requires assistance Other Recommendations: 1) DIET: recommend upgrade diet to mechanical soft ground meats and thin liquids. 2) STRATEGIES: continued aspiration precautions as pt continues to have some fatigue. Small bites and sips, alternating bites and sips, feed when awake/alert and accepting, fully upright during meals. SUMMARY: Pt presents with a mild oral and pharyngeal dysphagia characterized by increased chewing, mildly decreased lingual strength, and mildly reduced base of tongue. Mild oral deficits observed to result in trace to mild lingual residuals on solids which clear with liquid wash. Mildly reduced base of tongue observed by small column of contrast however not observed to leave pharyngeal residuals. ST contacted MD regarding diet recommendations and concerns for fatigue, MD in agreement andprovided ST with diet order change. ST to continue to follow in acute care. - Time Total Time: 20 Total Timed Minutes: 0 ST F.L. Impairment Category - Rationale Based On Rationale Based On: Clin Find., Obj Measures - Swallowing Current G8996: CJ 20-39% Impaired Goal G8997: CI 1-19% Impaired
[2017-05-17] MEDS: CYANOCOBALAMIN (VITAMIN B-12) 1,000 MCG TABLET PO SCH (09:14)
[2017-05-17] MEDS: SOTALOL HCL 80 MG TABLET PO SCH ×2 (09:15→21:27)
[2017-05-17] MEDS: SERTRALINE HCL 50 MG TABLET PO SCH (09:15)
[2017-05-17] MEDS: CHOLECALCIFEROL (D3) 1,000 UNIT TABLET PO SCH (09:17)
[2017-05-17] MEDS: SULFAMETHOXAZOLE/TRIMETHOPRIM 800-160 MG/20 ML UDCUP PO SCH ×2 (09:18→21:28)
[2017-05-17] MEDS: HALOPERIDOL 0.5 MG TABLET PO SCH ×2 (09:18→21:28)
[2017-05-17] MEDS: DIGOXIN INJ 0.5 MG/2 ML AMPULE IV SCH (09:19)
[2017-05-17] MEDS: INSULIN DETEMIR 100 UNIT/ML 3 ML PEN SUBCUT SCH ×2 (09:23→21:40)
[2017-05-17] MEDS: MULTIVITS W-MIN/IRON SOLN 60 ML PO SCH ×2 (14:00→16:02)
--- NOTE | 2017-05-17 15:32 | PDOC TRANSFER SUMMARY ---
General - Admit/Disc Date/PCP Admission Date/Primary Care Provider: 04/29/17 07:33 GWENDOLYN WILFREDO Discharge Date: 05/17/17 - Discharge Diagnosis (1) Sepsis due to Enterobacter species Is this a current diagnosis for this admission?: Yes (2) Acute respiratory failure Is this a current diagnosis for this admission?: Yes (3) COPD with acute exacerbation Is this a current diagnosis for this admission?: Yes (4) Pneumonia Is this a current diagnosis for this admission?: Yes (5) Chronic delirium Is this a current diagnosis for this admission?: Yes (6) Diabetes mellitus type 2 in nonobese Is this a current diagnosis for this admission?: Yes (7) HTN (hypertension) Is this a current diagnosis for this admission?: Yes (8) Coronary artery disease Is this a current diagnosis for this admission?: Yes (9) HLD (hyperlipidemia) Is this a current diagnosis for this admission?: Yes (10) Old myocardial infarction Is this a current diagnosis for this admission?: Yes (11) Atrial fibrillation with rapid ventricular response Is this a current diagnosis for this admission?: Yes - Additional Information Resuscitation Status: Full Code Home Medications: Cetirizine HCl [Zyrtec 10 mg Tablet] 1 tab PO QHS 04/29/17 Cholecalciferol (Vitamin D3) [Thera-D] 4,000 unit PO DAILY 04/29/17 Cyanocobalamin (Vitamin B-12) [Vitamin B-12 1000 Mcg Tablet] 1 tab PO DAILY 01/11 Fluticasone/Vilanterol [Breo Ellipta 200-25 Mcg INH] 1 each IH QAM 04/29/17 Haloperidol Lactate [Haldol Inj 5 Mg/Ml Vial] 1 mg IM Q6HP PRN 04/29/17 Haloperidol [Haldol 0.5 mg Tablet] 0.5 mg PO Q8 04/29/17 Ipratropium/Albuterol Sulfate [Combivent Inhaler] 1 puff IH DAILY@1600 04/29/17 Linagliptin [Tradjenta] 5 mg PO QAM 04/29/17 Melatonin 10 mg PO QHS 04/29/17 Metformin HCl [Glucophage] 850 mg PO BIDBS 04/29/17 Multivitamin [One-A-Day Essential] 1 each PO QHS 04/29/17 Hale-3 Fatty Acids/Fish Oil [Fish Oil 1,000 Mg Capsule] 1 each PO DAILY Oxycodone HCl [Oxy-Ir 5 mg Tablet] 5 mg PO Q6HP PRN 04/29/17 Pantoprazole Sodium [Protonix] 40 mg PO QAM 04/29/17 Rivaroxaban [Xarelto 10 mg Tablet] 10 mg PO QHS 04/29/17 Sertraline HCl [Zoloft 50 mg Tablet] 50 mg PO QAM 04/29/17 Tiotropium [place] [Spiriva Respimat] 2.5 mcg IH BID 04/29/17 Tramadol HCl 50 mg PO Q6HP PRN 04/29/17 Vit A/Vit C/Vit E/Zinc/Copper [Preservision Areds Tablet] 1 each PO DAILY History of Present Illness Admission Date/PCP: 04/29/17 07:33 GWENDOLYN VILLALOBOS History of Present Illness: BRUCE KNOTT is a 82 year old male was recently discharged to SNF for short term rehabilitation following left knee total arthroplasty surgery. There is associated fever, chills, cough and chest congestion. There was reported hypoxemia with oxygen saturation of 85% and tachypnea reported by EMS There was no reported chest pain. Patient do have history of COPD and CAD with old MD. Patient had IV Solu-Medrol 125 mg en-route to the ED. Patient's girlfriend at bedside reported complain of some abdominal pain, left somewhat greater than right. His initial evaluation in the ED was suggestive of airspace disease process and exacerbated COPD. He was managed with bronchodilators, IV antibiotic and IV Solu-Medrol. Hospital Course Hospital Course: Patient did respond to IV antibiotic and BiPAP support. He developed worsening difficulty with breathing with high work of breathing and associated tachycardia necessitating intubation and transfer to ICU. Patient was seen by surgicalist due to his continue complain of abdominal pain with negative abdominal and pelvic pathology on CT scan of abdomen. he was seen by Dr. Multani , card fixer, for further management of his respiratory issues. He had bronchoscopy due to copious endotracheal drainage. He was eventually extubated and had since remain clinically stable with need for nocturnal CPAP usage due to his end stage COPD with hypoxemia and hypercapnia. He will be transferred to SNF today for short term rehabilitation. He will follow up in the office upon discharge from the SNF and follow up with Dr. vogel, orthopedic surgeon, due to his recent left total knee replacement surgery. Physical Exam Vital Signs: Temp Pulse Resp BP Pulse Ox 98.3 F 81 19 118/59 L 90 L 05/17/17 11:37 05/17/17 11:37 05/17/17 11:37 05/17/17 11:37 05/17/17 11:37 Intake & Output 05/16/17 05/17/17 05/18/17 06:59 06:59 06:59 Intake Total 1213 1419 474 Output Total 0 1525 Balance 1213 -106 474 Weight 79 kg 78.5 kg General appearance: PRESENT: no acute distress, cooperative Head exam: PRESENT: atraumatic, normocephalic Eye exam: PRESENT: conjunctiva pink, EOMI, PERRLA. ABSENT: scleral icterus Mouth exam: PRESENT: moist, tongue midline Respiratory exam: PRESENT: clear to auscultation boirs, decreased breath sounds - at lung bases Cardiovascular exam: PRESENT: RRR. ABSENT: diastolic murmur, rubs, systolic murmur GI/Abdominal exam: PRESENT: normal bowel sounds, soft. ABSENT: distended, guarding, mass, organomegaly, rebound, tenderness Extremities exam: ABSENT: pedal edema Musculoskeletal exam: PRESENT: deformity - related to multiple joints involvement with arthritis Neurological exam: PRESENT: alert, awake, oriented to person, oriented to place , oriented to time, oriented to situation, CN II-XII grossly intact. ABSENT: motor sensory deficit Psychiatric exam: PRESENT: appropriate affect, normal mood. ABSENT: homicidal ideation, suicidal ideation Skin exam: PRESENT: dry, intact, warm. ABSENT: cyanosis, rash Results Laboratory Results: 05/16/17 07:23 05/16/17 07:23 05/02/17 03:51 Troponin I 0.437 Impressions: Abdomen/Pelvis CT 04/28/17 19:11 IMPRESSION: 1. Basilar pulmonary changes as above. Lower lobe infiltrates bilaterally. 2. No acute or suspicious abdominopelvic abnormality, findings as above. KUB X-Ray 05/11/17 15:02 IMPRESSION: Calcification the abdominal aorta. This could represent aneurysm or ectasia. Correlation with abdominal ultrasound is recommended. The NG tube tip is in the left upper quadrant. Chest X-Ray 05/12/17 06:00 IMPRESSION: Bibasilar airspace opacities and small left pleural effusion. Transfer Plan - Disposition Transfer Plan: Transfer to [facility] for short term rehabilitation. - Time Spent with Patient Time spent with patient: Less than 30 Minutes Qualifiers PATEINT BEING DISCHARGED WITH ANY OF THE FOLLOWING DIAGNOSIS?: No Plan Discharge Plan: Transfer to [facility] today. Follow up with me in the office. Facility staff should call the office prior to discharge from rehabilitation facility. Follow up with Dr Vogel as instructed upon discharge. Time Spent: Greater than 30 Minutes
--- NOTE | 2017-05-17 16:49 | RADIOLOGY REPORT (SQ) ---
EXAM DESCRIPTION: MAURICE SWALLOW COMPLETED DATE/TIME: 05/17/2017 8:41 am REASON FOR STUDY: choked on lunch 05/16 per RN COMPARISON: None. TECHNIQUE: Videofluoroscopic swallowing examination was performed in conjunction with speech patholo gy. Videofluoroscopic imaging was obtained and reviewed and these are the findings: RADIATION DOSE: 1 minutes 35 seconds of fluoroscopy was used. 1 images saved to PACS. LIMITATIONS: None FINDINGS: The patient was brought into the fluoro room and placed upright on a modified barium swall ow chair. The patient was then given multiple consistencies mixed with barium to swallow under live fluoroscopic video guidance. According to the Speech Pathologist there was no penetration or aspirat ion. Patient demonstrates a weak swallow. Mild cricopharyngeal hypertrophy. IMPRESSION: NO EVIDENCE OF PENETRATION OR ASPIRATION.PLEASE SEE SPEECH PATHOLOGIST REPORT FOR OTHER FINDINGS AND RECOMMENDATIONS. COMMENT: Quality ID [id number]: Final reports for procedures using fluoroscopy that document radiation exp osure indices, or exposure time and number of fluorographic images (if radiation exposure indices are not available) TECHNICAL DOCUMENTATION: JOB ID: [id number] [email or web address]- All Rights Reserved
[2017-05-17] MEDS: INSULIN LISPRO 100 UNIT/ML 3 ML VIAL SUBCUT PRN (16:53)
[2017-05-17] MEDS: CETIRIZINE 10 MG TABLET PO SCH (17:35)
[2017-05-17 19:55] VITALS: BP 125/63
[2017-05-17] MEDS: RIVAROXABAN 10 MG TABLET PO SCH (21:29)
--- NOTE | 2017-05-18 19:21 | PDOC PROGRESS REPORT ---
Subjective Progress Note for:: 05/16/17 Subjective:: better Physical Exam Vital Signs: Temp Pulse Resp BP Pulse Ox 98.5 F 91 18 112/69 93 05/16/17 12:04 05/16/17 07:28 05/16/17 12:04 05/16/17 12:04 05/16/17 07:28 Intake & Output 05/15/17 05/16/17 05/17/17 06:59 06:59 06:59 Intake Total 2039 1213 277 Output Total 650 0 425 Balance 1389 1213 -148 Weight 79.9 kg 79 kg General appearance: PRESENT: no acute distress, disheveled, obese Head exam: PRESENT: atraumatic, normocephalic Eye exam: PRESENT: conjunctiva pale, EOMI Mouth exam: PRESENT: dry mucosa, tongue midline Neck exam: ABSENT: carotid bruit, JVD, lymphadenopathy, thyromegaly Respiratory exam: PRESENT: decreased breath sounds, prolonged expiratory phas, rhonchi Cardiovascular exam: PRESENT: +S1, +S2 Rectal exam: PRESENT: deferred Gentrourinary exam: PRESENT: indwelling catheter Musculoskeletal exam: PRESENT: normal inspection Neurological exam: PRESENT: awake Psychiatric exam: PRESENT: flat affect Skin exam: PRESENT: dry, warm Results Laboratory Results: 05/16/17 07:23 05/16/17 07:23 05/16/17 05/16/17 05/16/17 06:13 06:13 07:23 WBC Cancelled 5.4 RBC Cancelled 4.30 L Hgb Cancelled 12.3 L D Hct Cancelled 38.4 MCV Cancelled 89 MCH Cancelled 28.6 MCHC Cancelled 32.1 RDW Cancelled 16.2 H Plt Count Cancelled 369 Seg Neutrophils % Cancelled 70.8 Lymphocytes % Cancelled 12.4 L Monocytes % Cancelled 13.3 H Eosinophils % Cancelled 2.3 Basophils % Cancelled 1.2 Absolute Neutrophils Cancelled 3.8 Absolute Lymphocytes Cancelled 0.7 Absolute Monocytes Cancelled 0.7 Absolute Eosinophils Cancelled 0.1 Absolute Basophils Cancelled 0.1 Sodium Cancelled Potassium Cancelled Chloride Cancelled Carbon Dioxide Cancelled Anion Gap Cancelled BUN Cancelled Creatinine Cancelled Est GFR ( Amer) Cancelled Est GFR (Non-Af Amer) Cancelled Glucose Cancelled Calcium Cancelled 05/16/17 07:23 WBC RBC Hgb Hct MCV MCH MCHC RDW Plt Count Seg Neutrophils % Lymphocytes % Monocytes % Eosinophils % Basophils % Absolute Neutrophils Absolute Lymphocytes Absolute Monocytes Absolute Eosinophils Absolute Basophils Sodium 135.2 L Potassium 5.1 H Chloride 96 L Carbon Dioxide 30 Anion Gap 9 BUN 11 Creatinine 0.68 Est GFR ( Amer) > 60 Est GFR (Non-Af Amer) > 60 Glucose 159 H Calcium 9.0 05/02/17 03:51 Troponin I 0.437 Impressions: Abdomen/Pelvis CT 04/28/17 19:11 IMPRESSION: 1. Basilar pulmonary changes as above. Lower lobe infiltrates bilaterally. 2. No acute or suspicious abdominopelvic abnormality, findings as above. KUB X-Ray 05/11/17 15:02 IMPRESSION: Calcification the abdominal aorta. This could represent aneurysm or ectasia. Correlation with abdominal ultrasound is recommended. The NG tube tip is in the left upper quadrant. Chest X-Ray 05/12/17 06:00 IMPRESSION: Bibasilar airspace opacities and small left pleural effusion. Assessment & Plan - Diagnosis (1) COPD with acute exacerbation Is this a current diagnosis for this admission?: Yes (2) Dehydration Is this a current diagnosis for this admission?: Yes (3) Pneumonia Qualifiers: Pneumonia type: due to unspecified organism Laterality: bilateral Lung location: lower lobe of lung Qualified Code(s): J18.9 - Pneumonia, unspecified organism Is this a current diagnosis for this admission?: Yes (4) GERD (gastroesophageal reflux disease) Qualifiers: Esophagitis presence: without esophagitis Qualified Code(s): K21.9 - Gastro-esophageal reflux disease without esophagitis Is this a current diagnosis for this admission?: Yes
== END 2017-05-17 22:08 | DRG 853 ==
LOC: ER 17:57 → UNDOADMIN 22:14 → EH 22:14 → 3W 04-29 00:27 → EH 04-29 00:27 → 3W 04-29 07:33 → EH 04-29 07:33 → ICU 04-29 18:37 → 3S 05-11 18:51
PROVIDERS: ADMIT Internal Medicine Geriatric Medicine; ATTEND Internal Medicine Geriatric Medicine
PROC: 0BH17EZ Insertion of Endotracheal Airway into Trachea, Via Natural or Artificial Opening (ICD-10-PCS; 2017-04-29)
PROC: 5A1955Z Respiratory Ventilation, Greater than 96 Consecutive Hours (ICD-10-PCS; 2017-04-29)
PROC: 0B9J8ZX Drainage of Left Lower Lung Lobe, Via Natural or Artificial Opening Endoscopic, Diagnostic (ICD-10-PCS; principal; 2017-05-03)
DX: A41.89 Other specified sepsis (principal); J96.01 Acute respiratory failure with hypoxia; J18.9 Pneumonia, unspecified organism; J44.1 Chronic obstructive pulmonary disease with (acute) exacerbation; I48.91 Unspecified atrial fibrillation; I95.89 Other hypotension; R41.0 Disorientation, unspecified; E11.9 Type 2 diabetes mellitus without complications; K21.9 Gastro-esophageal reflux disease without esophagitis; I10 Essential (primary) hypertension; I25.10 Atherosclerotic heart disease of native coronary artery without angina pectoris; D64.9 Anemia, unspecified; E78.00 Pure hypercholesterolemia, unspecified; M19.90 Unspecified osteoarthritis, unspecified site; Z79.899 Other long term (current) drug therapy; Z79.84 Long term (current) use of oral hypoglycemic drugs; Z96.652 Presence of left artificial knee joint; I25.2 Old myocardial infarction; Z85.07 Personal history of malignant neoplasm of pancreas
CPT/HCPCS: 31500; 36415; 36600; 71010; 74000; 74177; 74230; 80048; 80053; 80162; 80202; 81001; 82040; 82803; 82962; 83605; 83690; 83735; 83880; 84100; 84484; 85025; 85610; 87015; 87040; 87070; 87077; 87086; 87088; 87101; 87116; 87186; 87205; 87206; 87493; 89050; 93005; 93010; 94002; 94003; 94640; 94660; 94667; 94668; 94799; 96365; 96367; 99291; G8981-GP; G8982-GP; G8996-GN; G8997-GN; J0330; J0610; J0743; J1160; J1630; J1815; J2060; J2270; J2370; J2543; J2704; J2930; J3370; J3490; J7030; J7060; J7620

== ENCOUNTER 2017-05-18 20:21 | Emergency (ER) | payer MEDICARE ==
[2017-05-18] MEDS ORDERED: IPRATROPIUM/ALBUTEROL 0.5-2.5 MG/3 ML AMPUL NEB ONE (22:32)
--- NOTE | 2017-05-18 23:11 | RADIOLOGY REPORT (SQ) ---
EXAM DESCRIPTION: CHEST SINGLE VIEW COMPLETED DATE/TIME: 05/18/2017 10:55 pm REASON FOR STUDY: sob COMPARISON: 05/12/2017 EXAM PARAMETERS: NUMBER OF VIEWS: One view. TECHNIQUE: Single frontal radiographic view of the chest acquired. RADIATION DOSE: NA LIMITATIONS: None. FINDINGS: LUNGS AND PLEURA: Previously described bibasilar airspace opacities appear somewhat improv ed on today's examination. Likewise, there is decreased blunting of the left costophrenic angle. No new focal consolidation is present. No pneumothorax. MEDIASTINUM AND HILAR STRUCTURES: No masses. Contour normal. HEART AND VASCULAR STRUCTURES: Heart normal in size. Normal vasculature. BONES: No acute findings. HARDWARE: None in the chest. OTHER: No other significant finding. IMPRESSION: Somewhat improved radiographic appearance of previously described bibasilar airspace opa cities and left-sided pleural effusion. No new focal opacities or evidence of adverse trend. TECHNICAL DOCUMENTATION: JOB ID: [id number]
[2017-05-18 23:58] LABS: ANION GAP 10 (5-19); BLOOD UREA NITROGEN 11 mg/dL (7-20); CALCIUM 9.1 mg/dL (8.4-10.2); CARBON DIOXIDE 27 mmol/L (22-30); CHLORIDE 93 mmol/L (98-107); CREATININE RESULT 0.63 mg/dL (0.52-1.25); GLUCOSE 196 mg/dL (75-110); SODIUM 129.5 mmol/L (137-145)
--- NOTE | 2017-05-19 00:28 | ER Document Report ---
ED General - General Chief Complaint: Medical Clearance Stated Complaint: WELL CHECK Time Seen by Provider: 05/18/17 21:56 Notes: Patient is an 82-year-old male with an extensive past medical history including COPD, hypertension, hyperlipidemia, recently discharged from the hospital after being admitted with a pneumonia and subsequent sepsis who presents with concerns of an episode of shortness of breath. Family reports that the patient has not received any of his COPD medications today due to recently transferring to the nursing facility. He did develop an episode of shortness of breath prior to arrival which is now completely resolved after receiving nebulizer by EMS. Patient now denies any symptoms whatsoever. He denies any chest pain, headache, neck pain or fever. at the bedside reports the patient is now at his baseline. Nothing was noted to worsen his symptoms when they were present. TRAVEL OUTSIDE OF THE [place] IN LAST 30 DAYS: No - Related Data Allergies/Adverse Reactions: No Known Allergies Allergy (Verified 01/24/17 13:12) Past Medical History - General Information source: Patient, Relative - Social History Smoking Status: Former Smoker Frequency of alcohol use: None Drug Abuse: None Lives with: Jail Family History: Reviewed & Not Pertinent - Past Medical History Cardiac Medical History: Reports: Hx Coronary Artery Disease, Hx Hypercholesterolemia, Hx Hypertension Denies: Hx Atrial Fibrillation, Hx Congestive Heart Failure, Hx Heart Attack , Hx Peripheral Vascular Disease, Hx Pulmonary Embolism, Hx Heart Murmur Pulmonary Medical History: Reports: Hx Asthma, Hx COPD, Hx Respiratory Failure - Lung Collapsed 2010 Denies: Hx Bronchitis, Hx Pneumonia, Hx Sleep Apnea, Hx Tuberculosis Endocrine Medical History: Reports: Hx Diabetes Mellitus Type 2. Denies: Hx Graves' Disease, Hx Hyperthyroidism, Hx Hypothyroidism Renal/ Medical History: Denies: Hx Benign Prostatic Hyperplasia, Hx End Stage Renal Disease, Hx Kidney Stones, Hx Peritoneal Dialysis Malignancy Medical History: Denies Hx Leukemia, Denies Hx Lung Cancer, Reports Hx Pancreatic Cancer GI Medical History: Reports: Hx Gastroesophageal Reflux Disease, Hx Ulcer. Denies: Hx Crohn's Disease, Hx Hiatal Hernia, Hx Irritable Bowel, Hx Liver Failure Musculoskeltal Medical History: Reports Hx Arthritis, Denies Hx Fibromyalgia, Denies Hx Muscular Dystrophy Psychiatric Medical History: Denies: Hx Bipolar Disorder, Hx Depression, Hx Post Traumatic Stress Disorder , Hx Schizophrenia Traumatic Medical History: Reports: Hx Fractures - right arm, Hx Pneumothorax - three times Infectious Medical History: Denies: Hx HIV Past Surgical History: Reports: Hx Abdominal Surgery - hernia repair, Hx Herniorrhaphy - bilateral with mesh, Hx Inguinal Hernia. Denies: Hx Appendectomy, Hx Bowel Surgery, Hx Cholecystectomy, Hx Colostomy, Hx Coronary Artery Bypass Graft, Hx Gastric Bypass Surgery, Hx Pacemaker, Hx Tonsillectomy - Immunizations Hx Diphtheria, Pertussis, Tetanus Vaccination: Yes Hx Pneumococcal Vaccination: 07/28/16 Review of Systems - Review of Systems Notes: Constitutional: Negative for fever. HENT: Negative for sore throat. Eyes: Negative for visual changes. Cardiovascular: Negative for chest pain. Respiratory: Negative for shortness of breath. Gastrointestinal: Negative for abdominal pain, vomiting or diarrhea. Genitourinary: Negative for dysuria. Musculoskeletal: Negative for back pain. Skin: Negative for rash. Neurological: Negative for headaches, weakness or numbness. 10 point ROS negative except as marked above and in HPI. Physical Exam - Vital signs Interpretation: Normal Notes: PHYSICAL EXAMINATION: GENERAL: Well-appearing, well-nourished and in no acute distress. HEAD: Atraumatic, normocephalic. EYES: Pupils equal round and reactive to light, extraocular movements intact, sclera anicteric, conjunctiva are normal. ENT: nares patent, oropharynx clear without exudates. Moist mucous membranes. NECK: Normal range of motion, supple without lymphadenopathy LUNGS: Breath sounds clear to auscultation bilaterally and equal. Scant wheezing in all lung castorena. HEART: Regular rate and rhythm without murmurs ABDOMEN: Soft, nontender, normoactive bowel sounds. No guarding, no rebound. No masses appreciated. EXTREMITIES: Normal range of motion, no pitting or edema. No cyanosis. NEUROLOGICAL: No focal neurological deficits. Moves all extremities spontaneously and on command. PSYCH: Normal mood, normal affect. SKIN: Warm, Dry, normal turgor, no rashes or lesions noted. Course - Re-evaluation Re-evalutation: 05/19/17 00:36 Patient presents with a mild exacerbation of their baseline COPD. Mild wheezing at time of presentation but vitals do not show significant hypoxemia or tachypnea. No retractions. Patient did clinically improve after receiving nebulizers here in the emergency department. Chest x-ray without evidence of an acute pneumonia, actually improved from prior chest x-ray. Labs do show mild hyponatremia but are otherwise unremarkable. I do not suspect an acute alternative pathology at this time based on history and exam including acute pulmonary embolus, ACS, pneumothorax, or aortic dissection. At this time will discharge with return precautions and follow-up recommendations. Verbal discharge instructions given a the bedside and opportunity for questions given. Medication warnings reviewed. Patient is in agreement with this plan and has verbalized understanding of return precautions and the need for primary care follow-up in the next 24-72 hours. - Laboratory Result Diagrams: 05/18/17 23:20 Laboratory results interpreted by me: 05/18/17 23:20 Sodium 129.5 L Chloride 93 L Glucose 196 H - Diagnostic Test Radiology reviewed: Image reviewed, Reports reviewed Radiology results interpreted by me: 05/19/17 00:37 Chest x-ray: No acute infiltrate - EKG Interpretation by Me Additional EKG results interpreted by me: 05/19/17 04:12 Sinus tachycardia. Rate 105. Unchanged ST depressions in diffuse leads. QTC is 392. Discharge - Discharge Clinical Impression: Shortness of breath, COPD with acute exacerbation Condition: Stable Disposition: HOME-SNF (ED ONLY) Additional Instructions: Please return to the emergency room immediately if you experience any concerning symptoms including high fevers, severe headache, chest pain, difficulty breathing, abdominal pain, slurred speech, numbness or weakness in your arms or legs, or any other symptom that concerns you. Referrals: GWENDOLYN VILLALOBOS MD [Primary Care Provider] - Follow up as needed
--- NOTE | 2017-05-19 13:52 | EKG REPORT ---
SEVERITY:- ABNORMAL ECG - SINUS TACHYCARDIA REPOL ABNRM SUGGESTS ISCHEMIA, ANT-LAT LEADS : Confirmed by: Lety Hernandez MD 19-May-2017 13:51:41
== END 2017-05-19 01:47 ==
LOC: ER 20:21
DX: J44.1 Chronic obstructive pulmonary disease with (acute) exacerbation (principal); I10 Essential (primary) hypertension; E78.5 Hyperlipidemia, unspecified; R00.0 Tachycardia, unspecified; I25.10 Atherosclerotic heart disease of native coronary artery without angina pectoris; E11.9 Type 2 diabetes mellitus without complications; N40.0 Benign prostatic hyperplasia without lower urinary tract symptoms; K21.9 Gastro-esophageal reflux disease without esophagitis; M19.90 Unspecified osteoarthritis, unspecified site; Z87.891 Personal history of nicotine dependence; Z87.81 Personal history of (healed) traumatic fracture
CPT/HCPCS: 93005; 94640; 99285; 36415; 80048; 84484; 71010; 93010; A9270; J7620

== ENCOUNTER 2017-05-21 21:04 | Inpatient (IN) | payer MEDICARE, MEDICAID ==
[2017-05-21] MEDS ORDERED: NORMAL SALINE 1000 ML 1,000 ML IV ONE (21:15)
--- NOTE | 2017-05-21 21:17 | ER Document Report ---
ED General - General Stated Complaint: DIFFICULTY BREATHING Time Seen by Provider: 05/21/17 21:09 Notes: Patient is an 82-year-old male who comes emergency department for chief complaint of a low oxygen saturation at 89% on room air which was recorded just prior to arrival before he was sent by EMS from [facility]. Patient denies shortness of breath, chest pain, dizziness, or any complaints. Patient was not initially tachycardic at the retirement per EMS report, however he was found to be tachycardic upon arrival. He still denies any complaints. Patient has as needed oxygen of 2 L at the nursing facility which he was not wearing when the event occurred. Past medical history of hypertension, type 2 diabetes, hyperlipidemia, COPD, afib (on xarelto), and left knee arthroplasty 1 month ago (the reason he was in rehab to begin with). Knee is doing very well. TRAVEL OUTSIDE OF THE [place] IN LAST 30 DAYS: No - Related Data Allergies/Adverse Reactions: No Known Allergies Allergy (Verified 01/24/17 13:12) Past Medical History - General Information source: Patient, Relative - Social History Smoking Status: Former Smoker Frequency of alcohol use: None Drug Abuse: None Lives with: [facility] - rehab [facility] at SNF Family History: Reviewed & Not Pertinent - Past Medical History Cardiac Medical History: Reports: Hx Coronary Artery Disease, Hx Hypercholesterolemia, Hx Hypertension Denies: Hx Atrial Fibrillation, Hx Congestive Heart Failure, Hx Heart Attack , Hx Peripheral Vascular Disease, Hx Pulmonary Embolism, Hx Heart Murmur Pulmonary Medical History: Reports: Hx Asthma, Hx COPD, Hx Respiratory Failure - Lung Collapsed 2010 Denies: Hx Bronchitis, Hx Pneumonia, Hx Sleep Apnea, Hx Tuberculosis Endocrine Medical History: Reports: Hx Diabetes Mellitus Type 2. Denies: Hx Graves' Disease, Hx Hyperthyroidism, Hx Hypothyroidism Renal/ Medical History: Denies: Hx Benign Prostatic Hyperplasia, Hx End Stage Renal Disease, Hx Kidney Stones, Hx Peritoneal Dialysis Malignancy Medical History: Denies Hx Leukemia, Denies Hx Lung Cancer, Reports Hx Pancreatic Cancer GI Medical History: Reports: Hx Gastroesophageal Reflux Disease, Hx Ulcer. Denies: Hx Crohn's Disease, Hx Hiatal Hernia, Hx Irritable Bowel, Hx Liver Failure Musculoskeltal Medical History: Reports Hx Arthritis, Denies Hx Fibromyalgia, Denies Hx Muscular Dystrophy Psychiatric Medical History: Denies: Hx Bipolar Disorder, Hx Depression, Hx Post Traumatic Stress Disorder , Hx Schizophrenia Traumatic Medical History: Reports: Hx Fractures - right arm, Hx Pneumothorax - three times Infectious Medical History: Denies: Hx HIV Past Surgical History: Reports: Hx Abdominal Surgery - hernia repair, Hx Herniorrhaphy - bilateral with mesh, Hx Inguinal Hernia. Denies: Hx Appendectomy, Hx Bowel Surgery, Hx Cholecystectomy, Hx Colostomy, Hx Coronary Artery Bypass Graft, Hx Gastric Bypass Surgery, Hx Pacemaker, Hx Tonsillectomy - Immunizations Hx Diphtheria, Pertussis, Tetanus Vaccination: Yes Hx Pneumococcal Vaccination: 07/28/16 Review of Systems - Review of Systems Constitutional: No symptoms reported EENT: No symptoms reported Cardiovascular: See HPI Respiratory: See HPI Gastrointestinal: No symptoms reported Genitourinary: No symptoms reported Male Genitourinary: No symptoms reported Musculoskeletal: No symptoms reported Skin: No symptoms reported Hematologic/Lymphatic: No symptoms reported Neurological/Psychological: No symptoms reported Physical Exam - Vital signs Vitals: BP Pulse Ox 119/76 98 05/21/17 21:11 05/21/17 21:11 Interpretation: Normal - General General appearance: Appears well In distress: None - HEENT Head: Normocephalic, Atraumatic Eyes: Normal Pupils: PERRL - Respiratory Respiratory status: No respiratory distress. No: Respiratory distress, Labored Chest status: Nontender Breath sounds: Decreased air movement - Bilateral decreased breath sounds, a few soft scattered rhonchi, otherwise unremarkable Chest palpation: Normal - Cardiovascular Rhythm: Regular, Tachycardia Heart sounds: Normal auscultation, S1 appreciated, S2 appreciated Murmur: No - Abdominal Inspection: Normal Distension: No distension Bowel sounds: Normal Tenderness: Nontender. No: Tender, Guarding Organomegaly: No organomegaly - Back Back: Normal, Nontender. No: Tender - Extremities General upper extremity: Normal inspection, Nontender, Normal color, Normal ROM , Normal temperature General lower extremity: Normal inspection, Nontender, Normal strength, Normal temperature. No: Edema - Neurological Neuro grossly intact: Yes Cognition: Normal Orientation: AAOx4 [place] Coma Scale Eye Opening: Spontaneous [place] Coma Scale Verbal: Oriented [place] Coma Scale Motor: Obeys Commands [place] Coma Scale Total: 15 Speech: Normal Motor strength normal: LUE, RUE, LLE, RLE Sensory: Normal - Psychological Associated symptoms: Normal affect, Normal mood - Skin Skin Temperature: Warm Skin Moisture: Dry Skin Color: Normal Course - Re-evaluation Re-evalutation: EKG shows sinus tachycardia at a rate of 120. Chest x-ray shows improved but residual airspace consolidation in the right lung base. CBC unchanged from prior, chemistry is very similar to prior with some hyponatremia, patient was given initial IV fluid bolus, heart rate improved to 114 on reevaluation. Patient still denying any symptoms. However patient does have history of chronic delirium. CBC, chemistry, cardiac enzymes unremarkable. Chest x-ray showing possible pneumonia still. CTA performed due to tachycardia and questionable x-ray. CTA showing what appears to be multi-focal pneumonia worse from January and consistent with earlier in the month (patient had been admitted for an extended stay at that time). He becomes hypoxic in the upper 80s without oxygen. Patient was discussed with Dr. Toro, recommends lactic acid, cultures, and admission to the hospital. Patient and state agreement with this. 05/22/17 04:[address] Song, patient will be admitted to [facility]. - Vital Signs Vital signs: Temp Pulse Resp BP Pulse Ox 26 H 116/72 96 05/21/17 23:16 05/21/17 23:15 05/21/17 23:16 - Laboratory Result Diagrams: 05/21/17 21:31 05/21/17 21:31 Laboratory results interpreted by me: 05/21/17 05/21/17 05/22/17 21:31 21:31 03:35 RBC 4.11 L Hgb 12.1 L Hct 36.7 L RDW 16.7 H Lymphocytes % 11.8 L Monocytes % 15.0 H VBG pH 7.46 H Sodium 128.0 L Chloride 90 L Glucose 179 H Alkaline Phosphatase 179 H Albumin 3.2 L Discharge - Discharge Clinical Impression: Tachycardia Pneumonia Qualifiers: Pneumonia type: due to unspecified organism Laterality: bilateral Lung location : lower lobe of lung Qualified Code(s): J18.9 - Pneumonia, unspecified organism Condition: Stable Disposition: ADMITTED INPATIENT Admitting Provider: oNhemi Unit Admitted: [facility]
[2017-05-21 21:41] LABS: ABSOLUTE BASOPHILS # (AUTO) 0.1 10^3/uL (0.0-0.2); ABSOLUTE EOSINOPHILS # (AUTO) 0.1 10^3/uL (0.0-0.6); ABSOLUTE LYMPHOCYTES (AUTO) 0.8 10^3/uL (0.5-4.7); ABSOLUTE NEUT (AUTO) 4.8 10^3/uL (1.7-8.2); BASOPHILS % (AUTO) 0.9 % (0-2); EOSINOPHILS % (AUTO) 2.2 % (0-6); HEMATOCRIT 36.7 % (37.9-51.0); HEMOGLOBIN 12.1 g/dL (13.5-17.0); HGB HCT DIFFERENCE -0.4; LYMPHOCYTES % (AUTO) 11.8 % (13-45); MEAN CORPUSCULAR HEMOGLOBIN 29.4 pg (27.0-33.4); MEAN CORPUSCULAR HGB CONC 32.9 g/dL (32.0-36.0); MEAN CORPUSCULAR VOLUME 89 fl (80-97); RED BLOOD COUNT 4.11 10^6/uL (4.35-5.55); RED CELL DISTRIBUTION WIDTH 16.7 % (11.5-14.0); SEGMENTED NEUTROPHILS % (AUTO) 70.1 % (42-78); WHITE BLOOD COUNT 6.9 10^3/uL (4.0-10.5)
--- NOTE | 2017-05-21 21:55 | RADIOLOGY REPORT (SQ) ---
EXAM DESCRIPTION: CHEST SINGLE VIEW COMPLETED DATE/TIME: 05/21/2017 9:44 pm REASON FOR STUDY: episode of low oxygen saturation COMPARISON: 05/18/2017 EXAM PARAMETERS: NUMBER OF VIEWS: One view. TECHNIQUE: Single frontal radiographic view of the chest acquired. RADIATION DOSE: NA LIMITATIONS: None. FINDINGS: LUNGS AND PLEURA: There is some minimal residual airspace consolidation in the right lung base. Further followup is recommended to exclude an underlying process. Remaining lung castorena are c lear. MEDIASTINUM AND HILAR STRUCTURES: No masses. Contour normal. HEART AND VASCULAR STRUCTURES: Heart normal in size. Normal vasculature. BONES: No acute findings. HARDWARE: None in the chest. OTHER: No other significant finding. IMPRESSION: Minimal residual airspace consolidation in the right lung base. Further followup is rec ommended to exclude an underlying process. Other findings as noted above TECHNICAL DOCUMENTATION: JOB ID: [id number]
[2017-05-21 22:02] LABS: ALANINE AMINOTRANSFERASE 34 U/L (21-72); ALBUMIN 3.2 g/dL (3.5-5.0); ALKALINE PHOSPHATASE 179 U/L (38-126); ANION GAP 14 (5-19); ASPARTATE AMINO TRANSFERASE 26 U/L (17-59); BILIRUBIN,DIRECT 0.3 mg/dL (0.0-0.4); BILIRUBIN,TOTAL 0.6 mg/dL (0.2-1.3); BLOOD UREA NITROGEN 8 mg/dL (7-20); CALCIUM 9.3 mg/dL (8.4-10.2); CARBON DIOXIDE 24 mmol/L (22-30); CHLORIDE 90 mmol/L (98-107); CREATININE RESULT 0.61 mg/dL (0.52-1.25); GLUCOSE 179 mg/dL (75-110); TOTAL PROTEIN 7.5 g/dL (6.3-8.2)
[2017-05-22 00:07] LABS: APPEARANCE,URINE CLEAR; BILIRUBIN,URINE NEGATIVE (NEGATIVE); GLUCOSE, URINE NEGATIVE (NEGATIVE); KETONES,URINE NEGATIVE (NEGATIVE); LEUKOCYTE ESTERASE,URINE NEGATIVE (NEGATIVE); NITRITE,URINE NEGATIVE (NEGATIVE); PROTEIN,URINE NEGATIVE (NEGATIVE); URINE SPECIFIC GRAVITY 1.006; UROBILINOGEN,URINE NEGATIVE mg/dL (<2.0)
--- NOTE | 2017-05-22 02:05 | RADIOLOGY REPORT (SQ) ---
EXAM DESCRIPTION: CTA CHEST COMPLETED DATE/TIME: 05/22/2017 1:11 am REASON FOR STUDY: tachycardia, eval x-ray findings COMPARISON: CR, 05/21/2017. 4.2.17 CT abdomen pelvis, 04/28/2017. TECHNIQUE: CT scan of the chest performed using helical scanning technique with dynamic intravenous contrast injection. Images reviewed with lung, soft tissue and bone windows. Reconstructed coronal and sagittal MPR images reviewed. Additional 3 dimensional post-processing performed to develop Maximal Intensity Projection images (AR P). All images stored on PACS. All CT scanners at this facility use dose modulation, iterative reconstruction, and/or weight based d osing when appropriate to reduce radiation dose to as low as reasonably achievable (ALARA). [facility]: Dose Right [facility]: CareDose [facility]: Dose Right [facility]: Teradose 4D [facility]: Diagnostic Innovations CONTRAST TYPE AND DOSE: contrast/concentration: Isovue 370.00 mg/ml; Total Contrast Delivered: 100.0 ml; Total Saline Delivered: 45.0 ml RENAL FUNCTION: Creatinine 0.6 RADIATION DOSE: Up-to-date CT equipment and radiation dose reduction techniques were employed. CTDIv ol: 22.6 mGy. DLP: 798 mGy-cm. . LIMITATIONS: None. FINDINGS: LUNGS AND PLEURA: Several nodular and spiculated airspace lesions especially of the right lower lobe, 3.3 cm. Small-moderate consolidation of the left lower lobe. Minimal left pleural effus ion. AORTA AND GREAT VESSELS: No aneurysm or dissection. HEART: No pericardial effusion. Coronary arterial calcification. PULMONARY ARTERIES: No emboli visualized in the main pulmonary arteries or the segmental branches. HILAR AND MEDIASTINAL STRUCTURES: Mild mediastinal lymphadenopathy. HARDWARE: None in the chest. UPPER ABDOMEN: No significant findings. Limited exam. THYROID AND OTHER SOFT TISSUES: No masses. No adenopathy. BONES: No acute or significant finding. 3D MIPS: Confirm above findings. OTHER: No other significant finding. IMPRESSION: Airspace consolidation and/or lesions of bilateral lower lobes persist, relatively new c ompared with CT from January 2017 and consistent with radiographs from April 2017. Infectious, inflamma tory, and neoplastic processes are in the differential diagnosis. Continued CT surveillance recommen ded at 7- 12 weeks since initiation of clinically warranted therapy. TECHNICAL DOCUMENTATION: JOB ID: [id number] Quality ID # [id number]: Final reports with documentation of one or more dose reduction techniques (e.g., Au tomated exposure control, adjustment of the mA and/or kV according to patient size, use of iterative reconstruction technique) 2010 [employer]- All Rights Reserved
[2017-05-22] MEDS ORDERED: CEFEPIME 2 GM/D5W RTU 50 ML IV ONE (02:20)
[2017-05-22] MEDS ORDERED: NORMAL SALINE 1000 ML 1,000 ML IV ONE (02:24)
[2017-05-22] MEDS ORDERED: VANCOMYCIN HCL INJ 1000 MG VIAL IV ONE (02:25)
[2017-05-22] MEDS ORDERED: ACETAMINOPHEN 325 MG TABLET PO ONE (03:29)
[2017-05-22] MEDS ORDERED: ACETAMINOPHEN 325 MG TABLET ONE (03:33)
[2017-05-22 04:00] LABS: VENOUS BLOOD BASE EXCESS 3.3 mmol/L; VENOUS BLOOD HCO3 27.2 mmol/L (20-32); VENOUS BLOOD PH 7.46 (7.30-7.42)
[2017-05-22] MEDS ORDERED: GLUCAGON,HUMAN RECOMB 1 MG INJ IM PRN (09:02)
[2017-05-22] MEDS ORDERED: DEXTROSE 40% GEL 15 GM TUBE PO PRN (09:02)
[2017-05-22] MEDS ORDERED: DEXTROSE 50%-WATER SYRINGE 12.5 GM/25 ML DOSE IV PRN (09:02)
[2017-05-22] MEDS ORDERED: DEXTROSE 50%-WATER SYRINGE 25 GM/50 ML DOSE IV PRN (09:02)
[2017-05-22] MEDS ORDERED: DEXTROSE 40% GEL 15 GM TUBE X 2 PO PRN (09:02)
[2017-05-22] MEDS ORDERED: OXYCODONE HCL IR 5 MG TABLET PO PRN (09:04)
[2017-05-22] MEDS ORDERED: TRAMADOL HCL 50 MG TABLET PO PRN (09:04)
[2017-05-22] MEDS ORDERED: (PENDING PHARMACY ID) (Omeprazole [Omeprazole] 1 CAP) PO SCH (10:00)
[2017-05-22] MEDS ORDERED: SERTRALINE HCL 50 MG TABLET PO ONE (10:00)
[2017-05-22] MEDS ORDERED: LANSOPRAZOLE 15 MG TAB.RAP.DR PO SCH (10:00)
[2017-05-22] MEDS ORDERED: METFORMIN HCL 850 MG TABLET PO ONE (10:00)
[2017-05-22] MEDS ORDERED: (PENDING PHARMACY ID) (Vit A/Vit C/Vit E/Zinc/Copper [Preservision Areds Tablet] 1 EACH) PO SCH (10:00)
[2017-05-22] MEDS ORDERED: (PENDING PHARMACY ID) (Omega-3 Fatty Acids/Fish Oil [Fish Oil 1,000 Mg Capsule] 1 EACH) PO SCH (10:00)
[2017-05-22] MEDS ORDERED: TIOTROPIUM BROMIDE 2.5 MCG IH SCH (10:00)
[2017-05-22] MEDS: CYANOCOBALAMIN (VITAMIN B-12) 1,000 MCG TABLET PO SCH (11:28)
[2017-05-22] MEDS: CHOLECALCIFEROL (D3) 1,000 UNIT TABLET PO SCH (11:29)
[2017-05-22] MEDS: MULTIVITAMIN TABLET PO SCH (11:30)
[2017-05-22] MEDS: SITAGLIPTIN PHOSPHATE 50 MG TABLET PO SCH (11:30)
[2017-05-22] MEDS: CEFEPIME HCL 1 GM in DEXTROSE 5%-WATER 50 ML IV SCH ×2 (11:31→21:39)
[2017-05-22] MEDS: OMEGA-3 ACID ETHYL ESTERS 1 GM CAPSULE PO SCH (11:31)
[2017-05-22] MEDS: HALOPERIDOL 0.5 MG TABLET PO SCH ×2 (11:32→21:37)
[2017-05-22] MEDS: INSULIN LISPRO 100 UNIT/ML 3 ML VIAL SUBCUT PRN (12:53)
[2017-05-22] MEDS ORDERED: METFORMIN HCL 850 MG TABLET PO SCH (17:00)
[2017-05-22] MEDS: VANCOMYCIN HCL 750 MG in DEXTROSE 5%-WATER 250 ML IV SCH (17:06)
--- NOTE | 2017-05-22 17:40 | EKG REPORT ---
SEVERITY:- ABNORMAL ECG - SINUS TACHYCARDIA ABNORMAL T, CONSIDER ISCHEMIA, DIFFUSE LEADS : Confirmed by: Lety Hernandez MD 22-May-2017 17:39:28
--- NOTE | 2017-05-22 20:10 | PDOC H&P ---
History of Present Illness Admission Date/PCP: 05/22/17 08:58 [facility] Patient complains of: Low oxygen level History of Present Illness: BRUCE KNOTT is a 82 year old male who was recently discharged from this hospital and transferred to [facility] for short term rehabilitation. Patient was transferred to the ED due to reported low oxygen with pulse oximetry reading at 89% on room air. Patient do have history of COPD and during last hospitalization intubated due to increase work of breathing. He did very well on BiPAP support with recommendation of CPAP machine during sleeping period. Patient was found tachycardic upon arrival in the ED. He has history of Atrial fibrillation diagnosed during is last hospitalization. His initial evaluation in the ED was remarkable for hyponatremia with serum sodium of 128 mg/dL. In view of his presenting findings and CT scan of the Chest and Abdomen findings, he was advised hospitalization. His medical morbidities include Hypertension, A.Fib, CAD, DM type 2, Hyperlipidemia, COPD, GERD, Osteoarthritis s/p recent left knee total arthroplasty. Past Medical History Cardiac Medical History: Reports: Coronary Artery Disease, Hyperlipidema, Hypertension Denies: Atrial Fibrillation, Congestive Heart Failure, Myocardial Infarction , Peripheral Vascular Disease, Pulmonary Embolism, Heart Murmur Pulmonary Medical History: Reports: Asthma, Chronic Obstructive Pulmonary Disease (COPD), Respiratory Failure - Lung Collapsed 2010 Denies: Bronchitis, Pneumonia, Sleep Apnea, Tuberculosis Endocrine Medical History: Reports: Diabetes Mellitus Type 2 Denies: Hyperthyroidism, Hypothyroidism Renal/ Medical History: Denies: End Stage Renal Disease Malignancy Medical History: Reports: Pancreatic Cancer Denies: Leukemia, Lung Cancer GI Medical History: Reports: Gastroesophageal Reflux Disease Denies: Crohn's Disease, Hiatal Hernia Musculoskeltal Medical History: Reports: Arthritis Denies: Fibromyalgia Psychiatric Medical History: Denies: Bipolar Disorder, Depression, Post Traumatic Stress Disorder Traumatic Medical History: Reports: Pneumothorax - three times Hematology: Reports: Anemia - blood transfusion Denies: Hemophilia, Sickle Cell Disease Infectious Medical History: Denies: HIV Past Surgical History Past Surgical History: Reports: Herniorrhaphy - bilateral with mesh Denies: Appendectomy, Cholecystectomy, Colostomy, Coronary Artery Bypass Graft, Gastric Bypass Surgery, Pacemaker, Tonsillectomy Social History Lives with: [facility] - rehab [facility] at [facility] Smoking Status: Former Smoker Cigarettes Packs Per Day: 2 Number of Years Smokin Last Time Smoked: 27 years ago Frequency of Alcohol Use: None Hx Recreational Drug Use: No Drugs: None Hx Prescription Drug Abuse: No - Advance Directive Resuscitation Status: Full Code Family History Family History: Reviewed & Not Pertinent Parental Family History Reviewed: Yes Children Family History Reviewed: Yes Sibling(s) Family History Reviewed.: Yes Medication/Allergy Home Medications: Cholecalciferol (Vitamin D3) [Thera-D] 4,000 unit PO DAILY 04/29/17 Cyanocobalamin (Vitamin B-12) [Vitamin B-12 1000 mcg Tablet] 1 tab PO DAILY 01/11 Linagliptin [Tradjenta] 5 mg PO QAM 04/29/17 Melatonin 10 mg PO QHS 04/29/17 Metformin HCl [Glucophage] 850 mg PO BIDBS 04/29/17 Multivitamin [One-A-Day Essential] 1 each PO DAILY 04/29/17 [place]-3 Fatty Acids/Fish Oil [Fish Oil 1,000 mg Capsule] 1 each PO DAILY Sertraline HCl [Zoloft 50 mg Tablet] 50 mg PO QAM 04/29/17 Tiotropium [place] [Spiriva Respimat] 2.5 mcg IH BID 04/29/17 Tramadol HCl 50 mg PO Q6HP PRN 04/29/17 Vit A/Vit C/Vit E/Zinc/Copper [Preservision Areds Tablet] 1 each PO DAILY Haloperidol [Haldol 0.5 mg Tablet] 0.5 mg PO Q12 #0 tablet 05/17/17 Oxycodone HCl [Oxy-Ir 5 mg Tablet] 5 mg PO Q6HP PRN #60 tablet 05/17/17 Atorvastatin Calcium [Lipitor 10 mg Tablet] 1 tab PO QHS 05/22/17 Fluticasone/Vilanterol [Breo Ellipta 200-25 Mcg INH] 1 puff IH QAM 05/22/17 Omeprazole 1 cap PO DAILY 05/22/17 Rivaroxaban [Xarelto 10 mg Tablet] 1 tab PO QHS 05/22/17 Allergies/Adverse Reactions: No Known Allergies Allergy (Verified 01/24/17 13:12) Review of Systems Constitutional: ABSENT: chills, fever(s), headache(s), weight gain, weight loss Eyes: ABSENT: visual disturbances Ears: PRESENT: hearing changes Nose, Mouth, and Throat: ABSENT: as per HPI, headache(s), mouth pain, sore throat, vertigo, other Cardiovascular: ABSENT: chest pain, dyspnea on exertion, edema, orthropnea, palpitations Respiratory: ABSENT: cough, hemoptysis Gastrointestinal: ABSENT: abdominal pain, constipation, diarrhea, hematemesis, hematochezia, nausea, vomiting Genitourinary: ABSENT: dysuria, hematuria Musculoskeletal: ABSENT: joint swelling Integumentary: ABSENT: rash, wounds Neurological: ABSENT: abnormal gait, abnormal speech, confusion, dizziness, focal weakness, syncope Psychiatric: ABSENT: anxiety, depression, homidical ideation, suicidal ideation Endocrine: ABSENT: cold intolerance, heat intolerance, menstrual abnormalities, polydipsia, polyuria Hematologic/Lymphatic: ABSENT: easy bleeding, easy bruising, lymphadenopathy Physical Exam Vital Signs: Temp Pulse Resp BP Pulse Ox 97.5 F 114 H 16 103/57 L 93 05/22/17 11:09 05/22/17 13:32 05/22/17 11:09 05/22/17 11:09 05/22/17 16:56 Intake & Output 05/21/17 05/22/17 05/23/17 06:59 06:59 06:59 Intake Total 980 Output Total 1050 Balance -70 General appearance: PRESENT: cooperative, hard of hearing - slightly, mild distress - on supplemetal oxygen via nasal cannula Head exam: PRESENT: atraumatic, normocephalic Eye exam: PRESENT: conjunctiva pink, EOMI, PERRLA. ABSENT: scleral icterus Ear exam: PRESENT: normal external ear exam Mouth exam: PRESENT: moist, tongue midline Teeth exam: ABSENT: dental caries, dental tenderness, edentulous, poor dentation , other Throat exam: ABSENT: post pharyngeal erythema, tonsillar erythema, tonsillar exudate, tonsillogmegaly, other Neck exam: PRESENT: full ROM. ABSENT: carotid bruit, JVD, lymphadenopathy, thyromegaly Respiratory exam: PRESENT: clear to auscultation boris, decreased breath sounds. ABSENT: accessory muscle use, chest wall tenderness, crackles, prolonged expiratory phas, rales, retraction, rhonchi, stridor, symmetrical, tachypnea, unlabored, wheezes, other Cardiovascular exam: PRESENT: irregular rhythm, tachycardia Pulses: PRESENT: normal dorsalis pedis pul, +2 pedal pulses bilateral Vascular exam: PRESENT: normal capillary refill GI/Abdominal exam: PRESENT: normal bowel sounds, soft. ABSENT: distended, guarding, mass, organolmegaly, rebound, tenderness Rectal exam: PRESENT: deferred Extremities exam: ABSENT: pedal edema Musculoskeletal exam: PRESENT: deformity - related to joint involvement with arthritis Neurological exam: PRESENT: alert, awake, oriented to person, oriented to place , oriented to time, oriented to situation, CN II-XII grossly intact. ABSENT: motor sensory deficit Psychiatric exam: PRESENT: appropriate affect, normal mood. ABSENT: homicidal ideation, suicidal ideation Skin exam: PRESENT: dry, intact, warm. ABSENT: cyanosis, rash Results Impressions: Chest X-Ray 05/21/17 21:14 IMPRESSION: Minimal residual airspace consolidation in the right lung base. Further followup is recommended to exclude an underlying process. Other findings as noted above Chest/Abdomen CTA 05/22/17 00:22 IMPRESSION: Airspace consolidation and/or lesions of bilateral lower lobes persist, relatively new compared with CT from January 2017 and consistent with radiographs from April 2017. Infectious, inflammatory, and neoplastic processes are in the differential diagnosis. Continued CT surveillance recommended at 7- 12 weeks since initiation of clinically warranted therapy. Assessment & Plan - Diagnosis (1) Hyponatremia with normal extracellular fluid volume Is this a current diagnosis for this admission?: YesPlan: See admitting physician orders. (2) Chronic obstructive pulmonary disease with hypoxia Is this a current diagnosis for this admission?: YesPlan: See admitting physician orders. (3) Atrial fibrillation with rapid ventricular response Is this a current diagnosis for this admission?: YesPlan: See admitting physician orders. (4) Diabetes mellitus type 2 in nonobese Is this a current diagnosis for this admission?: YesPlan: See admitting physician orders. (5) HTN (hypertension) Qualifiers: Hypertension type: essential hypertension Qualified Code(s): I10 - Essential (primary) hypertension Is this a current diagnosis for this admission?: YesPlan: See admitting physician orders. (6) HLD (hyperlipidemia) Qualifiers: Hyperlipidemia type: pure hypercholesterolemia Qualified Code(s): E78.00 - Pure hypercholesterolemia, unspecified; E78.0 - Pure hypercholesterolemia Is this a current diagnosis for this admission?: YesPlan: See admitting physician orders. (7) Coronary artery disease Qualifiers: Coronary Disease-Associated Artery/Lesion type: [place] artery [place] vs. transplanted heart: [place] heart Associated angina: without angina Qualified Code(s): I25.10 - Atherosclerotic heart disease of [place] coronary artery without angina pectoris Is this a current diagnosis for this admission?: YesPlan: See admitting physician orders. (8) Old myocardial infarction Is this a current diagnosis for this admission?: YesPlan: See admitting physician orders. (9) GERD (gastroesophageal reflux disease) Qualifiers: Esophagitis presence: without esophagitis Qualified Code(s): K21.9 - Gastro-esophageal reflux disease without esophagitis Is this a current diagnosis for this admission?: YesPlan: See admitting physician orders. (10) Chronic delirium Is this a current diagnosis for this admission?: YesPlan: See admitting physician orders. - Time Time Spent: 50 to 70 Minutes Medications reviewed and adjusted accordingly: Yes Anticipated discharge: SNF - for short term rehabilitation Within: Other - Inpatient Certification Based on my medical assessment, after consideration of the patient's comorbidities, presenting symptoms, or acuity I expect that the services needed warrant INPATIENT care.: Yes I certify that my determination is in accordance with my understanding of Medicare's requirements for reasonable and necessary INPATIENT services [42 CFR 412.3e].: Yes Medical Necessity: Need For IV Fluids, Need For Continuous Telemetry Monitoring , Need for IV Antibiotics, Risk of Complication if Not Cared For in Hospital Post Hospital Care: D/C or Transfer Summary - Plan Summary Plan Summary: See admitting physician orders.
[2017-05-22] MEDS: RIVAROXABAN 10 MG TABLET PO SCH (21:37)
[2017-05-22] MEDS: ATORVASTATIN CALCIUM 10 MG TABLET PO SCH (21:38)
[2017-05-22] MEDS: NORMAL SALINE 1000 ML 1,000 ML IV PRN (21:39)
[2017-05-22] MEDS ORDERED: (PENDING PHARMACY ID) (Melatonin [Melatonin] 10 MG) PO SCH (22:00)
[2017-05-23] MEDS: VANCOMYCIN HCL 750 MG in DEXTROSE 5%-WATER 250 ML IV SCH ×2 (05:32→17:57)
[2017-05-23 06:39] LABS: ABSOLUTE EOSINOPHILS # (AUTO) 0.3 10^3/uL (0.0-0.6); ABSOLUTE LYMPHOCYTES (AUTO) 0.6 10^3/uL (0.5-4.7); ABSOLUTE MONOCYTES (AUTO) 0.7 10^3/uL (0.1-1.4); ABSOLUTE NEUT (AUTO) 3.3 10^3/uL (1.7-8.2); BASOPHILS % (AUTO) 0.8 % (0-2); HEMATOCRIT 32.9 % (37.9-51.0); HEMOGLOBIN 11.1 g/dL (13.5-17.0); HGB HCT DIFFERENCE 0.4; LYMPHOCYTES % (AUTO) 12.9 % (13-45); MEAN CORPUSCULAR HEMOGLOBIN 29.6 pg (27.0-33.4); MEAN CORPUSCULAR HGB CONC 33.7 g/dL (32.0-36.0); MEAN CORPUSCULAR VOLUME 88 fl (80-97); MONOCYTES % (AUTO) 14.5 % (3-13); RED BLOOD COUNT 3.74 10^6/uL (4.35-5.55); RED CELL DISTRIBUTION WIDTH 16.2 % (11.5-14.0); SEGMENTED NEUTROPHILS % (AUTO) 65.8 % (42-78); WHITE BLOOD COUNT 4.9 10^3/uL (4.0-10.5)
[2017-05-23 07:02] LABS: ALANINE AMINOTRANSFERASE 32 U/L (21-72); ALBUMIN 2.9 g/dL (3.5-5.0); ALKALINE PHOSPHATASE 149 U/L (38-126); ANION GAP 10 (5-19); ASPARTATE AMINO TRANSFERASE 23 U/L (17-59); BILIRUBIN,DIRECT 0.3 mg/dL (0.0-0.4); BILIRUBIN,TOTAL 0.6 mg/dL (0.2-1.3); BLOOD UREA NITROGEN 4 mg/dL (7-20); CALCIUM 8.9 mg/dL (8.4-10.2); CARBON DIOXIDE 24 mmol/L (22-30); CHLORIDE 98 mmol/L (98-107); CHOLESTEROL 149.21 mg/dL (0-200); CREATININE RESULT 0.52 mg/dL (0.52-1.25); Direct HDL 37 mg/dL (>40); GLUCOSE 158 mg/dL (75-110); POTASSIUM 4.1 mmol/L (3.6-5.0); SODIUM 131.8 mmol/L (137-145); TOTAL PROTEIN 6.7 g/dL (6.3-8.2); TRIGLYCERIDES 151 mg/dL (<150)
[2017-05-23 07:13] LABS: DIRECT LDL 90 mg/dL (<100)
[2017-05-23 07:15] LABS: VLDL CHOLESTEROL 30.2 mg/dL (10-31)
[2017-05-23] MEDS ORDERED: (PENDING PHARMACY ID) (Fluticasone/Vilanterol [Breo Ellipta 200-25 Mcg Inh] 1 PUFF) IH SCH (08:00)
[2017-05-23] MEDS ORDERED: (PENDING PHARMACY ID) (Linagliptin [Tradjenta] 5 MG) PO SCH (08:00)
[2017-05-23] MEDS: LANSOPRAZOLE 15 MG TAB.RAP.DR PO SCH (08:33)
[2017-05-23] MEDS: SERTRALINE HCL 50 MG TABLET PO SCH (08:33)
[2017-05-23] MEDS: CYANOCOBALAMIN (VITAMIN B-12) 1,000 MCG TABLET PO SCH (09:56)
[2017-05-23] MEDS: HALOPERIDOL 0.5 MG TABLET PO SCH ×2 (09:56→21:27)
[2017-05-23] MEDS: MULTIVITAMIN TABLET PO SCH (09:56)
[2017-05-23] MEDS: SITAGLIPTIN PHOSPHATE 50 MG TABLET PO SCH (09:57)
[2017-05-23] MEDS: OMEGA-3 ACID ETHYL ESTERS 1 GM CAPSULE PO SCH (09:57)
[2017-05-23] MEDS: CHOLECALCIFEROL (D3) 1,000 UNIT TABLET PO SCH (09:57)
[2017-05-23] MEDS: CEFEPIME HCL 1 GM in DEXTROSE 5%-WATER 50 ML IV SCH ×2 (09:58→21:24)
[2017-05-23] MEDS: NORMAL SALINE 1000 ML 1,000 ML IV PRN (17:56)
--- NOTE | 2017-05-23 19:33 | PDOC PROGRESS REPORT ---
Subjective Progress Note for:: 05/23/17 Subjective:: Patient is more alert and appropriate in responses. Tolerated mechanical soft with ground meat diet and self feeding at dinner. No chest pain. Remain on supplemental oxygen via nasal cannula at 2L/min. No fever or chills. Remainon IV Vancomycin and Cefepime. Blood culture 1 bottle positive with gram positive cocci in clusters. Physical Exam Vital Signs: Temp Pulse Resp BP Pulse Ox 98.7 F 102 H 19 116/62 99 05/23/17 16:26 05/23/17 16:26 05/23/17 16:26 05/23/17 16:26 05/23/17 16:26 Intake & Output 05/22/17 05/23/17 05/24/17 06:59 06:59 06:59 Intake Total 3368 1500 Output Total 1650 275 Balance 1718 1225 Weight 76.5 kg General appearance: PRESENT: no acute distress, well-developed, well-nourished Head exam: PRESENT: atraumatic, normocephalic Eye exam: PRESENT: conjunctiva pink, EOMI, PERRLA. ABSENT: scleral icterus Respiratory exam: PRESENT: clear to auscultation boris, decreased breath sounds - at lung bases Cardiovascular exam: PRESENT: RRR. ABSENT: diastolic murmur, rubs, systolic murmur GI/Abdominal exam: PRESENT: normal bowel sounds, soft. ABSENT: distended, guarding, mass, organolmegaly, rebound, tenderness Extremities exam: ABSENT: pedal edema Musculoskeletal exam: PRESENT: normal inspection Neurological exam: PRESENT: alert, awake, oriented to person, oriented to place , oriented to time, oriented to situation, CN II-XII grossly intact. ABSENT: motor sensory deficit Psychiatric exam: PRESENT: appropriate affect, normal mood. ABSENT: homicidal ideation, suicidal ideation Skin exam: PRESENT: dry, intact, warm. ABSENT: cyanosis, rash Results Laboratory Results: 05/23/17 06:17 05/23/17 06:17 05/23/17 05/23/17 05/23/17 06: 06:17 06:17 WBC 4.9 RBC 3.74 L Hgb 11.1 L Hct 32.9 L MCV 88 MCH 29.6 MCHC 33.7 RDW 16.2 H Plt Count 288 Seg Neutrophils % 65.8 Lymphocytes % 12.9 L Monocytes % 14.5 H Eosinophils % 6.0 Basophils % 0.8 Absolute Neutrophils 3.3 Absolute Lymphocytes 0.6 Absolute Monocytes 0.7 Absolute Eosinophils 0.3 Absolute Basophils 0.0 Sodium 131.8 L Potassium 4.1 Chloride 98 Carbon Dioxide 24 Anion Gap 10 BUN 4 L Creatinine 0.52 Est GFR ( Amer) > 60 Est GFR (Non-Af Amer) > 60 Glucose 158 H Calcium 8.9 Total Bilirubin 0.6 AST 23 ALT 32 Alkaline Phosphatase 149 H Total Protein 6.7 Albumin 2.9 L Triglycerides 151 H Cholesterol 149.21 LDL Cholesterol Direct 90 VLDL Cholesterol 30.2 HDL Cholesterol 37 L TSH 1.95 Impressions: Chest X-Ray 05/21/17 21:14 IMPRESSION: Minimal residual airspace consolidation in the right lung base. Further followup is recommended to exclude an underlying process. Other findings as noted above Chest/Abdomen CTA 05/22/17 00:22 IMPRESSION: Airspace consolidation and/or lesions of bilateral lower lobes persist, relatively new compared with CT from January 2017 and consistent with radiographs from April 2017. Infectious, inflammatory, and neoplastic processes are in the differential diagnosis. Continued CT surveillance recommended at 7- 12 weeks since initiation of clinically warranted therapy. Assessment & Plan - Diagnosis (1) Hyponatremia with normal extracellular fluid volume Is this a current diagnosis for this admission?: YesPlan: Improving serum sodium level. Continue current IV fluid support. (2) Chronic obstructive pulmonary disease with hypoxia Is this a current diagnosis for this admission?: YesPlan: Continue on current medication management. (3) Atrial fibrillation with rapid ventricular response Is this a current diagnosis for this admission?: YesPlan: Continue on current medication management. (4) Diabetes mellitus type 2 in nonobese Is this a current diagnosis for this admission?: YesPlan: Continue on current medication management. (5) HTN (hypertension) Qualifiers: Hypertension type: essential hypertension Qualified Code(s): I10 - Essential (primary) hypertension Is this a current diagnosis for this admission?: YesPlan: See attending physician orders. (6) HLD (hyperlipidemia) Qualifiers: Hyperlipidemia type: pure hypercholesterolemia Qualified Code(s): E78.00 - Pure hypercholesterolemia, unspecified; E78.0 - Pure hypercholesterolemia Is this a current diagnosis for this admission?: YesPlan: See attending physician orders. (7) Coronary artery disease Qualifiers: Coronary Disease-Associated Artery/Lesion type: [place] artery [place] vs. transplanted heart: kiana heart Associated angina: without angina Qualified Code(s): I25.10 - Atherosclerotic heart disease of [place] coronary artery without angina pectoris Is this a current diagnosis for this admission?: YesPlan: See attending physician orders. (8) Old myocardial infarction Is this a current diagnosis for this admission?: YesPlan: See attending physician orders. (9) GERD (gastroesophageal reflux disease) Qualifiers: Esophagitis presence: without esophagitis Qualified Code(s): K21.9 - Gastro-esophageal reflux disease without esophagitis Is this a current diagnosis for this admission?: YesPlan: See attending physician orders. (10) Chronic delirium Is this a current diagnosis for this admission?: YesPlan: See attending physician orders. - Time Time Spent with patient: 25-34 minutes Medications reviewed and adjusted accordingly: Yes Anticipated discharge: SNF Within: Other - Inpatient Certification Medical Necessity: Need Close Monitoring Due to Risk of Patient Decompensation, Need For IV Fluids, Need For Continuous Telemetry Monitoring, Need for IV Antibiotics, Risk of Complication if Not Cared For in Hospital Post Hospital Care: D/C or Transfer Summary - Plan Summary Plan Summary: See attending physician orders.
[2017-05-23] MEDS ORDERED: ACETAMINOPHEN 325 MG TABLET PO PRN (20:41)
[2017-05-23] MEDS: ATORVASTATIN CALCIUM 10 MG TABLET PO SCH (21:26)
[2017-05-23] MEDS: RIVAROXABAN 10 MG TABLET PO SCH (21:26)
[2017-05-23] MEDS: INSULIN LISPRO 100 UNIT/ML 3 ML VIAL SUBCUT PRN (22:05)
[2017-05-24] MEDS: VANCOMYCIN HCL 750 MG in DEXTROSE 5%-WATER 250 ML IV SCH (05:52)
[2017-05-24 06:30] LABS: CREATININE RESULT 0.51 mg/dL (0.52-1.25)
[2017-05-24] MEDS: LANSOPRAZOLE 15 MG TAB.RAP.DR PO SCH (08:22)
[2017-05-24] MEDS: METFORMIN HCL 850 MG TABLET PO SCH ×2 (08:22→17:16)
[2017-05-24] MEDS: SERTRALINE HCL 50 MG TABLET PO SCH (08:22)
[2017-05-24] MEDS: CYANOCOBALAMIN (VITAMIN B-12) 1,000 MCG TABLET PO SCH (10:15)
[2017-05-24] MEDS: HALOPERIDOL 0.5 MG TABLET PO SCH (10:16)
[2017-05-24] MEDS: OMEGA-3 ACID ETHYL ESTERS 1 GM CAPSULE PO SCH (10:16)
[2017-05-24] MEDS: SITAGLIPTIN PHOSPHATE 50 MG TABLET PO SCH (10:16)
[2017-05-24] MEDS: MULTIVITAMIN TABLET PO SCH (10:16)
[2017-05-24] MEDS: CHOLECALCIFEROL (D3) 1,000 UNIT TABLET PO SCH (10:17)
[2017-05-24] MEDS: CEFEPIME HCL 1 GM in DEXTROSE 5%-WATER 50 ML IV SCH (10:18)
[2017-05-24] MEDS: NORMAL SALINE 1000 ML 1,000 ML IV PRN (10:21)
[2017-05-24] MEDS ORDERED: VANCOMYCIN HCL 750 MG in DEXTROSE 5%-WATER 250 ML IV SCH (14:00)
--- NOTE | 2017-05-24 14:57 | PDOC TRANSFER SUMMARY ---
General - Admit/Disc Date/PCP Admission Date/Primary Care Provider: 05/22/17 08:58 GWENDOLYN WILFREDO Discharge Date: 05/24/17 - Discharge Diagnosis (1) Hyponatremia with normal extracellular fluid volume Is this a current diagnosis for this admission?: Yes (2) Chronic obstructive pulmonary disease with hypoxia Is this a current diagnosis for this admission?: Yes (3) Atrial fibrillation with rapid ventricular response Is this a current diagnosis for this admission?: Yes (4) Diabetes mellitus type 2 in nonobese Is this a current diagnosis for this admission?: Yes (5) HTN (hypertension) Is this a current diagnosis for this admission?: Yes (6) HLD (hyperlipidemia) Is this a current diagnosis for this admission?: Yes (7) Coronary artery disease Is this a current diagnosis for this admission?: Yes (8) Old myocardial infarction Is this a current diagnosis for this admission?: Yes (9) GERD (gastroesophageal reflux disease) Is this a current diagnosis for this admission?: Yes (10) Chronic delirium Is this a current diagnosis for this admission?: Yes - Additional Information Resuscitation Status: Full Code Discharge Diet: Cardiac, Diabetic Discharge Activity: Activity As Tolerated, Slowly Increase Activity, Supervised Activity Home Medications: Cholecalciferol (Vitamin D3) [Thera-D] 4,000 unit PO DAILY 04/29/17 Cyanocobalamin (Vitamin B-12) [Vitamin B-12 1000 mcg Tablet] 1 tab PO DAILY 01/11 Linagliptin [Tradjenta] 5 mg PO QAM 04/29/17 Melatonin 10 mg PO QHS 04/29/17 Metformin HCl [Glucophage] 850 mg PO BIDBS 04/29/17 Multivitamin [One-A-Day Essential] 1 each PO DAILY 04/29/17 [place]-3 Fatty Acids/Fish Oil [Fish Oil 1,000 mg Capsule] 1 each PO DAILY Sertraline HCl [Zoloft 50 mg Tablet] 50 mg PO QAM 04/29/17 Tiotropium [place] [Spiriva Respimat] 2.5 mcg IH BID 04/29/17 Tramadol HCl 50 mg PO Q6HP PRN 04/29/17 Vit A/Vit C/Vit E/Zinc/Copper [Preservision Areds Tablet] 1 each PO DAILY Haloperidol [Haldol 0.5 mg Tablet] 0.5 mg PO Q12 #0 tablet 05/17/17 Oxycodone HCl [Oxy-Ir 5 mg Tablet] 5 mg PO Q6HP PRN #60 tablet 05/17/17 Atorvastatin Calcium [Lipitor 10 mg Tablet] 1 tab PO QHS 05/22/17 Fluticasone/Vilanterol [Breo Ellipta 200-25 Mcg INH] 1 puff IH QAM 05/22/17 Omeprazole 1 cap PO DAILY 05/22/17 Rivaroxaban [Xarelto 10 mg Tablet] 1 tab PO QHS 05/22/17 History of Present Illness Admission Date/PCP: 05/22/17 08:58 GWENDOLYN WILFREDO History of Present Illness: BRUCE KNOTT is a 82 year old male who was recently discharged from this hospital and transferred to [facility] for short term rehabilitation. Patient was transferred to the ED due to reported low oxygen with pulse oximetry reading at 89% on room air. Patient do have history of COPD and during last hospitalization intubated due to increase work of breathing. He did very well on BiPAP support with recommendation of CPAP machine during sleeping period. Patient was found tachycardic upon arrival in the ED. He has history of Atrial fibrillation diagnosed during is last hospitalization. His initial evaluation in the ED was remarkable for hyponatremia with serum sodium of 128 mg/dL. In view of his presenting findings and CT scan of the Chest and Abdomen findings, he was advised hospitalization. His medical morbidities include Hypertension, A.Fib, CAD, DM type 2, Hyperlipidemia, COPD, GERD, Osteoarthritis s/p recent left knee total arthroplasty. Physical Exam Vital Signs: Temp Pulse Resp BP Pulse Ox 97.2 F 107 H 20 130/77 H 98 05/24/17 11:27 05/24/17 11:27 05/24/17 11:27 05/24/17 11:27 05/24/17 11:27 Intake & Output 05/23/17 05/24/17 05/25/17 06:59 06:59 06:59 Intake Total 3368 3591 600 Output Total 1650 1275 300 Balance 1718 2316 300 Weight 76.5 kg General appearance: PRESENT: no acute distress, well-developed, well-nourished Head exam: PRESENT: atraumatic, normocephalic Eye exam: PRESENT: conjunctiva pink, EOMI, PERRLA. ABSENT: scleral icterus Respiratory exam: PRESENT: clear to auscultation boris, decreased breath sounds - at lung bases Cardiovascular exam: PRESENT: RRR. ABSENT: diastolic murmur, rubs, systolic murmur GI/Abdominal exam: PRESENT: normal bowel sounds, soft. ABSENT: distended, guarding, mass, organomegaly, rebound, tenderness Extremities exam: ABSENT: pedal edema Musculoskeletal exam: PRESENT: normal inspection Neurological exam: PRESENT: alert, awake, oriented to person, oriented to place , oriented to time, oriented to situation, CN II-XII grossly intact. ABSENT: motor sensory deficit Psychiatric exam: PRESENT: appropriate affect, normal mood. ABSENT: homicidal ideation, suicidal ideation Skin exam: PRESENT: dry, intact, warm. ABSENT: cyanosis, rash Results Laboratory Results: 05/23/17 06:17 05/24/17 05:49 05/24/17 05:49 Creatinine 0.51 L Est GFR ( Amer) > 60 Est GFR (Non-Af Amer) > 60 Impressions: Chest X-Ray 05/21/17 21:14 IMPRESSION: Minimal residual airspace consolidation in the right lung base. Further followup is recommended to exclude an underlying process. Other findings as noted above Chest/Abdomen CTA 05/22/17 00:22 IMPRESSION: Airspace consolidation and/or lesions of bilateral lower lobes persist, relatively new compared with CT from January 2017 and consistent with radiographs from April 2017. Infectious, inflammatory, and neoplastic processes are in the differential diagnosis. Continued CT surveillance recommended at 7- 12 weeks since initiation of clinically warranted therapy. Transfer Plan - Disposition Transfer Plan: Transfer back to [facility] for short term rehabilitation. Patient will need supplemental oxygen at 2L/min via nasal cannula. He will benefit from CPAP machine usage during sleep due to his end stage COPD. His blood culture growth of microcosms species was a contamination. Patient remain afebriel without leukocytosis. His CT scan findings is most likely related to his recent airspace disease process and not a new episode, - Time Spent with Patient Time spent with patient: Less than 30 Minutes Qualifiers PATEINT BEING DISCHARGED WITH ANY OF THE FOLLOWING DIAGNOSIS?: No Plan Discharge Plan: Transfer back to [facility] and continuation of his care as stipulated.
[2017-05-24 16:37] VITALS: BP 112/57
[2017-05-24] MEDS: INSULIN LISPRO 100 UNIT/ML 3 ML VIAL SUBCUT PRN (17:19)
== END 2017-05-24 21:04 | DRG 641 ==
LOC: ER 21:04 → UNDOADMIN 05-22 04:18 → EH 05-22 04:18 → 3S 05-22 06:41
PROVIDERS: ADMIT Internal Medicine Geriatric Medicine; ATTEND Internal Medicine Geriatric Medicine
DX: E87.1 Hypo-osmolality and hyponatremia (principal); J44.9 Chronic obstructive pulmonary disease, unspecified; M19.90 Unspecified osteoarthritis, unspecified site; I48.91 Unspecified atrial fibrillation; E11.9 Type 2 diabetes mellitus without complications; I10 Essential (primary) hypertension; E78.5 Hyperlipidemia, unspecified; K21.9 Gastro-esophageal reflux disease without esophagitis; R41.0 Disorientation, unspecified; D64.9 Anemia, unspecified; E78.00 Pure hypercholesterolemia, unspecified; R00.0 Tachycardia, unspecified; R09.02 Hypoxemia; I25.2 Old myocardial infarction; Z96.652 Presence of left artificial knee joint; Z79.899 Other long term (current) drug therapy; Z85.07 Personal history of malignant neoplasm of pancreas; Z87.891 Personal history of nicotine dependence; Z99.81 Dependence on supplemental oxygen
CPT/HCPCS: 36415; 51701; 71010; 71275; 80053; 80061; 80202; 81001; 82565; 82803; 82962; 83605; 84443; 84484; 85025; 87040; 87077; 93005; 93010; 96374; 96375; 99285; J0692; J1815; J3370; J3490; J7030; J7060

== ENCOUNTER → 2017-11-18 | Outpatient (CLI) | payer MEDICAID, MEDICARE ==
--- NOTE | 2017-11-18 11:32 | RADIOLOGY REPORT (SQ) ---
EXAM DESCRIPTION: CT CHEST WITHOUT COMPLETED DATE/TIME: 11/18/2017 9:57 am REASON FOR STUDY: PULMONARY NODULES/LESIONS, MULTIPLE (R91.8) R91.8 OTHER NONSPECIFIC ABNORMAL FIND ING OF LUNG FIELD COMPARISON: 2010. TECHNIQUE: CT scan performed of the chest without intravenous contrast. Images reviewed with lung, soft tissue and bone windows. Reconstructed coronal and sagittal MPR images reviewed. All images st ored on PACS. All CT scanners at this facility use dose modulation, iterative reconstruction, and/or weight based d osing when appropriate to reduce radiation dose to as low as reasonably achievable (ALARA). [facility]: Dose Right [facility]: CareDose [facility]: Dose Right [facility]: Teradose 4D [facility]: [employer] RADIATION DOSE: CT Rad equipment meets quality standard of care and radiation dose reduction techniq ues were employed. CTDIvol: 13.0 mGy. DLP: 547 mGy-cm. mGy. LIMITATIONS: No technical limitations. FINDINGS: LUNGS AND PLEURA: Areas of rounded and non rounded consolidation in the lower lobes have r esolved compared to last year's study. Several faint stable nodules in the right upper lobe may pers ist. Otherwise, bilateral lower lobe scarring. No new infiltrates. Mild upper lobe emphysema. No significant developing scratch at no developing pleural disease. HILAR AND MEDIASTINAL STRUCTURES: Relatively stable shotty nodes. HEART AND VASCULAR STRUCTURES: Extensive coronary calcification. Atherosclerotic but normal caliber aorta. No pericardial effusion. UPPER ABDOMEN: No significant findings. Limited exam. THYROID AND OTHER SOFT TISSUES: No masses. No adenopathy. BONES: No significant finding. HARDWARE: None in the chest. OTHER: No other significant findings. IMPRESSION: 1. Resolved basilar opacities. Mild chronic persistent changes. No suspicious or devel oping nodules. TECHNICAL DOCUMENTATION: JOB ID: [id number] Quality ID # [id number]: Final reports with documentation of one or more dose reduction techniques (e.g., Au tomated exposure control, adjustment of the mA and/or kV according to patient size, use of iterative reconstruction technique) 2010 [employer]- All Rights Reserved
== END ==
LOC: RAD 09:40
PROVIDERS: ATTEND Internal Medicine Pulmonary Disease
DX: R91.8 Other nonspecific abnormal finding of lung field (principal)
CPT/HCPCS: 71250

== ENCOUNTER 2017-12-20 05:45 | Emergency (ER) | payer MEDICARE, MEDICAID ==
--- NOTE | 2017-12-20 06:05 | ER Document Report ---
ED General - General Chief Complaint: Cough Stated Complaint: COUGH Time Seen by Provider: 12/20/17 06:04 Notes: 82-year-old male to the emergency department chief complaint of cough and fever and shortness of breath. Has a history of COPD. Was hospitalized less than a year ago for sepsis with pneumonia. Was on respirator. Had recent influenza. Has not recovered from that. Has not been on any antibiotics recently but did take Tamiflu. Followed by Dr. Villalobos. Denies any rash, head, eye, ear, nose , throat, abdominal pain or other issues at this time. TRAVEL OUTSIDE OF THE [place] IN LAST 30 DAYS: No - HPI Onset: Last week Onset/Duration: Gradual Severity: Moderate - Related Data Allergies/Adverse Reactions: No Known Allergies Allergy (Verified 01/24/17 13:12) Past Medical History - General Information source: Patient - Social History Smoking Status: Former Smoker Cigarette use (# per day): No Smoking Education Provided: No Drug Abuse: None Lives with: Spouse/Significant other Family History: Reviewed & Not Pertinent - Past Medical History Cardiac Medical History: Reports: Hx Coronary Artery Disease, Hx Hypercholesterolemia, Hx Hypertension Denies: Hx Atrial Fibrillation, Hx Congestive Heart Failure, Hx Heart Attack , Hx Peripheral Vascular Disease, Hx Pulmonary Embolism, Hx Heart Murmur Pulmonary Medical History: Reports: Hx Asthma, Hx COPD, Hx Respiratory Failure - Lung Collapsed 2010 Denies: Hx Bronchitis, Hx Pneumonia, Hx Sleep Apnea, Hx Tuberculosis Endocrine Medical History: Reports: Hx Diabetes Mellitus Type 2. Denies: Hx Graves' Disease, Hx Hyperthyroidism, Hx Hypothyroidism Renal/ Medical History: Denies: Hx Benign Prostatic Hyperplasia, Hx End Stage Renal Disease, Hx Kidney Stones, Hx Peritoneal Dialysis Malignancy Medical History: Denies Hx Leukemia, Denies Hx Lung Cancer, Reports Hx Pancreatic Cancer GI Medical History: Reports: Hx Gastroesophageal Reflux Disease, Hx Ulcer. Denies: Hx Crohn's Disease, Hx Hiatal Hernia, Hx Irritable Bowel, Hx Liver Failure, Hx Pancreatitis Musculoskeltal Medical History: Reports Hx Arthritis, Denies Hx Fibromyalgia, Denies Hx Muscular Dystrophy Psychiatric Medical History: Denies: Hx Bipolar Disorder, Hx Depression, Hx Post Traumatic Stress Disorder , Hx Schizophrenia Traumatic Medical History: Reports: Hx Fractures - right arm, Hx Pneumothorax - three times Infectious Medical History: Denies: Hx HIV Past Surgical History: Reports: Hx Abdominal Surgery - hernia repair, Hx Herniorrhaphy - bilateral with mesh, Hx Inguinal Hernia. Denies: Hx Appendectomy, Hx Bowel Surgery, Hx Cholecystectomy, Hx Colostomy, Hx Coronary Artery Bypass Graft, Hx Gastric Bypass Surgery, Hx Pacemaker, Hx Tonsillectomy - Immunizations Hx Diphtheria, Pertussis, Tetanus Vaccination: Yes Hx Pneumococcal Vaccination: 07/28/16 Review of Systems - Review of Systems Constitutional: Chills, Fever, Malaise, Weakness EENT: denies: Double vision, Ear pain, Nose pain, Nose congestion, Difficulty swallowing, Throat swelling Cardiovascular: Heart racing. denies: Chest pain, Palpitations Respiratory: Cough, Short of breath, Wheezing Gastrointestinal: denies: Abdominal pain, Diarrhea, Nausea, Vomiting Genitourinary: denies: Burning, Dysuria, Discharge Skin: denies: Lesions, Lumps, Rash Hematologic/Lymphatic: denies: Anemia, Blood clots, Easy bleeding, Easy bruising Neurological/Psychological: denies: Confusion, Dementia, Anxiety, Weakness Physical Exam - Vital signs Vitals: Temp Pulse Resp BP Pulse Ox 99.2 F 124 H 24 H 147/79 H 91 L 12/20/17 05:51 12/20/17 05:51 12/20/17 05:51 12/20/17 05:51 12/20/17 05:51 Interpretation: Tachycardic - General General appearance: Appears well, Alert - HEENT Head: Normocephalic, Atraumatic Eyes: Normal Pupils: PERRL - Respiratory Respiratory status: No respiratory distress Chest status: Nontender Breath sounds: Normal Chest palpation: Normal - Cardiovascular Rhythm: Tachycardia Heart sounds: Normal auscultation Murmur: No - Abdominal Inspection: Normal Distension: No distension Bowel sounds: Normal Tenderness: Nontender Organomegaly: No organomegaly - Back Back: Normal, Nontender - Extremities General upper extremity: Normal inspection, Nontender, Normal color, Normal ROM , Normal temperature General lower extremity: Normal inspection, Nontender, Normal color, Normal ROM , Normal temperature, Normal weight bearing. No: Mary's sign - Neurological Neuro grossly intact: Yes Cognition: Normal Orientation: AAOx4 Rose[place] Coma Scale Eye Opening: Spontaneous [place] Coma Scale Verbal: Oriented [place] Coma Scale Motor: Obeys Commands [place] Coma Scale Total: 15 Speech: Normal Motor strength normal: LUE, RUE, LLE, RLE Sensory: Normal - Psychological Associated symptoms: Normal affect, Normal mood - Skin Skin Temperature: Warm Skin Moisture: Dry Skin Color: Normal Course - Re-evaluation Re-evalutation: 12/20/17 07:40 Patient with a little tachycardia. Temperature is 99. Will get basic workup at this time based on his history of COPD and prone for pneumonia will likely need to treat more aggressively. 12/20/17 09:01 Patient is well-appearing. No acute distress. Does not appear septic. Chest x -ray fairly unremarkable. Does have a significant history. At this time we will treat this slightly more aggressively for COPD exacerbation. Will consult with his primary care provider as well. At this time I do feel comfortable discharging him though with outpatient treatment. Strict warning signs were given that if his symptoms get worse he should return immediately Laboratory 12/20/17 12/20/17 12/20/17 06:39 06:39 06:39 WBC 6.7 RBC 4.28 L Hgb 13.0 L Hct 38.9 MCV 91 MCH 30.4 MCHC 33.4 RDW 13.9 Plt Count 277 Seg Neutrophils % 68.3 Lymphocytes % 18.0 Monocytes % 11.9 Eosinophils % 1.5 Basophils % 0.3 Absolute Neutrophils 4.6 Absolute Lymphocytes 1.2 Absolute Monocytes 0.8 Absolute Eosinophils 0.1 Absolute Basophils 0.0 Sodium 140.2 Potassium 4.5 Chloride 99 Carbon Dioxide 28 Anion Gap 13 BUN 19 Creatinine 0.64 Est GFR ( Amer) > 60 Est GFR (Non-Af Amer) > 60 Glucose 167 H Lactic Acid 2.1 Calcium 9.5 Total Bilirubin 0.3 Direct Bilirubin 0.1 Neonat Total Bilirubin Not Reportable Neonat Direct Bilirubin Not Reportable Neonat Indirect Bili Not Reportable AST 32 ALT 31 Alkaline Phosphatase 107 Troponin I NT-Pro-B Natriuret Pep Total Protein 7.2 Albumin 4.3 Urine Color Urine Appearance Urine pH Ur Specific [place] Urine Protein Urine Glucose (UA) Urine Ketones Urine Blood Urine Nitrite Urine Bilirubin Urine Urobilinogen Ur Leukocyte Esterase Urine WBC (Auto) Urine RBC (Auto) Squamous Epi Cells Auto Urine Ascorbic Acid Influenza A (Rapid) Influenza B (Rapid) 12/20/17 12/20/17 12/20/17 06:39 06:39 06:39 WBC RBC Hgb Hct MCV MCH MCHC RDW Plt Count Seg Neutrophils % Lymphocytes % Monocytes % Eosinophils % Basophils % Absolute Neutrophils Absolute Lymphocytes Absolute Monocytes Absolute Eosinophils Absolute Basophils Sodium Potassium Chloride Carbon Dioxide Anion Gap BUN Creatinine Est GFR ( Amer) Est GFR (Non-Af Amer) Glucose Lactic Acid Calcium Total Bilirubin Direct Bilirubin Neonat Total Bilirubin Neonat Direct Bilirubin Neonat Indirect Bili AST ALT Alkaline Phosphatase Troponin I < 0.012 NT-Pro-B Natriuret Pep 82 Total Protein Albumin Urine Color Urine Appearance Urine pH Ur Specific [place] Urine Protein Urine Glucose (UA) Urine Ketones Urine Blood Urine Nitrite Urine Bilirubin Urine Urobilinogen Ur Leukocyte Esterase Urine WBC (Auto) Urine RBC (Auto) Squamous Epi Cells Auto Urine Ascorbic Acid Influenza A (Rapid) NEGATIVE Influenza B (Rapid) NEGATIVE 12/20/17 07:38 WBC RBC Hgb Hct MCV MCH MCHC RDW Plt Count Seg Neutrophils % Lymphocytes % Monocytes % Eosinophils % Basophils % Absolute Neutrophils Absolute Lymphocytes Absolute Monocytes Absolute Eosinophils Absolute Basophils Sodium Potassium Chloride Carbon Dioxide Anion Gap BUN Creatinine Est GFR ( Amer) Est GFR (Non-Af Amer) Glucose Lactic Acid Calcium Total Bilirubin Direct Bilirubin Neonat Total Bilirubin Neonat Direct Bilirubin Neonat Indirect Bili AST ALT Alkaline Phosphatase Troponin I NT-Pro-B Natriuret Pep Total Protein Albumin Urine Color YELLOW Urine Appearance CLEAR Urine pH 5.0 Ur Specific [place] 1.021 Urine Protein NEGATIVE Urine Glucose (UA) 50 H Urine Ketones NEGATIVE Urine Blood SMALL H Urine Nitrite NEGATIVE Urine Bilirubin NEGATIVE Urine Urobilinogen 2.0 H Ur Leukocyte Esterase NEGATIVE Urine WBC (Auto) 1 Urine RBC (Auto) 16 Squamous Epi Cells Auto <1 Urine Ascorbic Acid 20 H Influenza A (Rapid) Influenza B (Rapid) Chest X-Ray 12/20/17 06:06 IMPRESSION: COPD. Chronic bibasilar scarring. Fibrotic scarring in apices. - Vital Signs Vital signs: Temp Pulse Resp BP Pulse Ox 99.2 F 124 H 25 H 129/77 H 96 12/20/17 05:51 12/20/17 05:51 12/20/17 08:00 12/20/17 07:01 12/20/17 08:00 - Laboratory Result Diagrams: 12/20/17 06:39 12/20/17 06:39 Laboratory results interpreted by me: 12/20/17 12/20/17 12/20/17 06:39 06:39 07:38 RBC 4.28 L Hgb 13.0 L Glucose 167 H Urine Glucose (UA) 50 H Urine Blood SMALL H Urine Urobilinogen 2.0 H Urine Ascorbic Acid 20 H Discharge - Discharge Clinical Impression: COPD exacerbation Condition: Good Disposition: HOME, SELF-CARE Instructions: Chronic Obstructive Lung Disease ([facility]) Additional Instructions: In the event that you begin to get worse, your breathing is getting worse, your cough is getting worse, shortness of breath is worse or you have any other concerns please return immediately or follow-up with your regular doctor. Prescriptions: Azithromycin 250 mg PO DAILY 5 Days #6 tablet Methylprednisolone [Medrol Dosepack (4 mg/Tab) 21 Tab/Dosepak] 4 mg PO ASDIR PRN #21 [id number] PRN Reason: Referrals: GWENDOLYN VILLALOBOS MD [Primary Care Provider] - Follow up as needed
[2017-12-20] MEDS ORDERED: ALBUTEROL SULFATE 0.083% NEB 2.5 MG/3 ML AMPUL NEB ONE (06:07)
[2017-12-20 06:51] LABS: ABSOLUTE EOSINOPHILS # (AUTO) 0.1 10^3/uL (0.0-0.6); ABSOLUTE LYMPHOCYTES (AUTO) 1.2 10^3/uL (0.5-4.7); ABSOLUTE MONOCYTES (AUTO) 0.8 10^3/uL (0.1-1.4); ABSOLUTE NEUT (AUTO) 4.6 10^3/uL (1.7-8.2); BASOPHILS % (AUTO) 0.3 % (0-2); EOSINOPHILS % (AUTO) 1.5 % (0-6); HEMATOCRIT 38.9 % (37.9-51.0); MEAN CORPUSCULAR HEMOGLOBIN 30.4 pg (27.0-33.4); MEAN CORPUSCULAR HGB CONC 33.4 g/dL (32.0-36.0); MEAN CORPUSCULAR VOLUME 91 fl (80-97); MONOCYTES % (AUTO) 11.9 % (3-13); PLATELET COUNT 277 10^3/uL (150-450); RED BLOOD COUNT 4.28 10^6/uL (4.35-5.55); RED CELL DISTRIBUTION WIDTH 13.9 % (11.5-14.0); SEGMENTED NEUTROPHILS % (AUTO) 68.3 % (42-78); TOTAL CELLS COUNTED % (AUTO) 100 %; WHITE BLOOD COUNT 6.7 10^3/uL (4.0-10.5)
[2017-12-20 07:08] LABS: ALANINE AMINOTRANSFERASE 31 U/L (21-72); ALBUMIN 4.3 g/dL (3.5-5.0); ALKALINE PHOSPHATASE 107 U/L (38-126); ANION GAP 13 (5-19); ASPARTATE AMINO TRANSFERASE 32 U/L (17-59); BILIRUBIN,DIRECT 0.1 mg/dL (0.0-0.4); BILIRUBIN,TOTAL 0.3 mg/dL (0.2-1.3); BLOOD UREA NITROGEN 19 mg/dL (7-20); CALCIUM 9.5 mg/dL (8.4-10.2); CARBON DIOXIDE 28 mmol/L (22-30); CHLORIDE 99 mmol/L (98-107); GLUCOSE 167 mg/dL (75-110); POTASSIUM 4.5 mmol/L (3.6-5.0); SODIUM 140.2 mmol/L (137-145); TOTAL PROTEIN 7.2 g/dL (6.3-8.2)
[2017-12-20 07:12] LABS: A TYPE INFLUENZA AG NEGATIVE (NEGATIVE); B INFLUENZA AG NEGATIVE (NEGATIVE)
[2017-12-20 08:02] LABS: APPEARANCE,URINE CLEAR; BILIRUBIN,URINE NEGATIVE (NEGATIVE); COLOR,URINE YELLOW; GLUCOSE, URINE 50 mg/dL (NEGATIVE); KETONES,URINE NEGATIVE (NEGATIVE); LEUKOCYTE ESTERASE,URINE NEGATIVE (NEGATIVE); NITRITE,URINE NEGATIVE (NEGATIVE); PROTEIN,URINE NEGATIVE (NEGATIVE); URINE SPECIFIC GRAVITY 1.021
--- NOTE | 2017-12-20 08:17 | RADIOLOGY REPORT (SQ) ---
EXAM DESCRIPTION: CHEST PA/LAT COMPLETED DATE/TIME: 12/20/2017 7:40 am REASON FOR STUDY: cough COMPARISON: CT of the chest without contrast 11/18/2017. Portable chest 05/21/2017. EXAM PARAMETERS: NUMBER OF VIEWS: two views TECHNIQUE: Digital Frontal and Lateral radiographic views of the chest acquired. RADIATION DOSE: NA LIMITATIONS: none FINDINGS: LUNGS AND PLEURA: Hyperinflation consistent with COPD. . Fibrotic scarring noted in the apices and in the lung bases. MEDIASTINUM AND HILAR STRUCTURES: No masses or contour abnormalities. HEART AND VASCULAR STRUCTURES: The heart remains normal with uncoiling of an atherosclerotic thoracic aorta. BONES: No acute findings. HARDWARE: None in the chest. OTHER: No other significant finding. IMPRESSION: COPD. Chronic bibasilar scarring. Fibrotic scarring in apices. TECHNICAL DOCUMENTATION: JOB ID: [id number] SC-69 2010 [employer]- All Rights Reserved
[2017-12-20] MEDS ORDERED: METHYLPREDNISOLONE INJ 125 MG/2 ML SDV IV ONE (09:01)
[2017-12-20] MEDS ORDERED: CEFTRIAXONE 1 GM/D5W RTU 1 GM/50 ML RTUPB IV ONE (09:01)
[2017-12-20] MEDS ORDERED: CEFTRIAXONE INJ 1000 MG VIAL ONE (09:16)
[2017-12-20 10:08] VITALS: BP 128/76
--- NOTE | 2017-12-20 13:23 | EKG REPORT ---
SEVERITY:- ABNORMAL ECG - SINUS RHYTHM MULTIPLE ATRIAL PREMATURE COMPLEXES BORDERLINE R WAVE PROGRESSION, ANTERIOR LEADS : Confirmed by: Manjeet Tineo MD 20-Dec-2017 13:22:07
== END 2017-12-20 10:05 | disposition home or self-care (01) ==
LOC: ER 05:45
DX: J44.1 Chronic obstructive pulmonary disease with (acute) exacerbation (principal); R05 Cough; R50.9 Fever, unspecified; R06.02 Shortness of breath; Z87.891 Personal history of nicotine dependence
CPT/HCPCS: 93005; 94640; 99284; 96375; 96365; 36415; 87040; 85025; 80053; 81001; 84484; 83605; 87804; 83880; 71046; 93010; J2930; J0696; A9270

== ENCOUNTER → 2018-05-26 | Outpatient (CLI) | payer MEDICAID, MEDICARE ==
--- NOTE | 2018-05-26 14:32 | RADIOLOGY REPORT (SQ) ---
EXAM DESCRIPTION: CT CHEST WITHOUT COMPLETED DATE/TIME: 05/26/2018 1:13 pm REASON FOR STUDY: PULMONARY NODULES R91.8 OTHER NONSPECIFIC ABNORMAL FINDING OF LUNG FIELD COMPARISON: 11/18/2017 TECHNIQUE: CT scan performed of the chest without intravenous contrast. Images reviewed with lung, soft tissue and bone windows. Reconstructed coronal and sagittal MPR images reviewed. All images st ored on PACS. All CT scanners at this facility use dose modulation, iterative reconstruction, and/or weight based d osing when appropriate to reduce radiation dose to as low as reasonably achievable (ALARA). [facility]: Dose Right [facility]: CareDose [facility]: Dose Right [facility]: Teradose 4D [facility]: Smart Kyp RADIATION DOSE: CT Rad equipment meets quality standard of care and radiation dose reduction techniq ues were employed. CTDIvol: 13.9 mGy. DLP: 540 mGy-cm. mGy. LIMITATIONS: No technical limitations. FINDINGS: LUNGS AND PLEURA: Centrilobular and paraseptal emphysema. Mild bronchiectasis in the lowe r lobes. Mild pleural thickening left upper lobe. New 7 mm nodule in the left upper lobe on image 5 3. Subsegmental dependent airspace disease right lower lobe most likely atelectasis. No effusions. HILAR AND MEDIASTINAL STRUCTURES: No identified masses or abnormal nodes. No obvious aneurysm. HEART AND VASCULAR STRUCTURES: No aneurysm. No pericardial effusion. UPPER ABDOMEN: No significant findings. Limited exam. THYROID AND OTHER SOFT TISSUES: No masses. No adenopathy. BONES: No acute findings. HARDWARE: None in the chest. OTHER: No other significant findings. IMPRESSION: COPD. 7 mm nodule left upper lobe. TECHNICAL DOCUMENTATION: JOB ID: [id number] Quality ID # [id number]: Final reports with documentation of one or more dose reduction techniques (e.g., Au tomated exposure control, adjustment of the mA and/or kV according to patient size, use of iterative reconstruction technique) 2010 [employer]- All Rights Reserved Reading location - IP/workstation name: [email or web address]
== END ==
LOC: RAD 12:54
PROVIDERS: ATTEND Physician Assistant
DX: J44.9 Chronic obstructive pulmonary disease, unspecified (principal); R91.8 Other nonspecific abnormal finding of lung field; R91.1 Solitary pulmonary nodule
CPT/HCPCS: 71250

== ENCOUNTER → 2018-11-24 | Outpatient (CLI) | payer MEDICAID, MEDICARE ==
--- NOTE | 2018-11-24 12:48 | RADIOLOGY REPORT (SQ) ---
EXAM DESCRIPTION: CT CHEST WITHOUT COMPLETED DATE/TIME: 11/24/2018 10:43 am REASON FOR STUDY: PULMONARY NODULES R91.8 OTHER NONSPECIFIC ABNORMAL FINDING OF LUNG FIELD COMPARISON: 05/26/2018 TECHNIQUE: CT scan performed of the chest without intravenous contrast. Images reviewed with lung, soft tissue and bone windows. Reconstructed coronal and sagittal MPR images reviewed. All images st ored on PACS. All CT scanners at this facility use dose modulation, iterative reconstruction, and/or weight based d osing when appropriate to reduce radiation dose to as low as reasonably achievable (ALARA). [facility]: Dose Right [facility]: CareDose [facility]: Dose Right [facility]: Teradose 4D [facility]: Smart [employer] RADIATION DOSE: CT Rad equipment meets quality standard of care and radiation dose reduction techniq ues were employed. CTDIvol: 13.2 mGy. DLP: 514 mGy-cm. mGy. LIMITATIONS: No technical limitations. FINDINGS: LUNGS AND PLEURA: The small left upper lobe pulmonary nodule measures 6 mm on the current study on image 51 there is no new pulmonary nodule. There is mild pleural/ parenchymal scarring. Mi ld lower lobe bronchiectasis is suggested. Centrilobular emphysematous changes are present in the up per lobes. HILAR AND MEDIASTINAL STRUCTURES: No identified masses or abnormal nodes. No obvious aneurysm. HEART AND VASCULAR STRUCTURES: No aneurysm. No pericardial effusion. UPPER ABDOMEN: No significant findings. Limited exam. THYROID AND OTHER SOFT TISSUES: No masses. No adenopathy. BONES: No significant finding. HARDWARE: None in the chest. OTHER: No other significant findings. IMPRESSION: The small left upper lobe pulmonary nodule is stable, now measuring 6 mm. COMMENT: FLEISCHNER CRITERIA FOR FOLLOW-UP OF PULMONARY NODULES Incidentally detected new nodules in persons 35 or older. HIGH RISK: History of smoking or other known risk factors. 6-8mm single solid nodule: LOW RISK: CT 6-12 mo; then consider CT 18-24 mo. HIGH RISK: CT 6-12 mo; th en CT 18-24 mo. TECHNICAL DOCUMENTATION: JOB ID: [id number] Quality ID # [id number]: Final reports with documentation of one or more dose reduction techniques (e.g., Au tomated exposure control, adjustment of the mA and/or kV according to patient size, use of iterative reconstruction technique) 2010 [employer]- All Rights Reserved Reading location - IP/workstation name: [email or web address]
== END ==
LOC: RAD 10:27
PROVIDERS: ATTEND Internal Medicine Pulmonary Disease
DX: R91.8 Other nonspecific abnormal finding of lung field (principal)
CPT/HCPCS: 71250

== ENCOUNTER → 2019-08-04 | Outpatient (CLI) | payer MEDICAID, MEDICARE ==
--- NOTE | 2019-08-04 16:16 | RADIOLOGY REPORT (SQ) ---
EXAM DESCRIPTION: CAROTID DOPPLER COMPLETED DATE/TIME: 08/04/2019 4:04 pm REASON FOR STUDY: PVD I73.9 PERIPHERAL VASCULAR DISEASE, UNSPECIFIED COMPARISON: None. TECHNIQUE: Grayscale ultrasound, Doppler velocity and spectra, and color Doppler images acquired of the extra-cranial carotid and vertebral arteries. Images stored on PACS. LIMITATIONS: None. FINDINGS: RIGHT CAROTID CCA Velocities: Within normal limits. ICA Velocities Peak systolic 0.87 m/s. End diastolic 0.25 m/s. Proximal ICA/CCA peak systolic ratio 2.15. Complex plaque in the carotid bulb and proximal ICA. LEFT CAROTID CCA Velocities: Within normal limits. ICA Velocities Peak systolic 0.83 m/s. End diastolic 0.29 m/s. Proximal ICA/CCA peak systolic ratio 1.58. Complex plaque in the carotid bulb and proximal ICA. Tortuous left ICA. VERTEBRAL ARTERIES: Antegrade flow. Normal waveforms. SUBCLAVIAN ARTERIES: No finding. OTHER: No other significant finding. IMPRESSION: Complex plaque bilaterally. No hemodynamically significant stenosis. COMMENT: Quality ID #[id number]: Velocity criteria are extrapolated from the diameter data as defined by t he Society of Radiologists in Ultrasound Consensus Conference. Radiology 2003: 229; 340-346. TECHNICAL DOCUMENTATION: JOB ID: [id number] [employer]- All Rights Reserved Reading location - IP/workstation name: [email or web address]
--- NOTE | 2019-08-07 12:40 | XCELERA REPORT ---
[address] [address] Lower Extremity Arterial Evaluation Name: BRUCE KNOTT Age: 84 yrs Gender: Male : 1935 Patient Status: Outpatient Patient Location: Study Date: 08/04/2019 09:03 AM Procedure: A color flow and duplex scan of the lower extremity arteries was performed bilaterally with velocity and waveform anaylsis. 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 Biphasic with low velocity in the infrageniculate arteries. Retrograde flow in the Dorsalis Pedis. Irregular marquez in saunders scale imaging of larger vessels. Ankle Brachial index not ordered. Left Side Arterial Evaluation Normal velocity and triphasic waveforms noted from the Common Femoral artery to the Popliteal artery . Biphasic with low velocity in the infrageniculate arteries. Ankle Brachial index not ordered. Interpretation Summary Moderate hemodynamically significant lesions in the bilateral lower extremities, on duplex imaging, at rest. Duplex findings does show focal stenosis. Moderately significant hemodynamic effects at the infrageniculate level, normal at the Popliteals. Large vessel wall irregularity, suggestive of atherosclerosis. : GWENDOLYN VILLALOBOS > Micheal Carl
== END ==
LOC: SP 08:25
PROVIDERS: ATTEND Internal Medicine Geriatric Medicine
DX: I73.9 Peripheral vascular disease, unspecified (principal); I65.23 Occlusion and stenosis of bilateral carotid arteries
CPT/HCPCS: 93880; 93925

== ENCOUNTER 2019-11-01 01:30 | Inpatient (IN) | payer MEDICARE ==
[2019-11-01] MEDS ORDERED: METHYLPREDNISOLONE INJ 125 MG/2 ML SDV IV ONE (02:35)
[2019-11-01] MEDS ORDERED: IPRATROPIUM/ALBUTEROL 0.5-2.5 MG/3 ML AMPUL NEB ONE ×2 (02:35→05:34)
[2019-11-01] MEDS ORDERED: NORMAL SALINE 1000 ML 1,000 ML IV ONE (02:36)
--- NOTE | 2019-11-01 02:41 | ER Document Report ---
ED Respiratory Problem - General Chief Complaint: General Weakness Stated Complaint: TROUBLE BREATHING Time Seen by Provider: 11/01/19 02:29 Notes: Patient is a 84-year-old male with a history of COPD on 2 L nc at all times that comes to the Emergency Department for chief complaint of difficulty breathing. Symptoms started almost 1 week ago with a "cold", he has been worsening since that time. He states he coughed until he threw up once. He has not had any recorded fevers. He did fall and injure his right ribs but he denies hitting hi s head. He denies any other injuries. He is also has a history of hypertension and peripheral vascular disease. He denies smoking. TRAVEL OUTSIDE OF THE [place] IN LAST 30 DAYS: No - Related Data Allergies/Adverse Reactions: No Known Allergies Allergy (Verified 01/24/17 13:12) Home Medications: Atovastatin. Breo Elllpta. Certizine. Jardiance. Latanoprost. Levcetiriine. Melatonin. Multivitamin Men a50. Metformin. NEbulizer. omeprazole. Preservision. Risperidone. Sertraline. Tradjenta. Vitamin B12. Vitamin D3. Xarelto. Spiriva. CoQ 10. Alpha Lipoic Acid. Vitamin C. Vitamin E Past Medical History - General Information source: Patient - Social History Smoking Status: Former Smoker Chew tobacco use (# tins/day): No Frequency of alcohol use: Rare Drug Abuse: None Lives with: Family Family History: Reviewed & Not Pertinent Patient has suicidal ideation: No Patient has homicidal ideation: No - Past Medical History Cardiac Medical History: Reports: Hx Coronary Artery Disease, Hx Hypercholesterolemia, Hx Hypertension Denies: Hx Atrial Fibrillation, Hx Congestive Heart Failure, Hx Heart Attack, Hx Peripheral Vascular Disease, Hx Pulmonary Embolism, Hx Heart Murmur Pulmonary Medical History: Reports: Hx Asthma, Hx COPD, Hx Respiratory Failure - Lung Collapsed 2010 Denies: Hx Bronchitis, Hx Pneumonia, Hx Sleep Apnea, Hx Tuberculosis Endocrine Medical History: Reports: Hx Diabetes Mellitus Type 2. Denies: Hx Graves' Disease, Hx Hyperthyroidism, Hx Hypothyroidism Renal/ Medical History: Denies: Hx Benign Prostatic Hyperplasia, Hx End Stage Renal Disease, Hx Kidney Stones, Hx Peritoneal Dialysis Malignancy Medical History: Denies Hx Leukemia, Denies Hx Lung Cancer, Reports Hx Pancreatic Cancer GI Medical History: Reports: Hx Gastroesophageal Reflux Disease, Hx Ulcer. Denies: Hx Crohn's Disease, Hx Hiatal Hernia, Hx Irritable Bowel, Hx Liver Failure, Hx Pancreatitis Musculoskeletal Medical History: Reports Hx Arthritis, Denies Hx Fibromyalgia, Denies Hx Muscular Dystrophy, Denies Hx Systemic Lupus Erythematosus Psychiatric Medical History: Denies: Hx Bipolar Disorder, Hx Depression, Hx Post Traumatic Stress Disorder, Hx Schizophrenia Traumatic Medical History: Reports: Hx Fractures - right arm, Hx Pneumothorax - three times Infectious Medical History: Denies: Hx HIV Past Surgical History: Reports: Hx Abdominal Surgery - hernia repair, Hx Herniorrhaphy - bilateral with mesh, Hx Inguinal Hernia. Denies: Hx Appendectomy, Hx Bowel Surgery, Hx Cholecystectomy, Hx Colostomy, Hx Coronary Artery Bypass Graft, Hx Gastric Bypass Surgery, Hx Pacemaker, Hx Tonsillectomy - Immunizations Hx Diphtheria, Pertussis, Tetanus Vaccination: Yes Hx Pneumococcal Vaccination: 07/28/16 Review of Systems - Review of Systems Constitutional: See HPI EENT: See HPI Cardiovascular: No symptoms reported Respiratory: See HPI Gastrointestinal: No symptoms reported Genitourinary: No symptoms reported Male Genitourinary: No symptoms reported Musculoskeletal: No symptoms reported Skin: No symptoms reported Hematologic/Lymphatic: No symptoms reported Neurological/Psychological: No symptoms reported Physical Exam - Vital signs Vitals: Temp Resp 98.3 F 27 H 11/01/19 01:53 11/01/19 01:53 - Notes Notes: GENERAL: Alert, restless, appears uncomfortable HEAD: Normocephalic, atraumatic. EYES: Pupils equal, round, and reactive to light. Extraocular movements intact. ENT: Oral mucosa moist, tongue midline. Oropharynx unremarkable. Airway patent. Nares patent, no nasal septal hematoma, TM's intact. NECK: Full range of motion. Supple. Trachea midline. LUNGS: Extra wheezes, a few scattered rales, tachypnea, labored breathing HEART: Tachycardia, normal rhythm. No murmur ABDOMEN: Soft, non-tender. Non-distended. Bowel sounds present in all 4 quadrants. GENITOURINARY: Deferred EXTREMITIES: Moves all 4 extremities spontaneously. No edema, normal radial and dorsalis pedis pulses bilaterally. No cyanosis. BACK: no cervical, thoracic, lumbar midline tenderness. No saddle anesthesia, normal distal neurovascular exam. Moves all extremities in full range of motion. NEUROLOGICAL: Alert and oriented x3. Normal speech. Cranial nerves II through XII grossly intact. PSYCH: Restless SKIN: Warm, dry, normal turgor. No rashes or lesions noted. Course - Re-evaluation Re-evalutation: On initial evaluation patient with tachypnea, labored breathing, tachycardia. Patient also has what sounds like a few soft rales and expiratory wheezes. Chest x-ray unremarkable, CBC, chemistry, venous blood gas unremarkable, troponin negative. Influenza negative. After DuoNeb treatments, Solu-Medrol, IV fluids heart rate has improved to 105, respiratory rate is improved, lungs are much clearer, patient states he feels much improved and he wants to go home. Because patient's vital signs are still borderline and he still has mild tachypnea we will ambulate him to make sure that he can perform this before he goes home. Patient did very poorly with ambulation, became extremely dyspneic, pale, desaturated down to 87% on 2 L nasal cannula, and became very tachycardic. As result I discussed with Dr. Mercer who is on-call for patient's primary provider for admission. Patient states appreciation and agreement. - Vital Signs Vital signs: Temp Pulse Resp BP Pulse Ox 98.3 F 27 H 131/75 H 95 11/01/19 01:53 11/01/19 03:16 11/01/19 03:16 11/01/19 03:16 - Laboratory Result Diagrams: 11/01/19 01:59 11/01/19 01:59 Laboratory results interpreted by me: 11/01/19 11/01/19 01:59 01:59 RDW 15.3 H Lymph % (Auto) 7.5 L Seg Neutrophils % 80.7 H Sodium 133.5 L Chloride 96 L Glucose 156 H Albumin 3.4 L Discharge - Discharge Clinical Impression: COPD exacerbation, Difficulty breathing Condition: Stable Disposition: ADMITTED OBSERVATION Admitting Provider: Ruslan Unit Admitted: Telemetry
[2019-11-01 02:46] LABS: ABSOLUTE LYMPHOCYTES (AUTO) 0.7 10^3/uL (0.5-4.7); ABSOLUTE MONOCYTES (AUTO) 1.1 10^3/uL (0.1-1.4); ABSOLUTE NEUT (AUTO) 7.6 10^3/uL (1.7-8.2); BASOPHILS % (AUTO) 0.1 % (0-2); EOSINOPHILS % (AUTO) 0.1 % (0-6); HEMOGLOBIN 14.3 g/dL (13.5-17.0); LYMPHOCYTES % (AUTO) 7.5 % (13-45); MEAN CORPUSCULAR HEMOGLOBIN 29.7 pg (27.0-33.4); MEAN CORPUSCULAR HGB CONC 33.4 g/dL (32.0-36.0); MEAN CORPUSCULAR VOLUME 89 fl (80-97); MONOCYTES % (AUTO) 11.6 % (3-13); PLATELET COUNT 226 10^3/uL (150-450); RED BLOOD COUNT 4.83 10^6/uL (4.35-5.55); RED CELL DISTRIBUTION WIDTH 15.3 % (11.5-14.0); SEGMENTED NEUTROPHILS % (AUTO) 80.7 % (42-78); TOTAL CELLS COUNTED % (AUTO) 100 %; WHITE BLOOD COUNT 9.4 10^3/uL (4.0-10.5)
[2019-11-01 02:48] LABS: ALBUMIN 3.4 g/dL (3.5-5.0); ALKALINE PHOSPHATASE 107 U/L (38-126); ANION GAP 16 (5-19); ASPARTATE AMINO TRANSFERASE 27 U/L (17-59); BILIRUBIN,DIRECT 0.3 mg/dL (0.0-0.4); BILIRUBIN,TOTAL 0.6 mg/dL (0.2-1.3); BLOOD UREA NITROGEN 16 mg/dL (7-20); CARBON DIOXIDE 22 mmol/L (22-30); CHLORIDE 96 mmol/L (98-107); GLUCOSE 156 mg/dL (75-110); POTASSIUM 4.3 mmol/L (3.6-5.0); TOTAL PROTEIN 6.7 g/dL (6.3-8.2)
[2019-11-01 03:29] LABS: VENOUS BLOOD BASE EXCESS -0.4 mmol/L; VENOUS BLOOD HCO3 24.3 mmol/L (20-32); VENOUS BLOOD PCO2 39.9 mmHg (35-63); VENOUS BLOOD PH 7.4 (7.30-7.42)
--- NOTE | 2019-11-01 04:33 | RADIOLOGY REPORT (SQ) ---
Chest 2 view on 11/01/2019 at 2:59 AM CLINICAL INDICATION: Difficulty breathing, right rib injury COMPARISON: 12/20/2017 FINDINGS: There is mild elevation of the right hemidiaphragm. There is minimal basilar atelectasis or scarring. Vascular calcification is noted in the aorta. The lungs are otherwise clear. Cardiac, hilar and mediastinal contours are within normal limits. Pulmonary vascularity is within normal limits. No acute bony abnormality is noted. IMPRESSION: No acute disease.
[2019-11-01 04:52] LABS: A TYPE INFLUENZA AG NEGATIVE (NEGATIVE)
[2019-11-01 04:53] LABS: B INFLUENZA AG NEGATIVE (NEGATIVE)
[2019-11-01] MEDS ORDERED: ACETAMINOPHEN 325 MG TABLET PO PRN (07:26)
[2019-11-01] MEDS ORDERED: DEXTROSE 50%-WATER 25 GM/50 ML DISP.SYRIN IV PRN ×2 (07:30)
[2019-11-01] MEDS ORDERED: DEXTROSE 40% GEL 15 GM TUBE PO PRN ×2 (07:30)
[2019-11-01] MEDS ORDERED: GLUCAGON,HUMAN RECOMB 1 MG INJ IM PRN (07:30)
[2019-11-01] MEDS ORDERED: INSULIN LISPRO 100 UNIT/ML 3 ML VIAL SUBCUT SCH (08:00)
[2019-11-01] MEDS ORDERED: ENOXAPARIN SODIUM INJ 40 MG/0.4 ML DISP.SYRIN SUBCUT SCH (10:00)
--- NOTE | 2019-11-01 10:10 | EKG REPORT ---
SEVERITY:- OTHERWISE NORMAL ECG - SINUS TACHYCARDIA : Confirmed by: Manjeet Tineo MD 01-Nov-2019 10:09:31
--- NOTE | 2019-11-01 11:21 | PDOC H&P ---
History of Present Illness Admission Date/PCP: 11/01/19 07:27 GWENDOLYN VILLALOBOS Patient complains of: Generalized weakness History of Present Illness: BRUCE KNOTT is a 84 year old male This is a 84-year-old male patient of Dr. Villalobos with a history of the COPD required 2 L nasal cannula all the times see Dr. Nerissa cheney as outpatients brought to the emergency department with a chief complaint of difficulty in breathing. According to the patient and her family symptoms started almost 1 week before with the cold-like symptoms and worsening since that times According to the patient's family everybody have a cold symptoms and most likely this is related to the virus which everybody got it but nobody have actually positive flu Patient does not have any no fever no chills Patient's denied any chest pain no short of breath except difficulty in breat aurelio In emergency department patient received a DuoNeb and IV Solu-Medrol and patient's all blood work influenza test chest x-ray is all stable well At this point ER physicians call me to admit the patient's for the observations When I saw the patient's patient is according to the family back to the baseline and wants to go home Patient have a 1 fall but denied any head injury and according to the patient's patient does not have any symptoms do not want to go for any CT of the head Patient at this point is walking the hallway with oxygen saturations around 92%'s and heart rate is around 100 which is basically at baseline to the patient according to the patient and the family Patient did not want to stay in the hospital and family do not want to stay in the hospital and they will closely follow-up with the Dr. Villalobos Patient at this points most likely COPD mild acute exacerbations as per patient and the family will still treat with the patient with a Medrol Dosepak and Z-José Miguel and follow closely with the PCP Discussed with the patient and the family if symptoms getting worse follow in the ER Past Medical History Cardiac Medical History: Reports: Coronary Artery Disease, Hyperlipidema, Hypertension Denies: Atrial Fibrillation, Congestive Heart Failure, Myocardial Infarction, Peripheral Vascular Disease, Pulmonary Embolism, Heart Murmur Pulmonary Medical History: Reports: Asthma, Chronic Obstructive Pulmonary Dis ease (COPD), Respiratory Failure - Lung Collapsed 2010 Denies: Bronchitis, Pneumonia, Sleep Apnea, Tuberculosis Endocrine Medical History: Reports: Diabetes Mellitus Type 2 Denies: Hyperthyroidism, Hypothyroidism Renal/ Medical History: Denies: End Stage Renal Disease Malignancy Medical History: Reports: Pancreatic Cancer Denies: Leukemia, Lung Cancer GI Medical History: Reports: Gastroesophageal Reflux Disease Denies: Crohn's Disease, Hiatal Hernia Musculoskeltal Medical History: Reports: Arthritis Denies: Fibromyalgia Psychiatric Medical History: Denies: Bipolar Disorder, Depression, Post Traumatic Stress Disorder Traumatic Medical History: Reports: Pneumothorax - three times Hematology: Reports: Anemia - blood transfusion Denies: Hemophilia, Sickle Cell Disease Infectious Medical History: Denies: HIV Past Surgical History Past Surgical History: Reports: Herniorrhaphy - bilateral with mesh Denies: Appendectomy, Cholecystectomy, Colostomy, Coronary Artery Bypass Graft, Gastric Bypass Surgery, Pacemaker, Tonsillectomy Social History Lives with: Family Smoking Status: Former Smoker Electronic Cigarette use?: No Frequency of Alcohol Use: None Hx Recreational Drug Use: No Drugs: None Hx Prescription Drug Abuse: No Family History Family History: Reviewed & Not Pertinent Parental Family History Reviewed: Yes Children Family History Reviewed: Yes Sibling(s) Family History Reviewed.: Yes Medication/Allergy Allergies/Adverse Reactions: No Known Allergies Allergy (Verified 01/24/17 13:12) Review of Systems Constitutional: PRESENT: weakness. ABSENT: chills, fever(s), headache(s), weight gain, weight loss Eyes: ABSENT: visual disturbances Ears: ABSENT: hearing changes Cardiovascular: ABSENT: chest pain, dyspnea on exertion, edema, orthropnea, palpitations Respiratory: PRESENT: cough. ABSENT: hemoptysis Gastrointestinal: ABSENT: abdominal pain, constipation, diarrhea, hematemesis, hematochezia, nausea, vomiting Genitourinary: ABSENT: dysuria, hematuria Musculoskeletal: ABSENT: joint swelling Integumentary: ABSENT: rash, wounds Neurological: ABSENT: abnormal gait, abnormal speech, confusion, dizziness, focal weakness, syncope Psychiatric: ABSENT: anxiety, depression, homidical ideation, suicidal ideation Endocrine: ABSENT: cold intolerance, heat intolerance, menstrual abnormalities, polydipsia, polyuria Hematologic/Lymphatic: ABSENT: easy bleeding, easy bruising, lymphadenopathy Physical Exam Vital Signs: Temp Pulse Resp BP Pulse Ox 98.8 F 19 134/82 H 93 11/01/19 07:04 11/01/19 09:01 11/01/19 09:01 11/01/19 09:01 Intake & Output 10/31/19 11/01/19 11/02/19 06:59 06:59 06:59 Intake Total 1000 Balance 1000 Weight 81.193 kg General appearance: PRESENT: no acute distress, well-developed, well-nourished Head exam: PRESENT: atraumatic, normocephalic Eye exam: PRESENT: conjunctiva pink, EOMI, PERRLA. ABSENT: scleral icterus Ear exam: PRESENT: normal external ear exam Mouth exam: PRESENT: moist, tongue midline Neck exam: PRESENT: full ROM. ABSENT: carotid bruit, JVD, lymphadenopathy, thyromegaly Respiratory exam: PRESENT: clear to auscultation boris Cardiovascular exam: PRESENT: RRR. ABSENT: diastolic murmur, rubs, systolic murmur Pulses: PRESENT: normal dorsalis pedis pul, +2 pedal pulses bilateral Vascular exam: PRESENT: normal capillary refill GI/Abdominal exam: PRESENT: normal bowel sounds, soft. ABSENT: distended, guarding, mass, organolmegaly, rebound, tenderness Rectal exam: PRESENT: deferred Extremities exam: ABSENT: pedal edema Musculoskeletal exam: PRESENT: ambulatory Neurological exam: PRESENT: alert, awake, oriented to person, oriented to place, oriented to time, oriented to situation, CN II-XII grossly intact. ABSENT: motor sensory deficit Psychiatric exam: PRESENT: appropriate affect, normal mood. ABSENT: homicidal ideation, suicidal ideation Skin exam: PRESENT: dry, intact, warm. ABSENT: cyanosis, rash Results Laboratory Results: 11/01/19 01:59 11/01/19 01:59 11/01/19 11/01/19 11/01/19 01:59 01:59 03:10 WBC 9.4 RBC 4.83 Hgb 14.3 Hct 43.0 MCV 89 MCH 29.7 MCHC 33.4 RDW 15.3 H Plt Count 226 Seg Neutrophils % 80.7 H VBG pH 7.40 VBG pCO2 39.9 VBG HCO3 24.3 VBG Base Excess -0.4 Sodium 133.5 L Potassium 4.3 Chloride 96 L Carbon Dioxide 22 Anion Gap 16 BUN 16 Creatinine 0.57 Est GFR ( Amer) > 60 Glucose 156 H Calcium 9.0 Total Bilirubin 0.6 AST 27 Alkaline Phosphatase 107 Total Protein 6.7 Albumin 3.4 L 11/01/19 01:59 Troponin I 0.012 Impressions: Chest X-Ray 11/01/19 02:36 IMPRESSION: No acute disease. Assessment & Plan - Diagnosis (1) COPD exacerbation Is this a current diagnosis for this admission?: Yes Plan: Patient is received a DuoNeb nebulizer and IV Solu-Medrol and patient is back to the baseline's Patients do not want to stay in the hospital was treated with the Medrol Dosepak (2) Diabetes mellitus type 2 in nonobese Is this a current diagnosis for this admission?: Yes Plan: The patient on a steroid watch for the sugar (3) Generalized weakness Is this a current diagnosis for this admission?: Yes Plan: Is currently feeling better most likely underlying viral etiology (4) HLD (hyperlipidemia) Qualifiers: Hyperlipidemia type: unspecified Qualified Code(s): E78.5 - Hyperlipidemia, unspecified Is this a current diagnosis for this admission?: Yes (5) HTN (hypertension) Qualifiers: Hypertension type: essential hypertension Is this a current diagnosis for this admission?: Yes Plan: all stable (6) CAD (coronary artery disease) Qualifiers: Coronary Disease-Associated Artery/Lesion type: [place] artery Is this a current diagnosis for this admission?: Yes Plan: Initial EKG and cardiac enzyme is all stable Patient is currently denied any chest pain Patients do not want to stay in the hospital currently no acute coronary syndromes (7) Chronic atrial fibrillation Is this a current diagnosis for this admission?: Yes Plan: Currently well controlled heart rate - Time Time Spent: 30 to 50 Minutes Medications reviewed and adjusted accordingly: Yes Anticipated discharge: Home Within: Other - Inpatient Certification Based on my medical assessment, after consideration of the patient's comorbidities, presenting symptoms, or acuity I expect that the services needed warrant INPATIENT care.: Yes I certify that my determination is in accordance with my understanding of Medicare's requirements for reasonable and necessary INPATIENT services [42 CFR 412.3e].: Yes Medical Necessity: Significant Comorbidiites Make Outpatient Treatment Too Risky, Need For Continuous Telemetry Monitoring, Need for Nebulizer Therapy and Monitoring of Response Post Hospital Care: D/C Software Integration Developer Documentation - Plan Summary Plan Summary: At this points patient is walking the hallway O2 sat is all stable Patient's family refused for the CT of the head Patients do not want to stay in the hospital and family did not want to keep him in the hospital they feel like patient is back to the baseline's Again very extensive discussions with the patient and the family in the room with the nursing staff patient's closely follow-up with the PCP within a 1 or 2 days We will prescribed a Medrol Dosepak's and a Z-José Miguel If any increasing any shortness of the breath or any chest pains follow in ER Otherwise very stable at this point on the discharge
--- NOTE | 2019-11-01 11:23 | PDOC DISCHARGE SUMMARY ---
Impression - Admit/DC Date/PCP Admission Date/Primary Care Provider: 11/01/19 07:27 GWENDOLYN VILLALOBOS Discharge Date: 11/01/19 - Discharge Diagnosis (1) COPD exacerbation Is this a current diagnosis for this admission?: Yes (2) Diabetes mellitus type 2 in nonobese Is this a current diagnosis for this admission?: Yes (3) Generalized weakness Is this a current diagnosis for this admission?: Yes (4) HLD (hyperlipidemia) Is this a current diagnosis for this admission?: Yes (5) HTN (hypertension) Is this a current diagnosis for this admission?: Yes (6) CAD (coronary artery disease) Is this a current diagnosis for this admission?: Yes (7) Chronic atrial fibrillation Is this a current diagnosis for this admission?: Yes - Additional Information Discharge Diet: As Tolerated Discharge Activity: Activity As Tolerated Referrals: GWENDOLYN VILLALOBOS MD [Primary Care Provider] - Follow up as needed (f/u with 2 days) History of Present Illiness History of Present Illness: BRUCE KNOTT is a 84 year old male This is a 84-year-old male patient of Dr. Villalobos with a history of the COPD required 2 L nasal cannula all the times see Dr. Nerissa cheney as outpatients brought to the emergency department with a chief complaint of difficulty in breathing. According to the patient and her family symptoms started almost 1 week before with the cold-like symptoms and worsening since that times According to the patient's family everybody have a cold symptoms and most likely this is related to the virus which everybody got it but nobody have actually positive flu Patient does not have any no fever no chills Patient's denied any chest pain no short of breath except difficulty in breathing In emergency department patient received a DuoNeb and IV Solu-Medrol and patient's all blood work influenza test chest x-ray is all stable well At this point ER physicians call me to admit the patient's for the observations When I saw the patient's patient is according to the family back to the baseline and wants to go home Patient have a 1 fall but denied any head injury and according to the patient's patient does not have any symptoms do not want to go for any CT of the head Patient at this point is walking the hallway with oxygen saturations around 92%'s and heart rate is around 100 which is basically at baseline to the patient according to the patient and the family Patient did not want to stay in the hospital and family do not want to stay in the hospital and they will closely follow-up with the Dr. Villalobso Patient at this points most likely COPD mild acute exacerbations as per patient and the family will still treat with the patient with a Medrol Dosepak and Z-José Miguel and follow closely with the PCP Discussed with the patient and the family if symptoms getting worse follow in the ER Hospital Course Hospital Course: This is a 84-year-old male's basically a call for the observations for the COPD acute exacerbations When I saw the patient's in the ER patient is pretty much back to the baseline normal patient was treated with IV Solu-Medrol and respiratory treatments Patient's all labs EKG other medical problem was all stable Patient and family did not want to stay in the hospital At this point patient is walking the hallway and O2 sat is all stable Patient is required 2 L nasal cannulae at home's Very extensive discussions with the patient and the family to closely follow-up with the PCP in 1 or 2 days Follow-up with the Dr. Multani If his symptoms getting worse following the ER Physical Exam Vital Signs: Temp Pulse Resp BP Pulse Ox 98.8 F 19 134/82 H 93 11/01/19 07:04 11/01/19 09:01 11/01/19 09:01 11/01/19 09:01 Intake & Output 10/31/19 11/01/19 11/02/19 06:59 06:59 06:59 Intake Total 1000 Balance 1000 Weight 81.193 kg General appearance: PRESENT: no acute distress, well-developed, well-nourished Head exam: PRESENT: atraumatic, normocephalic Eye exam: PRESENT: conjunctiva pink, EOMI, PERRLA. ABSENT: scleral icterus Ear exam: PRESENT: normal external ear exam Mouth exam: PRESENT: moist, tongue midline Neck exam: ABSENT: carotid bruit, JVD, lymphadenopathy, thyromegaly Respiratory exam: PRESENT: clear to auscultation boris. ABSENT: rales, rhonchi, wheezes Cardiovascular exam: PRESENT: RRR. ABSENT: diastolic murmur, rubs, systolic murmur Pulses: PRESENT: normal dorsalis pedis pul Vascular exam: PRESENT: normal capillary refill GI/Abdominal exam: PRESENT: normal bowel sounds, soft. ABSENT: distended, guarding, mass, organolmegaly, rebound, tenderness Rectal exam: PRESENT: deferred Extremities exam: PRESENT: full ROM. ABSENT: calf tenderness, clubbing, pedal edema Neurological exam: PRESENT: alert, awake, oriented to person, oriented to place, oriented to time, oriented to situation, CN II-XII grossly intact. ABSENT: motor sensory deficit Psychiatric exam: PRESENT: appropriate affect, normal mood. ABSENT: homicidal ideation, suicidal ideation Skin exam: PRESENT: dry, intact, warm. ABSENT: cyanosis, rash Results Laboratory Results: WBC 9.4 10^3/uL (4.0-10.5) 11/01/19 01:59 RBC 4.83 10^6/uL (4.35-5.55) 11/01/19 01:59 Hgb 14.3 g/dL (13.5-17.0) 11/01/19 01:59 Hct 43.0 % (37.9-51.0) 11/01/19 01:59 MCV 89 fl (80-97) 11/01/19 01:59 MCH 29.7 pg (27.0-33.4) 11/01/19 01:59 MCHC 33.4 g/dL (32.0-36.0) 11/01/19 01:59 RDW 15.3 % (11.5-14.0) H 11/01/19 01:59 Plt Count 226 10^3/uL (150-450) 11/01/19 01:59 Lymph % (Auto) 7.5 % (13-45) L 11/01/19 01:59 [place] % (Auto) 11.6 % (3-13) 11/01/19 01:59 Eos % (Auto) 0.1 % (0-6) 11/01/19 01:59 Baso % (Auto) 0.1 % (0-2) 11/01/19 01:59 Absolute Neuts (auto) 7.6 10^3/uL (1.7-8.2) 11/01/19 01:59 Absolute Lymphs (auto) 0.7 10^3/uL (0.5-4.7) 11/01/19 01:59 Absolute Monos (auto) 1.1 10^3/uL (0.1-1.4) 11/01/19 01:59 Absolute Eos (auto) 0.0 10^3/uL (0.0-0.6) 11/01/19 01:59 Absolute Basos (auto) 0.0 10^3/uL (0.0-0.2) 11/01/19 01:59 Seg Neutrophils % 80.7 % (42-78) H 11/01/19 01:59 VBG pH 7.40 (7.30-7.42) 11/01/19 03:10 VBG pCO2 39.9 mmHg (35-63) 11/01/19 03:10 VBG HCO3 24.3 mmol/L (20-32) 11/01/19 03:10 VBG Base Excess -0.4 mmol/L 11/01/19 03:10 Sodium 133.5 mmol/L (137-145) L 11/01/19 01:59 Potassium 4.3 mmol/L (3.6-5.0) 11/01/19 01:59 Chloride 96 mmol/L (98-107) L 11/01/19 01:59 Carbon Dioxide 22 mmol/L (22-30) 11/01/19 01:59 Anion Gap 16 (5-19) 11/01/19 01:59 BUN 16 mg/dL (7-20) 11/01/19 01:59 Creatinine 0.57 mg/dL (0.52-1.25) 11/01/19 01:59 Est GFR ( Amer) > 60 (>60) 11/01/19 01:59 Est GFR (MDRD) Non-Af > 60 (>60) 11/01/19 01:59 Glucose 156 mg/dL (75-110) H 11/01/19 01:59 POC Glucose 167 mg/dL (70-110) H 11/01/19 08:26 Calcium 9.0 mg/dL (8.4-10.2) 11/01/19 01:59 Total Bilirubin 0.6 mg/dL (0.2-1.3) 11/01/19 01:59 Direct Bilirubin 0.3 mg/dL (0.0-0.4) 11/01/19 01:59 Neonat Total Bilirubin Not Reportable 11/01/19 01:59 Neonat Direct Bilirubin Not Reportable 11/01/19 01:59 Neonat Indirect Bili Not Reportable 11/01/19 01:59 AST 27 U/L (17-59) 11/01/19 01:59 ALT 30 U/L (<50) 11/01/19 01:59 Alkaline Phosphatase 107 U/L (38-126) 11/01/19 01:59 Troponin I 0.012 ng/mL 11/01/19 01:59 Total Protein 6.7 g/dL (6.3-8.2) 11/01/19 01:59 Albumin 3.4 g/dL (3.5-5.0) L 11/01/19 01:59 Influenza A (Rapid) NEGATIVE (NEGATIVE) 11/01/19 04:30 Influenza B (Rapid) NEGATIVE (NEGATIVE) 11/01/19 04:30 11/01/19 01:59 Troponin I 0.012 Impressions: Chest X-Ray 11/01/19 02:36 IMPRESSION: No acute disease. Plan Time Spent: Greater than 30 Minutes - Again discussed with the patient's family to closely follow with the PCP As per my examinations and reviewed all the charts patient is currently stable but again patient have a multiple risk factor needs to closely follow while patient does not want to stay in the hospital Stroke Is this a Stroke Patient?: No Acute Heart Failure - Is this a Heart Failure Patient?: No
[2019-11-01] MEDS ORDERED: IPRATROPIUM/ALBUTEROL 0.5-2.5 MG/3 ML AMPUL NEB SCH (12:00)
[2019-11-01 12:38] VITALS: BP 119/77
== END 2019-11-01 12:46 | disposition home or self-care (01) | DRG 191 ==
LOC: ER 01:30 → EH 06:28 → OBSVTOIN 07:27
PROVIDERS: ADMIT Family Medicine; ATTEND Family Medicine
DX: J44.1 Chronic obstructive pulmonary disease with (acute) exacerbation (principal); I48.20 Chronic atrial fibrillation, unspecified; E11.9 Type 2 diabetes mellitus without complications; E78.5 Hyperlipidemia, unspecified; I10 Essential (primary) hypertension; I25.10 Atherosclerotic heart disease of native coronary artery without angina pectoris; Z99.81 Dependence on supplemental oxygen; Z87.891 Personal history of nicotine dependence; Z91.81 History of falling
CPT/HCPCS: 36415; 71046; 80053; 82803; 82962; 84484; 85025; 87040; 87804; 93005; 93010; 99285; J2930; J7030; J7620

== ENCOUNTER → 2019-11-24 | Outpatient (CLI) | payer MEDICARE, MEDICAID ==
--- NOTE | 2019-11-24 10:12 | RADIOLOGY REPORT (SQ) ---
EXAM DESCRIPTION: CT CHEST WITHOUT COMPLETED DATE/TIME: 11/24/2019 9:19 am REASON FOR STUDY: PULMONARY NODULE (R91.1) R91.1 SOLITARY PULMONARY NODULE COMPARISON: 11/24/2018 TECHNIQUE: CT scan performed of the chest without intravenous contrast. Images reviewed with lung, soft tissue and bone windows. Reconstructed coronal and sagittal MPR images reviewed. All images st ored on PACS. All CT scanners at this facility use dose modulation, iterative reconstruction, and/or weight based d osing when appropriate to reduce radiation dose to as low as reasonably achievable (ALARA). [facility]: Dose Right [facility]: CareDose [facility]: Dose Right [facility]: Teradose 4D [facility]: FanGo RADIATION DOSE: CT Rad equipment meets quality standard of care and radiation dose reduction techniq ues were employed. CTDIvol: 10.9 mGy. DLP: 447 mGy-cm. mGy. LIMITATIONS: No technical limitations. FINDINGS: LUNGS AND PLEURA: Decrease in size of ground-glass nodule left upper lobe image 48. Previ ous 8 mm now 5 mm. Stable right basilar scarring. No effusions. HILAR AND MEDIASTINAL STRUCTURES: No identified masses or abnormal nodes. No obvious aneurysm. HEART AND VASCULAR STRUCTURES: No aneurysm. No pericardial effusion. UPPER ABDOMEN: No significant findings. Limited exam. THYROID AND OTHER SOFT TISSUES: No masses. No adenopathy. BONES: No significant finding. HARDWARE: None in the chest. OTHER: No other significant findings. IMPRESSION: Decrease in size of left upper lobe pulmonary nodule. No new nodules. TECHNICAL DOCUMENTATION: JOB ID: [id number] Quality ID # [id number]: Final reports with documentation of one or more dose reduction techniques (e.g., Au tomated exposure control, adjustment of the mA and/or kV according to patient size, use of iterative reconstruction technique) 2010 [employer]- All Rights Reserved Reading location - IP/workstation name: [email or web address]
== END ==
LOC: RAD 08:54
PROVIDERS: ATTEND Internal Medicine Pulmonary Disease
DX: R91.1 Solitary pulmonary nodule (principal)
CPT/HCPCS: 71250